=== PATIENT | male | born 1955 | race Hispanic/Latino ===

== ENCOUNTER → 2018-03-16 | Day surgery (SDC) | payer OTHER ==
[2018-03-14 15:25] LABS: BASOPHILS # (AUTO) 0.1 (0.0-0.1); BASOPHILS % 0.7 % (0.0-1.0); EOSINOPHILS # (AUTO) 0.4 (0.0-0.4); EOSINOPHILS % 6.2 % (0.0-6.0); HEMATOCRIT 39.1 % (38.2-49.6); HEMOGLOBIN 13.1 g/dL (14.0-18.0); MEAN CORPUSCULAR HEMOGLOBIN 28.9 pg (28-32); MEAN CORPUSCULAR HGB CONC 33.5 g/dL (31-35); MEAN CORPUSCULAR VOLUME 86.3 fL (81-99); MONOCYTES # (AUTO) 0.5 (0.2-0.8); MONOCYTES % 7.9 % (4.4-11.3); NEUTROPHILS # (AUTO) 4.7 (2.1-6.9); NEUTROPHILS % 70.1 % (38.7-80.0); PLATELET COUNT 198 x10e3/uL (140-360); RED BLOOD COUNT 4.53 x10e6/uL (4.3-5.7); RED CELL DISTRIBUTION WIDTH 13.2 % (11.7-14.4)
[2018-03-14 15:45] LABS: ANION GAP 12.2 mmol/L (8-16); BLOOD UREA NITROGEN 15 mg/dL (7-26); BUN/CREATININE RATIO 20 (6-25); CALCIUM 9.2 mg/dL (8.4-10.2); CARBON DIOXIDE 28 mmol/L (22-29); CHLORIDE 105 mmol/L (98-107); CREATININE, SERUM 0.75 mg/dL (0.72-1.25); EST GLOMERULAR FILTRATION RATE > 60 ML/MIN (60-); GLUCOSE 69 mg/dL (74-118); POTASSIUM 4.2 mmol/L (3.5-5.1); SODIUM 141 mmol/L (136-145)
[~2018-03-16] MED LIST: ACETAMINOPHEN/CODEINE 300MG - 30MG TAB ONE; AVODART0.5 MG PO; AZO PO; AZO1 EACH PO; BELLADONNA/OPIUM 60 MG SUPP PR ONE; CIPRO500 MG PO; DEXAMETHASONE SOD PHOS INJ 4 MG/ML VIAL ONE; FENTANYL CITRATE/PF 100MCG/2 ML INJ ONE; FLOMAX0.4 MG PO; IOPAMIDOL 610MG/1ML 300 MG/ML VIAL IV ONE; LIDOCAINE HCL 2% LOCAL INJ 5 ML SDV VIAL INJ ONE; LOSARTAN POTASS25 MG PO; MIDAZOLAM HCL 2 MG/2 ML VIAL ONE; ONDANSETRON HCL INJ 2 MG/ML VIAL ONE; PIPER-TAZ 3.375 GM 100 ML ONE; PROPOFOL IV EMULSION 10 MG/ML 20 ML VIAL ONE; SEVOFLURANE INHAL SOLN 250 ML PEN BTL ONE
--- NOTE | 2018-03-16 11:44 | Diagnostic Imaging Report ---
PROCEDURE:X-RAY ABDOMEN - KUB COMPARISON:None. INDICATIONS:PREOPERATIVE XRAY FOR KIDNEY STONE SURGERY FINDINGS: One view of the abdomen (AP supine). No dilated loops of bowel or abnormal air-fluid levels patterns. Small calcifications are projected over both kidneys, including a 5 mm calcification in the right lower pole and a 6 mm calcification in the left upper pole. Multiple round calcifications in the pelvis most likely represent phleboliths. CONCLUSION: Small calcifications projected over both kidneys, measuring up to 6 mm, may represent renal stones. Dictated by: Raghavendra Springer M.D. on 03/16/2018 at 11:45 Electronically approved by: Raghavendra Springer M.D. on 03/16/2018 at 11:45
--- NOTE | 2018-05-01 01:21 | Operative Report ---
DATE OF PROCEDURE: March 16, 2018 PREOPERATIVE DIAGNOSES 1. Cystolithiasis. 2. Urinary tract infections. POSTOPERATIVE DIAGNOSES 1. Cystolithiasis. 2. Urinary tract infections. PROCEDURES PERFORMED 1. Cystourethroscopy with bilateral ureteral catheterization and retrograde ureteropyelography (separately performed for the urinary tract infections). 2. Interpretation of retrograde ureteropyelography. 3. Supervision of fluoroscopy. No radiologist present. 4. Cystourethroscopy with cystolitholapaxy of very large stone (separately performed for the diagnosis of cystolithiasis). ANESTHESIA: General. COMPLICATIONS: None. CLINICAL SUMMARY: Collin Barone is a 62-year-old man with cystolithiasis, urinary tract infections. He was brought for the above procedures. He is aware the risks of bleeding, infection, injury to adjacent structures, need for additional procedures and elected to proceed. OPERATIVE PROCEDURE IN DETAIL: Informed consent was verified. Collin Barone was properly identified, taken to operating room, placed on the cystoscopy table in supine position. Anesthesia was uneventfully begun. The patient was then carefully and gently re-positioned in the dorsal lithotomy position with all pressure points well padded. His genitalia were prepared and draped usual sterile fashion. The 22.5-Slovenian cystoscope sheath with visual obturator in place was atraumatically inserted into the patient's urethra. It was guided down the unremarkable urethra down the normal sphincter past the normal sphincteric region through the prostate bed was significant for severely obstructing BPH with trilobar prostatic hypertrophy and an intravesical median lobe. Panendoscopy of the bladder revealed a very large stone. No suspicious lesions were identified. Heavy trabeculations were noted. An 8-Slovenian catheter was used to cannulate each ureter and retrograde ureteral pyelograms were performed. Interpretation of retrograde ureteropyelography: Contrast was instilled in retrograde fashion bilaterally. There was dilation of both distal ureters, as well as tortuosity of both distal ureters. Most likely caused by the severe BPH, which also caused J-hooking. The calyceal system was delicate and sharp. Stone was noted in the left intrarenal collecting system. I could not differentiate the patient's left renal mass by retrograde pyelograms. There was a filling defect within the bladder corresponding to the large prostate indenting in the bladder base and occupying some of the bladder lumen. Holmium laser lithotripsy was then performed. A rather significant amount of lithotripsy was performed until all stone debris was pulverized. We then extracted all stone debris. The cystoscope was withdrawn. The patient's bladder was drained. The catheter was irrigated to and fro to ensure it worked properly in the patient. A belladonna and opium suppository was placed revealing a larger than 50-g prostate smooth, non-fluctuant without any nodules. The patient was uneventfully reversed from anesthesia, was taken to recovery room in stable condition. There were no complications to procedure well. He tolerated the procedure well. Plans will be to perform 3 followup procedures. 1. Transverse resection of prostate. 2. A left ESWL with cystoscopy retrograde, pyelograms for insertion of stent. 3. Left partial nephrectomy. These 3 operations will be performed over the next several months as we continued to manage the patient's complicated urological condition. Job#: [id number] CQ cc:CRISTAL YEPEZ MD
== END | disposition home or self-care (01) ==
LOC: OR 10:53
PROVIDERS: ATTEND Urology
DX: N21.0 Calculus in bladder (principal); D41.01 Neoplasm of uncertain behavior of right kidney; N39.0 Urinary tract infection, site not specified; N32.89 Other specified disorders of bladder; N40.1 Benign prostatic hyperplasia with lower urinary tract symptoms; N13.8 Other obstructive and reflux uropathy; N20.0 Calculus of kidney; R03.0 Elevated blood-pressure reading, without diagnosis of hypertension; R00.1 Bradycardia, unspecified; Z01.812 Encounter for preprocedural laboratory examination
CPT/HCPCS: 36415; 52318; 74018; 74420; 80048; 83970; 84550; 85025; 88300; 93005; C1758; J1100; J2001; J2250; J2405; J2543; Q9967

== ENCOUNTER 2018-03-20 10:41 | Emergency (ER) | payer OTHER ==
[~2018-03-20] VITALS: Ht 170.2 cm; Wt 72.6 kg
[~2018-03-20 10:41] MED LIST changes: -ACETAMINOPHEN/CODEINE 300MG - 30MG TAB ONE; -AVODART0.5 MG PO; -BELLADONNA/OPIUM 60 MG SUPP PR ONE; -DEXAMETHASONE SOD PHOS INJ 4 MG/ML VIAL ONE; -FENTANYL CITRATE/PF 100MCG/2 ML INJ ONE; -FLOMAX0.4 MG PO; -IOPAMIDOL 610MG/1ML 300 MG/ML VIAL IV ONE; -LIDOCAINE HCL 2% LOCAL INJ 5 ML SDV VIAL INJ ONE; -MIDAZOLAM HCL 2 MG/2 ML VIAL ONE; -ONDANSETRON HCL INJ 2 MG/ML VIAL ONE; -PIPER-TAZ 3.375 GM 100 ML ONE; -PROPOFOL IV EMULSION 10 MG/ML 20 ML VIAL ONE; -SEVOFLURANE INHAL SOLN 250 ML PEN BTL ONE
--- OUTSIDE RECORDS SUMMARY | 2018-03-20 10:43 | XMS REPORT ---
[facility] Address Unknown Phone Unavailable Care Team Providers Care Appetizer Packer Name Role Phone CAPRICE EDUARDO Unavailable Unavailable Problems This patient has no known problems. Allergies, Adverse Reactions, Alerts This patient has no known allergies or adverse reactions. Medications This patient has no known medications. Results Test Description Test Time Test Comments Text Results Atomic Results Result Comments ABDOMEN-1VIEW (KUB) [place] [address] Patient Name: MASON LEVI MR #: [id number] : 1955 Age/Sex: 62/M Req #: [id number] Adm Physician: Ordered by: CAPRICE EDUARDO MD Report #: [id number] Location: OR Room/Bed: Procedure: [id number] DX/ABDOMEN-1VIEW (KUB) Exam Date: 03/16/18 Exam Time: 1115 REPORT STATUS: Signed PROCEDURE: X-RAY ABDOMEN - KUB COMPARISON: None. INDICATIONS: PREOPERATIVE XRAY FOR KIDNEY STONE SURGERY FINDINGS: One view of the abdomen (AP supine ). No dilated loops of bowel or abnormal air-fluid levels patterns. Small calcifications are projected over both kidneys, including a 5 mm calcification in the right lower pole and a 6 mm calcification in the left upper pole. Multiple round calcifications in the pelvis most likely represent phleboliths. CONCLUSION: Small calcifications projected over both kidneys, measuring up to 6 mm, may represent renal stones. Dictated by: Tiffany Springer M.D. on 03/16/2018 at 11:45 Electronically approved by: Tiffany Springer M.D. on 03/16/2018 at 11:45 Dictated By: TIFFANY SPRINGER MD [id number] Transcribed By: JOSÉ on 03/16/18 1145 COPY TO: CAPRICE EDUARDO MD
[2018-03-20 12:13] LABS: CLARITY,URINE CLEAR (CLEAR); COLOR,URINE ORANGE (YELLOW); LEUKOCYTE ESTERASE ,URINE TRACE (NEGATIVE); NITRITE,URINE POSITIVE (NEGATIVE); PROTEIN,URINE DIPSTICK 1+ (NEGATIVE)
[2018-03-20 12:14] LABS: BILIRUBIN,URINE NEGATIVE (NEGATIVE); KETONES,URINE NEGATIVE (NEGATIVE); URINE UROBILINOGEN 1 mg/dL (0.2 - 1)
[2018-03-20 12:24] LABS: BACTERIA,URINE FEW /HPF; EPITHELIAL CELLS,URINE RARE /LPF; TRANSITIONAL EPI CELLS,URINE FEW; WBC,URINE (MAN) 21-50 /HPF (0-5)
[2018-03-20] MEDS ORDERED: CEFTRIAXONE SOD 1 GM VIAL IM ONE (13:15)
[2018-03-20] MEDS ORDERED: ACETAMINOPHEN 325 MG TAB PO ONE (16:00)
== END 2018-03-20 16:52 | disposition home or self-care (01) ==
LOC: ER 10:41
DX: N30.01 Acute cystitis with hematuria (principal); R30.0 Dysuria
CPT/HCPCS: 81001; 99283; J0696

== ENCOUNTER 2018-04-18 07:10 | Inpatient (IN) | payer OTHER ==
[~2018-04-18] VITALS: Ht 170.2 cm; Wt 78.9 kg
[~2018-04-18 07:10] MED LIST changes: +AVODART0.5 MG PO; +FLOMAX0.4 MG PO
--- OUTSIDE RECORDS SUMMARY | 2018-04-18 07:13 | XMS REPORT | Continuity of Care Document ---
Author Author [facility] Organization [facility] Address [address] [place] [address] Phone Unavailable Care Team Providers Care Thermostat Mechanic Name Role Phone CRISTAL YEPEZ MD PCP Insurance Providers Guarantor Collin Levi Address [address] [place] [address] Email [email or web address] Payer [facility] Policy Number [id number] Subscriber's Name Levi,Collin Relationship 18 Self / Same As Patient Effective Date 17 Advance Directives Directive Response Recorded Date/Time Does the patient have an advance directive? No 03/14/18 10:42am If yes, is advance directive on file with [facility]? No 03/14/18 10:42am If not on file with [facility] will patient provide a copy? No 03/14/18 10:42am Do you have a Directive to Physician? No 03/20/18 11:37am Do you have a Medical Power of Public Health Doctor? No 03/20/18 11:37am Do you have an out of hospital Do Not Resuscitate Order? No 03/20/18 11:37am Do you have any special needs we should be aware of? No 03/20/18 11:37am Do you have a support person here with you today? Yes 03/20/18 11:37am Did patient receive Notice of Privacy Practices? Yes 03/20/18 11:37am Did patient receive patient rights and responsibilities? Yes 03/20/18 11:37am Problems No problem information available. Medications Current Home Medications Medication Dose Units Route Directions Days Qty Instructions Start Date Azo Oral Daily Ciprofloxacin Hcl (Cipro) 500 Mg Tablet 500 Mg Oral Every 12 Hours 30 Tab Losartan Potassium 25 Mg Tablet 25 Mg Oral Daily Social History Smoking Status Start Date Stop Date Never Smoker Hospital Discharge Instructions No hospital discharge instruction information available. Plan of Care Discharge Date 03/20/18 4:52pm Disposition HOME, SELF-CARE Condition at Discharge Stable Instructions/Education Provided Urinary Tract Infection - Men Forms Provided Work/School Excuse Prescriptions See Medication Section Referrals CAPRICE EDUARDO MD Order Date: Call for an appointment Address: [facility] [place] [address] Note: Call to scheduled follow up appointment in 7-10 days Additional Instructions/Education Call for follow up appointment to see your medical provider or the referral listed. Take over the counter Motrin or Tylenol medication as needed for comfort. discussed at the bedside, drink fluids, rest and return to the emergency department for any fever, shortness of breath, chest pain, abdominal pain, trouble handling oral secretions or any new concerns. Functional Status No functional status information available. Allergies, Adverse Reactions, Alerts No known allergies. Immunizations No immunization information available. Vital Signs Acute Vital Signs Vital Response Date/Time Height 5 ft 7 in 03/20/2018 11:02am Weight 160 lb 03/20/2018 11:02am Body Mass Index 25.1 kg/m^2 03/20/2018 11:02am Results Laboratory Results Test Name Result Units Flags Reference Collection Date/Time Result Date/ Time Comments White Blood Count 6.74 x10e3/uL 4.8-10.8 03/14/2018 3:15pm 03/14/2018 3 :26pm Red Blood Count 4.53 x10e6/uL 4.3-5.7 03/14/2018 3:15pm 03/14/2018 3: 26pm Hemoglobin 13.1 g/dL L 14.0-18.0 03/14/2018 3:15pm 03/14/2018 3:26pm Hematocrit 39.1 % 38.2-49.6 03/14/2018 3:1503/14/2018 3:26pm Mean Corpuscular Volume 86.3 fL 81-99 03/14/2018 3:15pm 03/14/2018 3: 26pm Mean Corpuscular Hemoglobin 28.9 pg 28-32 03/14/2018 3:1503/14/2018 3:26pm Mean Corpuscular Hemoglobin Concent 33.5 g/dL 31-35 03/14/2018 3:1503/14/2018 3:26pm Red Cell Distribution Width 13.2 % 11.7-14.4 03/14/2018 3:2017 3:26pm Platelet Count 198 x10e3/uL 140-360 03/14/2018 3:pm 03/14/2018 3: 26pm Neutrophils (%) (Auto) 70.1 % 38.7-80.0 03/14/2018 3:03/14/2018 3: 26pm Lymphocytes (%) (Auto) 15.0 % L 18.0-39.1 03/14/2018 3:03/14/2018 3 :26pm Monocytes (%) (Auto) 7.9 % 4.4-11.3 03/14/2018 3:03/14/2018 3: 26pm Eosinophils (%) (Auto) 6.2 % H 0.0-6.0 03/14/2018 3:03/14/2018 3: 26pm Basophils (%) (Auto) 0.7 % 0.0-1.0 03/14/2018 3:03/14/2018 3:26pm IM GRANULOCYTES % 0.1 % 0.0-1.0 03/14/2018 3:03/14/2018 3:26pm Neutrophils # (Auto) 4.7 2.1-6.9 03/14/2018 3:03/14/2018 3:26pm Lymphocytes # (Auto) 1.0 1.0-3.2 03/14/2018 3:pm 03/14/2018 3:26pm Monocytes # (Auto) 0.5 0.2-0.8 03/14/2018 3:1503/14/2018 3:26pm Eosinophils # (Auto) 0.4 0.0-0.4 03/14/2018 3:15pm 03/14/2018 3:26pm Basophils # (Auto) 0.1 0.0-0.1 03/14/2018 3:15pm 03/14/2018 3:26pm Absolute Immature Granulocyte (auto 0.01 x10e3/uL 0-0.1 03/14/2018 3: 15pm 03/14/2018 3:26pm Sodium Level 141 mmol/L 136-145 03/14/2018 3:15pm 03/14/2018 3:46pm Potassium Level 4.2 mmol/L 3.5-5.1 03/14/2018 3:15pm 03/14/2018 3:46pm Chloride Level 105 mmol/L 98-107 03/14/2018 3:15pm 03/14/2018 3:46pm Carbon Dioxide Level 28 mmol/L 22-29 03/14/2018 3:15pm 03/14/2018 3: 46pm Anion Gap 12.2 mmol/L 8-16 03/14/2018 3:15pm 03/14/2018 3:46pm Blood Urea Nitrogen 15 mg/dL 7-03/14/2018 3:15pm 03/14/2018 3:46pm Creatinine 0.75 mg/dL 0.72-1.25 03/14/2018 3:15pm 03/14/2018 3:46pm BUN/Creatinine Ratio 20 6-25 03/14/2018 3:15pm 03/14/2018 3:46pm Estimat Glomerular Filtration Rate > 60 ML/MIN 60- 03/14/2018 3:15pm 3:46pm Ranges were taken from the National Kidney Disease Education Program and the National Kidney Foundation literature. Reference ranges: 60 or greater: Normal 16-59 (for 3 consecutive months): Chronic kidney disease 15 or less: Kidney failure Glucose Level 69 mg/dL L 74-118 03/14/2018 3:15pm 03/14/2018 3:46pm Calcium Level 9.2 mg/dL 8.4-10.2 03/14/2018 3:15pm 03/14/2018 3:46pm Uric Acid 5.2 mg/dL 4.8-8.0 03/14/2018 3:15pm 03/14/2018 3:46pm Parathyroid Hormone 21 pg/mL 15-65 03/14/2018 3:15pm 03/15/2018 7:13am Calcium (Send out) 8.7 mg/dL 8.6-10.2 03/14/2018 3:15pm 03/15/2018 7: 13am Parathyroid Hormone Interpretation Comment . 03/14/2018 3:15pm 2017 7:13am Interpretation Intact PTH Calcium (pg/mL) (mg/dL) Normal 15 - 65 8.6 - 10.2 Primary Hyperparathyroidism >65 >10.2 Secondary Hyperparathyroidism >65 <10.2 Non-Parathyroid Hypercalcemia <65 >10.2 Hypoparathyroidism <15 < 8.6 Non-Parathyroid Hypocalcemia 15 - 65 < 8.6 Performed at: - [facility] [address] [id number] Air Bag Builder: John Lucsa MD, Phone: [phone] Performed at: - [facility] [address] [id number] Air Bag Builder: Tony Glover MD, Phone: [phone] Urine Color ORANGE H YELLOW 03/20/2018 12:00pm 03/20/2018 12:15pm Urine Clarity CLEAR CLEAR 03/20/2018 12:00pm 03/20/2018 12:15pm Urine Specific Stoddard 1.010 1.010-1.025 03/20/2018 12:00pm 2017 12:15pm Urine pH 7 5 - 7 03/20/2018 12:00pm 03/20/2018 12:15pm Urine Leukocyte Esterase TRACE H NEGATIVE 03/20/2018 12:00pm 2017 12:15pm Urine Nitrite POSITIVE H NEGATIVE 03/20/2018 12:00pm 03/20/2018 12: 15pm Urine Protein 1+ H NEGATIVE 03/20/2018 12:00pm 03/20/2018 12:15pm Urine Glucose (UA) 1+ H NEGATIVE 03/20/2018 12:00pm 03/20/2018 12: 15pm Urine Ketones NEGATIVE NEGATIVE 03/20/2018 12:00pm 03/20/2018 12: 15pm Urine Urobilinogen 1 mg/dL 0.2 - 1 03/20/2018 12:00pm 03/20/2018 12: 15pm Urine Bilirubin NEGATIVE NEGATIVE 03/20/2018 12:00pm 03/20/2018 12: 15pm Urine Blood 2+ H NEGATIVE 03/20/2018 12:00pm 03/20/2018 12:15pm Urine WBC 21-50 /HPF H 0-5 03/20/2018 12:00pm 03/20/2018 12:25pm Urine RBC 6-10 /HPF H 0-5 03/20/2018 12:00pm 03/20/2018 12:25pm Urine Bacteria FEW /HPF NONE 03/20/2018 12:00pm 03/20/2018 12:25pm Urine Epithelial Cells RARE /LPF NONE 03/20/2018 12:00pm 03/20/2018 12: 25pm Urine Transitional Epithelial Cells FEW NONE 03/20/2018 12:00pm 03/20 12:25pm Procedures Procedure Status Date Provider(s) Cystoscopy with retrograde pyelography Completed 03/16/18 CAPRICE EDUARDO MD Encounters Encounter Location Arrival/Admit Date Discharge/Depart Date Attending Provider Departed Emergency [facility] 03/20/18 10:41am 03/20 4:52pm MELONIE FRANCO MD Registered Surgical Day Care [facility] 03/16/18 10:53am CAPRICE EDUARDO MD
[2018-04-18] MEDS ORDERED: GENTAMICIN 80MG/NS 100 ML 200 ML IV ONE (07:35)
[2018-04-18] MEDS ORDERED: CEFTRIAXONE SOD 1 GM VIAL ONE (07:35)
[2018-04-18] MEDS ORDERED: IOPAMIDOL 610MG/1ML 300 MG/ML VIAL IV ONE (08:07)
[2018-04-18] MEDS ORDERED: BELLADONNA/OPIUM 60 MG SUPP PR ONE ×2 (08:07→23:50)
[2018-04-18] MEDS ORDERED: FENTANYL CITRATE/PF 100MCG/2 ML INJ ONE ×2 (11:13→19:41)
[2018-04-18] MEDS ORDERED: MORPHINE SULFATE INJ 10 MG/ML ONE (12:27)
[2018-04-18 12:36] LABS: HEMATOCRIT 32.1 % (38.2-49.6); HEMOGLOBIN 10.3 g/dL (14.0-18.0)
[2018-04-18] MEDS: ACETAMINOPHEN/CODEINE 300MG - 30MG TAB PO PRN ×3 (14:20→22:43)
[2018-04-18 14:30] VITALS: BP 111/65
[2018-04-18] MEDS ORDERED: LIDOCAINE HCL 2% LOCAL INJ 5 ML SDV VIAL INJ ONE (14:43)
[2018-04-18] MEDS ORDERED: SEVOFLURANE INHAL SOLN 250 ML PEN BTL ONE (14:43)
[2018-04-18] MEDS ORDERED: ONDANSETRON HCL INJ 2 MG/ML VIAL ONE (14:43)
[2018-04-18] MEDS ORDERED: DEXAMETHASONE SOD PHOS INJ 4 MG/ML VIAL ONE (14:43)
[2018-04-18] MEDS ORDERED: PROPOFOL IV EMULSION 10 MG/ML 20 ML VIAL ONE (14:43)
[2018-04-18] MEDS ORDERED: PHENAZOPYRIDINE HCL 100 MG TAB PO PRN (15:00)
[2018-04-18] MEDS: PIPER-TAZ 3.375 GM 50 ML IV SCH ×2 (15:01→22:43)
[2018-04-18] MEDS: D5.45%NS/KCL 20MEQ 1,000 ML IV SCH ×2 (15:02→21:06)
[2018-04-18 15:03] VITALS: BP 111/65
[2018-04-18 15:55] VITALS: BP 127/69
--- NOTE | 2018-04-18 16:55 | History and Physical ---
REASON FOR ADMISSION: Mr. Barone is a pleasant 62-year-old man who is admitted at this time for a transurethral resection of the prostate. HISTORY OF PRESENT ILLNESS: The patient has had recent problems with the urinary tract. He had a Salinas catheter placed in January of 2018 while he was at [facility], but it was later removed. He also had a Salinas catheter placed March 23, 2018. PAST MEDICAL HISTORY: Significant for hypertension. He has had previous urinary tract infections, and he tells me that he had a bladder stone removed by Dr. Qureshi in February of 2018. He denies any other surgeries or any medical problems. His home medications have been Losartan 25 mg daily, Avodart 0.5 mg daily, tamsulosin 0.4 mg daily. PERSONAL AND SOCIAL HISTORY: He does not smoke. FAMILY HISTORY: Both parents in their 80s of myocardial infarctions. REVIEW OF SYSTEMS: CARDIAC: Negative. GASTROINTESTINAL: Negative. PULMONARY: Negative. PHYSICAL EXAMINATION: GENERAL: Exam at this time shows a pleasant man who is relatively comfortable with a Salinas catheter in place with irrigation of the bladder. VITAL SIGNS: He is afebrile, normotensive. HEENT: Unremarkable. NECK: No jugular venous distention. THORAX: Heart sounds S1 and S2 are equal. No murmurs. Lungs are clear. ABDOMEN: Protuberant. Normal bowel sounds. Nontender, with no masses or organomegaly. EXTREMITIES: With no cyanosis, clubbing or edema. LABORATORY: Studies from February showed BUN 15, creatinine 0.75, hemoglobin 13.1, platelets 198,000. Current laboratory studies today show hemoglobin 10.3, hematocrit 32.1 with no platelet count and no other labs. EKG on the chart shows sinus rhythm. ASSESSMENT: 1. Benign prostatic hypertrophy. 2. Transurethral resection of the prostate. 3. Hypertension by history. PLAN: Will continue his home medications, and he is having irrigation of the bladder. Will recheck labs in the morning and assure his comfort with analgesics. Job#: [id number] cc:MD CRISTAL DAVILA MD
[2018-04-18] MEDS: DOCUSATE SODIUM 100 MG CAP PO SCH (17:28)
[2018-04-18] MEDS ORDERED: MIDAZOLAM HCL 2 MG/2 ML VIAL ONE (19:41)
[2018-04-18 20:00] VITALS: BP 151/73
[2018-04-19] VITALS (7 sets, daily range): BP systolic 99–191; BP diastolic 55–90
[2018-04-19] MEDS: BELLADONNA/OPIUM 60 MG SUPP PR PRN ×2 (00:08→07:00)
[2018-04-19] MEDS: ACETAMINOPHEN/CODEINE 300MG - 30MG TAB PO PRN ×4 (04:08→22:13)
[2018-04-19] MEDS: D5.45%NS/KCL 20MEQ 1,000 ML IV SCH ×3 (05:06→20:37)
[2018-04-19 05:25] LABS: BASOPHILS % 0.3 % (0.0-1.0); EOSINOPHILS % 0.2 % (0.0-6.0); HEMATOCRIT 30.7 % (38.2-49.6); HEMOGLOBIN 9.9 g/dL (14.0-18.0); LYMPHOCYTES # (AUTO) 0.9 (1.0-3.2); LYMPHOCYTES % 14.4 % (18.0-39.1); MEAN CORPUSCULAR HEMOGLOBIN 27.7 pg (28-32); MEAN CORPUSCULAR HGB CONC 32.2 g/dL (31-35); MEAN CORPUSCULAR VOLUME 85.8 fL (81-99); MONOCYTES # (AUTO) 0.5 (0.2-0.8); NEUTROPHILS # (AUTO) 4.9 (2.1-6.9); NEUTROPHILS % 76.8 % (38.7-80.0); PLATELET COUNT 142 x10e3/uL (140-360); RED BLOOD COUNT 3.58 x10e6/uL (4.3-5.7); RED CELL DISTRIBUTION WIDTH 13.8 % (11.7-14.4)
[2018-04-19 05:29] LABS: INR 1.08; PROTHROMBIN TIME 13.2 seconds (11.9-14.5)
[2018-04-19 05:30] LABS: PARTIAL THROMBOPLASTIN TIME 28.6 seconds (23.8-35.5)
[2018-04-19] MEDS: PIPER-TAZ 3.375 GM 50 ML IV SCH ×3 (06:03→22:13)
[2018-04-19 06:05] LABS: ALANINE AMINOTRANSFERASE 13 IU/L (0-55); ALBUMIN 2.7 g/dL (3.5-5.0); ALBUMIN/GLOBULIN RATIO 1.1 (0.8-2.0); ALKALINE PHOSPHATASE 53 IU/L (40-150); ANION GAP 9.5 mmol/L (8-16); BLOOD UREA NITROGEN 13 mg/dL (7-26); BUN/CREATININE RATIO 18 (6-25); CALCIUM 8.4 mg/dL (8.4-10.2); CARBON DIOXIDE 26 mmol/L (22-29); CHLORIDE 105 mmol/L (98-107); CREATININE, SERUM 0.74 mg/dL (0.72-1.25); EST GLOMERULAR FILTRATION RATE > 60 ML/MIN (60-); GLUCOSE 121 mg/dL (74-118); POTASSIUM 4.5 mmol/L (3.5-5.1); SODIUM 136 mmol/L (136-145)
[2018-04-19] MEDS ORDERED: BELLADONNA/OPIUM 60 MG SUPP PR ONE (06:44)
[2018-04-19] MEDS: DOCUSATE SODIUM 100 MG CAP PO SCH ×2 (08:41→20:37)
[2018-04-19] MEDS: LOSARTAN POTASSIUM 25 MG TAB PO SCH (09:00)
[2018-04-19] MEDS: BELLADONNA/OPIUM 30 MG SUPP RC PRN ×2 (13:56→20:38)
[2018-04-20] VITALS (7 sets, daily range): BP systolic 111–142; BP diastolic 62–74
[2018-04-20] MEDS: BELLADONNA/OPIUM 30 MG SUPP RC PRN ×4 (03:26→22:21)
[2018-04-20] MEDS: D5.45%NS/KCL 20MEQ 1,000 ML IV SCH ×2 (05:06→08:59)
[2018-04-20 05:14] LABS: BASOPHILS # (AUTO) 0.1 (0.0-0.1); BASOPHILS % 0.7 % (0.0-1.0); EOSINOPHILS # (AUTO) 0.2 (0.0-0.4); EOSINOPHILS % 2.2 % (0.0-6.0); HEMATOCRIT 34.5 % (38.2-49.6); LYMPHOCYTES # (AUTO) 1.4 (1.0-3.2); LYMPHOCYTES % 19.3 % (18.0-39.1); MEAN CORPUSCULAR HEMOGLOBIN 27.5 pg (28-32); MEAN CORPUSCULAR HGB CONC 31.9 g/dL (31-35); MEAN CORPUSCULAR VOLUME 86.3 fL (81-99); MONOCYTES # (AUTO) 0.6 (0.2-0.8); MONOCYTES % 7.5 % (4.4-11.3); NEUTROPHILS # (AUTO) 5.1 (2.1-6.9); PLATELET COUNT 155 x10e3/uL (140-360); RED CELL DISTRIBUTION WIDTH 14.1 % (11.7-14.4)
[2018-04-20 05:29] LABS: ANION GAP 9.2 mmol/L (8-16); BLOOD UREA NITROGEN 9 mg/dL (7-26); BUN/CREATININE RATIO 11 (6-25); CALCIUM 8.8 mg/dL (8.4-10.2); CARBON DIOXIDE 27 mmol/L (22-29); CHLORIDE 104 mmol/L (98-107); CREATININE, SERUM 0.79 mg/dL (0.72-1.25); EST GLOMERULAR FILTRATION RATE > 60 ML/MIN (60-); GLUCOSE 94 mg/dL (74-118); POTASSIUM 4.2 mmol/L (3.5-5.1); SODIUM 136 mmol/L (136-145)
[2018-04-20] MEDS: PIPER-TAZ 3.375 GM 50 ML IV SCH ×3 (06:29→22:21)
[2018-04-20] MEDS: ACETAMINOPHEN/CODEINE 300MG - 30MG TAB PO PRN ×3 (08:09→18:50)
[2018-04-20] MEDS: LOSARTAN POTASSIUM 25 MG TAB PO SCH (08:54)
[2018-04-20] MEDS: DOCUSATE SODIUM 100 MG CAP PO SCH ×2 (08:54→18:50)
[2018-04-20 10:36] LABS: BAND NEUTROPHILS % (MANUAL) 2 %; EOSINOPHILS % (MANUAL) 4 % (0-7); LYMPHOCYTES % (MANUAL) 16 % (19-48); MONOCYTES % (MANUAL) 24 % (3.4-9.0); NEUTROPHILS % (MANUAL) 54 % (40-74)
[2018-04-20 10:37] LABS: ANISOCYTOSIS MODERATE; HYPOCHROMASIA SLIGHT; PLATELET ESTIMATE ADEQUATE; PLATELET MORPHOLOGY COMMENT FEW GIANT; RBC MORPHOLOGY COMMENT NORMAL
[2018-04-21] VITALS: BP 117/68
[2018-04-21] MEDS: ACETAMINOPHEN/CODEINE 300MG - 30MG TAB PO PRN ×2 (03:36→08:52)
[2018-04-21 04:00] VITALS: BP 156/74
[2018-04-21] MEDS: D5.45%NS/KCL 20MEQ 1,000 ML IV SCH ×2 (04:07→05:06)
[2018-04-21] MEDS: PIPER-TAZ 3.375 GM 50 ML IV SCH (06:18)
[2018-04-21 07:05] VITALS: BP 194/93
[2018-04-21 07:17] LABS: BASOPHILS % 0.5 % (0.0-1.0); EOSINOPHILS # (AUTO) 0.2 (0.0-0.4); EOSINOPHILS % 3.6 % (0.0-6.0); HEMOGLOBIN 9.7 g/dL (14.0-18.0); LYMPHOCYTES # (AUTO) 1.3 (1.0-3.2); LYMPHOCYTES % 22.6 % (18.0-39.1); MEAN CORPUSCULAR HEMOGLOBIN 27.6 pg (28-32); MEAN CORPUSCULAR HGB CONC 32.3 g/dL (31-35); MEAN CORPUSCULAR VOLUME 85.2 fL (81-99); MONOCYTES # (AUTO) 0.4 (0.2-0.8); MONOCYTES % 7.5 % (4.4-11.3); NEUTROPHILS # (AUTO) 3.8 (2.1-6.9); NEUTROPHILS % 65.1 % (38.7-80.0); PLATELET COUNT 141 x10e3/uL (140-360); RED BLOOD COUNT 3.52 x10e6/uL (4.3-5.7); RED CELL DISTRIBUTION WIDTH 14.1 % (11.7-14.4)
[2018-04-21 07:19] VITALS: BP 194/93
[2018-04-21 07:38] LABS: ANION GAP 9.7 mmol/L (8-16); BLOOD UREA NITROGEN 6 mg/dL (7-26); BUN/CREATININE RATIO 8 (6-25); CALCIUM 8.6 mg/dL (8.4-10.2); CARBON DIOXIDE 28 mmol/L (22-29); CHLORIDE 106 mmol/L (98-107); CREATININE, SERUM 0.71 mg/dL (0.72-1.25); EST GLOMERULAR FILTRATION RATE > 60 ML/MIN (60-); GLUCOSE 84 mg/dL (74-118); POTASSIUM 3.7 mmol/L (3.5-5.1); SODIUM 140 mmol/L (136-145)
[2018-04-21] MEDS: LOSARTAN POTASSIUM 25 MG TAB PO SCH (08:52)
[2018-04-21] MEDS: DOCUSATE SODIUM 100 MG CAP PO SCH (08:52)
[2018-04-21 11:24] VITALS: BP 112/66
--- NOTE | 2018-04-22 05:13 | Discharge Summary ---
HISTORY OF PRESENT ILLNESS: Mr. Barone is a pleasant 62-year-old man who was admitted on the for benign prostatic hypertrophy and transurethral resection of the prostate. HOSPITAL COURSE: The procedure was performed by Dr. Qureshi successfully with some evidence of bleeding. He was treated with broad-spectrum antibiotics and bladder irrigation catheter. Patient made gradual progress and continued to have some pink urine. His hemoglobin and hematocrit were not significantly changed. Today, the irrigation has been discontinued, and he is feeling better. He is discharged to home to use analgesics and has an indwelling Salinas catheter still. He will follow up with Dr. Qureshi for further management and Dr. Garner on a regular basis. DISCHARGE DIAGNOSES 1. Benign prostatic hypertrophy. 2. Transurethral resection of the prostate. 3. Hypertension. SELENA SMITH MD Job#: [id number] cc:MD CRISTAL DAVILA MD
[2018-05-22] MEDS ORDERED: FERROCITE324 MG PO (11:38)
[2018-05-22] MEDS ORDERED: ACETAMINOPHEN650 M1 PO (11:38)
[2018-05-22] MEDS ORDERED: CIPRO500 MG PO (11:39)
[2018-05-22] MEDS ORDERED: SENNA LAX8.6 MG PO (11:39)
--- NOTE | 2018-06-04 03:03 | Operative Report ---
DATE OF PROCEDURE: April 18, 2018 PREOPERATIVE DIAGNOSES: 1. Obstructive benign prostatic hypertrophy. 2. Urinary tract infections. POSTOPERATIVE DIAGNOSES: 1. Obstructive benign prostatic hypertrophy. 2. Urinary tract infections. OPERATIONS PERFORMED: 1. Cystourethroscopy with bilateral ureteral catheterization and retrograde ureteropyelography (separate procedure performed for the urinary tract infections). 2. Interpretation of retrograde ureteropyelography. 3. Supervision of fluoroscopy, no radiologist present. 4. Cystourethroscopy with transurethral resection of the prostate utilizing the plasma button electrode. ANESTHESIA: General. COMPLICATIONS: None. CLINICAL SUMMARY: Collin Barone is 62-year-old man with complicated urological history. The patient has had history of urinary retention. He has had acute renal failure when Salinas catheter was out. The patient also has had recurrent urinary tract infections and has a 3 cm left renal lesion that is suspicious for cancer. Patient is brought for the above procedures. He is aware of the risks of bleeding, infection, injury to adjacent structures, need for additional procedures, and elected to proceed. OPERATIVE PROCEDURE IN DETAIL: Informed consent was verified. Collin Barone was properly identified, taken to the operating room, and placed on the cystoscopy table in supine position. Anesthesia was uneventfully begun. Patient was then carefully and gently repositioned in the dorsal lithotomy position with all pressure points well padded. His genitalia were prepared and draped in the usual sterile fashion. The 22.5-Peruvian cystoscope sheath with the visual obturator in place was atraumatically inserted in patient's urethra. It was guided down the unremarkable distal urethra, through the normal sphincteric region, through the prostate bed, which exhibited a blood clot within the prostate bed. There was visual obstruction with kissing lateral lobes. Panendoscopy of the urinary bladder revealed a small bladder stone that we evacuated. No suspicious lesions. Heavy trabeculations were noted. Normally positioned and configured ureteral orifices were identified. A ureteral catheter was used to cannulate each ureter, and retrograde ureteral pyelograms were performed. Interpretation of retrograde ureteropyelography: Contrast was instilled in retrograde fashion bilaterally. There were no tumors, no stones, and no diverticula. Unobstructed drainage was observed fluoroscopically. There was tortuosity of both ureters most notably distally. The resectoscope was introduced and we utilized the plasma button electrode to vaporize the prostate from the bladder neck to, but never past the verumontanum and down to the surgical capsule throughout. No perforation was performed. Once we verified good hemostasis, the resectoscope was withdrawn. A Salinas catheter was placed. It was irrigated to and fro to ensure it worked properly. It was placed in continuous bladder irrigation. A belladonna and opium suppository was placed, and the patient was uneventfully reversed from anesthesia and taken to recovery room in stable condition. There were no complications to the procedure. He tolerated the procedure well. Explicit postoperative instructions were given. Will continue to follow the patient. Job#: [id number]
== END 2018-04-21 11:45 | disposition home or self-care (01) | DRG 714 ==
LOC: OR 07:10 → MED/SURG 13:23
PROVIDERS: ADMIT Internal Medicine Cardiovascular Disease; ATTEND Internal Medicine Cardiovascular Disease
PROC: 0T9B80Z Drainage of Bladder with Drainage Device, Via Natural or Artificial Opening Endoscopic (ICD-10-PCS; 2018-04-18)
PROC: BT1B1ZZ Fluoroscopy of Bladder and Urethra using Low Osmolar Contrast (ICD-10-PCS; 2018-04-18)
PROC: 0V508ZZ Destruction of Prostate, Via Natural or Artificial Opening Endoscopic (ICD-10-PCS; principal; 2018-04-18 09:00)
DX: N40.1 Benign prostatic hyperplasia with lower urinary tract symptoms (principal); R33.8 Other retention of urine; N21.0 Calculus in bladder; Z87.442 Personal history of urinary calculi; D41.01 Neoplasm of uncertain behavior of right kidney; R31.0 Gross hematuria; I10 Essential (primary) hypertension; Z87.440 Personal history of urinary (tract) infections
CPT/HCPCS: 36415; 74420; 80048; 80053; 85014; 85018; 85025; 85610; 85730; 86850; 86900; 88300; J0696; J1100; J1580; J2001; J2250; J2270; J2405; J2543

== ENCOUNTER → 2018-05-25 | Day surgery (SDC) | payer OTHER ==
[~2018-05-25] MED LIST changes: +ACETAMINOPHEN650 M1 PO; +BELLADONNA/OPIUM 30 MG SUPP RC ONE; +CEFTRIAXONE SOD 1 GM VIAL ONE; +DEXAMETHASONE SOD PHOS INJ 4 MG/ML VIAL ONE; +FENTANYL CITRATE/PF 100MCG/2 ML INJ ONE; +FERROCITE324 MG PO; +IOPAMIDOL 610MG/1ML 300 MG/ML VIAL IV ONE; +LIDOCAINE HCL 2% LOCAL INJ 5 ML SDV VIAL INJ ONE; +MIDAZOLAM HCL 2 MG/2 ML VIAL ONE; +ONDANSETRON HCL INJ 2 MG/ML VIAL ONE; +PROPOFOL IV EMULSION 10 MG/ML 20 ML VIAL ONE; +SENNA LAX8.6 MG PO; +SEVOFLURANE INHAL SOLN 250 ML PEN BTL ONE
--- NOTE | 2018-05-25 09:12 | Diagnostic Imaging Report ---
PROCEDURE:X-RAY ABDOMEN - KUB COMPARISON:KUB dated 03/16/2018 INDICATIONS:PREOPERATIVE XRAY FOR ESWL SURGERY FINDINGS: Single small calcification overlying the right kidney again noted. Left renal stone not visualized on this study. Pelvic calcifications are compatible with phleboliths. A new calcification near the symphysis pubis may represent a bladder stone measuring 8.4 mm. This was not present on the prior study. There are no dilated loops of bowel to suggest obstruction. There are no masses. There is no evidence of free air. No acute osseous abnormalities are present. Degenerative changes of the spine. CONCLUSION: 1. Small right renal stone 2. Apparent new calcification overlying the pelvis may represent a bladder stone.. Ramu oGrdon D.O. Dictated by: Ramu Gordon D.O. on 05/25/2018 at 9:17 Electronically approved by: Ramu Gordon D.O. on 05/25/2018 at 9:17
--- NOTE | 2018-07-02 05:05 | Operative Report ---
DATE OF PROCEDURE: May 25, 2018 PREOPERATIVE DIAGNOSIS: Left nephrolithiasis. POSTOPERATIVE DIAGNOSIS: Left nephrolithiasis. OPERATIONS PERFORMED 1. Staged left-sided extracorporal shockwave lithotripsy (separate staged procedure unrelated to the patient's previous surgeries). 2. Cystourethroscopy with bilateral ureteral catheterization and retrograde ureteropyelography (separate procedure performed to localize the upper tracts and evaluate them in light of nephrolithiasis). 3. Interpretation of retrograde ureteropyelography. 4. Supervision of fluoroscopy. No radiologist present. ANESTHESIA: General. COMPLICATIONS: None. CLINICAL SUMMARY: Collin Barone is a 62-year-old man who underwent previous surgery. He has a left nephrolithiasis and is brought for the above procedures. He is aware of the risks of bleeding, infection, injury to adjacent structures, need for additional procedures, and elected to proceed. OPERATIVE PROCEDURE IN DETAIL: Informed consent was verified. Mr. Barone was properly identified and taken to the operating room and placed on the lithotripsy table in the supine position. Anesthesia was uneventfully begun. The patient's 5 mm upper caliceal stone was localized with biplanar fluoroscopy. A total 3000 shocks were delivered to the left kidney with excellent fragmentation noted. The patient was then carefully and gently repositioned in the dorsal lithotomy position with all pressure points well-padded. His genitalia were prepared and draped in the usual sterile fashion. The 22.5-Hebrew cystourethroscope sheath with visual obturator in place was atraumatically inserted into the patient's urethra. It was guided down the relatively unremarkable urethra through the normal sphincteric region and through the prostate bed, which was wide open, status post transurethral resection. Panendoscopy of the urinary bladder revealed trabeculations, but no tumors. No stones and no bladder stones were identified. A ureteral catheter was used to cannulate each ureter and retrograde ureteropyelograms were performed. Interpretation of retrograde ureteropyelography. Contrast was instilled in a retrograde fashion bilaterally. There were no tumors, no diverticula or filling defects were noted in the left upper pole corresponding to the region where we performed lithotripsy. There is no hydronephrosis. No suspicious lesions. Unobstructed drainage was observed bilaterally fluoroscopically. The patient's bladder was then drained. Cystoscope was withdrawn. The patient was uneventfully reversed from anesthesia and taken to the recovery room in stable condition. There were no complications to the procedure. He tolerated the procedure well. Explicit postoperative instructions were given. Will follow the patient up in the office. Job#: [id number] OLIVIA
== END | disposition home or self-care (01) ==
LOC: OR 06:54
PROVIDERS: ATTEND Urology
DX: N20.0 Calculus of kidney (principal); N39.0 Urinary tract infection, site not specified; N32.89 Other specified disorders of bladder; I10 Essential (primary) hypertension
CPT/HCPCS: 50590; 74018; J0696; J1100; J2001; J2250; J2405; Q9967

== ENCOUNTER 2020-03-31 17:11 | Inpatient (IN) | payer OTHER ==
[~2020-03-31] VITALS: Ht 170.2 cm; Wt 89.4 kg
[~2020-03-31 17:11] MED LIST changes: -BELLADONNA/OPIUM 30 MG SUPP RC ONE; -CEFTRIAXONE SOD 1 GM VIAL ONE; -DEXAMETHASONE SOD PHOS INJ 4 MG/ML VIAL ONE; +FENOFIBRATE145 MG PO; -FENTANYL CITRATE/PF 100MCG/2 ML INJ ONE; +HYDROCODON-ACE1 EA11 PO; -IOPAMIDOL 610MG/1ML 300 MG/ML VIAL IV ONE; -LIDOCAINE HCL 2% LOCAL INJ 5 ML SDV VIAL INJ ONE; -MIDAZOLAM HCL 2 MG/2 ML VIAL ONE; -ONDANSETRON HCL INJ 2 MG/ML VIAL ONE; -PROPOFOL IV EMULSION 10 MG/ML 20 ML VIAL ONE; -SEVOFLURANE INHAL SOLN 250 ML PEN BTL ONE; +TRIBENZOR 40-51 EACH PO
[2020-03-31 18:41] LABS: BASOPHILS % 0.2 % (0.0-1.0); EOSINOPHILS % 0.1 % (0.0-6.0); HEMATOCRIT 44.1 % (38.2-49.6); HEMOGLOBIN 14.6 g/dL (14.0-18.0); LYMPHOCYTES # (AUTO) 0.7 (1.0-3.2); LYMPHOCYTES % 4.8 % (18.0-39.1); MEAN CORPUSCULAR HEMOGLOBIN 27.6 pg (28-32); MEAN CORPUSCULAR HGB CONC 33.1 g/dL (31-35); MEAN CORPUSCULAR VOLUME 83.4 fL (81-99); MONOCYTES # (AUTO) 0.8 (0.2-0.8); MONOCYTES % 5.6 % (4.4-11.3); PLATELET COUNT 209 x10e3/uL (140-360); RED BLOOD COUNT 5.29 x10e6/uL (4.3-5.7); RED CELL DISTRIBUTION WIDTH 13.6 % (11.7-14.4)
[2020-03-31 18:54] LABS: ALBUMIN 3.3 g/dL (3.5-5.0); ALBUMIN/GLOBULIN RATIO 0.9 (0.8-2.0); ANION GAP 19.5 mmol/L (8-16); CALCIUM 9.9 mg/dL (8.4-10.2); CREATININE, SERUM 1.59 mg/dL (0.72-1.25); POTASSIUM 5.5 mmol/L (3.5-5.1)
--- NOTE | 2020-03-31 19:16 | NUR ---
report received from sofia moore
--- NOTE | 2020-03-31 19:19 | Emergency Department Note ---
History of Present Illnes History of Present Illness Chief Complaint: Abdominal Complaints Stated Complaint: ABD PAIN (SIDE) History of Present Illness This is a 64 year old male 4 day h/o of abd pain with n/v. Schedualed surgery for nephrectomy by mary . Historian: Patient History limited by: language barrier Technical Support Assistant Required: Yes Onset (how long ago): day(s) (4) Radiation: non-radiation Severity: moderate (4) Duration (how long): day(s) Timing of current episode: intermittent Progression: worsening Chronicity: recurrent Relieving factors: none Exacerbating factors: none Associated symptoms: nausea/vomiting Treatments prior to arrival: none Past Medical/Family History Physician Review I have reviewed the patient's past medical and family history. Any updates have been documented here. Past Medical History Recent Fever: No Clinical Suspicion of Infectio: Yes New/Unexplained Change in Ment: No Past Medical History: Hypertension, Cancer Other Medical History: kidney tumors Other Surgery: BLADDER STONE Social History Smoking Cessation: Never Smoker Counseling Performed: No Alcohol Use: Occasional Any Illegal Drug Use: No TB Exposure/Symptoms: No Physically hurt or threatened: No Other Last Tetanus: UNK Any Pre-Existing Lines (PICC,: No Is patient up to date on immun: Yes Last Flu: utd Last Pneumovax: utd Review of Systems Review of Systems Constitutional: no symptoms EENTM: no symptoms Cardiovascular: no symptoms Respiratory: no symptoms Gastrointestinal: abdominal pain, nausea, vomiting Genitourinary: no symptoms Musculoskeletal: no symptoms Integumentary: no symptoms Neurological: no symptoms Psychological: no symptoms Endocrine: no symptoms Hematological/Lymphatic: no symptoms Review of other systems All other systems reviewed and negative. Physical Exam Related Data Allergies: Coded Allergies: No Known Allergies (Unverified , 03/15/18) Triage Vital Signs Vital Signs Date Time Temp Pulse Resp B/P (MAP) Pulse Ox O2 Delivery O2 Flow Rate FiO2 03/31/20 17:23 97.6 96 18 109/86 96 Physical Exam CONSTITUTIONAL Constitutional: well-developed, cachectic HENT HENT: normocephalic, atraumatic, oropharynx clear/moist, nose normal HENT - Ear: left ext ear normal, right ext ear normal EYES Eyes: PERRL, conjunctivae normal NECK Neck: ROM normal PULMONARY Pulmonary: effort normal, breath sounds normal CARDIOVASCULAR Cardiovascular: regular rhythm, heart sounds normal, capillary refill normal, normal rate GASTROINTESTINAL Abdominal: soft, distension, tender GENITOURINARY Genitourinary: exam deferred SKIN Skin: warm, dry MUSCULOSKELETAL Musculoskeletal: ROM normal NEUROLOGICAL Neurological: alert, oriented x 3, no gross motor or sensory deficits PSYCHOLOGICAL Psychiatric/behavioral: mood/affect normal, judgement normal Results Laboratory Result Diagram: 03/31/20 1725 03/31/20 1725 Laboratory Laboratory Tests Test 03/31/20 17:25 White Blood Count 13.46 x10e3/uL (4.8-10.8) Red Blood Count 5.29 x10e6/uL (4.3-5.7) Hemoglobin 14.6 g/dL (14.0-18.0) Hematocrit 44.1 % (38.2-49.6) Mean Corpuscular Volume 83.4 fL (81-99) Mean Corpuscular Hemoglobin 27.6 pg (28-32) Mean Corpuscular Hemoglobin Concent 33.1 g/dL (31-35) Red Cell Distribution Width 13.6 % (11.7-14.4) Platelet Count 209 x10e3/uL (140-360) Neutrophils (%) (Auto) 89.0 % (38.7-80.0) Lymphocytes (%) (Auto) 4.8 % (18.0-39.1) Monocytes (%) (Auto) 5.6 % (4.4-11.3) Eosinophils (%) (Auto) 0.1 % (0.0-6.0) Basophils (%) (Auto) 0.2 % (0.0-1.0) Neutrophils # (Auto) 12.0 (2.1-6.9) Lymphocytes # (Auto) 0.7 (1.0-3.2) Monocytes # (Auto) 0.8 (0.2-0.8) Eosinophils # (Auto) 0.0 (0.0-0.4) Basophils # (Auto) 0.0 (0.0-0.1) Absolute Immature Granulocyte (auto 0.04 x10e3/uL (0-0.1) Sodium Level 129 mmol/L (136-145) Potassium Level 5.5 mmol/L (3.5-5.1) Chloride Level 90 mmol/L (98-107) Carbon Dioxide Level 25 mmol/L (22-29) Anion Gap 19.5 mmol/L (8-16) Blood Urea Nitrogen 66 mg/dL (7-26) Creatinine 1.59 mg/dL (0.72-1.25) Estimat Glomerular Filtration Rate 44 ML/MIN (60-) BUN/Creatinine Ratio 42 (6-25) Glucose Level 96 mg/dL (74-118) Calcium Level 9.9 mg/dL (8.4-10.2) Total Bilirubin 0.6 mg/dL (0.2-1.2) Aspartate Amino Transf (AST/SGOT) 19 IU/L (5-34) Alanine Aminotransferase (ALT/SGPT) 8 IU/L (0-55) Alkaline Phosphatase 86 IU/L (40-150) Total Protein 7.0 g/dL (6.5-8.1) Albumin 3.3 g/dL (3.5-5.0) Globulin 3.7 g/dL (2.3-3.5) Albumin/Globulin Ratio 0.9 (0.8-2.0) Assessment & Plan Assessment & Plan Problems: (1) Retroperitoneal mass (2) Hyperkalemia (3) Hyponatremia (4) Renal insufficiency Assessment & Plan Patient with abd of [address] Sullivan consulted and discussed plan. Admit to the medicine service. Depart Disposition: ADMITTED Last Vital Signs Date Time Temp Pulse Resp B/P (MAP) Pulse Ox O2 Delivery O2 Flow Rate FiO2 03/31/20 17:23 97.6 96 18 109/86 96 Home Meds Reported Medications Acetaminophen With Codeine (TYLENOL WITH CODEINE #3 TABLET) 1 Each Tablet, 300 MG PO Q4HR PRN for MODERATE PAIN (4-6), TAB 04/01/20 Fenofibrate Nanocrystallized (FENOFIBRATE) 145 Mg Tablet, 160 MG PO DAILY 03/31/20 Olmesartan Med/Amlodipine/Hctz (TRIBENZOR 40-5-12.5 MG TABLET) 1 Each Tablet, 1 TAB PO DAILY 03/31/20 Discontinued Reported Medications Hydrocodone Bit/Acetaminophen (HYDROCODON-ACETAMINOPHEN 5-325) 1 Each Tablet, 1 TAB PO PRN 03/31/20 Sennosides (SENNA LAX) 8.6 Mg Tablet, 1 TAB PO PRN 05/22/18 Ciprofloxacin Hcl (CIPRO) 500 Mg Tablet, 500 MG PO Q12H, #30 TAB 05/22/18 Acetaminophen (ACETAMINOPHEN) 650 Mg Tablet, 650 MG PO PRN 05/22/18 Ferrous Fumarate (FERROCITE) 324 Mg Tablet, 1 TAB PO BID 05/22/18 Losartan Potassium (LOSARTAN POTASSIUM) 25 Mg Tablet, 25 MG PO DAILY 03/15/18 ROSARIO LEVI DO March 31, 2020 19:19
[2020-03-31] MEDS ORDERED: SODIUM CHLORIDE 0.9% 1000ML 1,000 ML IV STA (19:35)
[2020-03-31] MEDS ORDERED: SODIUM CHLORIDE 0.9% 1000ML 1,000 ML IV SCH (20:15)
[2020-03-31 20:28] LABS: CREATINE KINASE MB 1.2 ng/mL (0-5.0)
[2020-03-31] MEDS ORDERED: METHYLPREDNISOLONE SOD SUCC 40 MG/ML VIAL 1ML IV SCH (21:00)
[2020-03-31] MEDS ORDERED: PIPER-TAZ 3.375 GM 50 ML IV SCH ×2 (21:00→23:30)
[2020-03-31] MEDS: MORPHINE SULFATE INJ 4 MG/ML INJ 1ML IV PRN (21:41)
--- OUTSIDE RECORDS SUMMARY | 2020-03-31 22:44 | XMS REPORT ---
Author Author [facility] t Organization [facility] Address [address] [place] [place] [address] Phone Unavailable Care Team Providers Care Product Management Manager Name Role Phone LUCHO BUITRAGO, John BEE PCP CAPRICE EDUARDO Unavailable Payers Payer Name Policy Type Policy Number Effective Date Expiration Date Whit siu [facility]ly [facility] [id number] 2017 00:00:00 [facility] [id number] 2017 00:00:00 [facility] Problems This patient has no known problems. Allergies, Adverse Reactions, Alerts Allergy Name Allergy Type Status Severity Reaction(s) Onset Date Inacti ve Date Treating Clinician Comments Source No Known Allergies DA Active U 2018-02-14 00:00:00 [facility] Medications Ordered Medication Name Filled Medication Name Start Date Stop Da te Current Medication? Ordering Clinician Indication Dosage Frequency Signature (SIG) Comments Components Source Dutasteride (Avodart) 0.5 Mg Capsule Dutasteride (Avodart) 0.5 Mg C apsule Yes .5 Daily [facility] Losartan Potassium 25 Mg Tablet Losartan Potassium 25 Mg Tablet Yes 25 Daily [facility] Tamsulosin Hcl (Flomax*) 0.4 Mg Cap Tamsulosin Hcl (Flomax*) 0.4 Mg C ap Yes .4 Daily [facility] Azo , Oral Azo , Oral 2018-04-17 00:00:00 No Daily [facility] Ciprofloxacin Hcl (Cipro) 500 Mg Tablet, 500 Mg Oral C iprofloxacin Hcl (Cipro) 500 Mg Tablet, 500 Mg Oral 2018-04-17 00:00:00 No 500 Every 12 Hours [facility] Procedures Procedure Date / Time Performed Performing [facility]ician [facility] (transurethral resection of prostate) 2018-04-18 00:00:00 [facility] Cystoscopy with retrograde pyelography 2018-03-16 00:00:00 JUD [facility] Encounters Start Date/Time End Date/Time Encounter Type Admission Type Attendi RUST Care Department Encounter ID Source 2018-04-18 13:23:00 2018-04-21 11:45:00 Discharged Inpatient [facility] [id number] [facility] 2018-03-20 10:41:00 2018-03-20 16:52:00 Departed Emergency Room [facility] [id number] [facility] 2018-03-16 10:53:00 2018-03-16 10:53:00 Registered Surgical Day Car dharmesh HANEY JAYCE [facility] [id number] [facility] Results Test Description Test Time Test Comments Results Result Comments Source - CT ABD PELVIS W/CONT 2020-03-27 09:18:00 Colin e: MASON LEVI [facility] : 1955 Age/S: 64 / M [address] [facility] Unit #: [id number] Loc: [place] [address] Phys: Adams Sullivan MD Acct: [id number] Dis Date: Status: REG CLI PHONE #: [phone] Exam Date: 03/27/2020 0839 FAX #: [phone] Reason: . EXAMS: CPT CODE: [id number] CT ABD PELVIS W/CONT 33088 REASON FOR EXAM: Mass EXAM ORDER DATE: 03/27/2020 8:18 AM Ordering M.D.: Adams Sullivan MD PROCEDURE: Axial CT images were acquired through the abdomen/pelvis at 5 mm intervals. Sagittal and coronal reformatted images were generated. Automated exposure control was utilized for this reduction. Phases of contrast: venous and delayed COMPARISON: CT abdomen and pelvis March 25, 2018 FINDINGS: Visualized thorax: There is subsegmental atelectasis in the lung bases. Small pleural effusions are also present bilaterally Hepatobiliary system: The inferior margin of the liver contacts a large primarily cystic right-sided retroperitoneal mass. There is an enhancing nodule (2/43) measuring up to 2.3 cm in size and it is unclear whether this nodule arises from the liver or from this mass. Pancreas: Normal Spleen: Subcentimeter hypodense lesions are present in the splenic parenchyma. These are too small to characterize. Adrenal glands: Normal Genitourinary system: There is a complex mass arising from the inferior pole of the left kidney. This mass measures up to 15.2 x 17.7 x 22.1 cm in size and demonstrates enhancing solid components as well as cystic components. This mass appears to be inseparable from the proximal portion of the left psoas muscle. A smaller partly calcified cystic and solid mass is seen arising from the cortex of the midpole of the left kidney. There is also a primarily cystic mass with enhancing solid nodules that is located in the right retroperitoneal space and contacts both the kidney and the liver. The prostate gland is also markedly enlarged. The left ureter is not clearly visualized on delayed imaging and there is hydronephrosis of the left kidney PAGE 1 Signed Report (CONTINUED) [facility] 1955 [facility]S: 64 / [facility] [address] [facility] [id number] [place]: [place] [address] Phys: Adams Sullivan MD Acct: [id number] Dis Date: Status: REG CLI PHONE #: [phone] Exam Date: 03/27/2020838 FAX #: [phone] Reason: . EXAMS: CPT CODE: [id number] CT ABD PELVIS W/CONT 22147 <Continued> Gastrointestinal tract and appendix: The small and large bowel are displaced anteriorly and toward the midline by the retroperitoneal masses as described above. However these masses do not appear to contact the bowel. There is diverticulosis of the sigmoid colon without evidence of diverticulitis Abdominal vascular structures: Mild atherosclerotic calcifications are seen in the abdominal aorta. The renal veins are patent and no abnormal filling defects are seen in the suprarenal IVC. The infrarenal IVC is compressed. Both the aorta and IVC are displaced toward the left by the left-sided retroperitoneal mass. Additionally there is a short segment of the infrarenal abdominal aorta measuring 5.5 cm in size that appears to contact this mass. The left common and external iliac arteries also contact the left retroperitoneal mass Peritoneum and retroperitoneum: Complex cystic and solid mass in the bilateral retroperitoneal spaces as described above. No free fluid or free air is seen. No aortocaval adenopathy is appreciated. Musculoskeletal structures and abdominal wall: There are degenerative changes in the spine. No aggressive appearing bony lesions are appreciated. As stated above the proximal portion of the left psoas muscle is indistinguishable from the ipsilateral retroperitoneal mass IMPRESSION: Malignant appearing complex renal lesions bilaterally. The larger left renal lesion appears to invade the ipsilateral psoas muscle and also appears to contact a short segment of the abdominal aorta and also the left common and external iliac arteries. The right renal lesion contacts the inferior margin of the liver. Invasion cannot be excluded. No aggressive appearing bony lesions. Subcentimeter splenic lesions are too small to characterize. Location: [facility] at 0918 Reported and signed by: Toñito Irving MD PAGE 2 Signed Report (CONTINUED) Name: MASON LEVI [facility] : 1955 Age/S: 64 / M [address] Unit #: [id number] Loc: [place] [address] Phys: Adams Sullivan MD Acct: [id number] Dis Date: Status: REG CLI PHONE #: [phone] Exam Date: 03/27/2020 0839 FAX #: [phone] Reason: . EXAMS: CPT CODE: [id number] CT ABD PELVIS W/CONT 18061 <Continued> CC: Hernan Ordaz MD Technologist:Cash Cooley RT(R),(MR),(CT); CTDI: DLP: Trnscb Date/Time: 03/27/2020 (917) [email or web address] Orig Print D/T: S: 03/27/2020 (15) PAGE 3 Signed Report CREATININE W ESTIMATED GFR 2020-03-27 08:13:00 Test Item BEDSIDE CREATININE (test code = CREATBED) mg/dL 0.7-1.3 N GLOMERULAR FILTRATION RATE POC (test code = GFRBED) 91 >6 0 H CREATININE W ESTIMATED PAF5215-05-73 08:13:00* Test Item Value Reference Range Interpretation Comments BEDSIDE CREATININE (test code = CREATBED) 0.85 mg/dL 0.7-1.3 N GLOMERULAR FILTRATION RATE POC (test code = GFRBED) > 60 >6 0 H Previously reported result: 91 Edited by: JOSÉ on 03/27/20:94516003/27/20 0813: GFRBED previously reported as: 91 H ABDOMEN-1VIEW (KUB)2018-05-25 09:17:00 [place] [address] Patient Name: MASON LEVI MR #: [id number] : 1955 Age/Sex: 62/M Req #: [id number] Adm Physician: Ordered by: CAPRICE EDUARDO MD Report #: [id number] Location: OR Room/Bed: Procedure: [id number] DX/ABDOMEN-1VIEW (KUB) Exam Date : 05/25/18 Exam Time: 0835 REPORT STATUS: Ester d PROCEDURE: X-RAY ABDOMEN - KUB COMPARISON: KUB dated 03/16/2018 INDICATIONS: PREOPERATIVE XRAY FOR ESWL SURGERY FINDINGS: S val small calcification overlying the right kidney again noted. Left renal stone not visualized on this study. Pelvic calcifications are compatible with phleboliths. A new calcification near the symphysis pubis may represent a bl adder stone measuring 8.4 mm. This was not present on the prior study. There are no dilated loops of bowel to suggest obstruction. There are no masses. There is no evidence of free air. No acute osseous abnormalities are present. Degenerative changes of the spine. CONCLUSION: 1. Small right renal stone 2. Apparent new calcification overlying the pelvis may represent a bladder stone.. Ramu Morales D.O. Dictated by: Ramu owen D.O. on 05/25/2018 at 9:17 Electronically approved by: Ramu Morales D.O. on 05/25/2018 at 9:17 Dictated By: RAMU MORALES DO El ectronically Signed By: RAMU MORALES DO on 05/25/18 09 Transcribed By: JOSÉ on 05/25/18 0917 COPY TO: CAPRICE EDUARDO MD Sodium Ojkus0692-93-18 07:47:00* Test Item Value Reference Range Interpretation Comments Sodium Level (test code = 2951-2) 140 136-145 [facility]assium Awfgr0120-11-85 07:47:00* Test Item Value Reference Range Interpretation Comments Potassium Level (test code = 2823-3) 3.7 3.5-5.1 [facility]roeChloride Lhndk2112-88-35 07:47:00* Test Item Value Reference Range Interpretation Comments Chloride Level (test code = 2075-0) 106 98-107 [facility]roeCarbon Dioxide Qwpvy1270-46-36 07:47:00* Test Item Value Reference Range Interpretation Comments Carbon Dioxide Level (test code = 2028-9) 28 22-29 [facility]roeAnion Cuu6322-00-08 07:47:00* Test Item Value Reference Range Interpretation Comments Anion Gap (test code = 87301-3) 9.7 8-16 [facility]roeBlood Urea Knhyorhu0306-53-56 07:47:00* Test Item Value Reference Range Interpretation Comments Blood Urea Nitrogen (test code = 3094-0) 6 7-26 [facility]roeCreatinine2018-06-02 07:47:00* Test Item Value Reference Range Interpretation Comments Creatinine (test code = 2160-0) 0.71 0.72-1.25 [facility]roeBUN/Creatinine Jqpcq3051-28-77 07:47:00* Test Item Value Reference Range Interpretation Comments BUN/Creatinine Ratio (test code = 3097-3) 8 05-14 [facility]roeEstimat Glomerular Filtration Rate 2018-04-21 07:47:00* Test Item Value Reference Range Interpretation Comments Estimat Glomerular Filtration Rate (test code = 52097-7) 60- >60 Ranges were taken from the National Kidney Disease Education Program and the [facility] Kidney Foundation literature.Reference ranges:60 or greater: Kxvkoq65-94 ( for 3 consecutive months): Chronic kidney disease 15 or less: Kidney failureHCA [facility] Healthcare ConroeGlucose Mqbpn5087-24-38 07:47:00* Test Item Value Reference Range Interpretation Comments Glucose Level (test code = YGT7915) 84 74-118 [facility]roeCalcium Ikggy1725-32-82 07:47:00* Test Item Value Reference Range Interpretation Comments Calcium Level (test code = 15806-2) 8.6 8.4-10.2 [facility]roeWhite Blood Zpqze2026-02-30 07:20:00* Test Item Value Reference Range Interpretation Comments White Blood Count (test code = 6690-2) 5.85 4.8-10.8 [facility]roeRed Blood Hsfaa7594-13-37 07:20:00* Test Item Value Reference Range Interpretation Comments Red Blood Count (test code = 789-8) 3.52 4.3-5.7 [facility]roeHemoglobin2018-06-02 07:20:00* Test Item Value Reference Range Interpretation Comments Hemoglobin (test code = 80975-1) 9.7 14.0-18.0 [facility]roeHematocrit2018-06-02 07:20:00* Test Item Value Reference Range Interpretation Comments Hematocrit (test code = 4544-3) 30.0 38.2-49.6 [facility] ConroeMean Corpuscular Qkmtuh0898-13-96 07:20:00* Test Item Value Reference Range Interpretation Comments Mean Corpuscular Volume (test code = 787-2) 85.2 81-99 [facility]roeMean Corpuscular Mbjxbwoxtq1040-61-98 07:20:00* Test Item Value Reference Range Interpretation Comments Mean Corpuscular Hemoglobin (test code = 785-6) 27.6 28-32 [facility] Corp[facility] Hemoglobin Concent 2018-04-21 07:20:00* Test Item Value Reference Range Interpretation Comments Mean Corpuscular Hemoglobin Concent (test code = 786-4) 32.3 31-35 [facility]roeRed Cell Distribution Swbup8036-93-13 07:20:00* Test Item Value Reference Range Interpretation Comments Red Cell Distribution Width (test code = 11807-3) 14.1 11.7 -14.4 [facility] ConroePlatelet Kcnxp1981-35-45 07:20:00* Test Item Value Reference Range Interpretation Comments Platelet Count (test code = 777-3) 141 140-360 [facility]roeNeutrophils (%) (Auto)2018-04-21 07:20:00 * Test Item Value Reference Range Interpretation Comments Neutrophils (%) (Auto) (test code = 91082-7) 65.1 38.7-80.0 [facility]roeLymphocytes (%) (Auto)2018-04-21 07:20:00 * Test Item Value Reference Range Interpretation Comments Lymphocytes (%) (Auto) (test code = 736-9) 22.6 18.0-39.1 [facility]roeMonocytes (%) (Auto)2018-04-21 07:20:00* Test Item Value Reference Range Interpretation Comments Monocytes (%) (Auto) (test code = 5905-5) 7.5 4.4-11.3 [facility]roeEosinophils (%) (Auto)2018-04-21 07:20:00 * Test Item Value Reference Range Interpretation Comments Eosinophils (%) (Auto) (test code = 713-8) 3.6 0.0-6.0 [facility]roeBasophils (%) (Auto)2018-04-21 07:20:00* Test Item Value Reference Range Interpretation Comments Basophils (%) (Auto) (test code = 706-2) 0.5 0.0-1.0 [facility]roeIM GRANULOCYTES %2018-04-21 07:20:00* Test Item Value Reference Range Interpretation Comments IM GRANULOCYTES % (test code = IM GRANULOCYTES %) 0.7 0.0- 1.0 [facility]roeNeutrophils # (Auto)2018-04-21 07:20:00* Test Item Value Reference Range Interpretation Comments Neutrophils # (Auto) (test code = 751-8) 3.8 2.1-6.9 [facility]roeLymphocytes # (Auto)2018-04-21 07:20:00* Test Item Value Reference Range Interpretation Comments Lymphocytes # (Auto) (test code = 67668-5) 1.3 1.0-3.2 [facility]roeMonocytes # (Auto)2018-04-21 07:20:00* Test Item Value Reference Range Interpretation Comments Monocytes # (Auto) (test code = 742-7) 0.4 0.2-0.8 [facility]roeEosinophils # (Auto)2018-04-21 07:20:00* Test Item Value Reference Range Interpretation Comments Eosinophils # (Auto) (test code = 711-2) 0.2 0.0-0.4 [facility]roeBasophils # (Auto)2018-04-21 07:20:00* Test Item Value Reference Range Interpretation Comments Basophils # (Auto) (test code = 704-7) 0.0 0.0-0.1 [facility] ConroeAbsolute Immature Granulocyte (auto 2018-04-21 07:20:00* Test Item Value Reference Range Interpretation Comments Absolute Immature Granulocyte (auto (irais t code = Absolute Immature Granulocyte (auto) 0.04 0-0.1 [facility] ConroeDifferential Total Cells Counted 2018-04-20 10:37:00* Test Item Value Reference Range Interpretation Comments Differential Total Cells Counted (test code = Differen tial Total Cells Counted) 100 [facility]roeNeutrophils % (Manual)2018-04-20 10:37:00 * Test Item Value Reference Range Interpretation Comments Neutrophils % (Manual) (test code = 01906-0) 54 40-74 [facility] ConroeBand Neutrophils %2018-04-20 10:37:00* Test Item Value Reference Range Interpretation Comments Band Neutrophils % (test code = 764-1) 2 [facility]roeLymphocytes % (Manual)2018-04-20 10:37:00 * Test Item Value Reference Range Interpretation Comments Lymphocytes % (Manual) (test code = 737-7) 16 19-48 [facility]roeMonocytes % (Manual)2018-04-20 10:37:00* Test Item Value Reference Range Interpretation Comments Monocytes % (Manual) (test code = 744-3) 24 3.4-9.0 [facility]roeEosinophils % (Manual)2018-04-20 10:37:00 * Test Item Value Reference Range Interpretation Comments Eosinophils % (Manual) (test code = 714-6) 4 0-7 [facility] ConroePlatelet Dxpxcepk7020-29-87 10:37:00* Test Item Value Reference Range Interpretation Comments Platelet Estimate (test code = 97138-7) ADEQUATE [facility] ConroePlatelet Morphology Wqnnqwj2606-53-15 10:37:00* Test Item Value Reference Range Interpretation Comments Platelet Morphology Comment (test code = 03685-9) FEW GIANT [facility] ConroeHypochromasia2018-06-01 10:37:00* Test Item Value Reference Range Interpretation Comments Hypochromasia (test code = 728-6) SLIGHT [facility] ConroeAnisocytosis2018-06-01 10:37:00* Test Item Value Reference Range Interpretation Comments Anisocytosis (test code = 702-1) MODERATE [facility] ConroeRed Cell Morphology Wejbpcy5512-40-31 10:37:00* Test Item Value Reference Range Interpretation Comments Red Cell Morphology Comment (test code = 6742-1) NORMAL [facility] ConroeTotal Zxyvfkyol6789-51-20 06:06:00* Test Item Value Reference Range Interpretation Comments Total Bilirubin (test code = 1975-2) 0.4 0.2-1.2 [facility] ConroeAspartate Amino Transf (AST/SGOT) 2018-04-19 06:06:00* Test Item Value Reference Range Interpretation Comments Aspartate Amino Transf (AST/SGOT) (test code = Aspartate Amino Transf (AST/SGOT)) 17 5-34 [facility] ConroeAlanine Aminotransferase (ALT/SGPT) 2018-04-19 06:06:00* Test Item Value Reference Range Interpretation Comments Alanine Aminotransferase (ALT/SGPT) (test code = 1742-6) 13 0-55 [facility] ConroeTotal Idijxqa2288-07-48 06:06:00* Test Item Value Reference Range Interpretation Comments Total Protein (test code = 2885-2) 5.2 6.5-8.1 [facility] ConroeAlbumin2018-05-31 06:06:00* Test Item Value Reference Range Interpretation Comments Albumin (test code = 1751-7) 2.7 3.5-5.0 [facility]roeGlobulin2018-05-31 06:06:00* Test Item Value Reference Range Interpretation Comments Globulin (test code = 21111-4) 2.5 2.3-3.5 [facility]roeAlbumin/Globulin Tqhid3722-60-82 06:06:00 * Test Item Value Reference Range Interpretation Comments Albumin/Globulin Ratio (test code = 1759-0) 1.1 0.8-2.0 [facility]roeAlkaline Rouzsylavyu5838-69-22 06:06:00* Test Item Value Reference Range Interpretation Comments Alkaline Phosphatase (test code = 6768-6) 53 40-150 [facility]roeProthrombin Jbxy0097-76-58 05:31:00* Test Item Value Reference Range Interpretation Comments Prothrombin Time (test code = 5902-2) 13.2 11.9-14.5 [facility]roeProthromb Time International Ratio 2018-04-19 05:31:00* Test Item Value Reference Range Interpretation Comments Prothromb Time International Ratio (test code = 6301-6) 1.08 Oral Anticoagulant Therapy INR Values:1. Low Intensity Therapy 1.5 - 2.02 . Moderate Intensity Therapy 2.0 - 3.03. High Intensity Therapy(1) 2.5 - 3. 54. High Intensity Therapy(2) 3.0 - 4.05. Panic Value INR > 5.0 [facility] ConroeActivated Partial Thromboplast Time 2018-04-19 05:31:00* Test Item Value Reference Range Interpretation Comments Activated Partial Thromboplast Time (test code = 07433-2) 28.6 23.8-35.5 [facility]roeUrine KJX0270-56-55 12:25:00* Test Item Value Reference Range Interpretation Comments Urine WBC (test code = 5821-4) 21-50 0-5 [facility] ConroeUrine STG1206-63-81 12:25:00* Test Item Value Reference Range Interpretation Comments Urine RBC (test code = 99008-1) 6-10 0-5 [facility]roeUrine Geuyjnbc0256-49-42 12:25:00* Test Item Value Reference Range Interpretation Comments Urine Bacteria (test code = 22806-8) FEW NONE [facility] ConroeUrine Epithelial Lxrlh6848-49-97 12:25:00 * Test Item Value Reference Range Interpretation Comments Urine Epithelial Cells (test code = 88210-4) RARE NONE [facility] ConroeUrine Transitional Epithelial Cells 2018-03-20 12:25:00* Test Item Value Reference Range Interpretation Comments Urine Transitional Epithelial Cells (test code = 8249-5) FEW NONE [facility] ConroeUrine Iypic5605-94-30 12:15:00* Test Item Value Reference Range Interpretation Comments Urine Color (test code = 5778-6) ORANGE YELLOW [facility]roeUrine Dkpfdne6147-32-96 12:15:00* Test Item Value Reference Range Interpretation Comments Urine Clarity (test code = 10567-4) CLEAR CLEAR [facility] Specific Qaaciun5328-69-10 12:15:00 * Test Item Value Reference Range Interpretation Comments Urine Specific Mcdaniel (test code = 5811-5) 1.010 1.010-1.02 5 [facility]roeUrine fE7809-80-18 12:15:00* Test Item Value Reference Range Interpretation Comments Urine pH (test code = 91853-7) 7 5-7 [facility]roeUrine Leukocyte Xnwoqlhw6676-86-66 12:15:00* Test Item Value Reference Range Interpretation Comments Urine Leukocyte Esterase (test code = 5799-2) TRACE NEGATIVE [facility] Kioludh2853-10-95 12:15:00* Test Item Value Reference Range Interpretation Comments Urine Nitrite (test code = 65497-8) POSITIVE NEGATIVE [facility] Pefrzti4398-06-06 12:15:00* Test Item Value Reference Range Interpretation Comments Urine Protein (test code = 5804-0) 1+ NEGATIVE [facility] Glucose (UA)2018-03-20 12:15:00* Test Item Value Reference Range Interpretation Comments Urine Glucose (UA) (test code = 2349-9) 1+ NEGATIVE [facility] Jewlggv1525-43-31 12:15:00* Test Item Value Reference Range Interpretation Comments Urine Ketones (test code = 90746-3) NEGATIVE NEGATIVE [facility]roeUrine Iyngysalabxk2881-59-53 12:15:00* Test Item Value Reference Range Interpretation Comments Urine Urobilinogen (test code = 73840-4) 1 0.2-1 [facility]roeUrine Fjodvmrzt1758-05-16 12:15:00* Test Item Value Reference Range Interpretation Comments Urine Bilirubin (test code = 1978-6) NEGATIVE NEGATIVE [facility] Wbley3800-40-17 12:15:00* Test Item Value Reference Range Interpretation Comments Urine Blood (test code = 43561-9) 2+ NEGATIVE [facility]roeParathyroid Gbyfsyi5075-47-52 07:13:00* Test Item Value Reference Range Interpretation Comments Parathyroid Hormone (test code = 2731-8) 21 15-65 [facility]roeCalcium (Send out)2018-03-15 07:13:00* Test Item Value Reference Range Interpretation Comments Calcium (Send out) (test code = 96246-5) 8.7 8.6-10.2 [facility]roeParathyroid Hormone Interpretation 2018-03-15 07:13:00* Test Item Value Reference Range Interpretation Comments Parathyroid Hormone Interpretation (test code = Parathyroid Hormone Interpretation) Comment . Interpretation Intact PTH Calcium (pg/mL) (mg/dL)Normal 15 - 65 8.6 - 10.2Pr imary Hyperparathyroidism >65 >10.2Secondary Hyperparathyroidism >65 <10.2Non-Parathyroid Hypercalcemia <65 >10.2Hypoparathyroidism <15 < 8.6Non- Parathyroid Hypocalcemia 15 - 65 < 8.6Performed at: - [facility] [id number] Director: John Lucas MD, Phone: [phone] at: [facility] [id number] Director: Tony Glover MD, Phone: [phone] [facility] ConroeUric Slao4330-33-57 15:46:00* Test Item Value Reference Range Interpretation Comments Uric Acid (test code = 3084-1) 5.2 4.8-8.0 [facility] (KUB) [place] [address] Patient Name: MASON LEVI MR #: [id number] : 1955 Age/Sex: 62/M Req #: [id number] Adm Physician: Ordered by: CAPRICE EDUARDO MD Report #: [id number] Location: OR Room/Bed: Procedure: [id number] DX/ABDOMEN-1VIEW (KUB) Exam Date : 03/16/18 Exam Time: 1115 REPORT STATUS: Ester d PROCEDURE: X-RAY ABDOMEN - KUB COMPARISON: None. INDICATION S: PREOPERATIVE XRAY FOR KIDNEY STONE SURGERY FINDINGS: One view of the abdomen (AP supine). No dilated loops of bowel or abnormal air-fluid levels patterns. Small calcifications are projected over both kidneys, in cluding a 5 mm calcification in the right lower pole and a 6 mm calcification in the left upper pole. Multiple round calcifications in the pelvis most likely represent phleboliths. CONCLUSION: Small calcifications p rojected over both kidneys, measuring up to 6 mm, may represent renal stones. Dictated by: Tiffany Campos M.D. on 03/16/2018 at 11:45 Electron ically approved by: Tiffany Campos M.D. on 03/16/2018 at 11:45 Dictated By: TIFFANY CAMPOS MD [id number] Transcribed By: JOSÉ on 03/16/18 1145 COPY TO: CAPRICE BARBA MD
[2020-03-31] MEDS ORDERED: HYDRALAZINE HCL 20 MG/ML VIAL IV PRN (23:15)
[2020-03-31] MEDS ORDERED: FUROSEMIDE INJ 10 MG/ML 2 ML VIAL IV ONE (23:30)
[2020-04-01] VITALS (10 sets, daily range): BP systolic 99–113; BP diastolic 73–89
[2020-04-01] MEDS ORDERED: TYLENOL WITH C1 EACH PO (00:58)
--- NOTE | 2020-04-01 01:46 | History and Physical ---
PRIMARY CARE DOCTOR: Hernan Ordaz MD. HOSPITALIST: Chano Atkins MD. This is coverage for Dr. Atkins. CHIEF COMPLAINT: Malaise. HISTORY OF PRESENT ILLNESS: Mr. Barone is a pleasant 64-year-old gentleman with malaise. The patient with history of TURP in March 2018. The patient had laser lithotripsy in about 2017 as well for nephrolithiasis. The patient was recently having some bloating symptoms. The patient underwent what sounds like a routine imaging study to screen the abdomen based on these symptoms where there was a retroperitoneal tumor that was reported. This CAT scan was done at [facility] facility. The patient was seen by Dr. Sullivan and was slated for tentative surgery on Monday. However, the patient with increasing pain. He was having more and more emesis. He is not able to tolerate oral intake. Therefore, he comes to the emergency room. White blood count is 13,000, sodium 129, potassium 5.5, BUN 66, and creatinine 1.6. The patient with worsening kidney function compared to his baseline creatinine of 0.71. At this point, it is elected to admit him for supportive care. PAST MEDICAL HISTORY: Hypertension, bladder stone removal and possibly kidney stone removal, TURP for BPH, recent finding of retroperitoneal mass reported. MEDICATIONS: Fenofibrate, Baylis 5 mg tablets, and olmesartan. ALLERGIES: NO KNOWN DRUG ALLERGIES. SOCIAL HISTORY: No smoking, no drinking, no drugs. He is retired from [employer]. FAMILY HISTORY: Noncontributory to this condition. REVIEW OF SYSTEMS: GENERAL: No weight changes. OPHTHALMOLOGIC: No icterus. ENT: No mouth ulcers. ENDOCRINE: No known adrenal insufficiency. PULMONARY: No asthma. CARDIAC: No heart attack. : No hematuria noted. GI: No constipation. NEUROLOGIC: No seizures. DERMATOLOGIC: No rashes. PSYCHIATRIC: No depression. PHYSICAL EXAMINATION: VITAL SIGNS: Afebrile right now. Vital signs noted and reviewed per the chart record. GENERAL: In no acute distress, but he does look tired, slightly pale. He is not comfortable in bed. HEENT: Normocephalic and atraumatic. NECK: Supple. Throat midline. LUNGS: Bilateral air entry, limited due to limited effort, but clear. CARDIOVASCULAR: S1 and S2. No murmurs, rubs, or gallops. ABDOMEN: Soft and nontender. No anterior tenderness. However, there is some nonspecific especially left costophrenic angle discomfort. EXTREMITIES: No clubbing, no cyanosis, no edema. INTEGUMENT: No rash or purpura. LABORATORY DATA: Estimated GFR 44, potassium 5.1 went to 5.5. Bicarbonate 26. LFTs mostly unremarkable with 10.1 calcium, albumin 2.3. Urinalysis with 21 to 50 white blood cells a week and a half ago. Coronavirus test is still pending. IMPRESSION AND PLAN: 1. Reported retroperitoneal mass. 2. Acute kidney failure, possibly obstructive. 3. Hyperkalemia 5.5. 4. Pandemic status with coronavirus-[address] in town[address] 5. Presumed urinary tract infection sepsis. 6. Hyponatremia. 7. Inability to tolerate p.o. 8. Hypertension. Admit to the hospital. Give supportive care and IV fluids. Maintain blood pressure control. Rapidly resolve of potassium and sodium, electrolyte, and metabolic abnormalities. Preoperative evaluation for tentative surgery if the patient cannot wait for his elective surgery. Await the coronavirus-19 test. Supportive care, antiemetics. We will review outside CAT scan with surgeon and decide on the best approach for surgery. Thank you very much, Dr. Hernan Ordaz. Please call for any questions. MD REEMA Streeter/MODL /[id number]
[2020-04-01] MEDS ORDERED: SODIUM CHLORIDE 0.9% 250ML 250 ML ONE (01:47)
[2020-04-01] MEDS: DEXTROSE 5%/0.9% SOD CHL 1,000 ML IV SCH ×3 (01:49→15:49)
[2020-04-01] MEDS: MORPHINE SULFATE INJ 4 MG/ML INJ 1ML IV PRN ×3 (03:50→21:57)
[2020-04-01] MEDS ORDERED: PIPER-TAZ 3.375 GM 50 ML IV SCH (06:00)
--- NOTE | 2020-04-01 06:25 | NUR ---
Dr Sullivan on unit to see patient.
--- NOTE | 2020-04-01 06:41 | NUR ---
Left message with Dr Qureshi answering service regarding consult: Spoke with Maria M.
--- NOTE | 2020-04-01 06:42 | NUR ---
Left message for Dr Arnold regarding consult: awaiting call back
--- NOTE | 2020-04-01 07:10 | NUR ---
Bedside report and walking rounds completed with on coming nurse. Patient in bed with call light within reach. No issues or concerns noted.
[2020-04-01] MEDS: AMLODIPINE BESYLATE 5 MG TAB PO SCH (08:35)
[2020-04-01 09:16] LABS: BASOPHILS % 0.1 % (0.0-1.0); EOSINOPHILS % 0.1 % (0.0-6.0); HEMATOCRIT 42.1 % (38.2-49.6); HEMOGLOBIN 13.5 g/dL (14.0-18.0); LYMPHOCYTES # (AUTO) 0.4 (1.0-3.2); LYMPHOCYTES % 3.8 % (18.0-39.1); MEAN CORPUSCULAR HEMOGLOBIN 27.4 pg (28-32); MEAN CORPUSCULAR HGB CONC 32.1 g/dL (31-35); MEAN CORPUSCULAR VOLUME 85.4 fL (81-99); MONOCYTES # (AUTO) 0.6 (0.2-0.8); MONOCYTES % 6.1 % (4.4-11.3); NEUTROPHILS % 89.6 % (38.7-80.0); PLATELET COUNT 162 x10e3/uL (140-360); RED BLOOD COUNT 4.93 x10e6/uL (4.3-5.7); RED CELL DISTRIBUTION WIDTH 13.4 % (11.7-14.4)
[2020-04-01] MEDS: PIPER-TAZ 3.375 GM 50 ML IV SCH ×2 (09:31→18:00)
[2020-04-01 09:50] LABS: ALBUMIN 2.9 g/dL (3.5-5.0); ALBUMIN/GLOBULIN RATIO 0.9 (0.8-2.0); ANION GAP 13.9 mmol/L (8-16); CALCIUM 8.6 mg/dL (8.4-10.2); CREATININE, SERUM 1.46 mg/dL (0.72-1.25); MAGNESIUM 2.9 MG/DL (1.3-2.1); PHOSPHORUS 4.5 MG/DL (2.3-4.7); POTASSIUM 4.9 mmol/L (3.5-5.1)
--- NOTE | 2020-04-01 12:33 | NUR ---
MEDICINE ATTENDING Coverage for : Chano Atkins MD. DATE: 04/01/20 SUBJECTIVE: RA fio2 on pain meds, with reasonable control not eating much lytes better REVIEW OF SYSTEMS: no rash, no icterus. PHYSICAL EXAMINATION: VITAL SIGNS: Vital signs noted and reviewed per the chart record. GENERAL: no acute distress, but he does look tired HEENT: Normocephalic and atraumatic. NECK: Supple. Throat midline. LUNGS: Bilateral air entry, limited due to limited effort, but clear. CARDIOVASCULAR: S1 and S2. No murmurs, rubs, or gallops. ABDOMEN: Soft and nontender. No anterior tenderness. EXTREMITIES: No clubbing, no cyanosis, no edema. INTEGUMENT: No rash or purpura. LABORATORY DATA: 4.9, bun 66, cr 1.46. wbc 10, hct 42, plt 162 IMPRESSION AND PLAN: 1. Retroperitoneal mass. 2. Acute kidney failure, possibly obstructive. 3. Hyperkalemia 5.5. 4. Pandemic status with coronavirus-19 in [facility]. 5. Presumed urinary tract infection sepsis. 6. Hyponatremia. 7. Inability to tolerate p.o. 8. Hypertension. Continue supportive care and IV fluids. Continue to maintain potassium, sodium, electrolyte abnormalities. consult General surgery consult. Possible Monday surgery? Await the coronavirus-19 test result Supportive care, antiemetics. Thank you very much, Dr. Hernan Ordaz. Please call for any questions.
--- NOTE | 2020-04-01 13:29 | Consultation ---
DATE OF CONSULTATION: 04/01/2020 ADDITIONAL REFERRING PHYSICIAN: Chano Atkins MD HISTORY OF PRESENT ILLNESS: The patient is a 64-year-old male known to me. He was actually seen in my office for large retroperitoneal cystic mass, which are bilateral. He had been scheduled for surgery with a developing increasing abdominal pain with nausea and vomiting and came to the emergency room. Evaluation in the emergency room revealed elevated potassium of 5.5, elevated BUN and creatinine and creatinine up to 1.6 from a baseline of 0.7. The patient at this time feels a little bit better. He still has some abdominal pain. PAST MEDICAL HISTORY: Significant for hypertension, previous removal of bladder stone, previous TURP. ALLERGIES: HE HAS NO KNOWN ALLERGIES. MEDICATIONS: At home were fenofibrate, pain medications, losartan. FAMILY HISTORY: Noncontributory. SOCIAL HISTORY: The patient does not smoke cigarettes, not drink alcohol. REVIEW OF SYSTEMS: As stated above, otherwise was negative. PHYSICAL EXAMINATION: GENERAL: The patient is awake and alert, in no distress. VITAL SIGNS: At this time are normal. He is afebrile. HEENT: No scleral icterus. NECK: Has no masses. LUNGS: Equal breath sounds are clear bilaterally. CARDIAC: Regular rate and rhythm. ABDOMEN: Distended with tenderness, particularly on left flank with fullness in this area. EXTREMITIES: Have no edema. NEUROLOGIC: Grossly intact. LABORATORY TESTS: White blood cell count on admission was 13.46, repeat today is 10.0. Hemoglobin and hematocrit are normal. Platelet count is normal. Chemistries reveal potassium 5.5 on admission, 4.9 now, BUN elevated 66, creatinine 1.46. ASSESSMENT: A 64-year-old male with large retroperitoneal masses with increasing pain as well as hyperkalemia. He has been treated with IV fluids, seems to be improving. His pain is less. He will undergo bowel preparation tomorrow and planned surgery on Monday. Procedure has been explained to the patient including risks, benefits and alternatives. He understands he has had the opportunity to ask questions. Thank you for asking me to see Mr. Barone. MD ALEYDA Clay/GLENN /[id number]
--- NOTE | 2020-04-01 16:59 | NUR ---
Nutrition Intervention Note RD Recommendation(s) for Physician: - Consider adding K and Phos diet restrictions - Recommend Nepro BID for adequacy Plan of Care: RD following, monitoring for tolerance and adequacy. Diet and ONS rec's Nutrition reason for involvement: Nutrition Risk Trigger RD Assessment 04/01: 64 YOM admitted for abdominal pain and hyperkalemia, seen today per MST screen. Pt reports progressive wt loss over the past 3 months of 16#, noted significant change of 9% loss in 3 months. 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 Pt denies any supplements at home. Pt reports tolerating diet today, receptive to supplement- RD to order Nepro BID for adequacy per current lab trend. Pt denies any N/V/C/D currently. Pt with no questions or concerns at time of visit. Chart reviewed. Will continue to monitor. Principal Problems/Diagnoses: abd pain, hyperkalemia PMH: HTN, TURP, retroperitoneal mass GI: abd soft, non-tender Skin: intact Labs: 04/01: Na 131, K 4.9, BUN 66, Cr 1.46, Gluc 116, Phos 4.5, Mg 2.9 Meds: morphine, abx Ht: 67 in Wt: 164.06 lb BMI: 25.7 kg/m2 IBW: 135 lb Malnutrition Evaluation (04/01/20) The patient meets criteria for MODERATE protein-calorie malnutrition. Energy intake: moderate <75% of estimated energy requirements for 1 month Weight loss: severe >7.5% in 3 months (Acute) Fat loss: none, chest well developed Muscle loss: none, shoulder round Supporting Evidence: Fluid accumulation: none Functional Status: not assessed Nutrition Prescription (Diet Order): Cardiac Estimated Nutritional Needs: 2733-7575 calories/day (18-22 kcal/kg CBW) 74-112 g protein/day (1-1.5 g pro/kg CBW) Diet Adequacy: Not meeting calorie needs, Not meeting protein needs Diet Tolerance: tolerating po Diet Education Needs Assessment: Diet education not indicated at this time. Nutrition Care Level: moderate Nutrition Diagnosis: Inadequate energy and protein intake related to current medical conditions as evidenced by progressive, significant wt loss of 9% and not meeting needs. Goal: Patient will meet 75-100% of estimated needs by follow up Progress: N/A Interventions: -fat, mineral modified diet, Commercial beverage, Recommended Modifications, Collaboration with other providers Monitoring/Evaluation: -Total energy intake, Total protein intake, Modified diet, Liquid supplement, Weight change Signed: LENKA Lema RD, [facility] Addendum: 04/01/20 at 1720 by Rama Briceno DIET Diet changed to clear liquids. Recommend ordering Nepro BID when diet advanced. LENKA Lema RD, [facility]
--- NOTE | 2020-04-01 17:04 | Consultation ---
DATE OF CONSULTATION: 04/01/2020 Nephrology Consultation REASON FOR CONSULTATION: Acute kidney injury, hyponatremia. HISTORY OF PRESENT ILLNESS: This is a 64-year-old male with history of hypertension and bladder stone removal in the past, kidney stones, TURP secondary to BPH who comes in to the hospital due to worsening retroperitoneal pain ongoing for the last several weeks. The patient has been seen outpatient General Surgery with CT imaging consistent with a retroperitoneal mass according to the patient and was scheduled to have some sort of surgical intervention. The patient was then admitted due to worsening pain and worsening labs. The patient denies any history of NSAID usage of vjzp-acs-nrctndq herbal supplements or any erpa-jus-xnakvfa medications. Does have a history of BPH. Does have a history of renal stones. No chronic UTIs. Denies any chest pain, palpitation, nausea, vomiting, or any fever. The patient is seen and evaluated at bedside on the medical floor. He is currently doing well with no other issues at this time. REVIEW OF SYSTEMS: Pertinent positive: Back pain. The rest of 14-point review of systems are reviewed with the patient and are negative. ALLERGIES: NO KNOWN DRUG ALLERGIES. HOME MEDICATIONS: 1. Tylenol #3. 2. Fenofibrate. 3. Olmesartan. 4. Amlodipine hydrochlorothiazide combination. PAST MEDICAL HISTORY: Hypertension, hyperlipidemia, chronic pain. PAST SURGICAL HISTORY: Reports none. FAMILY HISTORY: Hypertension and diabetes. SOCIAL HISTORY: No drugs. No alcohol. Does not smoke. Good social support. LABORATORY DATA: Labs show white count 10, hemoglobin 13.5, hematocrit is 42, platelets of 162. Chemistry, sodium 131, potassium 4.9, chloride 94, bicarbonate 20, anion gap of 13. BUN is 66, creatinine is 1.46, glucose is 116. Calcium is 8.6, phosphorus 4.5, magnesium 2.9. LFTs; total bilirubin 0.6, AST 15, ALT 6, alkaline phosphatase 75. Troponins were negative. Total protein 6.3, lipase was 24. Coronavirus PCR is pending. IMAGING STUDIES: None. PHYSICAL EXAMINATION: VITAL SIGNS: Temperature is 97.8, pulse 88 respiratory rate 16, blood pressure is 99/81, pulse ox 98% on room air. GENERAL: Not in acute distress. Alert and oriented x3. Cooperative on examination. HEENT: Head is normocephalic and atraumatic. Eyes; pupils are equal, round, reactive to light bilaterally. Extraocular movements are intact bilaterally. Throat; no evidence of erythema or exudates in the posterior pharynx. Has poor dentition. NECK: Supple. Good range of motion. PULMONARY: Clear to auscultation bilaterally. No wheezing, rales, or rhonchi. No crackles appreciated. CARDIOVASCULAR: Positive S1, S2. No murmurs, rubs, or gallops appreciated. GASTROINTESTINAL: Abdomen is soft, nondistended, and nontender to palpation. Bowel sounds present. MUSCULOSKELETAL: Strength is 5/5 throughout. SKIN: Intact, warm to touch. Good cap refill. PSYCHIATRIC: Normal affect and mood. EXTREMITIES: No edema. Good range of motion throughout. IMPRESSION: 1. Acute kidney injury, unknown baseline. 2. Hyponatremia. 3. Hyperkalemia. 4. Probable urinary tract infection. PLAN: At this time, the patient does not know his baseline creatinine. 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 We will go ahead and get a renal ultrasound to evaluate for any chronicity as well as any obstruction. We will get urine studies including urine sodium, urine chloride, urine osmolality, serum osmolality, serum uric acid level. We will renally dose all medications. He is currently on Zosyn, which we will monitor for any signs of AIN. His sodium did improve and his potassium improved as well with IV fluid hydration. We will continue with IV fluids for now. Get urine protein to creatinine ratio as well as microalbumin to creatinine ratio. MD MICHELLE Fierro/MODL /[id number]
--- NOTE | 2020-04-01 18:36 | NUR ---
patient ambulates in room, not in any distress
--- NOTE | 2020-04-01 19:53 | NUR ---
Received bedside report from day nurse. Patient resting in bed, no s/s of distress at this time. All safety measures in place. Will continue to monitor.
--- NOTE | 2020-04-01 23:52 | NUR ---
Report given to oncoming nurse. Patient in stable condition, no s/s of distress at this time.
--- NOTE | 2020-04-02 | NUR ---
pt received. pt assessed. no ss of distress noted. pt co abd pain. discussed pain mngt poc. verbalized understanding. will medicate per orders. 24 hour urine on ice. will cont to follow poc. call fountain within reach.
[2020-04-02] MEDS: DEXTROSE 5%/0.9% SOD CHL 1,000 ML IV SCH ×4 (02:26→22:24)
[2020-04-02] MEDS: PIPER-TAZ 3.375 GM 50 ML IV SCH ×3 (02:26→18:11)
[2020-04-02 04:00] VITALS: BP 110/83
[2020-04-02] MEDS: MORPHINE SULFATE INJ 4 MG/ML INJ 1ML IV PRN ×3 (05:51→22:16)
[2020-04-02 06:07] LABS: ANION GAP 13.8 mmol/L (8-16); CALCIUM 8.4 mg/dL (8.4-10.2); CREATININE, SERUM 1.48 mg/dL (0.72-1.25); POTASSIUM 4.8 mmol/L (3.5-5.1)
--- NOTE | 2020-04-02 06:20 | NUR ---
pt resting. no ss of distress noted. call fountain within reach.
[2020-04-02 08:17] VITALS: BP 118/78
[2020-04-02 08:44] VITALS: BP 118/78
[2020-04-02] MEDS: AMLODIPINE BESYLATE 5 MG TAB PO SCH (08:54)
[2020-04-02 09:13] LABS: CLARITY,URINE CLEAR (CLEAR); COLOR,URINE YELLOW (YELLOW); KETONES,URINE NEGATIVE (NEGATIVE); LEUKOCYTE ESTERASE ,URINE NEGATIVE (NEGATIVE); NITRITE,URINE NEGATIVE (NEGATIVE); PROTEIN,URINE DIPSTICK 1+ (NEGATIVE); URINE UROBILINOGEN 0.2 mg/dL (0.2 - 1)
[2020-04-02 09:14] LABS: BILIRUBIN,URINE NEGATIVE (NEGATIVE)
[2020-04-02 09:28] LABS: CREATININE,URINE RANDOM 94.07 mg/dL (63-166); TOTAL PROTEIN, URINE 31.1 mg/dL (1-14)
[2020-04-02 09:43] LABS: SODIUM,URINE < 20 mmol/L
[2020-04-02 10:10] LABS: WBC,URINE (MAN) 0-5 /HPF (0-5)
[2020-04-02 10:11] LABS: BACTERIA,URINE MODERATE /HPF; EPITHELIAL CELLS,URINE RARE /LPF; RBC,URINE 0-5 /HPF (0-5)
[2020-04-02 10:20] LABS: CALCIUM OXALATE CRYSTALS,UR MODERATE (FEW); URIC ACID CRYSTALS,URINE FEW (FEW)
[2020-04-02 10:21] LABS: EOSINOPHIL SMEAR,URINE NONE SEEN (NONE SEEN)
[2020-04-02 10:22] LABS: PROTEIN/CREATININE RATIO,URINE 0.33
--- NOTE | 2020-04-02 11:55 | NUR ---
MEDICINE ATTENDING Coverage for : Chano Atkins MD. DATE: 04/02/20 SUBJECTIVE: RA fio2 on pain meds, with reasonable control for 4-5 hours after dosing not eating much lytes stable ivf d5ns at 125/hr REVIEW OF SYSTEMS: no rash, no icterus. PHYSICAL EXAMINATION: VITAL SIGNS: Vital signs noted and reviewed per the chart record. GENERAL: no acute distress, but he does look tired HEENT: Normocephalic and atraumatic. NECK: Supple. Throat midline. LUNGS: Bilateral air entry, limited due to limited effort, but clear. CARDIOVASCULAR: S1 and S2. No murmurs, rubs, or gallops. ABDOMEN: Soft and nontender. No anterior tenderness. EXTREMITIES: No clubbing, no cyanosis, no edema. INTEGUMENT: No rash or purpura. LABORATORY DATA: k 4.8, bun 62, cr tnp, wbc 10, hct 42, plt 162 IMPRESSION AND PLAN: 1. Retroperitoneal, nephric vs perinephric mass. 2. Acute kidney failure, possibly obstructive. 3. Hyperkalemia 5.5. 4. Pandemic status with coronavirus-19 5. Possible urinary tract infection sepsis vs other 6. Hyponatremia. 7. Inability to tolerate p.o., better mildly only 8. Hypertension. Continue supportive care and IV fluids. Continue to maintain potassium, sodium, electrolyte abnormalities. Preoperative optimization consult General surgery consult. Possible Monday surgery Coronavirus-19 test result--> NOT detected Supportive care, antiemetics. Thank you very much, Dr. Hernan Ordaz. Please call for any questions.
[2020-04-02 11:57] VITALS: BP 119/72
[2020-04-02] MEDS ORDERED: CITRATE OF MAGNESIA 300ML BOTTLE PO ONE (12:00)
--- NOTE | 2020-04-02 14:30 | Progress Note ---
DATE: 04/02/2020 Nephrology Progress Note SUBJECTIVE: The patient is doing well today with no complaints. He is scheduled for cystoscopy tomorrow by Urology. LABORATORY DATA: Labs show white count 10, hemoglobin 13, hematocrit 42, platelets of 162. Chemistry, sodium is 131, potassium 4.8, chloride 96, bicarb 26, anion gap of 13. BUN 62, creatinine is 1.48, glucose is 131. Calcium is 8.4. Uric acid was 11.5. LFTs within normal range. Urinalysis studies show urine protein to creatinine was 0.3 g. Urine sodium less than 20. Urine eosinophils none. Bacteria moderate. MICROBIOLOGY: Urine cultures are pending. IMAGING STUDIES: Renal ultrasound is still pending. PHYSICAL EXAMINATION: VITAL SIGNS: Temperature is 96.6, pulse 71, respiratory rate is 20, blood pressure is 119/72, pulse ox 95% on room air. GENERAL: No acute distress. Alert and oriented x3. Cooperative on examination. HEENT: Head is normocephalic and atraumatic. Eyes; pupils are equal, round, reactive to light bilaterally. NECK: Supple. Good range of motion. CARDIOVASCULAR: Positive S1, S2. No murmurs, rubs, or gallops appreciated. PULMONARY: Clear to auscultation bilaterally. GASTROINTESTINAL: Abdomen is soft, nondistended, and nontender to palpation. Bowel sounds present. MUSCULOSKELETAL: Strength is 5/5 throughout. SKIN: Intact, warm to touch. Good cap refill. PSYCHIATRIC: Normal affect and mood. EXTREMITIES: No edema. Good range of motion throughout. IMPRESSION: 1. Acute kidney injury, improving. 2. Hyponatremia. 3. Hyperkalemia. 4. Probable urinary tract infection. 5. Large retroperitoneal masses. PLAN: At this time, he is scheduled for surgery tomorrow for the large retroperitoneal masses to be biopsied. His labs are much improved. From a renal standpoint, he does have 0.3 g of proteinuria. Renal function is down trending, but his BUN is still elevated at 62. The patient is not on any steroids and there is no active bleeding leading to this. We will monitor this very closely. Renal ultrasound is pending, a.m. labs. His rest of electrolytes on his chemistry are stable. We will continue to monitor closely. Sodium is 131, stable. MD MICHELLE Fierro/GLENN /[id number]
--- NOTE | 2020-04-02 14:55 | Diagnostic Imaging Report ---
EXAM: Renal Ultrasound INDICATION: Acute kidney injury COMPARISON: None TECHNIQUE: Transverse and longitudinal images of the kidneys and bladder were obtained. FINDINGS: There is a large part solid part cystic mass centered in the left abdomen which measures at least 17 cm. Right Kidney: Length: 10.8 cm Appearance: Normal echogenicity. Collecting system: No hydronephrosis Stones: None Cyst/Mass: None Left Kidney: Length: 11.6 cm Appearance: Normal echogenicity. Collecting system: Mild hydronephrosis Stones: None Cyst/Mass: None Bladder: No mass or calculi. Ureteral jets not visualized. Volume estimate of 42.5 cc. The prostate measures 3.5 x 3.5 x 4.2 cm with volume estimate of 27 cc. IMPRESSION: Large part solid part cystic mass in the left abdomen measuring at least 17 cm. Recommend contrast-enhanced CT of the abdomen and pelvis for further evaluation. Mild left hydronephrosis. Signed by: Jack Estrada MD on 04/02/2020 2:52 PM
[2020-04-02 16:08] VITALS: BP 100/65
[2020-04-02 17:39] LABS: CREATININE,URINE RANDOM 109.45 mg/dL (63-166)
--- NOTE | 2020-04-02 19:02 | NUR ---
Received change of shift report from AM nurse. Walking rounds completed. Patient in bed resting quitly at this time.
[2020-04-02 20:00] VITALS: BP 131/84
--- NOTE | 2020-04-02 22:30 | NUR ---
Patient c/o pain back. Pain meds given as ordered by .
[2020-04-03] VITALS (11 sets, daily range): BP systolic 82–113; BP diastolic 58–86
--- NOTE | 2020-04-03 | NUR ---
Patient NPO after MN. Consents signed. Patient informed.
[2020-04-03] MEDS: PIPER-TAZ 3.375 GM 50 ML IV SCH ×3 (02:00→19:00)
[2020-04-03 06:30] LABS: ANION GAP 13.6 mmol/L (8-16); BLOOD UREA NITROGEN 54 mg/dL (7-26); BUN/CREATININE RATIO 48 (6-25); CALCIUM 8.3 mg/dL (8.4-10.2); CARBON DIOXIDE 24 mmol/L (22-29); CHLORIDE 102 mmol/L (98-107); CREATININE, SERUM 1.13 mg/dL (0.72-1.25); EST GLOMERULAR FILTRATION RATE > 60 ML/MIN (60-); GLUCOSE 104 mg/dL (74-118); POTASSIUM 4.6 mmol/L (3.5-5.1); SODIUM 135 mmol/L (136-145)
--- NOTE | 2020-04-03 06:31 | NUR ---
Patient resting quitly at this time. Continue monitor.
[2020-04-03] MEDS: AMLODIPINE BESYLATE 5 MG TAB PO SCH (09:00)
[2020-04-03] MEDS: DEXTROSE 5%/0.9% SOD CHL 1,000 ML IV SCH (09:25)
--- NOTE | 2020-04-03 10:40 | NUR ---
MEDICINE ATTENDING Coverage for : Chano Atkins MD. DATE: 04/03/20 SUBJECTIVE: d5ns at 100/hr ivf npo pain ok, on meds still agreeing to intervention REVIEW OF SYSTEMS: no rash, no icterus. PHYSICAL EXAMINATION: VITAL SIGNS: Vital signs noted and reviewed per the chart record. GENERAL: no acute distress, but he does look tired HEENT: Normocephalic and atraumatic. NECK: Supple. Throat midline. LUNGS: Bilateral air entry, limited due to limited effort, but clear. CARDIOVASCULAR: S1 and S2. No murmurs, rubs, or gallops. ABDOMEN: Soft and nontender. No anterior tenderness. EXTREMITIES: No clubbing, no cyanosis, no edema. INTEGUMENT: No rash or purpura. LABORATORY DATA: k 4.6, cr 1.13. na 135, k 4.6. wbc 10, hct 42, plt 162 IMPRESSION AND PLAN: 1. Retroperitoneal, nephric vs perinephric mass. 2. Acute kidney failure, possibly obstructive. 3. Hyperkalemia 5.5. 4. Pandemic status with coronavirus-19 5. Possible urinary tract infection sepsis vs other 6. Hyponatremia. 7. Inability to tolerate p.o., better mildly only 8. Hypertension. Continue supportive care and IV fluids. Continue to maintain potassium, sodium, electrolyte abnormalities. Preoperative optimization consult appreciated General surgery consult. Coronavirus-19 test result--> COVID 19 RNA NOT detected Supportive care, antiemetics. Surgery today Thank you very much, Dr. Hernan Ordaz. Please call for any questions.
[2020-04-03] MEDS ORDERED: B&O 60MG R/S 60 MG SUPP PR ONE (11:30)
[2020-04-03] MEDS ORDERED: IOPAMIDOL 300MG/ML 50ML INFUS..BTL IV ONE (11:31)
--- NOTE | 2020-04-03 11:33 | NUR ---
Patient off the unit for procedure, stable.
[2020-04-03] MEDS ORDERED: HEPARIN SOD/SOD CHLORIDE 1,000 ML ONE (13:11)
--- NOTE | 2020-04-03 13:50 | NUR ---
RECEIVED REPORT FROM NURSE. PATIENT IS OFF UNIT FOR PROCEDURE.
[2020-04-03] MEDS ORDERED: SODIUM CHLORIDE 0.9% 250ML 250 ML IV NR ×2 (14:15→18:45)
[2020-04-03] MEDS ORDERED: HETASTARCH 6%/NACL INJ 500 ML ONE (14:17)
[2020-04-03] MEDS ORDERED: MICROFIBRILLER COLLAGEN HEMOSTAT 1 GM POWDER TP ONE (15:15)
[2020-04-03] MEDS ORDERED: SUGAMMADEX SODIUM 200 MG/2 ML VIAL IV ONE (15:31)
[2020-04-03] MEDS: SODIUM CHLORIDE 0.9% 250ML IRRIG IR SCH ×3 (15:45→23:45)
[2020-04-03] MEDS ORDERED: ACETAMINOPHEN 1000 MG/100 ML IV PRN (15:45)
[2020-04-03] MEDS ORDERED: DIPHENHYDRAMINE HCL INJ 50 MG/ML VIAL IM PRN (15:45)
[2020-04-03] MEDS ORDERED: MORPHINE SULFATE 1 MG/ML 30ML PCA IV PRN (15:45)
[2020-04-03] MEDS ORDERED: NALOXONE HCL INJ 0.4 MG/ML AMP IV PRN (15:45)
[2020-04-03 16:16] LABS: BASOPHILS % 0.2 % (0.0-1.0); EOSINOPHILS % 0.1 % (0.0-6.0); HEMATOCRIT 23.1 % (38.2-49.6); HEMOGLOBIN 7.6 g/dL (14.0-18.0); MEAN CORPUSCULAR HEMOGLOBIN 29.1 pg (28-32); MEAN CORPUSCULAR HGB CONC 32.9 g/dL (31-35); MEAN CORPUSCULAR VOLUME 88.5 fL (81-99); MONOCYTES # (AUTO) 0.5 (0.2-0.8); MONOCYTES % 2.8 % (4.4-11.3); NEUTROPHILS # (AUTO) 17.5 (2.1-6.9); PLATELET COUNT 131 x10e3/uL (140-360); RED BLOOD COUNT 2.61 x10e6/uL (4.3-5.7); RED CELL DISTRIBUTION WIDTH 13.8 % (11.7-14.4)
[2020-04-03] MEDS ORDERED: MORPHINE SULFATE 2 MG/ML SYR 1ML ONE (16:27)
[2020-04-03 16:35] LABS: ALBUMIN/GLOBULIN RATIO 0.8 (0.8-2.0); ALKALINE PHOSPHATASE 32 IU/L (40-150); ANION GAP 9.2 mmol/L (8-16); BLOOD UREA NITROGEN 42 mg/dL (7-26); BUN/CREATININE RATIO 50 (6-25); CARBON DIOXIDE 18 mmol/L (22-29); CHLORIDE 113 mmol/L (98-107); CREATININE, SERUM 0.84 mg/dL (0.72-1.25); EST GLOMERULAR FILTRATION RATE > 60 ML/MIN (60-); GLUCOSE 169 mg/dL (74-118); SODIUM 135 mmol/L (136-145)
[2020-04-03 16:36] LABS: ALANINE AMINOTRANSFERASE < 6 IU/L (0-55); POTASSIUM 5.2 mmol/L (3.5-5.1)
[2020-04-03 16:40] LABS: CALCIUM 5.9 mg/dL (8.4-10.2)
--- NOTE | 2020-04-03 16:51 | NUR ---
REPORT CALLED IN TO ICU NURSE AT THIS TIME.
[2020-04-03] MEDS ORDERED: CALCIUM GLUCONATE 10% INJ 4.65 MEQ in SODIUM CHLORIDE 0.9% 50ML 50 ML IV ONE (17:30)
[2020-04-03] MEDS ORDERED: SODIUM CHLORIDE 0.9% 1000ML 1,000 ML ONE (17:34)
--- NOTE | 2020-04-03 17:44 | Progress Note ---
DATE: 04/03/2020 Nephrology Progress Note SUBJECTIVE: The patient is currently in the OR, undergoing surgery to remove the cystic mass. No overnight events according to the nursing staff. PHYSICAL EXAMINATION: VITAL SIGNS: Temperature is 98.1, pulse 72, respiratory rate 20, blood pressure is 107/84, pulse ox 100% on room air. LABORATORY DATA: Labs show white count 10, hemoglobin 13, hematocrit 42, platelets of 162. Chemistry; sodium 135, potassium 4.6, chloride 102, bicarb 24, anion gap is 13, BUN is 54, creatinine is 1.1, glucose is 104, calcium is 8.3. Urinalysis, urine protein to creatinine is 0.3 g. Urine sodium less than 20, consistent with prerenal. Urine chloride is pending. Coronavirus PCR not detected. IMAGING STUDIES: Renal ultrasound showed a mild left hydronephrosis. A large solid hard cystic mass in the left abdomen measuring 17 cm. There is a cm prostate. No bladder mass. Left kidney 11.6 cm with mild hydronephrosis. Right kidney 10.8 cm with mild hydronephrosis. Currently, the patient is in the OR. I am unable to obtain any physical exam at this time. IMPRESSION: 1. Acute kidney injury, improving. 2. Hyponatremia. 3. Hyperkalemia, improving. 4. Urinary tract infection. 5. Large retroperitoneal mass. 6. Mild left hydronephrosis. PLAN: At this time, renal ultrasound review shows cystic mass in the abdomen. Renal size seems to be within normal range with no evidence of any chronicity. Does show some mild left-sided hydronephrosis. Labs reviewed and stable. We will get a.m. labs. Monitor very closely with the primary team. Otherwise, we will get morning labs. MD MICHELLE Fierro/GLENN /[id number]
--- NOTE | 2020-04-03 17:49 | NUR ---
recvd pt from or with low bp as recorded. called dr otero and obtained orders for bolus and labs. pt continues to c/o of pain and bp is low but map has been over 60. pt responsive and verbalizes understanding of current poc.
[2020-04-03 18:25] LABS: ABG HCO3 19 mmol/L (22-26); ABG PCO2 34 mmHg (35-45); ABG PH 7.37 (7.35-7.45); ABG PO2 261 mmHg (80-105)
[2020-04-03] MEDS ORDERED: SODIUM CHLORIDE 0.9% 250ML 250 ML ONE (19:29)
[2020-04-03] MEDS ORDERED: ONDANSETRON HCL INJ 2MG/ML 2ML 2 MG/ML VIAL ONE (19:32)
[2020-04-03] MEDS ORDERED: EPHEDRINE SULFATE INJ 50 MG/ML VIAL ONE (19:32)
[2020-04-03] MEDS ORDERED: LIDOCAINE HCL 2% LOCAL INJ 5 ML SDV VIAL INJ ONE (19:32)
[2020-04-03] MEDS ORDERED: SEVOFLURANE INHAL SOLN 250 ML PEN BTL ONE (19:32)
[2020-04-03] MEDS ORDERED: PROPOFOL IV EMULSION 10 MG/ML 20 ML VIAL ONE (19:32)
[2020-04-03] MEDS ORDERED: ROCURONIUM BROMIDE 10 MG/ML 5ML VIAL IV ONE (19:32)
[2020-04-03] MEDS ORDERED: DEXAMETHASONE SOD PHOS INJ 4 MG/ML VIAL ONE (19:32)
[2020-04-03] MEDS ORDERED: FENTANYL CITRATE/PF 100MCG/2 ML INJ ONE (19:53)
[2020-04-03] MEDS ORDERED: MIDAZOLAM HCL 2 MG/2 ML VIAL ONE (19:53)
[2020-04-03] MEDS: DEXTROSE 5%/LACTATED RINGERS 1,000 ML IV SCH (20:25)
[2020-04-03] MEDS: MORPHINE SULFATE INJ 4 MG/ML INJ 1ML IV PRN (21:31)
--- NOTE | 2020-04-03 22:35 | Operative Report ---
DATE OF PROCEDURE: 04/03/2020 SURGEON: Adams Sullivan MD PREOPERATIVE DIAGNOSES: Retroperitoneal tumor, left ureteral obstruction. 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 PROCEDURES: Laparotomy, resection of retroperitoneal tumor with repair of left iliac artery and repair of left kidney. CO-SURGEON: Surgeon for the repair of left kidney was Dr. Qureshi. PARKING OFFICER: Dr. Bryanna Qureshi. INDICATIONS AND FINDINGS: The patient is a 64-year-old male presenting with a large mass in the left retroperitoneum, also small mass in the right retroperitoneum. At Surgery, there was a large tumor in the retroperitoneum, partially cystic, which was adherent to the left ureter as well as to the left iliac artery and also to the left kidney, extend into these areas, was densely adherent and surrounding the left iliac, common, external and internal iliac artery such that the tumor could not be completely resected for cure. The tumor also was seen to be arising from Gerota fascia. Size of the tumor was about 25 cm. TECHNIQUE: After adequate general endotracheal anesthesia, the patient was 1st in the [facility], the patient had cystoscopy retrograde and placement of ureteral stent on the right and catheter on the left. This was done by Dr. Qureshi to cover in his dictation. With the patient in supine position, the abdomen was then prepped and draped in sterile fashion with ChloraPrep solution. Midline incision was made. The peritoneal cavity was entered. There was a large retroperitoneal tumor on the left side. The left colon was mobilized by dividing peritoneal attachments, dissecting it free from the tumor. The left ureter was noted to be very thinned out involved with the tumor. The tumor was mobilized by dividing peritoneal attachments as was dissected free, it was found there was extending very posterior, it was mobilized posteriorly also seem to be arising from the from the Gerota's fascia and was compressing the superior pole of the left kidney. Tumor was dissected free from the surrounding structures. It was found to be adherent to the ureter and the ureter was dissected away. The ureter was very thinned out, but the stent was seen to be within the ureter. This was dissected free completely and preserved. Dissection was carried more posterior. The iliac vessels were identified and the tumor was adherent to the iliac arteries, common iliac, and external iliac artery. As the tumor was dissected away from the external iliac artery, it was found to be encased in tumor. There was some bleeding from the artery and this was repaired with running suture of 5-0 Prolene and hemostasis was achieved. There was good pulse in the artery after the repair was done. All appeared to be done. The artery was clamped proximally and distally using vascular clamps. As the tumor was freed from the retroperitoneum from the artery, tumor was extended all the way up to the kidney and the kidney was free completely from the tumor. There was some bleeding from the superior pole of the kidney and this was repaired by Dr. Qureshi, details of which were covered in his dictation. Once this was completed, the wound was irrigated with saline inspected for hemostasis which was seen to be adequate. A 19-[place] Audie drain was placed into the retroperitoneum through a separate stab wound incision. The midline fascia was closed with running suture of #1 PDS. Subcutaneous tissue was irrigated with saline. Skin was closed with дмитрий. Sterile dressing was applied. The patient tolerated the procedure well. Estimated blood loss was 1000 mL. There were no complications. All counts were correct. The patient was taken to the recovery room in satisfactory condition. MD RICHIE ClayG/MODL /[id number] cc: MD Chano Chong MD Reyes Qureshi MD
[2020-04-04] VITALS (23 sets, daily range): BP systolic 79–158; BP diastolic 1–101
[2020-04-04] MEDS: DEXTROSE 5%/LACTATED RINGERS 1,000 ML IV SCH
--- NOTE | 2020-04-04 00:49 | NUR ---
at 2330 Pt c/o of numbness of the left foot. I assessed the L fem pulse and there was no pulse on the femoral and pedal pulses. notifed Dr Gloria and dr. Humphrey. Dr Humphrey at bedside, said he will take pt back to the OR. pt resting will continue to monitor
[2020-04-04] MEDS ORDERED: LACTATED RINGER'S 1,000 ML ONE (00:56)
[2020-04-04] MEDS ORDERED: LACTATED RINGER'S 1,000 ML INJ ONE ×2 (01:21→01:30)
[2020-04-04] MEDS: PIPER-TAZ 3.375 GM 50 ML IV SCH ×3 (02:00→18:01)
[2020-04-04] MEDS ORDERED: HEPARIN SOD (PORCINE) 5,000 UNIT/ML VIAL ONE (02:39)
[2020-04-04] MEDS ORDERED: SODIUM CHLORIDE 0.9% 500ML 500 ML ONE (02:39)
--- NOTE | 2020-04-04 04:56 | Operative Report ---
DATE OF PROCEDURE: 04/04/2020 SURGEON: Adams Sullivan MD PREOPERATIVE DIAGNOSES: 1. 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 POSTOPERATIVE DIAGNOSES: 1. 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 PROCEDURES: 1. Left iliofemoral thrombectomy. 2. Excision of periarterial tumor. 3. Redo repair of left iliac artery. FELLER BUNCHER OPERATOR: None. ANESTHESIA: General endotracheal. INDICATIONS AND FINDINGS: The patient is a 64-year-old male, earlier in the day, underwent resection of a large retroperitoneal sarcoma, who had required repair of the artery where tumor had been adherent to the artery. He developed numbness of the left leg and lost a pulse in the left leg. In surgery, the patient was found to have thrombus in the left iliac artery and there was found to be an area of stenosis and the artery with repair was done, but also just beyond this area where there was tumor involving the artery, which required resection of a portion of tumor to free the artery from encasement by tumor. At the end of the procedure, there was a palpable pulse in left femoral artery. An audible Doppler signal in the posterior tibial artery at the ankle. TECHNIQUE: After adequate general endotracheal anesthesia, the patient was in supine position, the abdomen and both lower extremities were prepped and draped in a sterile fashion with ChloraPrep solution. Starting the left groin area, incision was made and carried down through subcutaneous tissue into the deeper tissues. The femoral artery was dissected free proximally and distally controlled with vessel loops. There was no pulse in the artery. The artery was clamped proximally and distally. Arteriotomy was made. There was no thrombus in this area. A #4 Shellie catheter was passed proximally and thrombus was removed and some inflow was restored, but it was poor. There was no backbleeding. The artery was flushed with heparinized saline. The catheter was passed distally and there was no thrombus distally in the artery. A Shellie catheter was passed one more time. Additional thrombus removed, but there was poor flow and was seen to be an area of stenosis approximately 15 cm to 20 cm from where the catheter was passed. The arteriotomy was closed in running suture of 5-0 Prolene. The midline wound was then opened. [place] removed. The suture removed from the fascia into the peritoneal cavity. The bowel was retracted away from the retroperitoneum. Examination of the previous arterial repair revealed good pulses in the artery proximal. This was a good pulse in the internal iliac artery, but poor pulse in the external iliac artery. The artery was dissected free proximally and controlled with vessel loop. There was tumor surrounding the artery beyond the area of the repair. The artery was dissected free and dissected free from this tumor. Portion of the tumor was excised as this was causing narrowing of the artery. After the tumor was excised, the iliac artery was clamped proximally and distally. The suture from the previous repair was removed. There was some irregularity edges and this was revised. There was no thrombus in this area and once the area of the previous repair was completely delineated, it was then repaired with a running suture of 5-0 Prolene. Flow was allowed through the artery and there was good pulse in the external iliac artery, but not a good pulse in the femoral artery at the groin wound. The femoral artery was clamped proximally and distally again. The arteriotomy was opened. A #4 Shellie catheter was passed. Additional thrombus removed and excellent inflow was restored. The artery was then flushed with heparinized saline. The arteriotomy was then closed in running suture with 5-0 Prolene. Flow was allowed through the artery and there was a good pulse in the artery that was palpable. Hemostasis of the wound was seen to be adequate. The wound was irrigated with antibiotic solution and then closed in layers with 2-0 Vicryl in deep subcutaneous tissue in the more superficial subcutaneous tissue and дмитрий for the wound. The abdominal wound was irrigated with saline, inspected for hemostasis, which was seen to be adequate. The wound was then closed. The fascia was closed with running suture of #1 PDS. Subcutaneous tissue was irrigated with saline. Skin was closed with дмитрий. Sterile dressings applied to each wound. The patient tolerated the procedure well. Estimated blood loss of 100 mL. There were no complications. All counts were correct. The patient was taken to the ICU in stable condition. There was a palpable femoral pulse and an audible Doppler signal of the posterior tibial artery at the ankle. MD ALEYDA Clay/GLENN /[id number]
[2020-04-04] MEDS: SODIUM CHLORIDE 0.9% 250ML IRRIG IR SCH ×6 (05:19→23:50)
--- NOTE | 2020-04-04 06:08 | Diagnostic Imaging Report ---
EXAMINATION: CHEST SINGLE (PORTABLE) INDICATION: ^screening COMPARISON: None FINDINGS: AP view TUBES and LINES: And endotracheal tube terminates above the lorene. A nasogastric tube courses beneath the diaphragm. LUNGS: No focal consolidation. Mild bibasilar atelectasis. Fullness of the pulmonary vasculature. PLEURA: Questionable bilateral small pleural effusions. No pneumothorax. HEART AND MEDIASTINUM: The cardiomediastinal silhouette is unremarkable. BONES AND SOFT TISSUES: No acute osseous lesion. Soft tissues are unremarkable. UPPER ABDOMEN: No free air under the diaphragm. IMPRESSION: No focal lung consolidation. Signed by: Dick Reddy MD on 04/04/2020 6:05 AM
[2020-04-04 06:47] LABS: BASOPHILS % 0.1 % (0.0-1.0); HEMATOCRIT 30.9 % (38.2-49.6); HEMOGLOBIN 10.5 g/dL (14.0-18.0); LYMPHOCYTES # (AUTO) 0.7 (1.0-3.2); LYMPHOCYTES % 3.9 % (18.0-39.1); MEAN CORPUSCULAR HEMOGLOBIN 28.2 pg (28-32); MEAN CORPUSCULAR VOLUME 83.1 fL (81-99); MONOCYTES # (AUTO) 1.2 (0.2-0.8); MONOCYTES % 7.2 % (4.4-11.3); NEUTROPHILS # (AUTO) 14.7 (2.1-6.9); NEUTROPHILS % 88.3 % (38.7-80.0); PLATELET COUNT 153 x10e3/uL (140-360); RED BLOOD COUNT 3.72 x10e6/uL (4.3-5.7); RED CELL DISTRIBUTION WIDTH 15.3 % (11.7-14.4)
--- NOTE | 2020-04-04 07:06 | NUR ---
@0400, Pt returned from OR intubated on mechanical vent. Unable to palpate pedal pulses. pedal pulses can be heard with a Doppler. vital sign stable, pt resting will continue monitor. report given to oncoming LACI
[2020-04-04 07:11] LABS: ALBUMIN 1.5 g/dL (3.5-5.0); ALBUMIN/GLOBULIN RATIO 0.8 (0.8-2.0); ANION GAP 9.9 mmol/L (8-16); CREATININE, SERUM 1.33 mg/dL (0.72-1.25); MAGNESIUM 2.3 MG/DL (1.3-2.1); POTASSIUM 5.9 mmol/L (3.5-5.1)
[2020-04-04 07:17] LABS: CALCIUM 6.7 mg/dL (8.4-10.2)
[2020-04-04] MEDS ORDERED: DEXTROSE 50% SYRINGE 50 ML IV STA (07:38)
[2020-04-04] MEDS ORDERED: SODIUM BICARBONATE 8.4% 150 ML in DEXTROSE 5%/0.45% SOD CHL 1,000 ML IV SCH (07:45)
[2020-04-04] MEDS ORDERED: FUROSEMIDE INJ 10 MG/ML 2 ML VIAL IV ONE (07:45)
[2020-04-04] MEDS ORDERED: INSULIN REGULAR, HUMAN 100 UNIT/1 ML 3ML VIAL IV ONE (07:45)
[2020-04-04] MEDS ORDERED: SODIUM CHLORIDE 0.9% 1000ML 1,000 ML IV ONE ×2 (08:15→10:15)
[2020-04-04] MEDS ORDERED: CALCIUM GLUCONATE 10% INJ 9.3 MEQ in SODIUM CHLORIDE 0.9% 100 ML 100 ML IV ONE (08:15)
[2020-04-04] MEDS ORDERED: INSULIN REGULAR, HUMAN 100 UNIT/1 ML 3ML VIAL ONE (08:21)
[2020-04-04] MEDS: AMLODIPINE BESYLATE 5 MG TAB PO SCH (09:00)
[2020-04-04] MEDS: MORPHINE SULFATE INJ 4 MG/ML INJ 1ML IV PRN ×2 (09:18→18:00)
[2020-04-04 10:06] LABS: LYMPHOCYTES % (MANUAL) 4 % (19-48); MONOCYTES % (MANUAL) 5 % (3.4-9.0); NEUTROPHILS % (MANUAL) 91 % (40-74)
[2020-04-04 10:53] LABS: INR 2.77; PROTHROMBIN TIME 31.4 seconds (11.9-14.5)
[2020-04-04 10:54] LABS: PARTIAL THROMBOPLASTIN TIME 52.9 seconds (23.8-35.5)
--- NOTE | 2020-04-04 11:27 | NUR ---
PULMONARY/CCM DATE: 04/04/20 SUBJECTIVE: now on d5w + 2 amps hco3 drip at 125/hr ivf UOP 750 cc / night UOP 75 cc / 3.5 hrs so far k high 5.9, LR stopped. received insulin/dextrose 50. received additional Ca Gluconate 2 grams. borderline bp low normal ventilator compfortable mostly. 14/450/40/0, on intermittent sedation morphine iv. awake, follows commands had resection of retroperitoneal tumor, sarcoma preliminary. 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 PROCEDURES: Laparotomy, resection of retroperitoneal tumor with repair of left iliac artery and repair of left kidney. complicating left critical leg ischemia noted in the icu. he went for surgery again. POSTOPERATIVE DIAGNOSES: 1. 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 PROCEDURES: 1. Left iliofemoral thrombectomy. 2. Excision of periarterial tumor. 3. Redo repair of left iliac artery. REVIEW OF SYSTEMS: no rash, no icterus. PHYSICAL EXAMINATION: VITAL SIGNS: Vital signs noted and reviewed per the chart record. GENERAL: no acute distress, but he does look tired HEENT: Normocephalic and atraumatic. NECK: Supple. Throat midline. LUNGS: Bilateral air entry, limited due to limited effort, but clear. CARDIOVASCULAR: S1 and S2. No murmurs, rubs, or gallops. ABDOMEN: Soft and nontender. No anterior tenderness. EXTREMITIES: No clubbing, no cyanosis, no edema. INTEGUMENT: No rash or purpura. LABORATORY DATA: k 5.9, hco3 17, bun 43, cr 1.33 IMPRESSION AND PLAN: 1. 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 2. Acute kidney failure, obstructive s/p surgery, ATN likely. 3. Critical Hyperkalemia 5.9 4. Pandemic status with coronavirus-19, patient result: negative 5. Possible urinary tract infection sepsis vs other 6. Hyponatremia. resolved 7. anorexia NOS due to tumor 8. Hypertension. 9. post operative respiratory insufficiency 10. anemia, multifactorial. Continue supportive care and IV fluids. more boluses with crystalloid or colloid +/- pressors if needed Follow UOP, keep positive fluid balance Continue to maintain potassium --change to bicarbonate IV --remove IV K (lactated ringers) --temporize with d50/insulin, Ca gluconate. consider lasix iv --repeat serial K levels due to distribution issues General surgery interventions appreciated keep intubated, ventilator support. consider extubation when k metabolism is stabilized. Supportive care, antiemetics. Thank you very much, Dr. Hernan Ordaz and Dr Atkins. Please call for any questions. >30 min direct care today, multiple interventions / coordiination
[2020-04-04] MEDS ORDERED: DEXTROSE 50% SYRINGE 50 ML IV PRN (11:30)
[2020-04-04] MEDS ORDERED: MIDAZOLAM HCL 2 MG/2 ML VIAL IV PRN (11:30)
[2020-04-04] MEDS: SODIUM BICARBONATE 8.4% 150 ML in DEXTROSE 5% 1,000 ML IV SCH ×2 (11:43→17:27)
[2020-04-04] MEDS ORDERED: ALBUMIN 5% 0.05 GM/ML BTL IV NR (11:45)
[2020-04-04] MEDS: INSULIN REGULAR, HUMAN 100 UNIT/1 ML 3ML VIAL SQ SCH ×3 (12:00→23:50)
[2020-04-04] MEDS ORDERED: FUROSEMIDE INJ 10 MG/ML 4 ML VIAL IV NR (15:00)
[2020-04-04] MEDS ORDERED: FUROSEMIDE INJ 10 MG/ML 4 ML VIAL ONE (15:04)
[2020-04-04] MEDS ORDERED: LIDOCAINE HCL 1% LOCAL INJ 20 ML VIAL ONE (16:44)
[2020-04-04 17:07] LABS: ANION GAP 12.9 mmol/L (8-16); CALCIUM 7.1 mg/dL (8.4-10.2); CREATININE, SERUM 1.62 mg/dL (0.72-1.25); POTASSIUM 4.9 mmol/L (3.5-5.1)
--- NOTE | 2020-04-04 17:28 | Progress Note ---
DATE: 04/04/2020 Nephrology Progress Note SUBJECTIVE: The patient overnight had to go and initially decreased pulses in his lower extremity, who came to the OR for further evaluation and management by the general surgeon. As per Nephrology standpoint, his urine output has declined, he has been hypotensive throughout the evening. He had overnight. PHYSICAL EXAMINATION: VITAL SIGNS: Temperature is 98.4, pulse 97, respirations 16, blood pressure . LABORATORY DATA: Show white count 16.6 . Chemistry, sodium 135, potassium 5.0 and repeat is 5.1 after medical management, chloride 114, bicarbonate 17, anion gap of 9.9, BUN is 42, creatinine is 1.33, glucose is 156. Uric acid is 11.5. Calcium is 6.7, ionized calcium is 1, phosphorus 4.5, magnesium 2.3, total bilirubin is 2.4, AST 48, ALT 14, alkaline phosphatase 47, albumin 1.5. Microbiology none. IMAGING STUDIES: None. PHYSICAL EXAMINATION: GENERAL: Not in acute distress, alert and oriented x3. PULMONARY: Intubated and sedated. SKIN: intact. CARDIOVASCULAR: Positive S1 and S2. No murmurs, rubs, or gallops. ABDOMEN: Soft . IMPRESSION: 1. secondary to ATN, underlying hypotension resolved. 2. Hyperkalemia. 3. [place] metabolic acidosis. 4. Hypocalcemia. PLAN: At this time, the patient had extensive surgery due to significant . It seems the patient he has been given medical management with calcium gluconate as well as started on Bicarbonate drip, which he will continue. Repeat potassium is 5.13. Repeat labs including BNP, calcium, ionized calcium, level. At this time, if he has no improvement in his function he will likely be nature. Currently, he is stable during my evaluation. Once we get the labs later today MD MICHELLE Fierro/NICKL /[id number]
[2020-04-04 18:08] LABS: CREATININE,URINE RANDOM 64.81 mg/dL (63-166)
--- NOTE | 2020-04-04 18:11 | Diagnostic Imaging Report ---
Date and Time: 04/04/2020 Procedure: Temporary hemodialysis catheter placement under sonographic guidance polishing machine operator helper: Dr. Fulton Pre-operative diagnosis: Acute kidney injury Post-operative diagnosis: Acute kidney injury Conscious Sedation: None The patient's heart rate and pulse oximetry were continuously monitored by the ICU nurse. Blood pressure was monitored at 5 minute intervals. Additional Medications: Lidocaine 1% for local anesthesia Contrast used: None Estimated blood loss: Minimal Specimens: None Implants: 13 [place], 15 cm triple-lumen hi flow central venous catheter Complications: No immediate Condition at completion: Guarded Disposition: Remain in ICU DISCUSSION: Informed consent was obtained and documented in the medical record after discussion of risks and benefits. The patient was placed in the supine position on the hospital bed. Preliminary sonographic evaluation confirmed patency of the right internal jugular vein, evidenced by compressibility. The right neck was prepped and draped in the standard sterile fashion. 1% lidocaine was infiltrated into the skin and subcutaneous tissues for local anesthesia. Then under continuous sonographic guidance, an 18-gauge singlewall needle was used to access the right internal jugular vein. A permanent sonographic image was stored in the medical record. A 0.0 3 5-in. wire was advanced centrally with continuous cardiac rhythm monitoring. The needle was removed over the wire and the tract was dilated. Then a 13 [place], 15 cm triple-lumen hi flow central venous catheter was advanced over the wire to a depth of 15 cm. The wire was removed. Each lumen showed adequate bidirectional flow and was flushed with sterile saline. The catheter was secured to the skin with monofilament nylon suture and a sterile dressing was applied. The patient tolerated the procedure well without immediate complication. FINDINGS: Patent right internal jugular vein. IMPRESSION: Successful placement of a temporary hemodialysis catheter (13 [place], 15 cm Trialysis) by a right internal jugular approach under sonographic guidance. Portable chest radiograph will be obtained to confirm line positioning prior to use. Signed by: Dr. Adams Fulton M.D. on 04/04/2020 6:08 PM
--- NOTE | 2020-04-04 18:11 | Diagnostic Imaging Report ---
Date and Time: 04/04/2020 Procedure: Temporary hemodialysis catheter placement under sonographic guidance lapping machine set up operator: Dr. Fulton Pre-operative diagnosis: Acute kidney injury Post-operative diagnosis: Acute kidney injury Conscious Sedation: None The patient's heart rate and pulse oximetry were continuously monitored by the ICU nurse. Blood pressure was monitored at 5 minute intervals. Additional Medications: Lidocaine 1% for local anesthesia Contrast used: None Estimated blood loss: Minimal Specimens: None Implants: 13 [place]an, 15 cm triple-lumen hi flow central venous catheter Complications: No immediate Condition at completion: Guarded Disposition: Remain in ICU DISCUSSION: Informed consent was obtained and documented in the medical record after discussion of risks and benefits. The patient was placed in the supine position on the hospital bed. Preliminary sonographic evaluation confirmed patency of the right internal jugular vein, evidenced by compressibility. The right neck was prepped and draped in the standard sterile fashion. 1% lidocaine was infiltrated into the skin and subcutaneous tissues for local anesthesia. Then under continuous sonographic guidance, an 18-gauge singlewall needle was used to access the right internal jugular vein. A permanent sonographic image was stored in the medical record. A 0.0 3 5-in. wire was advanced centrally with continuous cardiac rhythm monitoring. The needle was removed over the wire and the tract was dilated. Then a 13 [place]an, 15 cm triple-lumen hi flow central venous catheter was advanced over the wire to a depth of 15 cm. The wire was removed. Each lumen showed adequate bidirectional flow and was flushed with sterile saline. The catheter was secured to the skin with monofilament nylon suture and a sterile dressing was applied. The patient tolerated the procedure well without immediate complication. FINDINGS: Patent right internal jugular vein. IMPRESSION: Successful placement of a temporary hemodialysis catheter (13 [place]an, 15 cm Trialysis) by a right internal jugular approach under sonographic guidance. Portable chest radiograph will be obtained to confirm line positioning prior to use. Signed by: Dr. Adams Fulton M.D. on 04/04/2020 6:08 PM
--- NOTE | 2020-04-04 18:23 | Diagnostic Imaging Report ---
EXAMINATION: CHEST XRAY LINE PLACEMENT INDICATION: ^s/p tryalisis ^[id number] ^[id number] ^Y COMPARISON: Chest radiograph 04/04/2020 FINDINGS: AP view TUBES and LINES: Interval placement of a right IJ tryalisis catheter with tip overlying the caval junction. Stable endotracheal tube with tip overlying the mid trachea. Infradiaphragmatic NG/OG tube is unchanged. LUNGS: Lungs are well inflated. Worsening bilateral pulmonary edema. Minimal bibasilar atelectasis. PLEURA: No pleural effusion or pneumothorax. HEART AND MEDIASTINUM: The cardiomediastinal silhouette is unremarkable.. BONES AND SOFT TISSUES: No acute osseous lesion. Soft tissues are unremarkable. UPPER ABDOMEN: No free air under the diaphragm. IMPRESSION: Interval placement of a right IJ tryalisis catheter with tip overlying the caval junction. No pneumothorax. Worsening bilateral pulmonary edema. Signed by: Dr. Jessica Galindo M.D. on 04/04/2020 6:20 PM
[2020-04-04 21:01] LABS: ANION GAP 12.8 mmol/L (8-16); CALCIUM 7.1 mg/dL (8.4-10.2); CREATININE, SERUM 1.73 mg/dL (0.72-1.25); POTASSIUM 4.8 mmol/L (3.5-5.1)
[2020-04-04 21:12] LABS: MAGNESIUM 2.3 MG/DL (1.3-2.1)
--- NOTE | 2020-04-04 21:34 | NUR ---
Attemptedx2 to notify Dr. Arnold of the 1999 Labs result, however the voice note kept saying transfer fail. left a VM with the long wall shear operator will continue to monitor
[2020-04-05] VITALS (25 sets, daily range): BP systolic 102–129; BP diastolic 65–81
[2020-04-05] MEDS: PIPER-TAZ 3.375 GM 50 ML IV SCH ×3 (02:00→18:00)
[2020-04-05] MEDS: SODIUM BICARBONATE 8.4% 150 ML in DEXTROSE 5% 1,000 ML IV SCH (02:22)
[2020-04-05] MEDS: SODIUM CHLORIDE 0.9% 250ML IRRIG IR SCH ×5 (04:19→20:36)
[2020-04-05 05:51] LABS: ANION GAP 12.3 mmol/L (8-16); CALCIUM 7.1 mg/dL (8.4-10.2); CREATININE, SERUM 1.58 mg/dL (0.72-1.25); POTASSIUM 4.3 mmol/L (3.5-5.1)
[2020-04-05] MEDS: INSULIN REGULAR, HUMAN 100 UNIT/1 ML 3ML VIAL SQ SCH ×3 (06:00→17:17)
[2020-04-05 06:54] LABS: BASOPHILS % 0.1 % (0.0-1.0); EOSINOPHILS % 0.1 % (0.0-6.0); HEMATOCRIT 23.1 % (38.2-49.6); HEMOGLOBIN 7.6 g/dL (14.0-18.0); LYMPHOCYTES # (AUTO) 0.5 (1.0-3.2); LYMPHOCYTES % 4.8 % (18.0-39.1); MEAN CORPUSCULAR HEMOGLOBIN 28.3 pg (28-32); MEAN CORPUSCULAR HGB CONC 32.9 g/dL (31-35); MEAN CORPUSCULAR VOLUME 85.9 fL (81-99); MONOCYTES # (AUTO) 0.7 (0.2-0.8); MONOCYTES % 6.2 % (4.4-11.3); NEUTROPHILS % 88.4 % (38.7-80.0); PLATELET COUNT 135 x10e3/uL (140-360); RED BLOOD COUNT 2.69 x10e6/uL (4.3-5.7); RED CELL DISTRIBUTION WIDTH 16.4 % (11.7-14.4)
[2020-04-05] MEDS: MORPHINE SULFATE INJ 4 MG/ML INJ 1ML IV PRN ×2 (07:25→13:15)
[2020-04-05 08:26] LABS: LYMPHOCYTES % (MANUAL) 4 % (19-48); MONOCYTES % (MANUAL) 5 % (3.4-9.0); NEUTROPHILS % (MANUAL) 91 % (40-74)
--- NOTE | 2020-04-05 13:06 | NUR ---
PULMONARY/CCM DATE: 04/05/20 SUBJECTIVE: now on d5w + 3 amps hco3 drip at 125/hr ivf UOP 650 cc / night UOP 50 cc / hrs today so far received lasix x 1 dose. potassium lower into yesterday PM intubated. he was given a SBT and passed. later extubated, breathing spontaneously without difficulty REVIEW OF SYSTEMS: no rash, no icterus. PHYSICAL EXAMINATION: VITAL SIGNS: Vital signs noted and reviewed per the chart record. GENERAL: no acute distress, but he does look tired HEENT: Normocephalic and atraumatic. NECK: Supple. Throat midline. LUNGS: Bilateral air entry, limited due to limited effort, but clear. CARDIOVASCULAR: S1 and S2. No murmurs, rubs, or gallops. ABDOMEN: Soft and nontender. No anterior tenderness. EXTREMITIES: No clubbing, no cyanosis, no edema. INTEGUMENT: No rash or purpura. LABORATORY DATA: k 4.3, cr 1.58. wbc 11, hct 23, plt 135. IMPRESSION AND PLAN: 1. 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 2. Acute kidney failure, obstructive s/p surgery, ATN likely. 3. Critical Hyperkalemia 5.9 4. Pandemic status with coronavirus-19, patient result: negative 5. Possible urinary tract infection sepsis vs other 6. Hyponatremia. resolved 7. anorexia NOS due to tumor 8. Hypertension. 9. post operative respiratory insufficiency 10. anemia, multifactorial. Continue supportive care and IV fluids. more boluses with crystalloid or colloid +/- pressors if needed Follow UOP, keep positive fluid balance continue bicarbonate IV General surgery interventions appreciated consider extubation today as k metabolism is stabilized Supportive care, antiemetics. Thank you very much, Dr. Hernan Ordaz and Dr Atkins. Please call for any questions. >30 min direct care and coordination today
[2020-04-05] MEDS ORDERED: CALCIUM GLUCONATE 10% INJ 13.95 MEQ in SODIUM CHLORIDE 0.9% 100 ML 100 ML IV ONE (15:45)
--- NOTE | 2020-04-05 15:59 | NUR ---
Progress note dictated [id number]
[2020-04-05] MEDS: DEXTROSE 5%/0.9% SOD CHL 1,000 ML IV SCH (16:23)
--- NOTE | 2020-04-05 19:52 | Progress Note ---
DATE: 04/05/2020 SUBJECTIVE: The patient was seen and examined in the intensive care unit. Events noted. Mr. Barone is a 64-year-old gentleman, who follows up with Dr. Hernan Ordaz, patient's primary care physician. The patient was admitted on March 31, 2020, to the intensive care unit and presented to the hospital with an impression of a retroperitoneal mass, acute kidney failure, possible obstructive hyperkalemia. Potassium level was 5.5. There was a possible presumed UTI with sepsis and he did have electrolyte imbalance consistent of hyponatremia. The patient was placed on IV fluids and surgical consultation was requested with Dr. Sullivan based on the patient's condition, which was done of concern pertaining a large retroperitoneal mass. The patient did have surgical intervention done by Dr. Sullivan. Specifically, the patient did have a resection of retroperitoneal tumor and sarcoma per the preliminary report. Postop diagnoses were retroperitoneal tumor with adherence to the left iliac artery, left kidney, and left ureter. Procedure done was that of laparotomy, resection of retroperitoneal tumor with repair of left iliac artery and repair of the skin. The patient did have a complicated course of left-sided ischemia and was taken to surgery again and did have a postop diagnosis of left iliofemoral arterial occlusion and the patient with a history of retroperitoneal sarcoma, and procedures done was that of: 1. Left iliofemoral thrombectomy. 2. Excision of periarterial tumor. 3. Redo repair of left iliac artery. Procedure was done according to the records report of March 25, 2020. The patient was on the vent and was followed by Dr. Joni Gloria from critical care standpoint and has been followed up by Dr. Arnold in view of the patient's condition of acute renal failure and electrolyte slight imbalance consistent of hyponatremia and hyperkalemia. At the present time, the patient is relatively comfortable. He was extubated as mentioned and has been little fine. The patient does follow commands basically and neurological keating follow commands properly. OBJECTIVE: VITAL SIGNS: Noted at this time with a blood pressure of 116/74, respiration 19, pulse 90, and temperature 99.2. GENERAL APPEARANCE: He seems to be tired. HEENT: Head is normocephalic and atraumatic. NECK: Supple. No JVD. LUNGS: Bilateral air entry basically clear. CARDIOVASCULAR: Regular rate and rhythm. No murmurs or gallops. ABDOMEN: Not distended. EXTREMITIES: No edema, clubbing, or cyanosis. SKIN: No rash or purpura. LABORATORY DATA: CBC revealed hemoglobin 14.6, white blood cell count 13.46, and platelet count 209,000 as of March 31, 2020. Chem profile as of April 05, 2020 revealed a sodium of 139, potassium 4.3, chloride 107, CO2 24, BUN 48, and creatinine 1.58. ASSESSMENT: 1. 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 2. Status post laparotomy and resection of retroperitoneal tumor with repair of left iliac artery and repair of left kidney. 3. Acute kidney injury, obstructive and as mentioned the patient did have acute tubular necrosis and is being followed by Nephrology. 4. Hyperkalemia. 5. Urinary tract infection with suspected sepsis. 6. Electrolyte imbalance. Procedure of hyponatremia and hyperkalemia. 7. History of anorexia. 8. Hypertension. 9. History of anemia. PLAN OF CARE: Continue present care as he has been advised. Continue IV fluids. The patient be followed by Renal, who was extubated today. A list of medications noted. MD ALPHONSE Sommers/GLENN /[id number] MTDD
--- NOTE | 2020-04-05 21:03 | Progress Note ---
DATE: 04/05/2020 Nephrology Progress Note SUBJECTIVE: The patient is doing well. He is extubated. He is alert, awake, and oriented on examination. No overnight events. VITAL SIGNS: Temperature is 99.3, pulse 90, respiratory rate is 19, blood pressure 116/74, pulse ox 100% on 2 L nasal cannula. LABORATORY DATA: Labs show white count is 11.2, hemoglobin 7.6, hematocrit is 23 platelets of 135. Chemistry; sodium 139, potassium is 4.3, chloride 107, bicarb 24, anion gap of 12, BUN is 48, creatinine 1.58 downtrending, calcium 7.1, ionized calcium is 1, magnesium 2.3. MICROBIOLOGY: Urine cultures were negative. IMAGING STUDIES: None. PHYSICAL EXAMINATION: GENERAL: No acute distress. Alert and oriented x3. Cooperative on examination. HEENT: Head is normocephalic and atraumatic. Eyes; pupils are equal, round, reactive to light bilaterally. Extraocular movements intact. Throat; no evidence of erythema or exudates in the posterior pharynx. Has poor dentition. NECK: Supple. Good range of motion throughout. PULMONARY: Clear to auscultation bilaterally. Extubated now. CARDIOVASCULAR: Positive S1 and S2. No murmurs, rubs, or gallops appreciated. ABDOMEN: Soft, nondistended, nontender to palpation. Bowel sounds are present. MUSCULOSKELETAL: Strength is 5/5 throughout. NEUROLOGICAL: No evidence of neurological deficits on exam. SKIN: Intact. Warm to touch. Good cap refill. PSYCHIATRIC: Normal affect and mood. EXTREMITIES: He does have trace edema throughout, but he is stable. IMPRESSION: 1. Acute kidney injury with a concomitant component of acute tubular necrosis, now seems to be improving. 2. Hyperkalemia-resolved. 3. Hypocalcemia. PLAN: At this time, I will go ahead and stop the bicarbonate drip as his potassium and his bicarbonate are much improved, and switch him to D5 NS and maintain his sugar level. His potassium is better. Replace calcium with calcium gluconate 3 g IV piggyback once. Get a.m. labs. Monitor very closely. We are going to hold off any diuretics for now because he is n.p.o. and he is not able to have anything fluid keating and since he is on fluids, it makes no sense to put him on diuretic at this time. He is not having any compromise of respiratory distress. We will continue to monitor very closely. MD MICHELLE Fierro/GLENN /[id number]
[2020-04-06] VITALS (12 sets, daily range): BP systolic 108–147; BP diastolic 56–86
[2020-04-06] MEDS: SODIUM CHLORIDE 0.9% 250ML IRRIG IR SCH ×7 (00:35→23:45)
[2020-04-06] MEDS: PIPER-TAZ 3.375 GM 50 ML IV SCH ×3 (01:56→19:13)
--- NOTE | 2020-04-06 03:35 | Operative Report ---
DATE OF PROCEDURE: 04/03/2020 SURGEON: Reyes Qureshi MD PREOPERATIVE DIAGNOSES: 1. Left hydronephrosis. 2. Chronic renal insufficiency. 3. Huge left retroperitoneal tumor, much larger than 10 cm. POSTOPERATIVE DIAGNOSES: 1. Left hydronephrosis. 2. Chronic renal insufficiency. 3. Huge left retroperitoneal tumor, much larger than 10 cm. 4. Wound to the left kidney requiring repair. 5. Wound to the left iliac artery requiring repair. OPERATIONS PERFORMED: 1. Cystourethroscopy with bilateral ureteral catheterization and retrograde ureteropyelography (separate procedure performed to renal insufficiency). 2. Interpretation of retrograde ureteropyelography. 3. Supervision of fluoroscopy, no radiologist present. 4. Cystourethroscopy with insertion of left indwelling ureteral stent (separate procedure performed to relieve the hydronephrosis). 5. Subtotal excision of massive left retroperitoneal tumor (Dr. Bryanna Qureshi assisting Dr. Sullivan). 6. Repair, assisting Dr. Sullivan with Dr. Bryanna Qureshi in left iliac artery repair. 7. Repair of left kidney (separate procedure performed to the left renal wound. TRANSITION LEAD: Bryanna Qureshi MD COMPLICATIONS: None. CLINICAL SUMMARY: Collin Barone is a 64-year-old man, who was managed for bladder stone and kidney stone. He had failed to follow up. The patient eventually was found to have very large left-sided retroperitoneal mass. A smaller retroperitoneal mass was also present on the right-hand side. The patient was brought to the operating room for exploration and management. He is aware of the risks of bleeding, infection, injury to adjacent structures, incomplete tumor resection, need for additional procedures and elected to proceed. The patient also prepared and he may be required to have a left nephrectomy. He understood these risks and elected to proceed. OPERATIVE PROCEDURE IN DETAIL: Informed consent was verified. Collin Barone was properly identified, taken to the operating room, placed on the operating table in supine position. Anesthesia was uneventfully begun. The patient was then carefully gently repositioned in the dorsal lithotomy position with all pressure points well padded. His genitalia were prepared and draped in usual sterile fashion. The cystoscope sheath with visual obturator in place was atraumatically inserted the patient's urethra, it was guided unremarkable urethra, through the normal sphincteric region, through the prostate bed, which was significant for visually obstructing bilobar prostatic hypertrophy with kissing lateral lobes. We went into the patient's bladder, where panendoscopy revealed diffuse sand consistent with recurrent stone formation. No tumors were identified. There were no suspicious lesions. The ureteral catheter was used to cannulate the right ureter and retrograde ureteropyelogram was performed. It was then inserted left ureter and retrograde ureteropyelograms were performed. A guidewire was somehow negotiated into the left ureter. With cystoscopic and fluoroscopic guidance, a 30 cm x 7-Lithuanian indwelling ureteral stent was then placed, it was coiled in the patient's very proximal ureter as well as the patient's bladder. The retaining suture was cut short. Interpretation of retrograde ureteropyelography contrast was instilled in retrograde fashion bilaterally. The right side was unremarkable. There were no tumors, no stones, no diverticula. Unobstructed drainage was observed fluoroscopically. Left side exhibited some hydronephrosis, a malrotated kidney and a ureter where the distal ureter was performed with a 360 degree loop and the remainder of the ureter was medially and anteriorly severely displaced by the massive tumor. Sal[place] catheter was placed. The patient was then repositioned in a supine position. His abdomen, chest, and genitalia were prepared and draped in usual sterile fashion. A midline incision was made by Dr. Sullivan. We proceeded performing debulking of the massive left-sided retroperitoneal tumor with the assistance of Dr. Bryanna Qureshi. Dr. Bryanna Qureshi also assisting him in the left iliac artery repair. Excision of this tumor, which was stuck to the kidney caused some bleeding in the kidney and capsular tears, the main capsular tear that was oozing necessitated repair in an attempt to save the kidney. We placed 2-0 chromic sutures through the capsule. We then utilized Avitene and Surgicel and tied down the sutures achieving hemostasis. We examined the ureter with very attenuated. It was extremely thinned out from its longstanding displacement and stretching from this mass and tumor. We did give consideration to a nephrectomy with the patient's renal function already being decreased removing the renal unit that he may need for chemotherapy and survival did not seem what the right thing to that. Therefore, we decided to leave the kidney in the patient at this time and let hope that its function will improve his quality of life. The case was turned back over to Dr. Sullivan for closure of the wound and placement of the drain. We will proceed with following the patient up throughout his postoperative course. Reyes Qureshi MD [place]/MODL /[id number] cc: Hernan Ordaz MD
[2020-04-06 05:52] LABS: BASOPHILS % 0.2 % (0.0-1.0); EOSINOPHILS % 0.2 % (0.0-6.0); HEMATOCRIT 23.1 % (38.2-49.6); HEMOGLOBIN 7.5 g/dL (14.0-18.0); LYMPHOCYTES # (AUTO) 0.5 (1.0-3.2); LYMPHOCYTES % 4.8 % (18.0-39.1); MEAN CORPUSCULAR HGB CONC 32.5 g/dL (31-35); MEAN CORPUSCULAR VOLUME 86.2 fL (81-99); MONOCYTES # (AUTO) 0.5 (0.2-0.8); MONOCYTES % 4.8 % (4.4-11.3); NEUTROPHILS # (AUTO) 10.1 (2.1-6.9); NEUTROPHILS % 89.6 % (38.7-80.0); PLATELET COUNT 149 x10e3/uL (140-360); RED BLOOD COUNT 2.68 x10e6/uL (4.3-5.7); RED CELL DISTRIBUTION WIDTH 16.3 % (11.7-14.4)
[2020-04-06] MEDS: INSULIN REGULAR, HUMAN 100 UNIT/1 ML 3ML VIAL SQ SCH ×4 (06:00→18:00)
[2020-04-06 06:12] LABS: ANION GAP 10.9 mmol/L (8-16); BLOOD UREA NITROGEN 36 mg/dL (7-26); BUN/CREATININE RATIO 36 (6-25); CALCIUM 7.4 mg/dL (8.4-10.2); CARBON DIOXIDE 27 mmol/L (22-29); CHLORIDE 108 mmol/L (98-107); CREATININE, SERUM 0.99 mg/dL (0.72-1.25); EST GLOMERULAR FILTRATION RATE > 60 ML/MIN (60-); GLUCOSE 116 mg/dL (74-118); POTASSIUM 3.9 mmol/L (3.5-5.1); SODIUM 142 mmol/L (136-145)
[2020-04-06] MEDS: MORPHINE SULFATE INJ 4 MG/ML INJ 1ML IV PRN ×2 (09:10→17:15)
[2020-04-06] MEDS: DEXTROSE 5%/0.9% SOD CHL 1,000 ML IV SCH ×2 (11:45→19:09)
--- NOTE | 2020-04-06 12:40 | NUR ---
PULMONARY/CCM DATE: 04/06/20 SUBJECTIVE: NGT in place, LIWS on. No high GI output IVF D5NS 125/hr ivf 100% saturation 2 L/min oxygen by [place] with continued output, serosanguinous remains extubated pulses with reported faint DP to left foot REVIEW OF SYSTEMS: no rash, no icterus. PHYSICAL EXAMINATION: VITAL SIGNS: Vital signs noted and reviewed per the chart record. GENERAL: no acute distress, appears tired HEENT: Normocephalic and atraumatic. NECK: Supple. Throat midline. LUNGS: Bilateral air entry, limited due to limited effort, but clear. CARDIOVASCULAR: S1 and S2. No murmurs, rubs, or gallops. ABDOMEN: Soft , post surgical. limited exam, not grossly tender EXTREMITIES: No clubbing, no cyanosis, no edema. INTEGUMENT: No rash or purpura. LABORATORY DATA: k 3.9, hco3 27, cr 0.99. wbc 11, hct 23, plt 149. IMPRESSION AND PLAN: 1. 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 2. Acute kidney failure, obstructive s/p surgery, ATN likely. 3. Critical Hyperkalemia 5.9 4. Pandemic status with coronavirus-19, patient result: negative 5. Possible urinary tract infection sepsis vs other 6. Hyponatremia. resolved 7. anorexia NOS due to tumor 8. Hypertension. 9. post operative respiratory insufficiency 10. anemia, multifactorial. Continue supportive care and IV fluids. d/c arterial line, consider dc HD line when ready per renal expert Follow UOP, follow prater/bloodiness Supportive care mobilize, PT maintain NGT, LIWS per surgeon follow up pathology Thank you very much, Dr. Hernan Ordaz and Dr Atkins. Please call for any questions.
--- NOTE | 2020-04-06 13:24 | NUR ---
Nutrition Intervention Note RD Recommendation(s) for Physician: - If pt remains NPO, recommend initiating TPN at 45 ml/hr of Dextrose 30% 500 ml/L, AA 15% 500ml/L, Lipids 25 g/day, NaCl 30 mEq/L, K Acetate 30 mEq/L, Ca Gluconate 4.6 mEq/L, K Phos 5 mmol/L, no Mg Sulfate for now. Add MVI, trace, thiamine. (Provides 1080 ml, 1017 kcal, 162 gm dextrose, 54 gm protein) - Please check BMP with Mg and Phos daily, replace low lytes as needed. - If TPN initiated, recommend discontinuing or decreasing IVF. - If able to advance diet, recommend Renal, GI Soft with Nepro BID for adequacy. Plan of Care: RD following, monitoring for tolerance and adequacy. TPN, diet, and ONS rec's. Nutrition reason for involvement: Follow up RD Assessment 04/06: Follow up. Pt s/p retroperitoneal tumor resection with repair of L iliac artery and repair of L kidney on 04/03. Pt remains NPO x day 3 post operatively. NGT to LIWS, very little output. Pt sleeping at time of visit, did not awake to greeting. Chart reviewed, plan for HD catheter placement per MD notes. Pt eating 25-75% of meals 3 days ago, tolerating well. TPN and diet rec's provided pending plan of care. Will continue to monitor. 04/01: 64 YOM admitted for abdominal pain and hyperkalemia, seen today per MST screen. Pt reports progressive wt loss over the past 3 months of 16#, noted significant change of 9% loss in 3 months. Pt reports slow decline in appetite over the past few months with inability to keep anything down 3 days [employer]. Pt denies any supplements at home. Pt reports tolerating diet today, receptive to supplement- RD to order Nepro BID for adequacy per current lab trend. Pt denies any N/V/C/D currently. Pt with no questions or concerns at time of visit. Chart reviewed. Will continue to monitor. Principal Problems/Diagnoses: abd pain, hyperkalemia PMH: HTN, TURP, retroperitoneal mass GI: abd soft, non-tender- no recent BM documented. + NGT to LIWS Skin: abdominal incision Labs: 04/06: Na 142, K 3.9, Cl 108, CO2 27, BUN 36, Cr 0.99, Gluc 116, iCa 1; 04/04: Mg 2.3 04/01: Na 131, K 4.9, BUN 66, Cr 1.46, Gluc 116, Phos 4.5, Mg 2.9 Meds: morphine, insulin, zofran, versed (PRN) IVF: D5-NS at 125 ml/hr Ht: 67 in Wt: 164.06 lb BMI: 25.7 kg/m2 IBW: 135 lb Malnutrition Evaluation (04/01/20) The patient meets criteria for MODERATE protein-calorie malnutrition. Energy intake: moderate <75% of estimated energy requirements for 1 month Weight loss: severe >7.5% in 3 months (Acute) Fat loss: none, chest well developed Muscle loss: none, shoulder round Supporting Evidence: Fluid accumulation: none Functional Status: not assessed Nutrition Prescription (Diet Order): NPO Estimated Nutritional Needs: 5315-2540 calories/day (18-22 kcal/kg CBW) 74-112 g protein/day (1-1.5 g pro/kg CBW) Diet Adequacy: Not meeting calorie needs, Not meeting protein needs Diet Tolerance: tolerating po Diet Education Needs Assessment: Diet education not indicated at this time. Nutrition Care Level: high Nutrition Diagnosis: Inadequate energy and protein intake related to current medical conditions as evidenced by progressive, significant wt loss of 9% and not meeting needs. Goal: Patient will meet 75-100% of estimated needs by follow up Progress: Not progressing Interventions: -fat, mineral modified diet, Commercial beverage, TPN- composition, rate, route, Recommended Modifications Monitoring/Evaluation: -Total energy intake, Total protein intake, Formula/solution, Modified diet, Liquid supplement, Weight change Signed: Rama Briceno RD, LD, [facility]
--- NOTE | 2020-04-06 13:43 | NUR ---
04/06/2020 SUBJECTIVE Mr. Barone is a 64-year-old male patient who has been evaluated this day. The patient is in no acute distress. Denies chest pain, no shortness of breath, no vomiting, no nausea no vomiting, no diarrhea, no fever, no chills. ROS General: Denies fever chills Cardia vascular: No CP, no edema Respiratory: No SOB, no cough, no hemoptysis GI: Denies nausea, no vomiting, no diarrhea no hematemesis no Genitourinary: No dysuria, hematuria, no incontinence. No Salinas catheter. Neuro: No focal weakness. Alert oriented x3 Psychiatrist: No anxiety Objective: Physical exam: Patient was in no distress. Vital signs: Blood pressure: 132/74; heart rate: 70;; respiratory rate: 15; temperature: 99.2; pulse oximetry: 100% on nasal cannula. HEENT: No gross abnormalities noted. Nasogastric tube in place. Neck: Supple no JVD Lungs: Clear to auscultation, no rales, no rhonchi. Heart: Regular rate and rhythm no murmurs no gallops Abdomen: Postsurgical. Soft nontender, no organomegaly, bowel sounds present. Extremities: No cyanosis, clubbing or edema Neuro: No Patient alert oriented 3 Musculoskeletal: No significant deformity or swelling of joints. Psych: Normal mood ASSESSMENT: 1. 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 Status post laparotomy and resection of retroperitoneal tumor with repair of left iliac artery and repair of left kidney. 3. Acute kidney injury, obstructive and as mentioned the patient did have acute tubular necrosis and is being followed by Nephrology. 4. Hyperkalemia. 5. Urinary tract infection with suspected sepsis. 6. Electrolyte imbalance. Procedure of hyponatremia and hyperkalemia. 7. History of anorexia. 8. Hypertension. 9. History of anemia. Plan of care: Continue supportive care IV fluids Bicarbonate drip Monitor potassium Glycemic control Blood pressure control Diuretics PT/OT Nephrology evaluation
--- NOTE | 2020-04-06 15:11 | Progress Note ---
DATE: 04/06/2020 Nephrology Progress Note SUBJECTIVE: The patient is doing well today with no complaints. He is in the process of being transferred from ICU to the medical floor. His electrolytes are stable. I did initiate IV TPN for his nutrition. I am not sure when he will start any kind of oral feeds. PHYSICAL EXAMINATION: VITAL SIGNS: Temperature is 99.2, pulse 91, respiratory rate is 19, blood pressure 132/76, pulse ox 100% on room air. GENERAL: No acute distress. Alert and oriented x3. Cooperative on examination. HEENT: Head is normocephalic and atraumatic. Eyes; pupils are equal, round, reactive to light bilaterally. Extraocular movements intact bilaterally. Throat; no evidence of erythema or exudates in the posterior pharynx. Has poor dentition. NECK: Supple. Good range of motion throughout. PULMONARY: Clear to auscultation bilaterally. No wheezing, rales or rhonchi. No crackles appreciated. CARDIOVASCULAR: Positive S1 and S2. No murmurs, rubs, or gallops appreciated. ABDOMEN: Soft, nondistended, nontender to palpation. Bowel sounds are present. MUSCULOSKELETAL: Strength is 5/5 throughout. No evidence of any muscle deficits on examination. No weakness appreciated. NEUROLOGIC: Cranial nerves 2 through 12 grossly intact. No evidence of any neurological deficits on exam. SKIN: Intact. Warm to touch. Good cap refill. PSYCHIATRIC: Normal affect and mood. EXTREMITIES: No edema. Good range of motion throughout. LABORATORY FINDINGS: Show white count 11.2, hemoglobin 7.5, hematocrit 23, platelets of 149, coagulation PT 31, INR 2.7, PTT 52.9. Chemistry; sodium 142, potassium 3.9 chloride 108, bicarb 27, anion gap of 10, BUN is 36, creatinine 0.99, glucose 116, calcium 7.4, ionized calcium 1.1 , within range. Phosphorus is 4.5. IMAGING STUDIES: None. IMPRESSION: 1. Acute kidney injury with concomitant component of acute tubular necrosis, now resolved. 2. Hyperkalemia resolved. 3. Hypocalcemia. 4. Mild protein calorie malnutrition. PLAN: At this time his electrolytes are stable. Good urine output. No indication for renal replacement therapy at this time. He does need some nutrition, I will initiate IV TPN as I do not know when this patient will have any kind of oral feeds. I discussed this plan of care with nursing staff, with the patient and they verbalized understanding. TPN has been filled out. MD MICHELLE Fierro/GLENN /[id number]
--- NOTE | 2020-04-06 19:00 | NUR ---
Report received. Assumed care. Assessment done. See interventions
--- NOTE | 2020-04-06 19:45 | NUR ---
Report called to MS 1.
[2020-04-07] VITALS (11 sets, daily range): BP systolic 101–127; BP diastolic 53–88
[2020-04-07] MEDS: PIPER-TAZ 3.375 GM 50 ML IV SCH ×3 (02:00→16:08)
[2020-04-07] MEDS: CENTRAL TPN FORMULA 1 BAG IV SCH ×2 (02:22→20:55)
[2020-04-07] MEDS: SODIUM CHLORIDE 0.9% 250ML IRRIG IR SCH ×3 (03:45→12:58)
[2020-04-07 05:58] LABS: BASOPHILS % 0.2 % (0.0-1.0); EOSINOPHILS # (AUTO) 0.1 (0.0-0.4); EOSINOPHILS % 0.5 % (0.0-6.0); HEMATOCRIT 23.6 % (38.2-49.6); HEMOGLOBIN 7.7 g/dL (14.0-18.0); LYMPHOCYTES # (AUTO) 0.6 (1.0-3.2); MEAN CORPUSCULAR HEMOGLOBIN 28.7 pg (28-32); MEAN CORPUSCULAR HGB CONC 32.6 g/dL (31-35); MEAN CORPUSCULAR VOLUME 88.1 fL (81-99); MONOCYTES # (AUTO) 0.6 (0.2-0.8); NEUTROPHILS # (AUTO) 8.9 (2.1-6.9); NEUTROPHILS % 86.8 % (38.7-80.0); PLATELET COUNT 178 x10e3/uL (140-360); RED BLOOD COUNT 2.68 x10e6/uL (4.3-5.7); RED CELL DISTRIBUTION WIDTH 16.5 % (11.7-14.4)
[2020-04-07] MEDS: INSULIN REGULAR, HUMAN 100 UNIT/1 ML 3ML VIAL SQ SCH ×4 (06:00→16:48)
--- NOTE | 2020-04-07 06:15 | NUR ---
patient refused to be turned. Stated he was comfortable. will cont to monitor
[2020-04-07 06:24] LABS: ANION GAP 8.1 mmol/L (8-16); BLOOD UREA NITROGEN 29 mg/dL (7-26); BUN/CREATININE RATIO 40 (6-25); CALCIUM 7.7 mg/dL (8.4-10.2); CARBON DIOXIDE 27 mmol/L (22-29); CHLORIDE 113 mmol/L (98-107); CREATININE, SERUM 0.72 mg/dL (0.72-1.25); EST GLOMERULAR FILTRATION RATE > 60 ML/MIN (60-); GLUCOSE 107 mg/dL (74-118); POTASSIUM 4.1 mmol/L (3.5-5.1); SODIUM 144 mmol/L (136-145)
--- NOTE | 2020-04-07 10:54 | NUR ---
Patient's [place] drain is putting out quite a bit of output. Within 2 hour it put out 270 mL. Patient's NG tube was irrigated and checked to ensure suction, it was working, however it only has clear drainage. Patient's bilateral arms are swollen but they were put on pillows and he had no pain.
--- NOTE | 2020-04-07 12:39 | Diagnostic Imaging Report ---
TECHNIQUE: Frontal view of the chest. INDICATION: ^chf COMPARISON: 04/04/2020 IMPRESSION: Lines and hardware: Interval extubation. Interval placement of an enteric catheter, with the tip projecting over the left upper quadrant. Otherwise, stable. Heart and mediastinum: Stable. Lungs and pleura: Elevated right hemidiaphragm. Improved pulmonary vascular congestion/interstitial edema. No focal airspace consolidation. Probable layering right pleural effusion. No pneumothorax. Soft tissues and bones: No acute abnormality. Signed by: eLo Zimmer MD on 04/07/2020 12:36 PM
[2020-04-07] MEDS: MORPHINE SULFATE INJ 4 MG/ML INJ 1ML IV PRN (12:58)
--- NOTE | 2020-04-07 13:24 | NUR ---
PULMONARY/CCM DATE: 04/07/20 SUBJECTIVE: tpn at 80/hr prater in place, clearer than yesterday. mildly bloody no flatus, no bm. ngt in place RA fio2 REVIEW OF SYSTEMS: no rash, no icterus. PHYSICAL EXAMINATION: VITAL SIGNS: Vital signs noted and reviewed per the chart record. GENERAL: no acute distress, appears tired HEENT: Normocephalic and atraumatic. NECK: Supple. Throat midline. LUNGS: Bilateral air entry, limited due to limited effort, but clear. CARDIOVASCULAR: S1 and S2. No murmurs, rubs, or gallops. ABDOMEN: Soft , post surgical. limited exam, not grossly tender EXTREMITIES: No clubbing, no cyanosis, no edema. INTEGUMENT: No rash or purpura. LABORATORY DATA: k 4.1, cr 0.72. wbc 10, hct 23. plt 178 IMPRESSION AND PLAN: 1. 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 2. Acute kidney failure, obstructive s/p surgery, ATN likely. resolved 3. Critical Hyperkalemia 5.9, resolve 4. Pandemic status with coronavirus-19, patient result: negative 6. Hyponatremia. resolved 7. anorexia NOS due to tumor 8. Hypertension. 9. post operative respiratory insufficiency, extubated 10. anemia, multifactorial. Continue supportive care and IV fluids. Consider dc HD line when ready per renal expert Follow UOP, follow prater/bloodiness Supportive care mobilize, PT maintain NGT, per surgeon follow up pathology repeat CXR today, ensure improvement Thank you very much, Dr. Hernan Ordaz and Dr Atkins. Please call for any questions.
--- NOTE | 2020-04-07 14:50 | Progress Note ---
DATE: 04/07/2020 Nephrology Progress Note SUBJECTIVE: The patient seems to be doing well today. NG tube was removed. He was started on a clear liquid diet by General Surgery. PHYSICAL EXAMINATION: VITAL SIGNS: Temperature is 98, pulse 95, respirations 20, blood pressure 116/82, and pulse ox 96% on room air. GENERAL: Not in acute distress. Alert and oriented x3. Cooperative on examination. HEENT: Head; normocephalic, atraumatic. Eyes; pupils are equal, round, and reactive to light bilaterally. Extraocular movements intact bilaterally. Throat; no evidence of erythema or exudates in the posterior pharynx. Has poor dentition. NECK: Supple. Good range of motion. PULMONARY: Clear to auscultation bilaterally. No wheezing, no rales, no rhonchi, no crackles appreciated. CARDIOVASCULAR: Positive S1 and S2. No murmurs, rubs, or gallops appreciated. ABDOMEN: Soft, nondistended, and nontender to palpation. Bowel sounds present. MUSCULOSKELETAL: Strength is 5/5 throughout. No evidence of any muscle deficits on examination. SKIN: Intact. Warm to touch. Good cap refill. PSYCHIATRIC: Normal affect and mood. EXTREMITIES: No edema. Good range of motion throughout. LABORATORY DATA: White count 10.2, hemoglobin 7.7, hematocrit is 24, and platelets of 178. Chemistry; sodium 144, potassium 4.1, chloride 113, bicarb 27, anion gap of 8.1, BUN 29, creatinine is 0.72, glucose 107, and calcium is 7.7. Pathology pending. IMPRESSION: 1. Acute kidney injury secondary to acute tubular necrosis, now resolved. 2. Hyperkalemia-resolved. 3. Hypocalcemia-resolved. 4. Mild protein-calorie malnutrition. 5. Underlying malignancy, unknown etiology. PLAN: At this time, NG tube was removed. We will restart his TPN for today. Clear liquid diet has been initiated by General Surgery. If he tolerates more of his diet tomorrow, we will consider discontinuing the TPN. We will get morning labs. His electrolytes are stable. Encourage ambulation. Elie Arnold MD JSMickey/MODL /[id number]
--- NOTE | 2020-04-07 15:32 | NUR ---
Patient's NG tube was removed by Dr. Sullivan at bedside and ordered a clear liquid diet. Patient received water at bedside and tolerated well. Patient had PT and did well during therapy and decided to stay sitting at bedside after therapy to help relieve some back pain from laying down for a while.
--- NOTE | 2020-04-07 15:57 | NUR ---
SUBJECTIVE Mr. Barone is a 64-year-old male patient who has been evaluated The patient is in no acute distress. Patient was seen on the medical floor, feels better Denies chest pain, no shortness of breath, no vomiting, no nausea no vomiting, no diarrhea, no fever, no chills. ROS General: Denies fever chills Cardia vascular: No CP, no edema Respiratory: No SOB, no cough, no hemoptysis GI: Denies nausea, no vomiting, no diarrhea no hematemesis no Genitourinary: No dysuria, hematuria, no incontinence. No [place] catheter. Neuro: No focal weakness. Alert oriented x3 Psychiatrist: No anxiety Objective: Physical exam: Patient was in no distress. Vital signs: Stable oximetry: 100% on nasal cannula. HEENT: No gross abnormalities noted. Nasogastric tube in place. Neck: Supple no JVD Lungs: Clear to auscultation, no rales, no rhonchi. Heart: Regular rate and rhythm no murmurs no gallops Abdomen: Postsurgical. Soft nontender, no organomegaly, bowel sounds present. Extremities: No cyanosis, clubbing or edema Neuro: No Patient alert oriented 3 Musculoskeletal: No significant deformity or swelling of joints. Psych: Normal mood ASSESSMENT: 1. 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 Status post laparotomy and resection of retroperitoneal tumor with repair of left iliac artery and repair of left kidney. 3. Acute kidney injury, obstructive and as mentioned the patient did have acute tubular necrosis and is being followed by Nephrology. Now resolved 4. Hyperkalemia.Resolved 5. Urinary tract infection with suspected sepsis. 6. Hypocalcemia resolved 7. History of anorexia. 8. Hypertension. 9. History of anemia. 10. Mild protein calorie malnutrition 11.Underlying malignancy, unknown etiology. Plan of care: Continue supportive care IV fluids Bicarbonate drip Monitor potassium Glycemic control Blood pressure control Diuretics PT/OT Nephrology evaluation noted NG tube was removed. Restart TPN for today. Clear liquid diet has been initiated by General Surgery. If he tolerates more of his diet tomorrow, we will consider discontinuing the TPN. Encourage ambulation
--- NOTE | 2020-04-07 19:35 | NUR ---
Received bedside report from day nurse. Patient awake and resting in bed, no s/s of distress at this time. Bilateral arms elevated on pillows. Bed locked and in low position, call light placed within reach. All safety measures in place. Will continue to monitor.
[2020-04-08] VITALS (8 sets, daily range): BP systolic 131–144; BP diastolic 90–102
[2020-04-08] MEDS: PIPER-TAZ 3.375 GM 50 ML IV SCH ×3 (02:05→17:14)
--- NOTE | 2020-04-08 03:16 | NUR ---
PULMONARY/CCM DATE: 04/08/2020 SUBJECTIVE: tpn at 80/hr prater in place, mildly bloody, no large clots (+) flatus, no bm. ngt out started on clears diet RA fio2 REVIEW OF SYSTEMS: no rash, no icterus. PHYSICAL EXAMINATION: VITAL SIGNS: Vital signs noted and reviewed per the chart record. GENERAL: no acute distress, calm HEENT: Normocephalic and atraumatic. NECK: Supple. Throat midline. LUNGS: Bilateral air entry, limited due to limited effort, but clear. CARDIOVASCULAR: S1 and S2. No murmurs, rubs, or gallops. ABDOMEN: Soft , post surgical. not grossly tender EXTREMITIES: No clubbing, no cyanosis, no edema. INTEGUMENT: No rash or purpura. LABORATORY DATA: pending IMPRESSION AND PLAN: 1. 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 2. Acute kidney failure, obstructive s/p surgery, ATN likely. resolved 3. Critical Hyperkalemia 5.9, resolve 4. Pandemic status with coronavirus-19, patient result: negative 6. Hyponatremia. resolved 8. Hypertension. 9. post operative respiratory insufficiency, extubated 10. anemia, multifactorial. 11. post operative fluid overload mild Continue supportive care and TPN per designated started clears diet, increase diet as tolerated follow up for bowel function Consider dc HD line when tpn stopped Follow UOP, follow prater/bloodiness Supportive care mobilize, PT dc ngt follow up pathology of possible sarcoma repeat CXR soon, ensure improvement of overload Thank you very much, Dr. Hernan Ordaz and Dr Atkins. Please call for any questions.
[2020-04-08 04:59] LABS: EOSINOPHILS # (AUTO) 0.1 (0.0-0.4); HEMATOCRIT 24.6 % (38.2-49.6); HEMOGLOBIN 7.6 g/dL (14.0-18.0); LYMPHOCYTES # (AUTO) 0.7 (1.0-3.2); MEAN CORPUSCULAR HEMOGLOBIN 27.6 pg (28-32); MEAN CORPUSCULAR HGB CONC 30.9 g/dL (31-35); MEAN CORPUSCULAR VOLUME 89.5 fL (81-99); MONOCYTES # (AUTO) 0.6 (0.2-0.8); NEUTROPHILS # (AUTO) 9.1 (2.1-6.9); PLATELET COUNT 206 x10e3/uL (140-360); RED BLOOD COUNT 2.75 x10e6/uL (4.3-5.7); RED CELL DISTRIBUTION WIDTH 17.8 % (11.7-14.4)
[2020-04-08 05:58] LABS: ANION GAP 12.9 mmol/L (8-16); BLOOD UREA NITROGEN 26 mg/dL (7-26); BUN/CREATININE RATIO 40 (6-25); CALCIUM 7.8 mg/dL (8.4-10.2); CARBON DIOXIDE 22 mmol/L (22-29); CHLORIDE 113 mmol/L (98-107); CREATININE, SERUM 0.65 mg/dL (0.72-1.25); EST GLOMERULAR FILTRATION RATE > 60 ML/MIN (60-); GLUCOSE 101 mg/dL (74-118); POTASSIUM 3.9 mmol/L (3.5-5.1); SODIUM 144 mmol/L (136-145)
[2020-04-08] MEDS: INSULIN REGULAR, HUMAN 100 UNIT/1 ML 3ML VIAL SQ SCH ×4 (06:00→17:01)
--- NOTE | 2020-04-08 06:58 | NUR ---
Bedside report given to day nurse. Patient resting in bed, respirations even and unlabored, no s/s of distress at this time. All safety measures in place.
--- NOTE | 2020-04-08 07:00 | NUR ---
RECEIVED PATIENT RESTING IN BED NO S/S OF DISTRESS. BED LOW, WHEELS LOCKED, SIDE RAILS X2. CALL LIGHT IN REACH WILL CONTINUE TO MONITOR PATIENT.
[2020-04-08] MEDS: MORPHINE SULFATE INJ 4 MG/ML INJ 1ML IV PRN ×2 (13:05→22:08)
--- NOTE | 2020-04-08 14:59 | Progress Note ---
DATE: 04/08/2020 Renal Progress Note SUBJECTIVE: The patient is still relatively weak. He is not eating much. No overnight events. We are going to continue with TPN. PHYSICAL EXAMINATION: VITAL SIGNS: Temperature is 99.1, pulse 103, respiratory rate is 20, blood pressure 140/92, and pulse ox 97% on room air. GENERAL: Not in acute distress. Alert and oriented x3. Cooperative on examination. HEENT: Head; normocephalic, atraumatic. Eyes; pupils are equal, round, and reactive to light bilaterally. Extraocular movements intact bilaterally. Throat; no evidence of erythema or exudates in the posterior pharynx. Has poor dentition. NECK: Supple. Good range of motion. PULMONARY: Clear to auscultation bilaterally. No wheezing, no rales, no rhonchi, no crackles appreciated. CARDIOVASCULAR: Positive S1 and S2. No murmurs, rubs, or gallops appreciated. ABDOMEN: Soft, nondistended, and nontender to palpation. Bowel sounds present. MUSCULOSKELETAL: Strength is 5/5 throughout. No evidence of any muscle deficits on examination. No weakness appreciated. SKIN: Intact. Warm to touch. Good cap refill. PSYCHIATRIC: Normal affect and mood. EXTREMITIES: No edema. Good range of motion throughout. LABORATORY DATA: Show white count 10.5, hemoglobin 7.6, hematocrit is 24.5, and platelets of 206. Chemistry; sodium 144, potassium 3.9, chloride 113, bicarbonate 22, anion gap of 12, BUN is 26, creatinine is 0.65, calcium 7.8, and magnesium is 2. Urinalysis negative. IMPRESSION: 1. Acute kidney injury secondary to acute tubular necrosis, now resolved. 2. Hyperkalemia, resolved. 3. Hypocalcemia, resolved. 4. Mild protein-calorie malnutrition. 5. Underlying malignancy of unknown etiology. PLAN: At this time, his renal function and electrolytes are stable. I restarted his IV TPN, which I filled out already for today. He will get lipids with his TPN today. Encourage ambulation. Continue to follow with the rest of the consultants. MD MICHELLE Fierro/MODL /[id number]
--- NOTE | 2020-04-08 16:05 | NUR ---
SPOKE WITH DR. ALVARADO REGARDING PATIENT COMPLAINT OF NUMBNESS AND PAIN TO LEFT LOWER EXTREMITY. NEW ORDER FOR VENOUS AND ARTERIAL DOPPLER BILATERAL LOWER EXTREMITIES. NEW ORDERS IMPLEMENTED.
--- NOTE | 2020-04-08 16:31 | NUR ---
spoke to pt and daughter Noemi at bedside regarding SNF eval order. Provided list of in network facilities. Daughter also asked about possibility IV abx / therapy at home. CM explained that could be arranged if pt has that benefit and family is able to help pt with administering medications. Daughter states will think about it and let CM know tomorrow regarding decision. Addendum: 04/08/20 at 1640 by Kamila Morley CM business card given to pt's daughter.
--- NOTE | 2020-04-08 16:52 | NUR ---
Nutrition Intervention Note RD Recommendation(s) for Physician: -Recommend to continue current TPN order: standard TPN @ 80 mL/hr with 25 gm lipids 3/week (288 g dextrose - 30% 500 mL , 96 g amino acids 10% 500 mL, 25 gm lipids 3x/week) -provides 1459 kcal and 96 g protein - When diet is advanced, recommend Ensure Compact BID for adequacy. Plan of Care: RD following, monitoring for tolerance and adequacy. TPN, ONS rec's. Nutrition reason for involvement: Follow up RD Assessment 04/08: Follow up. Per MD note, pts acute kidney failure has resolved. Pts NG tube was removed yesterday and was started on a clear liquid diet. Pt is also receiving TPN @ 80 mL/hr. Pt stated he is tolerating liquids, but mainly has been drinking water. Pt did not consume his liquid meal tray of breakfast or lunch per documentation. No N/V reported. 04/06: Follow up. Pt s/p retroperitoneal tumor resection with repair of L iliac artery and repair of L kidney on 04/03. Pt remains NPO x day 3 post operatively. NGT to LIWS, very little output. Pt sleeping at time of visit, did not awake to greeting. Chart reviewed, plan for HD catheter placement per MD notes. Pt eating 25-75% of meals 3 days ago, tolerating well. TPN and diet rec's provided pending plan of care. Will continue to monitor. 04/01: 64 YOM admitted for abdominal pain and hyperkalemia, seen today per MST screen. Pt reports progressive wt loss over the past 3 months of 16#, noted significant change of 9% loss in 3 months. 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 Pt denies any supplements at home. Pt reports tolerating diet today, receptive to supplement- RD to order Nepro BID for adequacy per current lab trend. Pt denies any N/V/C/D currently. Pt with no questions or concerns at time of visit. Chart reviewed. Will continue to monitor. Principal Problems/Diagnoses: abd pain, hyperkalemia PMH: HTN, TURP, retroperitoneal mass GI: last recorded BM 04/08, soft, nontender, round abdomen Skin: abdominal incision Labs: 04/08: Na 144, K 3.9, Cr 0.65, BUN 2, Ca 7.8, Glu 101 04/06: Na 142, K 3.9, Cl 108, CO2 27, BUN 36, Cr 0.99, Gluc 116, iCa 1; 04/04: Mg 2.3 04/01: Na 131, K 4.9, BUN 66, Cr 1.46, Gluc 116, Phos 4.5, Mg 2.9 Meds: morphine, antibiotic, zofran Ht: 67 in Wt: 196.56 lbs (04/07) 164.06 lb (04/01) Suspect possible weight error BMI: 30.8 kg/m2 IBW: 135 lb Malnutrition Evaluation (04/01/20) The patient meets criteria for MODERATE protein-calorie malnutrition. Energy intake: moderate <75% of estimated energy requirements for 1 month Weight loss: severe >7.5% in 3 months (Acute) Fat loss: none, chest well developed Muscle loss: none, shoulder round Supporting Evidence: Fluid accumulation: none Functional Status: not assessed Nutrition Prescription (Diet Order): NPO, Standard TPN @ 80 mL/hr with 25 gm lipids 3x/week (provides 1459 kcal, 96 g protein) Estimated Nutritional Needs: 4463-8702 calories/day (18-22 kcal/kg CBW) Weight used: 164 lbs 74-112 g protein/day (1-1.5 g pro/kg CBW) Weight used: 164 lbs Diet Adequacy: Meeting calorie and protein needs with current TPN order Diet Tolerance: pt reports only consuming water Diet Education Needs Assessment: Diet education not indicated at this time. Nutrition Care Level: high Nutrition Diagnosis: Inadequate energy and protein intake related to current medical conditions as evidenced by progressive, significant wt loss of 9% and not meeting needs. Goal: Patient will meet 75-100% of estimated needs by follow up Progress: progressing Interventions: -Commercial beverage, TPN- composition, rate, route Monitoring/Evaluation: -Total energy intake, Total protein intake, Formula/solution, Liquid supplement, Weight change Signed: Kelli Antonio RD, LD
--- NOTE | 2020-04-08 18:50 | Progress Note ---
DATE: 04/08/2020 SUBJECTIVE: The patient was doing fine at the time of evaluation. The patient was in no distress and he is not comfortable as far as pain is concerned. He has not being eating that much. There is no chest pain. No nausea, no vomiting. OBJECTIVE: GENERAL: The patient looks sleepy. The patient in no apparent distress, seemed to be exhausted. VITAL SIGNS: Blood pressure 144/96, respirations 20, pulse 103, temperature 99.1. HEENT: Head is normocephalic, atraumatic. NECK: Supple. No JVD. LUNGS: Clear to auscultation. HEART: Regular rate and rhythm. ABDOMEN: Postsurgical, soft, nontender. EXTREMITIES: No edema. NEURO: Has been alert, oriented to person, time, and place. PSYCHIATRY: His mood has been normal. ASSESSMENT: 1. 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 2. Status post laparotomy and resection of retroperitoneal tumor with repair of the left iliac artery and repair of left kidney. 3. Acute kidney injury, secondary to obstruction. The patient did have acute tubular necrosis, now resolved. 4. Hyperkalemia, resolved. 5. Urinary tract infection with suspected sepsis. 6. Hypocalcemia, resolved. 7. History of anorexia. 8. Hypertension. 9. History of anemia. 10. Mild protein calorie malnutrition. 11. Underlying malignancy, unknown etiology. PLAN OF CARE: Continue physical therapy. Continue IV fluids. NG tube was removed. We could not do yesterday and we will consider discontinuation of TPN if able to tolerate diet. MD ALPHONSE Sommers/GLENN /[id number] MALLIKA
--- NOTE | 2020-04-08 20:15 | NUR ---
PATIENT IS RESTING IN BED IN STABLE CONDITION, NO SIGNS OF DISTRESS NOTED. TPN IS RUNNING AT ORDERED RATE AND PATIENT VOICES PAIN AT A LEVEL OF 5 AND WILL BE MEDICATED ORDERED. ABDOMINAL DRESSING IS CLEAN, DRY, AND INTACT, NO DRAINAGE NOTED. INDWELLING CATHETER IS INTACT AND PATENT, DARK NEFTALY URINE NOTED. BED IS IN LOWEST POSITION, BOTH SIDE RAILS ARE UP, CALL LIGHT IS WITHIN EASY REACH, WILL CONTINUE TO MONITOR.
[2020-04-08] MEDS: CENTRAL TPN FORMULA 1 BAG IV SCH (22:12)
[2020-04-09] VITALS (8 sets, daily range): BP systolic 104–143; BP diastolic 84–110
[2020-04-09] MEDS: PIPER-TAZ 3.375 GM 50 ML IV SCH ×3 (02:04→17:01)
[2020-04-09] MEDS: INSULIN REGULAR, HUMAN 100 UNIT/1 ML 3ML VIAL SQ SCH ×4 (06:00→17:59)
--- NOTE | 2020-04-09 07:00 | NUR ---
RECEIVED PATIENT RESTING IN BED NO S/S OF DISTRESS. BED LOW, WHEELS LOCKED, SIDE RAILS X2. CALL LIGHT IN REACH WILL CONTINUE TO MONITOR PATIENT.
[2020-04-09] MEDS: ONDANSETRON HCL INJ 2MG/ML 2ML 2 MG/ML VIAL IV PRN ×2 (08:41→12:55)
--- NOTE | 2020-04-09 10:41 | NUR ---
Subjective: The patient was seen and evaluated. The patient was in no distress. The patient presently on TPN.Subjective: The patient was seen and evaluated. The patient was in no distress. The patient presently on TPN. Objective: The patient was in no distress. OBJECTIVE: GENERAL: The patient looks sleepy. The patient in no apparent distress, seemed to be exhausted. VITAL SIGNS: VITAL SIGNS: Temperature is 99.6, pulse 89, respiratory rate is 20, blood pressure 140/110, pulse ox 99% on room air. HEENT: Head is normocephalic, atraumatic. NECK: Supple. No JVD. LUNGS: Clear to auscultation. HEART: Regular rate and rhythm. ABDOMEN: Postsurgical, soft, nontender. EXTREMITIES: No edema. NEURO: Has been alert, oriented to person, time, and place. LABORATORY DATA: CBC disclosed 10.5, hemoglobin is 7.6, hematocrit is 25, platelets 206. Chemistries; sodium 142, magnesium 2.7 potassium 4.3, chloride 114, bicarb 18, anion gap of 14, BUN is 34, creatinine is 0.74, glucose 114, ASSESSMENT: 1. Retroperitoneal mass 2. Status post laparotomy and resection of retroperitoneal tumor with repair of the left iliac artery and repair of left kidney. 3. Acute kidney injury, secondary to obstruction. The patient did have acute tubular necrosis, now resolved. 4. Hyperkalemia, resolved. 5. Urinary tract infection with suspected sepsis. 6. Hypocalcemia, resolved. 7. History of anorexia. 8. Hypertension. 9. History of anemia. 10. Mild protein calorie malnutrition. 11. Underlying malignancy, unknown etiology Plan of care: Continue to monitor electrolytes. Continue clear liquid diet. Advance diet as tolerated. Continue TPN. Discussed with case management about patient condition. Monitor potassium Glycemic control Blood pressure control PT/OT Nephrology Follow-up TPN Encourage ambulation
--- NOTE | 2020-04-09 11:42 | NUR ---
PULMONARY/CCM DATE: 04/09/2020 SUBJECTIVE: some yellow urine today, smaller blood contents prater in place tpn 80/ hr emesis x 1 today didnt walk much flatus+, BM+ REVIEW OF SYSTEMS: no rash, no icterus. PHYSICAL EXAMINATION: VITAL SIGNS: Vital signs noted and reviewed per the chart record. GENERAL: no acute distress, calm HEENT: Normocephalic and atraumatic. NECK: Supple. Throat midline. LUNGS: Bilateral air entry, clear CARDIOVASCULAR: S1 and S2. No murmurs, rubs, or gallops. ABDOMEN: Soft , post surgical. not grossly tender EXTREMITIES: No clubbing, no cyanosis, no edema. INTEGUMENT: No rash or purpura. LABORATORY DATA: no new updates yesterday 7.6 hb, 3.9k IMPRESSION AND PLAN: 1. 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 2. Acute kidney failure, obstructive s/p surgery, ATN likely. resolved 3. Critical Hyperkalemia 5.9, resolve 4. Pandemic status with coronavirus-19, patient result: negative 6. Hyponatremia. resolved 8. Hypertension. 9. post operative respiratory insufficiency, extubated 10. anemia, multifactorial. 11. post operative fluid overload mild Continue supportive care and TPN per designated continue clears diet, increase diet as tolerated supportive care, antiemetics prn follow up for bowel function Consider dc HD line when tpn stopped Follow UOP, follow prater/bloodiness Supportive care mobilize, PT follow up pathology of possible sarcoma repeat CXR soon, ensure improvement of overload Thank you very much, Dr. Hernan Ordaz and Dr Atkins. Please call for any questions.
--- NOTE | 2020-04-09 14:45 | NUR ---
CM to pt's bedside. Pt asked that CM call his daughter Noemi. CM placed call to Noemi Cardenas [phone]. She states to go ahead with SNF. Gave choice for [facility]. Choice letter placed in front of chart. Referral was faxed to [phone]. Eamon with [facility] was notified of referral.
[2020-04-09 16:10] LABS: ANION GAP 14.3 mmol/L (8-16); BLOOD UREA NITROGEN 34 mg/dL (7-26); BUN/CREATININE RATIO 46 (6-25); CALCIUM 8.4 mg/dL (8.4-10.2); CARBON DIOXIDE 18 mmol/L (22-29); CHLORIDE 114 mmol/L (98-107); CREATININE, SERUM 0.74 mg/dL (0.72-1.25); EST GLOMERULAR FILTRATION RATE > 60 ML/MIN (60-); GLUCOSE 114 mg/dL (74-118); POTASSIUM 4.3 mmol/L (3.5-5.1); SODIUM 142 mmol/L (136-145)
--- NOTE | 2020-04-09 21:20 | NUR ---
PATIENT IS RESTING IN BED IN STABLE CONDITION, NO SIGNS OF DISTRESS NOTED. TPN IS RUNNING AT ORDERED RATE AND PATIENT VOICES NO PAIN AT THIS TIME. ABDOMINAL DRESSING IS CLEAN, DRY, AND INTACT, NO DRAINAGE NOTED. INDWELLING CATHETER IS INTACT AND PATENT, DARK NEFTALY URINE NOTED. BED IS IN LOWEST POSITION, BOTH SIDE RAILS ARE UP, CALL LIGHT IS WITHIN EASY REACH, WILL CONTINUE TO MONITOR.
[2020-04-09] MEDS: CENTRAL TPN FORMULA 1 BAG IV SCH (23:04)
--- NOTE | 2020-04-09 23:30 | Progress Note ---
DATE: 04/09/2020 Renal Progress Note SUBJECTIVE: The patient was evaluated early this afternoon. The patient is doing well with no complaints. He is tolerating some clear liquid diet. OBJECTIVE: VITAL SIGNS: Temperature is 99.6, pulse 89, respiratory rate is 20, blood pressure 140/110, pulse ox 99% on room air. GENERAL: In acute distress. Alert and oriented x3. Cooperative on exam. PULMONARY: Clear to auscultation bilaterally. No wheezing, no rales, no rhonchi, no crackles appreciated. CARDIOVASCULAR: Positive S1, S2. No murmurs, rubs, or gallops appreciated. ABDOMEN: Soft, nondistended, and nontender to palpation. Bowel sounds present. MUSCULOSKELETAL: Strength is 5/5 throughout. No evidence of any muscle deficits on examination. No weakness appreciated. NEUROLOGIC: Cranial nerves II through XII grossly intact. No evidence of any neurological deficits on exam. SKIN: Intact. Warm to touch. Good cap refill. PSYCHIATRIC: Normal affect and mood. EXTREMITIES: No edema. Good range of motion throughout. LABORATORY DATA: Show white count 10.5, hemoglobin is 7.6, hematocrit is 25, platelets of 206. Chemistries; sodium 142, potassium 4.3, chloride 114, bicarb 18, anion gap of 14, BUN is 34, creatinine is 0.74, glucose was 114, magnesium was 2.2. IMAGING STUDIES: Lower extremity venous Dopplers was ordered. Preliminary shows no evidence of DVT. Arterial Doppler shows a significant stenosis in the left lower extremity, but the right lower extremity was found to be within normal range. IMPRESSION: 1. Acute kidney injury secondary to acute tubular necrosis, resolved. 2. Hyperkalemia, resolved. 3. Hypocalcemia, resolved. 4. Mild protein-calorie malnutrition. 5. Underlying malignancy of unknown etiology. PLAN: His electrolytes are currently stable. Continue with clear liquid diet, advance as tolerated as per General Surgery. The patient is otherwise doing well. Encourage ambulation. MD MICHELLE Fierro/MODL /[id number]
[2020-04-10] VITALS (7 sets, daily range): BP systolic 109–126; BP diastolic 74–88
[2020-04-10] MEDS: PIPER-TAZ 3.375 GM 50 ML IV SCH ×3 (02:50→17:35)
[2020-04-10 05:53] LABS: BASOPHILS % 0.3 % (0.0-1.0); EOSINOPHILS # (AUTO) 0.1 (0.0-0.4); EOSINOPHILS % 0.7 % (0.0-6.0); HEMATOCRIT 25.5 % (38.2-49.6); HEMOGLOBIN 7.8 g/dL (14.0-18.0); LYMPHOCYTES # (AUTO) 0.7 (1.0-3.2); MEAN CORPUSCULAR HEMOGLOBIN 28.1 pg (28-32); MEAN CORPUSCULAR HGB CONC 30.6 g/dL (31-35); MEAN CORPUSCULAR VOLUME 91.7 fL (81-99); MONOCYTES # (AUTO) 0.7 (0.2-0.8); MONOCYTES % 4.7 % (4.4-11.3); NEUTROPHILS # (AUTO) 12.1 (2.1-6.9); NEUTROPHILS % 88.1 % (38.7-80.0); PLATELET COUNT 204 x10e3/uL (140-360); RED BLOOD COUNT 2.78 x10e6/uL (4.3-5.7); RED CELL DISTRIBUTION WIDTH 18.8 % (11.7-14.4)
[2020-04-10] MEDS: INSULIN REGULAR, HUMAN 100 UNIT/1 ML 3ML VIAL SQ SCH ×4 (06:00→17:40)
[2020-04-10 06:14] LABS: ALANINE AMINOTRANSFERASE 40 IU/L (0-55); ALBUMIN 1.5 g/dL (3.5-5.0); ALBUMIN/GLOBULIN RATIO 0.5 (0.8-2.0); ALKALINE PHOSPHATASE 186 IU/L (40-150); ANION GAP 8.2 mmol/L (8-16); BLOOD UREA NITROGEN 34 mg/dL (7-26); BUN/CREATININE RATIO 49 (6-25); CALCIUM 7.8 mg/dL (8.4-10.2); CARBON DIOXIDE 22 mmol/L (22-29); CHLORIDE 114 mmol/L (98-107); CREATININE, SERUM 0.69 mg/dL (0.72-1.25); EST GLOMERULAR FILTRATION RATE > 60 ML/MIN (60-); GLUCOSE 114 mg/dL (74-118); MAGNESIUM 2.2 MG/DL (1.3-2.1); POTASSIUM 4.2 mmol/L (3.5-5.1); SODIUM 140 mmol/L (136-145)
[2020-04-10 06:27] LABS: PHOSPHORUS 3.4 MG/DL (2.3-4.7)
--- NOTE | 2020-04-10 07:00 | NUR ---
RECEIVED PATIENT RESTING IN BED NO S/S OF DISTRESS. BED LOW, WHEELS LOCKED, SIDE RAILS X2. CALL LIGHT IN REACH WILL CONTINUE TO MONITOR PATIENT.
--- NOTE | 2020-04-10 11:09 | NUR ---
PULMONARY/CCM DATE: 04/10/2020 SUBJECTIVE: RA fio2 stood up yesterday, moderate assist. knees unstable, didnt really walk on tpn eats clears BM+, flatus+ REVIEW OF SYSTEMS: no rash, no icterus. PHYSICAL EXAMINATION: VITAL SIGNS: Vital signs noted and reviewed per the chart record. GENERAL: no acute distress, calm HEENT: Normocephalic and atraumatic. NECK: Supple. Throat midline. LUNGS: Bilateral air entry, clear CARDIOVASCULAR: S1 and S2. No murmurs, rubs, or gallops. ABDOMEN: Soft , post surgical. not grossly tender EXTREMITIES: No clubbing, no cyanosis, no edema. INTEGUMENT: No rash or purpura. LABORATORY DATA: k 4.2, bun 34, cr 0.69. wbc 14, hct 25, plt 204 IMPRESSION AND PLAN: 1. 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 2. Acute kidney failure, obstructive s/p surgery, ATN likely. resolved 3. Critical Hyperkalemia 5.9, resolve 4. Pandemic status with coronavirus-19, patient result: negative 6. Hyponatremia. resolved 8. Hypertension. 9. post operative respiratory insufficiency, extubated 10. anemia, multifactorial. 11. post operative fluid overload mild Continue supportive care and TPN per designated continue clears diet, increase diet as tolerated supportive care, antiemetics prn follow up for bowel function Consider dc central line when tpn stopped Follow UOP, follow prater/bloodiness Supportive care mobilize, PT follow up pathology of possible sarcoma repeat CXR soon, ensure improvement of overload Thank you very much, Dr. Hernan Ordaz and Dr Atkins. Please call for any questions.
[2020-04-10] MEDS: ONDANSETRON HCL INJ 2MG/ML 2ML 2 MG/ML VIAL IV PRN (11:56)
[2020-04-10] MEDS: MORPHINE SULFATE INJ 4 MG/ML INJ 1ML IV PRN (11:56)
--- NOTE | 2020-04-10 14:26 | NUR ---
WOUND CARE SCREENING CONSTULT FOR 64 YO MALE ADMITTED TO [facility] WITH A PRESENT HX OF ABD PAIN, HYPERKALEMIA. PT HAD A SURGERY TO REMOVE A CYSTIC MASS ON 04/03/2020, DRESSING IN PLACE. NJ DRAIN PRESENT AND DRAINING. NOVA 16 ON MODERATE PUP STATUS AND INTERVENTIONS SURFACE: ALTERNATING PRESSURE MATTRESS. LABS: WBC- 13.70 HGB- 7.8 GLUCOSE-114 ALBUMIN- 4.3 MICRO: URINE CULTURE- NO GROWTH. IMAGING LOWER EXTREMITY VENOUS DOPPLER ORDERED- PRELIMINARY NO EVIDENCE OF DVT. ARTERIAL DOPPLER- SHOWS A SIGNIFICANT STENOSIS IN THE LEFT LOWER EXTREMITY; RIGHT LOWER EXTREMITY WAS FOUND TO BE WITHIN NORMAL RANGE. BLOOD CULTURE PRELIMINARY NO GROWTH SKIN ASSESSMENT COMPLETE PATIENT PRESENTS WITH A DRESSING TO [facility]. PT HAD A SURGERY TO REMOVE A CYSTIC MASS ON 04/03/2020, DRESSING IN PLACE. BEDSIDE NURSE PRESENT IN ROOM , REPORTS THAT SURGICAL DRESSING HAS BEEN CHANGED DAILY. PT REPORTS PAIN AT THE TIME; RN WILL ADMINSTER PAIN AND NAUSEA MEDICATION; UNABLE TO ASSESS SURGICAL WOUND AT THE TIME. NJ DRAIN PRESSENT AND DRAINING WITH SEROUSSANGUINOUS FLUID. NO OTHER AREAS OF CONCERN NOTED AT THIS TIME. RECOMMENDATIONS: NURSING TO CONTINUE TO CHANGE ABDOMINAL DRESSING DAILY AND NEEDED. NURSING TO MONITOR SURGICAL WOUND FOR ANY SIGN AND SYMPTOMS OF INFECTION DAILY AND TO NOTIFY MD. NURSING TO CONTINUE TO MONITOR PATIENT AND KEEP SKIN CLEAN AND FREE FROM LOOSE STOOL OR IRRITATING MOISTURE AND CONTINUE TO FOLLOW MODERATE PUP INTERVENTIONS DAILY. NURSING TO CONTINUE REPOSITION PT SIDE TO SIDE EVERY TWO HOURS AND TO ENCOURAGE PT TO SELF REPOSITION IN BED NEEDED. NURSING TO MAINTAIN ALTERNATING PRESSURE MATTRESS. NURSING TO CONTINUE TO OFFLOAD FEET AND HEELS AT ALL TIMES WITH PILLOW SUSPENSION WHEN IN BED. NURSING TO CONTINUE TO ASSIST WITH PT NUTRITONAL SUPPLEMENTS TO ENSURE PROPER REQUIREMENTS FOR HEALING. NURSING TO CONTINUE TO ASSIST PT OUT OF BED DURING NURTRIONAL MEALS MUCH TOLERATED. NURSING TO CONSULT WOUND CARE NEEDED. Addendum: 04/10/20 at 1428 by Kenzie Watts RN Amended: Links added.
--- NOTE | 2020-04-10 16:58 | NUR ---
Updated clinical faxed to [facility].
[2020-04-10] MEDS: CENTRAL TPN FORMULA 1 BAG IV SCH (20:00)
--- NOTE | 2020-04-10 21:30 | Progress Note ---
DATE: 04/10/2020 Nephrology Progress Note SUBJECTIVE: The patient was evaluated at approximately 1:45 p.m. this afternoon. He is currently doing well during my evaluation. He is not eating a whole lot he reports. We will have to continue with the TPN. Reports when he eats his clear liquid diet, his stomach begins to hurt. PHYSICAL EXAMINATION: VITAL SIGNS: Temperature is 98.1, pulse 83, respiratory rate 16, blood pressure is 119/82, and pulse ox 100% on room air. GENERAL: Not in acute distress. Alert and oriented x3. Cooperative on examination. HEENT: Head; normocephalic, atraumatic. Eyes; pupils are equal, round, and reactive to light bilaterally. Extraocular movements intact bilaterally. Throat; no evidence of erythema or exudates in the posterior pharynx. Has poor dentition. NECK: Supple. Good range of motion. PULMONARY: Clear to auscultation bilaterally. No wheezing, no rales, no rhonchi, no crackles appreciated. CARDIOVASCULAR: Positive S1 and S2. No murmurs, rubs, or gallops appreciated. ABDOMEN: Soft, nondistended, and nontender to palpation. Bowel sounds present. MUSCULOSKELETAL: Strength is 5/5 throughout. No evidence of any muscle deficits on examination. No weakness appreciated. SKIN: Intact. Warm to touch. Good cap refill. PSYCHIATRIC: Normal affect and mood. EXTREMITIES: No edema. Good range of motion throughout. LABORATORY FINDINGS: Show white count 13.0, hemoglobin 7.8, hematocrit is 25, platelets of 204. Chemistry; sodium 140, potassium 4.2, chloride 114, bicarb 22, anion gap of 8.2, BUN 34, creatinine is 0.69, glucose is 114. MICROBIOLOGY: Urine cultures were negative. IMPRESSION: 1. Acute kidney injury secondary to acute tubular necrosis, resolved. 2. Hyperkalemia. 3. Hypercalcemia. 4. Moderate protein-calorie malnutrition. 5. Underlying malignancy of unknown etiology. PLAN: At this time, we will continue with TPN. Labs reviewed and stable. Repeat labs for tomorrow, magnesium, phosphorus, CMP including a CBC. Discussed plan of care with nursing staff. I also discussed with the patient to encourage increased clear liquid diet in order for us to advance diet to solid, so he can eventually go home. He verbalized understanding. MD MICHELLE Fierro/GLENN /[id number]
[2020-04-11] VITALS (9 sets, daily range): BP systolic 109–124; BP diastolic 72–86
[2020-04-11] MEDS: INSULIN REGULAR, HUMAN 100 UNIT/1 ML 3ML VIAL SQ SCH ×4 (00:18→18:00)
[2020-04-11] MEDS: PIPER-TAZ 3.375 GM 50 ML IV SCH ×2 (01:57→21:29)
[2020-04-11 06:08] LABS: BASOPHILS % 0.2 % (0.0-1.0); EOSINOPHILS # (AUTO) 0.2 (0.0-0.4); EOSINOPHILS % 1.2 % (0.0-6.0); HEMATOCRIT 27.2 % (38.2-49.6); HEMOGLOBIN 8.2 g/dL (14.0-18.0); LYMPHOCYTES # (AUTO) 0.6 (1.0-3.2); MEAN CORPUSCULAR HEMOGLOBIN 28.1 pg (28-32); MEAN CORPUSCULAR HGB CONC 30.1 g/dL (31-35); MEAN CORPUSCULAR VOLUME 93.2 fL (81-99); MONOCYTES # (AUTO) 0.7 (0.2-0.8); MONOCYTES % 4.8 % (4.4-11.3); NEUTROPHILS # (AUTO) 13.6 (2.1-6.9); NEUTROPHILS % 88.8 % (38.7-80.0); PLATELET COUNT 199 x10e3/uL (140-360); RED BLOOD COUNT 2.92 x10e6/uL (4.3-5.7); RED CELL DISTRIBUTION WIDTH 19.8 % (11.7-14.4)
--- NOTE | 2020-04-11 06:35 | Diagnostic Imaging Report ---
EXAMINATION: CHEST SINGLE (PORTABLE) INDICATION: Overload. COMPARISON: Chest radiograph 04-07-2020. FINDINGS: TUBES and LINES: Right IJ non tunneled hemodialysis catheter terminates at the cavoatrial junction. Interval removal of enteric tube. LUNGS/PLEURA: Low lung volumes. Mild interstitial opacities, slightly improved from prior study. Decreasing hazy opacity in the right lower lung. No new consolidation. HEART AND MEDIASTINUM: The cardiomediastinal silhouette is unremarkable. BONES AND SOFT TISSUES: No acute osseous lesion. Soft tissues are unremarkable. UPPER ABDOMEN: No free air under the diaphragm. IMPRESSION: Slightly improved mild pulmonary interstitial edema with decreasing right pleural effusion and basilar opacity, likely atelectasis. Signed by: Dr. Xochitl Camacho MD on 04/11/2020 6:32 AM
[2020-04-11 06:41] LABS: ANION GAP 9.6 mmol/L (8-16); BLOOD UREA NITROGEN 32 mg/dL (7-26); BUN/CREATININE RATIO 49 (6-25); CALCIUM 8.2 mg/dL (8.4-10.2); CARBON DIOXIDE 20 mmol/L (22-29); CHLORIDE 113 mmol/L (98-107); CREATININE, SERUM 0.65 mg/dL (0.72-1.25); EST GLOMERULAR FILTRATION RATE > 60 ML/MIN (60-); GLUCOSE 83 mg/dL (74-118); MAGNESIUM 2.2 MG/DL (1.3-2.1); POTASSIUM 4.6 mmol/L (3.5-5.1); SODIUM 138 mmol/L (136-145)
[2020-04-11 07:55] LABS: CALCIUM IONIZED 1.3 mmol/L (1.09-1.30)
--- NOTE | 2020-04-11 09:30 | NUR ---
bedside shift report received pt in stable condition denies pain at this time, updatad on poc vocied understanding, tpn infusing to r ij, prater to bsd with yellow urine noted, r wrist 20g no ss of infiltration noted ,call light in reach will continue to monitor
[2020-04-11] MEDS: HYDROCODONE/APAP 5MG-325MG TAB PO PRN ×2 (11:55→21:07)
[2020-04-11 12:17] LABS: NUCLEATED RED BLOOD CELLS 1; PLATELET ESTIMATE ADEQUATE; PLATELET MORPHOLOGY COMMENT NORMAL; POLYCHROMASIA FEW
[2020-04-11 12:18] LABS: BAND NEUTROPHILS % (MANUAL) 6 %; EOSINOPHILS % (MANUAL) 2 % (0-7); LYMPHOCYTES % (MANUAL) 7 % (19-48); MONOCYTES % (MANUAL) 5 % (3.4-9.0)
[2020-04-11 12:19] LABS: NEUTROPHILS % (MANUAL) 80 % (40-74); RBC MORPHOLOGY COMMENT ABNORMAL
--- NOTE | 2020-04-11 12:47 | NUR ---
PULMONARY/CCM DATE: 04/11/2020 SUBJECTIVE: PRATER IN place tpn 80/ eating small amounts only clears diet (+)flatus, (+) BM today no walking due to leg pain and incisional pain REVIEW OF SYSTEMS: no rash, no icterus. PHYSICAL EXAMINATION: VITAL SIGNS: Vital signs noted and reviewed per the chart record. GENERAL: no acute distress, calm HEENT: Normocephalic and atraumatic. NECK: Supple. Throat midline. LUNGS: Bilateral air entry, clear CARDIOVASCULAR: S1 and S2. No murmurs, rubs, or gallops. ABDOMEN: Soft , post surgical. not grossly tender EXTREMITIES: No clubbing, no cyanosis, no edema. INTEGUMENT: No rash or purpura. LABORATORY DATA: k 4.2, bun 34, cr 0.69. wbc 14, hct 25, plt 204 IMPRESSION AND PLAN: 1. 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 2. ischemic leg due to kinked artery repair and endovascular tumor, s/p repair & endarterectomy 2. Acute kidney failure, obstructive s/p surgery, ATN likely. resolved 3. Critical Hyperkalemia 5.9, resolve 4. Pandemic status with coronavirus-19, patient result: negative 6. Hyponatremia. resolved 8. Hypertension. 9. post operative respiratory insufficiency, extubated 10. anemia, multifactorial. 11. post operative fluid overload mild Continue supportive care and TPN per designated continue clears diet, increase diet as tolerated supportive care, antiemetics prn follow up for bowel function Consider dc central line when tpn stopped Follow UOP, prater per Supportive care mobilize, PT follow up pathology--- pending for possible sarcoma f/u NJ output, has been large repeat CXR soon, ensure improvement of overload Thank you very much, Dr. Hernan Ordaz and Dr Atkins. Please call for any questions.
--- NOTE | 2020-04-11 14:47 | NUR ---
Date of service 04/10/2020 Subjective: The patient feeling better. He has been able to tolerate some liquids. Denies abdominal pain, no nausea, no vomiting, no diarrhea. Breathing comfortable. Stood up yesterday. Objective: The patient was in no distress. Presently on TPN. OBJECTIVE: GENERAL: The patient looks sleepy. The patient in no apparent distress, seemed to be exhausted. VITAL SIGNS: Blood pressure 119/82, respirations 16, pulse 86, temperature 98.1 HEENT: Head is normocephalic, atraumatic. NECK: Supple. No JVD. LUNGS: Clear to auscultation. HEART: Regular rate and rhythm. ABDOMEN: Postsurgical, soft, nontender. EXTREMITIES: No edema. NEURO: Has been alert, oriented to person, time, and place. LABORATORY DATA: Sodium 140, potassium 4.2, chloride 140, CO2 22, anion gap 8.2, BUN 34, creatinine 0.69, glucose 114, calcium level 7.8, phosphorus level 3.5, magnesium 2.2, total bili 2.4. Albumin 1.5 ASSESSMENT: 1. Retroperitoneal mass 2. Status post laparotomy and resection of retroperitoneal tumor with repair of the left iliac artery and repair of left kidney. 3. Acute kidney injury, secondary to obstruction. The patient did have acute tubular necrosis, now resolved. 4. Hyperkalemia, resolved. 5. Urinary tract infection with suspected sepsis. 6. Hypocalcemia, resolved. 7. History of anorexia. 8. Hypertension. 9. History of anemia. 10. Mild protein calorie malnutrition. 11. Underlying malignancy, unknown etiology Plan of care: 04/09/2020 Continue to monitor electrolytes. Continue clear liquid diet. Advance diet as tolerated. Continue TPN. Discussed with case management about patient condition. 04/10/2020 Plan of care: Continue present care. Continue TPN. Encourage ambulation. Patient clear liquid diet. Advance as tolerated. Antiemetics PRN. Monitor potassium Glycemic control Blood pressure control PT/OT Nephrology Follow-up
--- NOTE | 2020-04-11 16:44 | Progress Note ---
DATE: 04/11/2020 Nephrology Progress Note SUBJECTIVE: The patient still not eating a whole lot. He is ambulating, still has some pain. PHYSICAL EXAMINATION: VITAL SIGNS: Temperature 98.3, pulse 88, respiratory rate 16, blood pressure 124/83, and pulse ox 100% on room air. GENERAL: Not in acute distress. Alert and oriented x3. Cooperative on examination. HEENT: Head; normocephalic, atraumatic. Eyes; pupils are equal, round, and reactive to light bilaterally. NECK: Supple. Good range of motion. PULMONARY: Clear to auscultation bilaterally. No wheezing, no rales, no rhonchi, no crackles appreciated. CARDIOVASCULAR: Positive S1 and S2. No murmurs, rubs, or gallops appreciated. ABDOMEN: Soft, nondistended, and nontender to palpation. Bowel sounds present. MUSCULOSKELETAL: Strength is 5/5 throughout. SKIN: Intact. Warm to touch. Good cap refill. PSYCHIATRIC: Normal affect and mood. EXTREMITIES: No edema. Good range of motion throughout. LABORATORY FINDINGS: Show white count 15, hemoglobin 8.2, hematocrit is 27, and platelets of 199. Chemistry; sodium 138, potassium 4.6, chloride 113, bicarb 20, anion gap of 9.6, BUN is 30, creatinine is 0.65, calcium 8.2, and magnesium 2.2. IMAGING STUDIES: Chest x-ray shows slightly improved pulmonary interstitial edema with decreasing right pleural effusion and basilar opacity, likely atelectasis. IMPRESSION: 1. Acute kidney injury, improved. 2. Electrolyte abnormalities. 3. Moderate protein-calorie malnutrition. 4. Underlying malignancy of unknown etiology with recent surgery. PLAN: Since the patient is not eating much, we are going to go ahead and continue with the TPN, but we are going to remove the magnesium from the TPN. Get a.m. labs including CMP, CBC and a magnesium level. Still not eating much. We have encouraged the patient to eat more, but reports having some pain. Would defer diet to General Surgery. MD MICHELLE Fierro/MODL /[id number]
--- NOTE | 2020-04-11 16:48 | NUR ---
Nutrition Intervention Note RD Recommendation(s) for Physician: - Recommend weaning TPN when medically appropriate and advancing diet as tolerated to GI soft -When TPN is weaned, recommend Ensure nutrition supplements BID The patient meets criteria for MODERATE protein-calorie malnutrition. Plan of Care: RD following, monitoring for tolerance and adequacy. TPN, ONS rec's. Nutrition reason for involvement: Follow up RD Assessment 04/11: Follow up. Pt remains on Standard TPN @ 80 mL/hr with 25 gm lipids 3x/week which meets pts estimated kcal and protein needs. Pt reports that he is tolerating clear liquids. It is recorded that pt consumed 50% of liquid meal trays today and 50-100% yesterday. Will continue to monitor. 04/08: Follow up. Per MD note, pts acute kidney failure has resolved. Pts NG tube was removed yesterday and was started on a clear liquid diet. Pt is also receiving TPN @ 80 mL/hr. Pt stated he is tolerating liquids, but mainly has been drinking water. Pt did not consume his liquid meal tray of breakfast or lunch per documentation. No N/V reported. 04/06: Follow up. Pt s/p retroperitoneal tumor resection with repair of L iliac artery and repair of L kidney on 04/03. Pt remains NPO x day 3 post operatively. NGT to LIWS, very little output. Pt sleeping at time of visit, did not awake to greeting. Chart reviewed, plan for HD catheter placement per MD notes. Pt eating 25-75% of meals 3 days ago, tolerating well. TPN and diet rec's provided pending plan of care. Will continue to monitor. 04/01: 64 YOM admitted for abdominal pain and hyperkalemia, seen today per MST screen. Pt reports progressive wt loss over the past 3 months of 16#, noted significant change of 9% loss in 3 months. Pt reports slow decline in appetite over the past few months with inability to keep anything down 3 days [employer]EF[employer]IST[employer]. Pt denies any supplements at home. Pt reports tolerating diet today, receptive to supplement- RD to order Nepro BID for adequacy per current lab trend. Pt denies any N/V/C/D currently. Pt with no questions or concerns at time of visit. Chart reviewed. Will continue to monitor. Principal Problems/Diagnoses: abd pain, hyperkalemia PMH: HTN, TURP, retroperitoneal mass GI: last recorded BM 04/10, flat, soft abdomen Skin: abdominal incision Labs: 04/11: Na 138, K 4.6, BUN 32, Cr 0.65, Ca 8.2, Glu 83 04/08: Na 144, K 3.9, Cr 0.65, BUN 2, Ca 7.8, Glu 101 04/06: Na 142, K 3.9, Cl 108, CO2 27, BUN 36, Cr 0.99, Gluc 116, iCa 1; 04/04: Mg 2.3 04/01: Na 131, K 4.9, BUN 66, Cr 1.46, Gluc 116, Phos 4.5, Mg 2.9 Meds: insulin, morphine, zofran Ht: 67 in Wt: 196.56 lbs (04/07) 164.06 lb (04/01) Suspect possible weight error BMI: 30.8 kg/m2 IBW: 135 lb Malnutrition Evaluation (04/01/20) The patient meets criteria for MODERATE protein-calorie malnutrition. Energy intake: moderate <75% of estimated energy requirements for 1 month Weight loss: severe >7.5% in 3 months (Acute) Fat loss: none, chest well developed Muscle loss: none, shoulder round Supporting Evidence: Fluid accumulation: none Functional Status: not assessed Nutrition Prescription (Diet Order):clear liquids, standard TPN @ 80 mL/hr with 25 gm lipids 3/week (288 g dextrose - 30% 500 mL , 96 g amino acids 10% 500 mL, 25 gm lipids 3x/week, total volume 1920 mL) -provides 1459 kcal and 96 g protein Estimated Nutritional Needs: 1352-3259 calories/day (18-22 kcal/kg CBW) Weight used: 164 lbs 74-112 g protein/day (1-1.5 g pro/kg CBW) Weight used: 164 lbs Diet Adequacy: Meeting calorie and protein needs with current TPN order Diet Tolerance: tolerating PO Diet Education Needs Assessment: Diet education not indicated at this time. Nutrition Care Level: high Nutrition Diagnosis: Inadequate energy and protein intake related to current medical conditions as evidenced by progressive, significant wt loss of 9% and not meeting needs. Goal: Patient will meet 75-100% of estimated needs by follow up Progress: progressing Interventions: -Commercial beverage, fiber-modified diet, TPN- composition, rate, route Monitoring/Evaluation: -Total energy intake, Total protein intake, Formula/solution, Liquid supplement, modified diet, Weight change Signed: Kelli Antonio RD, LD
[2020-04-11] MEDS: ENOXAPARIN SOD INJ 40 MG/0.4 ML SYR SC SCH (17:21)
[2020-04-11] MEDS: CENTRAL TPN FORMULA 1 BAG IV SCH (20:41)
[2020-04-11] MEDS ORDERED: SODIUM CHLORIDE 0.9% 250ML 250 ML ONE (21:07)
--- NOTE | 2020-04-11 23:23 | NUR ---
DATE OF SERVICE Date of service 04/11/2020 Subjective: The patient is feeling better. He has been able to tolerate liquids. Denies abdominal pain, no nausea, no vomiting, no diarrhea. Breathing comfortable. Objective: The patient was in no distress. Presently on TPN. OBJECTIVE: GENERAL: The patient looks sleepy. The patient in no apparent distress, seemed to be exhausted. VITAL SIGNS: Temperature 98.3, pulse 88, respiratory rate 16, blood pressure 124/83, and pulse ox 100% on room air. HEENT: Head is normocephalic, atraumatic. NECK: Supple. No JVD. LUNGS: Clear to auscultation. HEART: Regular rate and rhythm. ABDOMEN: Postsurgical, soft, nontender. EXTREMITIES: No edema. NEURO: Has been alert, oriented to person, time, and place. LABORATORY DATA: Sodium 140, potassium 4.2, chloride 140, CO2 22, anion gap 8.2, BUN 34, creatinine 0.69, glucose 114, calcium level 7.8, phosphorus level 3.5, magnesium 2.2, total bili 2.4. Albumin 1.5 IMAGING STUDIES: Chest x-ray revealed slightly improved pulmonary interstitial edema with decreasing right pleural effusion and basilar opacity, likely atelectasis. ASSESSMENT: 1. Retroperitoneal mass 2. Status post laparotomy and resection of retroperitoneal tumor with repair of the left iliac artery and repair of left kidney. 3. Acute kidney injury, secondary to obstruction. The patient did have acute tubular necrosis, now resolved. 4. Hyperkalemia, resolved. 5. Urinary tract infection with suspected sepsis. 6. Hypocalcemia, resolved. 7. History of anorexia. 8. Hypertension. 9. History of anemia. 10. Mild protein calorie malnutrition. 11. Underlying malignancy, unknown etiology Plan of care: 04/09/2020 Continue to monitor electrolytes. Continue clear liquid diet. Advance diet as tolerated. Continue TPN. Discussed with case management about patient condition. 04/10/2020 Plan of care: Continue present care. Continue TPN. Encourage ambulation. Patient clear liquid diet. Advance as tolerated. Antiemetics PRN. 04/11/2020 Continue TPN. Follow up labs, renal evaluation noted. Advanced diet as tolerated. Pain is control Monitor BP and pulse
[2020-04-12] VITALS (9 sets, daily range): BP systolic 110–127; BP diastolic 70–93
[2020-04-12] MEDS: INSULIN REGULAR, HUMAN 100 UNIT/1 ML 3ML VIAL SQ SCH ×4 (00:02→19:23)
[2020-04-12 06:19] LABS: BASOPHILS % 0.2 % (0.0-1.0); EOSINOPHILS # (AUTO) 0.1 (0.0-0.4); EOSINOPHILS % 0.9 % (0.0-6.0); HEMATOCRIT 26.8 % (38.2-49.6); LYMPHOCYTES # (AUTO) 0.5 (1.0-3.2); LYMPHOCYTES % 3.9 % (18.0-39.1); MEAN CORPUSCULAR HEMOGLOBIN 28.6 pg (28-32); MEAN CORPUSCULAR HGB CONC 29.9 g/dL (31-35); MEAN CORPUSCULAR VOLUME 95.7 fL (81-99); MONOCYTES # (AUTO) 0.6 (0.2-0.8); MONOCYTES % 5.2 % (4.4-11.3); NEUTROPHILS # (AUTO) 10.8 (2.1-6.9); NEUTROPHILS % 88.7 % (38.7-80.0); PLATELET COUNT 168 x10e3/uL (140-360); RED CELL DISTRIBUTION WIDTH 19.9 % (11.7-14.4)
[2020-04-12] MEDS: PIPER-TAZ 3.375 GM 50 ML IV SCH ×3 (06:32→22:00)
[2020-04-12 06:49] LABS: ANION GAP 11.8 mmol/L (8-16); BLOOD UREA NITROGEN 36 mg/dL (7-26); BUN/CREATININE RATIO 56 (6-25); CALCIUM 8.1 mg/dL (8.4-10.2); CARBON DIOXIDE 18 mmol/L (22-29); CHLORIDE 114 mmol/L (98-107); CREATININE, SERUM 0.64 mg/dL (0.72-1.25); EST GLOMERULAR FILTRATION RATE > 60 ML/MIN (60-); GLUCOSE 100 mg/dL (74-118); POTASSIUM 4.8 mmol/L (3.5-5.1); SODIUM 139 mmol/L (136-145)
--- NOTE | 2020-04-12 07:10 | NUR ---
Received bedside shift report from Soto AGUERO. Patient asleep at this time, no visible signs of distress noted. Call light within reach.
[2020-04-12] MEDS: HYDROCODONE/APAP 5MG-325MG TAB PO PRN ×2 (09:36→18:21)
[2020-04-12 11:50] LABS: PLATELET ESTIMATE ADEQUATE; PLATELET MORPHOLOGY COMMENT NORMAL; RBC MORPHOLOGY COMMENT ABNORMAL
[2020-04-12 11:52] LABS: HYPOCHROMASIA SLIG; POLYCHROMASIA FEW
--- NOTE | 2020-04-12 12:25 | NUR ---
PULMONARY/CCM DATE: 04/12/2020 SUBJECTIVE: BM x 3 flatus eats up to 1/2 of clears diet tpn 80/hr iv REVIEW OF SYSTEMS: no rash, no icterus. PHYSICAL EXAMINATION: VITAL SIGNS: Vital signs noted and reviewed per the chart record. GENERAL: no acute distress, calm HEENT: Normocephalic and atraumatic. NECK: Supple. Throat midline. LUNGS: Bilateral air entry, clear CARDIOVASCULAR: S1 and S2. No murmurs, rubs, or gallops. ABDOMEN: Soft , post surgical. not grossly tender EXTREMITIES: No clubbing, no cyanosis, no edema. INTEGUMENT: No rash or purpura. LABORATORY DATA: k 4.8, cr 0.64, wbc 12, hct 27, plt 168 IMPRESSION AND PLAN: 1. 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 2. ischemic leg due to kinked artery repair and endovascular tumor, s/p repair & endarterectomy 2. Acute kidney failure, obstructive s/p surgery, ATN likely. resolved 3. Critical Hyperkalemia 5.9, resolve 4. Pandemic status with coronavirus-19, patient result: negative 6. Hyponatremia. resolved 8. Hypertension. 9. post operative respiratory insufficiency, extubated 10. anemia, multifactorial. 11. post operative fluid overload mild Continue supportive care and TPN per designated. dc central line when tpn stopped continue clears diet, increase diet as tolerated per surgeon supportive care, antiemetics prn Follow UOP, prater when deems urine quality to be good and non-bloody Supportive care mobilize, PT follow up pathology--- pending for possible sarcoma f/u NJ output, has been large repeat CXR soon, ensure resolution of overload Thank you very much, Dr. Hernan Ordaz and Dr Atkins. Please call for any questions.
--- NOTE | 2020-04-12 13:31 | NUR ---
Dr. Arnold called at [phone] for TPN renewal orders. States he will be in shortly to round on patient and renew orders as needed.
[2020-04-12] MEDS: FUROSEMIDE INJ 10 MG/ML 4 ML VIAL IV SCH (14:47)
--- NOTE | 2020-04-12 16:17 | Progress Note ---
DATE: 04/12/2020 Nephrology Progress Note SUBJECTIVE: The patient is eating a little bit better according to the nursing staff and the patient. He ate 50% of his clear liquid diet. We will continue with TPN for now. PHYSICAL EXAMINATION: VITAL SIGNS: Temperature is 97.9, pulse 80, respiratory rate is 18, blood pressure 119/71, and pulse ox 100% on room air. GENERAL: Not in acute distress. Alert and oriented x3. Cooperative on examination. PULMONARY: Clear to auscultation bilaterally. No wheezing, no rales, no rhonchi, no crackles appreciated. CARDIOVASCULAR: Positive S1 and S2. No murmurs, rubs, or gallops appreciated. ABDOMEN: Soft, nondistended, and nontender to palpation. Bowel sounds present. MUSCULOSKELETAL: Strength is 5/5 throughout. No evidence of any muscle deficits on examination. SKIN: Intact. Warm to touch. Good cap refill. PSYCHIATRIC: Normal affect and mood. EXTREMITIES: He does have some edema appreciated throughout. LABORATORY FINDINGS: Show white count 12, hemoglobin 8, hematocrit is 26, and platelets of 168. Chemistry; sodium 139, potassium 4.8, chloride 114, bicarb 18, anion gap of 11, BUN is 36, creatinine is 0.64, glucose is 100, calcium is 8.1, and magnesium is 2. IMAGING STUDIES: Nothing new today. IMPRESSION: 1. Acute kidney injury, resolved. 2. Electrolyte abnormalities. 3. Moderate protein-calorie malnutrition. 4. Underlying malignancy, status post surgery, unknown type of cancer. PLAN: At this time, he is eating much better today according to the nursing staff and the patient. We will continue with TPN for now. Get a.m. labs. Add Lasix 20 mg IV q.8 x3 doses. Monitor very closely. Encourage ambulation. He is on Lovenox for DVT prophylaxis. MD MICHELLE Fierro/MODL /[id number]
[2020-04-12] MEDS: ENOXAPARIN SOD INJ 40 MG/0.4 ML SYR SC SCH (17:58)
--- NOTE | 2020-04-12 19:00 | NUR ---
Bedside shift report given to night nurse. Patient asleep but easily aroused, no signs of distress noted. Call light within reach.
--- NOTE | 2020-04-12 19:07 | Progress Note ---
DATE: 04/12/2020 SUBJECTIVE: The patient feeling better, feeling stronger and has been able to tolerate diet and wishes to advance his diet. The patient denies abdominal pain. No nausea or vomiting. No chest pain. OBJECTIVE: GENERAL: The patient is alert, oriented to person, time, place. The patient in no apparent distress. VITAL SIGNS: Blood pressure 111/70, respirations 17, pulse 91, temperature 98.8. HEENT: Head is normocephalic, atraumatic. Extraocular movements are intact. NECK: Supple. No JVD. LUNGS: Clear to auscultation. HEART: Regular rate and rhythm. ABDOMEN: Postsurgical, soft, nontender. EXTREMITIES: No edema. NEURO: Alert, oriented x3. Nonfocal. LABORATORY DATA: A CBC revealed hemoglobin 8.0, white blood cell count 12.2, platelet count 168,000. Chem profile reveal sodium 139, potassium 4.8, chloride 114, CO2 of 18, BUN 36, creatinine 0.64. Chest x-ray as of April 11, 2020, impression, slightly improved mild pulmonary interstitial edema with decreasing right pleural effusion and basilar opacity, likely atelectasis. ASSESSMENT: 1. Retroperitoneal mass. 2. Status post laparotomy and resection of retroperitoneal tumor with repair of left iliac artery, repair of left kidney. 3. Acute kidney injury secondary to obstruction. 4. Hyperkalemia, resolved. 5. Urinary tract infection with suspected sepsis. 6. Hypocalcemia, resolved. 7. History of anorexia. 8. Hypertension. 9. History of anemia. 10. Mild protein calorie malnutrition. 11. Underlying malignancy. PLAN OF CARE: continue present care. Continue tPA, advance diet slowly, list of medications noted. Chano Atkins MD ALPHONSE/MODL /[id number]
[2020-04-12] MEDS: CENTRAL TPN FORMULA 1 BAG IV SCH (20:30)
[2020-04-13] VITALS (8 sets, daily range): BP systolic 104–120; BP diastolic 62–88
[2020-04-13] MEDS: FUROSEMIDE INJ 10 MG/ML 4 ML VIAL IV SCH ×3 (03:20→20:55)
[2020-04-13] MEDS: PIPER-TAZ 3.375 GM 50 ML IV SCH ×3 (05:12→20:55)
[2020-04-13] MEDS: HYDROCODONE/APAP 5MG-325MG TAB PO PRN ×2 (05:16→11:37)
[2020-04-13] MEDS: INSULIN REGULAR, HUMAN 100 UNIT/1 ML 3ML VIAL SQ SCH ×4 (06:00→18:00)
[2020-04-13 06:20] LABS: ANION GAP 10.7 mmol/L (8-16); BLOOD UREA NITROGEN 37 mg/dL (7-26); BUN/CREATININE RATIO 52 (6-25); CARBON DIOXIDE 18 mmol/L (22-29); CHLORIDE 111 mmol/L (98-107); CREATININE, SERUM 0.71 mg/dL (0.72-1.25); EST GLOMERULAR FILTRATION RATE > 60 ML/MIN (60-); GLUCOSE 82 mg/dL (74-118); MAGNESIUM 1.8 MG/DL (1.3-2.1); POTASSIUM 4.7 mmol/L (3.5-5.1); SODIUM 135 mmol/L (136-145)
--- NOTE | 2020-04-13 07:00 | NUR ---
RECEIVED PATIENT RESTING IN BED NO S/S OF DISTRESS. BED LOW, WHEELS LOCKED, SIDE RAILS X2. CALL LIGHT IN REACH WILL CONTINUE TO MONITOR PATIENT.
--- NOTE | 2020-04-13 10:37 | NUR ---
COMPLETED RTF, COVID FORM AND PASRR, FAXED TO FACILITY AND PUT COPIES IN CHART AND PACKET.
--- NOTE | 2020-04-13 12:55 | NUR ---
Progress note dictated
--- NOTE | 2020-04-13 13:41 | Progress Note ---
DATE: 04/13/2020 SUBJECTIVE: The patient feeling better, stated that he is able to tolerate liquids better. Denies chest pain or shortness of breath. No abdominal pain. No nausea or vomiting. No fever. No chills. OBJECTIVE: GENERAL: The patient is alert, oriented to person, time, and place. The patient has been in no distress. VITAL SIGNS: Blood pressure 114/75, respirations 16, temperature 98.4, and pulse oximetry 100%. HEENT: Head is atraumatic. NECK: Supple. No JVD. LUNGS: Clear to auscultation. HEART: Regular rate and rhythm. ABDOMEN: Soft, nontender. EXTREMITIES: No edema. NEURO: Alert, oriented x3. LABORATORY DATA: As of April 12, 2020, hemoglobin 8.0, white blood cell count 12.20, and platelet count 168,000. Chem profile as of April 13, 2020, revealed sodium 135, potassium 4.7, chloride 111, CO2 of 18, BUN 37, creatinine 0.71. MICROBIOLOGY STUDIES: A urine culture reported no growth after 36 to 48 hours. ASSESSMENT: 1. Retroperitoneal mass. 2. Status post laparotomy and resection of retroperitoneal tumor with repair of left iliac artery, repair of left kidney. 3. Acute kidney injury, secondary to obstruction. 4. Hyperkalemia, resolved. 5. Urinary tract infection with suspected sepsis. 6. Hypocalcemia, resolved. 7. History of anorexia. 8. Hypertension, controlled. 9. History of anemia. 10. Mild protein-calorie malnutrition. PLAN OF CARE: Continue present care. Advance diet as tolerated. Discussed with Case Management and likely the patient will be discharged to long-term. Family has chosen [facility]. MD ALPHONSE Sommers/GLENN /[id number] MTDD
--- NOTE | 2020-04-13 13:43 | NUR ---
DR. LIU MAKING ROUNDS. ORDER TO FINISH CURRENT BAG OF TPN AND THEN DISCONTINUE. NEW ORDERS IMPLEMENTED.
--- NOTE | 2020-04-13 14:06 | NUR ---
PULMONARY/CCM DATE: 04/13/2020 SUBJECTIVE: BM + flatus + ate >50% now prater in tpn 80/hr RA fio2 REVIEW OF SYSTEMS: no rash, no icterus. PHYSICAL EXAMINATION: VITAL SIGNS: Vital signs noted and reviewed per the chart record. GENERAL: no acute distress, calm HEENT: Normocephalic and atraumatic. NECK: Supple. Throat midline. LUNGS: Bilateral air entry, clear CARDIOVASCULAR: S1 and S2. No murmurs, rubs, or gallops. ABDOMEN: Soft , post surgical. not grossly tender EXTREMITIES: No clubbing, no cyanosis, no edema. INTEGUMENT: No rash or purpura. LABORATORY DATA: k 4.7, bun 37, cr 0.71. wbc 12, hct 27, plt 168 IMPRESSION AND PLAN: 1. 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 2. ischemic leg due to kinked artery repair and endovascular tumor, s/p repair & endarterectomy 2. Acute kidney failure, obstructive s/p surgery, ATN likely. resolved 3. Critical Hyperkalemia 5.9, resolve 4. Pandemic status with coronavirus-19, patient result: negative 6. Hyponatremia. resolved 8. Hypertension. 9. post operative respiratory insufficiency, extubated 10. anemia, multifactorial. 11. post operative fluid overload mild Continue supportive care and TPN per designated. dc central line when tpn stopped continue clears diet, increase diet as tolerated per surgeon supportive care, antiemetics prn Follow UOP, prater when deems urine quality to be good and non-bloody Supportive care mobilize, PT follow up pathology--- pending for possible sarcoma f/u NJ output, has been large repeat CXR soon, ensure resolution of overload Thank you very much, Dr. Hernan Ordaz and Dr Atkins. Please call for any questions.
[2020-04-13] MEDS: ENOXAPARIN SOD INJ 40 MG/0.4 ML SYR SC SCH (17:34)
--- NOTE | 2020-04-13 17:41 | Progress Note ---
DATE: 04/13/2020 Nephrology Progress Note SUBJECTIVE: The patient is doing a little better today. He is eating much more clear liquid diet. We will go ahead and stop the TPN and let the bag finish out. He is in the process of going to custodial facility. PHYSICAL EXAMINATION: VITAL SIGNS: Temperature is 98.4, pulse 88, respiratory rate 16, blood pressure 114/75, pulse ox 100% on room air. GENERAL: Not in acute distress. Alert and oriented x3. Cooperative on examination. HEENT: Head is normocephalic and atraumatic. Eyes; pupils are reactive to light bilaterally. Extraocular movements intact bilaterally. NECK: Supple. Good range of motion. Throat; no evidence of erythema or exudates in the posterior pharynx. Has poor dentition. PULMONARY: Clear to auscultation bilaterally. No wheezing, rales, or rhonchi. No crackles appreciated. CARDIOVASCULAR: Positive S1 and S2. No murmurs, rubs, or gallops appreciated. ABDOMEN: Soft, nondistended, nontender to palpation. Bowel sounds present. MUSCULOSKELETAL: Strength is 5/5 throughout. No evidence of any muscle deficits on examination. No weakness appreciated. SKIN: Intact. Warm to touch. Good cap refill. PSYCHIATRIC: Normal affect and mood. EXTREMITIES: No edema. Good range of motion throughout. LABORATORY DATA: Labs show white count 12.2, hemoglobin 8, hematocrit 26.8, platelets of 168. Chemistry; sodium 135, potassium 4.7, chloride 111, bicarbonate 18, anion gap of 10, BUN is 37, creatinine is 0.71, glucose is 82, calcium was 8, magnesium is 1.8. IMAGING STUDIES: Nothing new. IMPRESSION: 1. Acute kidney injury-resolved. 2. Electrolyte abnormalities. 3. Moderate protein-calorie malnutrition. 4. Underlying malignancy status post surgery, unknown type of cancer. 5. Edema. PLAN: At this time, we will try to wean him off the TPN. Encourage clear liquid diet. Give him IV diuretics. Encourage ambulation. Lovenox for DVT prophylaxis. Discussed with nursing staff and patient. MD MICHELLE Fierro/MODL /[id number]
[2020-04-14] VITALS (8 sets, daily range): BP systolic 91–101; BP diastolic 60–76
[2020-04-14] MEDS: PIPER-TAZ 3.375 GM 50 ML IV SCH ×3 (05:26→21:29)
[2020-04-14] MEDS: HYDROCODONE/APAP 5MG-325MG TAB PO PRN (05:29)
[2020-04-14] MEDS: INSULIN REGULAR, HUMAN 100 UNIT/1 ML 3ML VIAL SQ SCH ×2 (06:00)
[2020-04-14 06:09] LABS: ANION GAP 12.4 mmol/L (8-16); BLOOD UREA NITROGEN 44 mg/dL (7-26); BUN/CREATININE RATIO 54 (6-25); CALCIUM 7.9 mg/dL (8.4-10.2); CARBON DIOXIDE 18 mmol/L (22-29); CHLORIDE 111 mmol/L (98-107); CREATININE, SERUM 0.81 mg/dL (0.72-1.25); EST GLOMERULAR FILTRATION RATE > 60 ML/MIN (60-); GLUCOSE 68 mg/dL (74-118); MAGNESIUM 1.8 MG/DL (1.3-2.1); POTASSIUM 4.4 mmol/L (3.5-5.1); SODIUM 137 mmol/L (136-145)
--- NOTE | 2020-04-14 07:00 | NUR ---
RECEIVED PATIENT RESTING IN BED NO S/S OF DISTRESS. BED LOW, WHEELS LOCKED, SIDE RAILS X2. CALL LIGHT IN REACH WILL CONTINUE TO MONITOR PATIENT.
[2020-04-14] MEDS ORDERED: LACTATED RINGER'S 1,000 ML INJ ONE ×2 (07:30→07:45)
[2020-04-14] MEDS: FUROSEMIDE INJ 10 MG/ML 4 ML VIAL IV SCH (08:12)
--- NOTE | 2020-04-14 12:01 | NUR ---
PULMONARY/CCM DATE: 04/14/2020 SUBJECTIVE: leg still with lots of pain, weak sitting up prater eating most REVIEW OF SYSTEMS: no rash, no icterus. PHYSICAL EXAMINATION: VITAL SIGNS: Vital signs noted and reviewed per the chart record. GENERAL: no acute distress, calm HEENT: Normocephalic and atraumatic. NECK: Supple. Throat midline. LUNGS: Bilateral air entry, clear CARDIOVASCULAR: S1 and S2. No murmurs, rubs, or gallops. ABDOMEN: Soft , post surgical. not grossly tender EXTREMITIES: No clubbing, no cyanosis, no edema. INTEGUMENT: No rash or purpura. LABORATORY DATA: k 4.4, hco3 18, bun 44, cr 0.81. wbc 12, hct 27, plt 168 IMPRESSION AND PLAN: 1. 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 2. ischemic leg due to kinked artery repair and endovascular tumor, s/p repair & endarterectomy 2. Acute kidney failure, obstructive s/p surgery, ATN likely. resolved 3. Critical Hyperkalemia 5.9, resolve 4. Pandemic status with coronavirus-19, patient result: negative 6. Hyponatremia. resolved 8. Hypertension. 9. post operative respiratory insufficiency, extubated 10. anemia, multifactorial. 11. post operative fluid overload mild Continue supportive care d/c TPN if ok with others. d/c central line continue clears diet, increase diet as tolerated per surgeon supportive care, antiemetics prn Follow UOP, prater when deems urine quality to be good and non-bloody Supportive care mobilize, PT follow up pathology--- pending for possible sarcoma f/u NJ output, has been large repeat CXR soon, ensure resolution of overload Thank you very much, Dr. Hernan Ordaz and Dr Atkins. Please call for any questions.
--- NOTE | 2020-04-14 14:07 | NUR ---
Progress note dictated
--- NOTE | 2020-04-14 15:12 | NUR ---
Nutrition Intervention Note RD Recommendation(s) for Physician: -Consider GI Soft diet restriction -Recommend Ensure Compact TID for adequacy The patient meets criteria for MODERATE protein-calorie malnutrition. Plan of Care: RD following, monitoring for tolerance and adequacy. Diet and ONS rec's. Nutrition reason for involvement: Follow up RD Assessment 04/14: Follow up. Pt discussed during am MDR. TPN discontinued 04/12 and continues on CLD, diet advanced to Regular for dinner- tolerance pending. Pt reports tolerating CLD, family at bedside report fair to good intake. Pt receptive to supplement- RD to order Ensure Compact TID. Pt with no questions or concerns at time of visit. Will continue to monitor. 04/11: Follow up. Pt remains on Standard TPN @ 80 mL/hr with 25 gm lipids 3x/week which meets pts estimated kcal and protein needs. Pt reports that he is tolerating clear liquids. It is recorded that pt consumed 50% of liquid meal trays today and 50-100% yesterday. Will continue to monitor. 04/08: Follow up. Per MD note, pts acute kidney failure has resolved. Pts NG tube was removed yesterday and was started on a clear liquid diet. Pt is also receiving TPN @ 80 mL/hr. Pt stated he is tolerating liquids, but mainly has been drinking water. Pt did not consume his liquid meal tray of breakfast or lunch per documentation. No N/V reported. 04/06: Follow up. Pt s/p retroperitoneal tumor resection with repair of L iliac artery and repair of L kidney on 04/03. Pt remains NPO x day 3 post operatively. NGT to LIWS, very little output. Pt sleeping at time of visit, did not awake to greeting. Chart reviewed, plan for HD catheter placement per MD notes. Pt eating 25-75% of meals 3 days ago, tolerating well. TPN and diet rec's provided pending plan of care. Will continue to monitor. 04/01: 64 YOM admitted for abdominal pain and hyperkalemia, seen today per MST screen. Pt reports progressive wt loss over the past 3 months of 16#, noted significant change of 9% loss in 3 months. Pt reports slow decline in appetite over the past few months with inability to keep anything down 3 days [employer]. Pt denies any supplements at home. Pt reports tolerating diet today, receptive to supplement- RD to order Nepro BID for adequacy per current lab trend. Pt denies any N/V/C/D currently. Pt with no questions or concerns at time of visit. Chart reviewed. Will continue to monitor. Principal Problems/Diagnoses: abd pain, hyperkalemia PMH: HTN, TURP, retroperitoneal mass GI: last BM 04/13 x 2 Skin: abdominal incision Labs: 04/14: Na 137, K 4.4, BUN 44, Cr 0.81, Gluc 68, POC 75-108, Mg 1.8 04/11: Na 138, K 4.6, BUN 32, Cr 0.65, Ca 8.2, Glu 83 04/08: Na 144, K 3.9, Cr 0.65, BUN 2, Ca 7.8, Glu 101 04/06: Na 142, K 3.9, Cl 108, CO2 27, BUN 36, Cr 0.99, Gluc 116, iCa 1; 04/04: Mg 2.3 04/01: Na 131, K 4.9, BUN 66, Cr 1.46, Gluc 116, Phos 4.5, Mg 2.9 Meds: insulin, morphine, zofran, lasix, norco, abx Ht: 67 in Wt: 196.56 lbs (04/07) 164.06 lb (04/01) Suspect possible weight error BMI: 30.8 kg/m2 IBW: 135 lb Malnutrition Evaluation (04/01/20) The patient meets criteria for MODERATE protein-calorie malnutrition. Energy intake: moderate <75% of estimated energy requirements for 1 month Weight loss: severe >7.5% in 3 months (Acute) Fat loss: none, chest well developed Muscle loss: none, shoulder round Supporting Evidence: Fluid accumulation: none Functional Status: not assessed Nutrition Prescription (Diet Order): clear liquids, advanced to Regular diet for dinner Estimated Nutritional Needs: 1297-7476 calories/day (18-22 kcal/kg CBW) Weight used: 164 lbs 74-112 g protein/day (1-1.5 g pro/kg CBW) Weight used: 164 lbs Diet Adequacy: not meeting kcal or protein needs Diet Tolerance: tolerating PO- clear liquids, tolerance of Regular diet pending Diet Education Needs Assessment: Diet education not indicated at this time. Nutrition Care Level: high Nutrition Diagnosis: Inadequate energy and protein intake related to current medical conditions as evidenced by progressive, significant wt loss of 9% and not meeting needs. Goal: Patient will meet 75-100% of estimated needs by follow up Progress: progressing Interventions: -Commercial beverage, fiber-modified diet, recommend modifications Monitoring/Evaluation: -Total energy intake, Total protein intake, Liquid supplement, modified diet, Weight change Signed: Rama Briceno RD, LD, [facility]
--- NOTE | 2020-04-14 16:46 | Progress Note ---
DATE: 04/14/2020 Nephrology Progress Note SUBJECTIVE: The patient is doing very well today with no other issues. His diet has been advanced today. TPN has been discontinued since yesterday. He states he is doing much better. He is ambulating. PHYSICAL EXAMINATION: VITAL SIGNS: Temperature is 97.9, pulse is 110, respiratory rate is 16, blood pressure is 92/69, and pulse ox 100% on room air. GENERAL: Not in acute distress. Alert and oriented x3. Cooperative on examination. HEENT: Head; normocephalic, atraumatic. Eyes; pupils are equal, round, and reactive to light bilaterally. Extraocular movements intact bilaterally. Throat; no evidence of erythema or exudates in the posterior pharynx. Has poor dentition. NECK: Supple. Good range of motion. PULMONARY: Clear to auscultation bilaterally. No wheezing, no rales, no rhonchi, no crackles appreciated. CARDIOVASCULAR: Positive S1 and S2. No murmurs, rubs, or gallops appreciated. ABDOMEN: Soft, nondistended, and nontender to palpation. Bowel sounds present. MUSCULOSKELETAL: Strength is 5/5 throughout. No evidence of any muscle deficits on examination. No weakness appreciated. SKIN: Intact. Warm to touch. Good cap refill. PSYCHIATRIC: Normal affect and mood. EXTREMITIES: No edema. Good range of motion throughout. LABORATORY DATA: CBC; white count 12, hemoglobin 8, hematocrit 26, and platelets of 168. Chemistry; sodium 137, potassium 4.4, chloride 111, bicarb 18, anion gap of 12, BUN is 44, creatinine is 0.81, and calcium is 7.9. IMPRESSION: 1. Acute kidney injury-resolved. 2. Electrolyte abnormalities. 3. Moderate protein-calorie malnutrition. 4. Underlying malignancy, status post surgery, still pending pathology. 5. Edema. 6. Hypotension. PLAN: At this time, stop IV diuretics. Blood pressure is relatively low. He has been given some IV fluids this morning. We are going to advance his diet to regular. Lovenox for DVT prophylaxis. Hold all diuretics and hold all blood pressure medications. Encourage oral feeds. Encourage fluid hydration. Elie Arnold MD JSMickey/MODL /[id number]
--- NOTE | 2020-04-14 16:56 | Progress Note ---
DATE: 04/14/2020 SUBJECTIVE: The patient was doing fine at the time of my evaluation, however, complaining of weakness and pain in the left lower extremity. No history of loss of bowel or bladder control. No fever or chills. The patient previously has had an anterior doppler studies on the left lower extremity and there is no evidence of DVT, but there is some findings suspicious for peripheral arterial disease. The patient has been on TPN. Awaiting transfer to a intermediate, gradually we have been able to wean off TPN, which recently was discontinue and he has been followed by multiple specialists including Dr. Arnold from renal standpoint, Dr. Gloria from pulmonary standpoint and also by Dr. Reyes Qureshi, Urology and Dr. Sullivan, general surgeon. The patient as mentioned was available for retroperitoneal mass, which is suggestive for sarcoma and noted to have adherence to the left iliac artery, left kidney, left ureter in postop state seen on April 04, 2019 at which time patient underwent laparotomy with resection of retroperitoneal tumor with repair of left iliac artery, repair of left kidney. This procedure details has been addressed on previous note, but the patient also has had ischemic leg due to kidney artery repair and endovascular tumor, status post repair/endarterectomy. We will request embolization from neuro standpoint pertaining patient's pain and weakness on the left lower extremity and also from a vascular standpoint given his previous other issue of ischemic leg. OBJECTIVE: GENERAL: The patient has been alert, oriented to person, time, and place. The patient appears to be in no distress at this time. VITAL SIGNS: Blood pressure 92/69, respiratory rate of 16, pulse 110, temp 97.9. HEENT: Head is normocephalic, atraumatic. NECK: Supple. No JVD. LUNGS: Clear to auscultation. HEART: Regular rate and rhythm. ABDOMEN: Soft, nontender. EXTREMITIES: No edema. NEURO: Alert and oriented x3, weakness on the left leg. LABORATORY DATA: As of April 12, hemoglobin was 8.0, white blood cell count 12.20, platelet count 168,000. Chem profile as of April 14, 2020 revealed sodium 137, potassium 4.4, chloride 111, CO2 18, BUN 44, creatinine 0.81. ASSESSMENT: 1. Retroperitoneal mass suggestive of sarcoma. 2. Status post laparotomy and resection of retroperitoneal tumor with repair of left iliac artery, repair of left kidney. 3. Ischemic leg due to compression of the tumor status post repair/endarterectomy. 4. Acute kidney failure, status post obstructive uropathy and did have acute tubular necrosis and has resolved. 5. Electrolyte imbalance consisting of hyperkalemia and hyponatremia, which has resolved. 6. Hypertension. 7. Status post postoperative respiratory insufficiency. 8. Anemia, multifactorial. 9. Urinary tract infection. 10. Hypoglycemia. 11. History of anorexia. 12. Protein calorie malnutrition, severe. PLAN OF CARE: Continue present care and consultation has been requested with vascular pertains to followup about ischemic leg and also Oncology consultation has been requested with Dr. Gerhard South to followup pertaining patient history of sarcoma. MD ALPHONSE Sommers/GLENN /[id number] MTDD
[2020-04-14 17:18] LABS: FERRITIN 175.25 ng/mL (21.81-274.66)
[2020-04-14] MEDS: ENOXAPARIN SOD INJ 40 MG/0.4 ML SYR SC SCH (17:37)
--- NOTE | 2020-04-14 19:15 | NUR ---
patient received awake, alert, lying quietly in bed. no c/o pain noted. pm assessment complete. call fountain placed within reach. patient instructed to call for assistance when needed.
--- NOTE | 2020-04-14 19:37 | Consultation ---
DATE OF CONSULTATION: 04/14/2020 REASON FOR CONSULTATION: Possible sarcoma. HISTORY OF PRESENT ILLNESS: A 64-year-old gentleman with a history of hypertension, renal stone, BPH, currently in hospital with worsening abdominal pain. It was associated with vomiting. The patient was followed with surgeon. He had a recent history of CT abdomen, which showed retroperitoneal tumor. The patient was symptomatic and surgery was recommended. The patient had resection of retroperitoneal tumor. The patient tolerated the procedure well. Operative report was reviewed. Most of the tumor was removed, but could not take out complete tumor based on close to big vessel. The patient had persistent mass at the site of the retroperitoneal area involving the kidney, note removed. The patient is being followed with urologist. The patient had left hydronephrosis requiring cystourethroscopy with bilateral ureteral catheterization and retrograde ureteral pyelograph. Hospital course was complicated with acute kidney injury secondary to acute tubular necrosis, which later resolved. The patient also had worsening anemia. PAST MEDICAL HISTORY: Hypertension, bilateral retroperitoneal mass, status post right-sided mass dissection. ALLERGIES: NKDA. MEDICATIONS: Reviewed. SOCIAL HISTORY: No current smoking, alcohol, or drugs. REVIEW OF SYSTEMS: A 12-point review as per HPI. PHYSICAL EXAMINATION: GENERAL: Alert, awake, communicative. HEENT: Normocephalic and atraumatic. Sclerae pale. Conjunctivae clear. NECK: Supple. CHEST: Decreased breath sounds at the bases. CARDIOVASCULAR: Regular rate and rhythm. ABDOMEN: Soft. EXTREMITIES: No edema. LABORATORY AND IMAGING DATA: Reviewed. ASSESSMENT AND PLAN: 1. The patient with history of multiple retroperitoneal tumors, status post one tumor with almost 90 plus resection. The patient also had left-sided retroperitoneal tumor around 8 to 10 cm in size involving the kidney. 2. Pathology report is pending. 3. 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 4. Complicated case. 5. Persistent disease despite surgery. 6. Recommendation: The patient currently not in condition to go through further extensive surgical resection. 7. Recommended PET-CT as outpatient for further evaluation. 8. The patient will need Urology followup for possible future resection. 9. We will monitor the patient closely. Further goals of care as per the patient's condition and staging. 10. Anemia. 11. No clear etiology. 12. Likely anemia of chronic disease. 13. Recommendation: Complete anemia workup. 14. Further recommendation and treatment as per workup. 15. We will follow. MD GARRETT Aly /[id number]
--- NOTE | 2020-04-14 22:00 | NUR ---
Patient turned and repositioned for comfort. small loose bm noted at this time. skin care provided. hilda drain emptied, 160cc at this time. patient denies pain at this time.
[2020-04-15] VITALS (9 sets, daily range): BP systolic 95–139; BP diastolic 53–89
[2020-04-15] MEDS ORDERED: SODIUM CHLORIDE 0.9% 250ML 250 ML ONE (02:47)
[2020-04-15] MEDS: HYDROCODONE/APAP 5MG-325MG TAB PO PRN ×2 (04:25→12:15)
--- NOTE | 2020-04-15 04:25 | NUR ---
patient medicated with norco 5/325mg po for c/o left abd pain /10 at this time per patients request. patient repositioned for comfort.
[2020-04-15] MEDS: PIPER-TAZ 3.375 GM 50 ML IV SCH ×3 (05:13→21:56)
--- NOTE | 2020-04-15 06:05 | NUR ---
patient appears to be resting quietly. respirations even and unlabored. no further c/o pain noted at this time.
--- NOTE | 2020-04-15 08:33 | NUR ---
CONTACTED FACILITY TO CHECK ON STATUS STATES STILL PENDING
--- NOTE | 2020-04-15 09:18 | Diagnostic Imaging Report ---
EXAMINATION: CHEST SINGLE (PORTABLE) INDICATION: CHF COMPARISON: Chest radiograph 04/11/2020 FINDINGS: LINES/TUBES:Right IJ central venous catheter terminates near the superior cavoatrial junction. EKG leads overlie the chest. LUNGS:The lung volumes remain low. There is perihilar fullness and indistinctness of the pulmonary vasculature. Unchanged mild bibasilar patchy opacities. PLEURA:No pleural effusion or pneumothorax. MEDIASTINUM:The cardiomediastinal silhouette appears unchanged in size and shape. BONES/SOFT TISSUES:No acute osseous injury. ABDOMEN:No free air under the diaphragm. IMPRESSION: Mild interstitial pulmonary edema. Unchanged mild bibasilar patchy opacities, more likely subsegmental atelectasis than superimposed aspiration or pneumonia. Signed by: Jack Estrada MD on 04/15/2020 9:15 AM
[2020-04-15 09:39] LABS: BASOPHILS # (AUTO) 0.1 (0.0-0.1); BASOPHILS % 0.3 % (0.0-1.0); EOSINOPHILS # (AUTO) 0.1 (0.0-0.4); EOSINOPHILS % 0.3 % (0.0-6.0); HEMATOCRIT 27.7 % (38.2-49.6); HEMOGLOBIN 8.5 g/dL (14.0-18.0); LYMPHOCYTES # (AUTO) 0.5 (1.0-3.2); LYMPHOCYTES % 2.9 % (18.0-39.1); MEAN CORPUSCULAR HEMOGLOBIN 28.3 pg (28-32); MEAN CORPUSCULAR HGB CONC 30.7 g/dL (31-35); MEAN CORPUSCULAR VOLUME 92.3 fL (81-99); MONOCYTES # (AUTO) 0.8 (0.2-0.8); MONOCYTES % 4.8 % (4.4-11.3); NEUTROPHILS # (AUTO) 15.6 (2.1-6.9); NEUTROPHILS % 91.1 % (38.7-80.0); PLATELET COUNT 182 x10e3/uL (140-360); RED CELL DISTRIBUTION WIDTH 20.4 % (11.7-14.4)
--- NOTE | 2020-04-15 10:24 | Progress Note ---
DATE: 04/15/2020 SUBJECTIVE: The patient is seen and examined today. The patient appears comfortable. Clinical condition is stable. Still very lethargic and tired. OBJECTIVE: GENERAL: Alert, awake, and communicative. HEENT: Normocephalic, atraumatic. Sclerae pale. Conjunctivae clear. NECK: Supple. CHEST: Decreased breath sounds at bases. CARDIOVASCULAR: Regular rate and rhythm. ABDOMEN: Soft, tender. EXTREMITIES: No edema. PHARMACY BENEFIT MANAGER: Intact. LABORATORY DATA: Labs are pending. Anemia workup showed normal ferritin with low iron saturation. ASSESSMENT/PLAN: The patient with history of multiple medical conditions, currently in hospital with worsening abdominal pain. Workup shows retroperitoneal tumor, status post resection with remaining one tumor left. The patient was almost 90%. The pathology report is pending. 1. Recommendation to follow with pathology report. 2. PET-CT as outpatient. 3. We will discuss the case with urologist and surgeon for the further plan or surgical intervention might consider radiation and surgery in future. We will follow. 4. Anemia. Current CBC is pending. 5. Anemia workup shows anemia of chronic disease. RECOMMENDATIONS: 1. Close observation with transfusion hemoglobin drop below 7. 2. We will follow the patient closely. MD KRISTOFER Aly/GLENN /[id number]
--- NOTE | 2020-04-15 11:40 | Consultation ---
DATE OF CONSULTATION: 04/15/2020 Cardiology Consultation CONSULTING PHYSICIAN: Dr. Yuri Reyna, Interventional Cardiology. REASON FOR CONSULTATION: Peripheral vascular disease. HISTORY OF PRESENT ILLNESS: A 64-year-old man with history of sarcoma status post surgery, POLLY with component of ATN and prerenal state now resolved, anemia, noted to have some discomfort to the left dorsal aspect of calf, worse with movement of foot. He denies any chest pain or shortness of breath. He remains frail and with some discomfort to the abdomen and back. REVIEW OF SYSTEMS: A 12-system review negative except for as noted above. PAST MEDICAL HISTORY: As per HPI. SOCIAL HISTORY: No current smoking, alcohol, or drugs. FAMILY HISTORY: Noncontributory. PHYSICAL EXAMINATION: VITAL SIGNS: Temperature 97.5, heart rate 89, respiratory rate 16, blood pressure 102/69, and O2 saturation 100%. GENERAL: Decondition, frail, chronically ill-appearing. NECK: No JVD. CHEST: Clear to auscultation. CARDIOVASCULAR: Regular rate and rhythm. Normal S1, S2. No S3 or S4. No murmurs or rubs. ABDOMEN: Soft. Bowel sounds positive. EXTREMITIES: With 1+ edema to both lower extremities. Foot are normothermic to exam. Dorsalis pedis pulses are diminished. CARDIOVASCULAR MEDICATIONS: Have been reviewed, Lovenox 40 mg subcu daily, morphine 4 mg q.4 hours p.r.n., Zosyn antibiotics, amlodipine 5 mg daily, hydralazine 10 mg q.4 hours p.r.n. STUDIES: Reviewed. Sodium 137, potassium 4.4, chloride 101, bicarbonate 18, BUN 44, creatinine 0.81, glucose 68. White blood cells 12.2, hemoglobin 8, platelets are 168. PT 31.4, PTT 52.9, INR 2.77. AST 48, ALT 40, alkaline phosphatase 186, total bilirubin is 2.4. ASSESSMENT AND PLAN: A 64-year-old man presents with a sarcoma, status post acute kidney injury, anemia, left calf discomfort. Per review on exam and after review of studies arterial Doppler suggests some DPA stenosis given discomfort to left calf area on normothermic exam without any changes of cyanosis or gangrene. At this point in time, it is felt likely etiology of discomfort to left lower extremity is less likely related to arterial disease. Medical conservative management advised including warm compress to site, elevation of lower extremity, and use of compression socks to attempt symptomatic patient improvement. We will follow closely with you. Thank you for the opportunity to participate in the care of Mr. Barone. MD FABRICE Cordova/GLENN /[id number]
--- NOTE | 2020-04-15 13:31 | NUR ---
PULMONARY/CCM DATE: 04/15/2020 SUBJECTIVE: BM flatus some abd distension CXR mild CHF NJ output US venous - no DVT not walking well, pain REVIEW OF SYSTEMS: no rash, no icterus. PHYSICAL EXAMINATION: VITAL SIGNS: Vital signs noted and reviewed per the chart record. GENERAL: no acute distress, calm HEENT: Normocephalic and atraumatic. NECK: Supple. Throat midline. LUNGS: Bilateral air entry, clear CARDIOVASCULAR: S1 and S2. No murmurs, rubs, or gallops. ABDOMEN: Soft , post surgical. not grossly tender EXTREMITIES: No clubbing, no cyanosis, no edema. INTEGUMENT: No rash or purpura. LABORATORY DATA: wbc 17, hct . plt 182. IMPRESSION AND PLAN: 1. 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 2. ischemic leg due to kinked artery repair and endovascular tumor, s/p repair & endarterectomy 2. Acute kidney failure, obstructive s/p surgery, ATN likely. resolved 3. Critical Hyperkalemia 5.9, resolve 4. Pandemic status with coronavirus-19, patient result: negative 6. Hyponatremia. resolved 8. Hypertension. 9. post operative respiratory insufficiency, extubated 10. anemia, multifactorial. 11. post operative fluid overload mild Continue supportive care d/c central line if IV access obtained diet now regular, follow up supportive care, antiemetics prn Follow UOP, prater dc when pt ambulating per Supportive care mobilize, PT follow up pathology--- pending for possible sarcoma f/u NJ output, continues with output repeat CXR soon, ensure resolution of overload Thank you very much, Dr. Hernan Ordaz and Dr Atkins. Please call for any questions.
[2020-04-15] MEDS ORDERED: SODIUM CHLORIDE 0.45% 1,000 ML IV ONE (13:45)
[2020-04-15] MEDS ORDERED: FUROSEMIDE INJ 10 MG/ML 2 ML VIAL IV SCH (14:00)
--- NOTE | 2020-04-15 14:24 | NUR ---
PT TO CT VIA WC
--- NOTE | 2020-04-15 14:45 | Consultation ---
DATE OF CONSULTATION: 04/15/2020 REASON FOR CONSULTATION: Left lower extremity weakness and pain. HISTORY OF PRESENT ILLNESS: Mr. Collin Barone is 64-year-old gentleman with history of hypertension, renal stones, BPH, who presented with worsening abdominal pain and some weakness and pain to the left lower extremity, was associated with nausea and vomiting. Recent CT of the abdomen showed retroperitoneal tumor. He underwent surgery. tolerated the procedure well, however, the entire tumor base was not removed. did not subside and he continues to have left lower extremity pain and weakness and diminished reflex in that side. He denies previous history of stroke, myopathy, myositis, or myasthenia. PAST MEDICAL HISTORY: Includes hypertension and bladder stone. ALLERGIES: NO KNOWN DRUG ALLERGIES. FAMILY HISTORY: Noncontributory for stroke, seizures, myopathy, myositis, or myotonia. SOCIAL HISTORY: Denies tobacco, alcohol, or drugs. REVIEW OF SYSTEMS: Abdominal pain, bloating, nausea, lower extremity weakness and pain, mostly on the left. Fatigue. Otherwise, 14-point review of systems negative. PHYSICAL EXAMINATION: VITAL SIGNS: Temperature 97.7, heart rate 95, and blood pressure 104/53. GENERAL: The patient is awake, responsive, follows commands. HEENT: Extraocular muscles are intact. Face is symmetric. There is no ptosis. There is no nuchal rigidity. NEURO: Strength in the upper extremities is 4+ 5/5 reflexes in upper extremities 2/4. No ataxia. Sensory is grossly normal in upper extremities. ABDOMEN: Tender. PULMONARY: Clear to auscultation. CARDIOVASCULAR: Regular rate and rhythm. EXTREMITIES: Lower extremity exam, sensory is diminished on the left, but he is increasingly tender and there, even slightly sensory stimuli produces pain. This seems to be more so on the lower on the left leg behind the knee and below the knee, but all times some anterior to the knee on the dorsal surface of his foot. Reflexes diminished in that leg. Right leg reflex appears normal. Sensory is about normal strength. Right lower extremity is 3/5. Left lower extremity is 3- 2/5. Does have footdrop on the left leg. ASSESSMENT AND PLAN: Seeing patient with lower extremity pain, possible lumbar plexopathy, given location of the tumor and get a monocytic workup and imaging of the left lower lumbar plexus fountain spine and we will see what we can do from there. He will need the EMGs as an outpatient. PT, OT, and rehabilitation after hospitalization. MD VIKASH POLLOCK/GLENN /[id number]
--- NOTE | 2020-04-15 16:30 | NUR ---
PT BACK IN ROOM AFTER CT.
[2020-04-15] MEDS: MIDODRINE HCL 5 MG TABLET PO SCH (16:40)
[2020-04-15] MEDS: ENOXAPARIN SOD INJ 40 MG/0.4 ML SYR SC SCH (16:44)
[2020-04-15] MEDS ORDERED: MIDODRINE 2.5 MG TAB PO SCH (17:00)
--- NOTE | 2020-04-15 17:11 | Progress Note ---
DATE: 04/15/2020 Renal Progress Note SUBJECTIVE: The patient is doing well today. He is actually eating a solid meal. He ate breakfast pretty good. For lunch, he has been complaining of belly pain, but he is overall stable, no complaints. PHYSICAL EXAMINATION: VITAL SIGNS: Temperature is 97.5, pulse is 97, respiratory rate is 18, blood pressure is 100/79, and pulse ox 94% on room air. GENERAL: Not in acute distress, alert and oriented x3. Cooperative on examination. HEENT: Head is normocephalic, atraumatic. Eyes, pupils equal, round, and reactive to light bilaterally. Extraocular movements intact bilaterally. Throat, no evidence of erythema or exudates in the posterior pharynx. Has poor dentition. NECK: Supple. Good range of motion. PULMONARY: Clear to auscultation bilaterally. No wheezing, rales, or rhonchi. No crackles appreciated. CARDIOVASCULAR: Positive S1, S2. No murmurs, rubs, or gallops. ABDOMEN: Soft, nondistended, and nontender on palpation. Bowel sounds present. MUSCULOSKELETAL: Strength is 5/5 throughout. No evidence of any muscle deficits on examination. No weakness appreciated. SKIN: Intact. Warm to touch. Good capillary refill. PSYCHIATRIC: Normal affect and mood. EXTREMITIES: No edema. Good range of motion throughout. LABORATORY DATA: Showed white count was 17, hemoglobin 8.5, hematocrit 27, and platelets of 182. Chemistry, sodium 137, potassium 4.4, chloride 111, bicarb 18, anion gap of 12, BUN of 44, creatinine 0.81. Iron saturation 10%. Urinalysis noted. MICROBIOLOGY: Urine cultures were negative. IMAGING STUDIES: Chest x-ray this morning showed mild interstitial pulmonary edema, unchanged mild bibasilar patchy opacities, concerned for atelectasis, possible pneumonia. IMPRESSION: 1. Acute kidney injury - resolved. 2. Electrolyte abnormalities. 3. Moderate protein-calorie malnutrition. 4. Underlying malignancy, status post surgery, still pending pathology. 5. Pulmonary edema. 6. Mild hypotension. PLAN: At this time, on chest x-ray he noted to have some mild pulmonary edema. We will put him on Lasix 20 mg IV b.i.d. x4 doses. Get a.m. labs. Diet has been advanced to regular. He is on Lovenox for DVT prophylaxis. Monitor very closely. His blood pressure is relatively low, we will monitor that very closely. Of note, we will go ahead and put him on midodrine 5 mg p.o. b.i.d. for now, an order for us to maximize his fluid removal. Discussed plan of care with family and the patient at bedside and nursing staff. MD MICHELLE Fierro/GLENN /[id number]
[2020-04-15] MEDS: FUROSEMIDE INJ 10 MG/ML 2 ML VIAL IV SCH (18:00)
--- NOTE | 2020-04-15 18:30 | NUR ---
NO OTHER CHANGES AT THIS TIME. PT RESTING QUIETLY.
--- NOTE | 2020-04-15 18:59 | Diagnostic Imaging Report ---
TECHNIQUE: Magnetic resonance imaging of the LEFT HIP was performed WITHOUT injected contrast. HISTORY: Left hip pain COMPARISON: None available. FINDINGS: Bone: No fracture or osteonecrosis. Prominent red marrow. Femoroacetabular Joint: Acetabular labrum: Labral fraying without visualized tear. Articular Cartilage: Cartilage thinning without focal defect. Muscle and tendons: The gluteal tendon insertions are intact. Overlying trochanteric bursitis. Iliopsoas tendon intact. Hamstring origins intact. Soft tissues: Subcutaneous edema/anasarca. Limited evaluation of the intrapelvic complex, however a partially visualized large cystic and solid mass. IMPRESSION: No acute osseous abnormality. Trochanteric bursitis. Subcutaneous edema/anasarca. Partially visualized intra-abdominal/pelvic cystic/solid mass. Signed by: Dr. Joby Tom M.D. on 04/15/2020 6:56 PM
--- NOTE | 2020-04-15 21:56 | NUR ---
bp rechecked and revealed 102/ 70 mmhg.
[2020-04-16] VITALS (13 sets, daily range): BP systolic 86–113; BP diastolic 58–86
--- NOTE | 2020-04-16 04:30 | NUR ---
PATIENT ASK FOR PAIN MEDICATION BUT BLOOD PRESSURE IS STILL LOW. PATIENT STATES HE CAN WAIT.
[2020-04-16] MEDS ORDERED: SODIUM CHLORIDE 0.9% 250ML 250 ML ONE (05:12)
[2020-04-16 05:39] LABS: BASOPHILS # (AUTO) 0.1 (0.0-0.1); BASOPHILS % 0.4 % (0.0-1.0); EOSINOPHILS # (AUTO) 0.1 (0.0-0.4); EOSINOPHILS % 0.5 % (0.0-6.0); HEMATOCRIT 28.6 % (38.2-49.6); HEMOGLOBIN 8.5 g/dL (14.0-18.0); LYMPHOCYTES # (AUTO) 0.6 (1.0-3.2); LYMPHOCYTES % 3.6 % (18.0-39.1); MEAN CORPUSCULAR HEMOGLOBIN 27.3 pg (28-32); MEAN CORPUSCULAR HGB CONC 29.7 g/dL (31-35); MONOCYTES # (AUTO) 0.8 (0.2-0.8); NEUTROPHILS # (AUTO) 14.5 (2.1-6.9); NEUTROPHILS % 89.8 % (38.7-80.0); PLATELET COUNT 211 x10e3/uL (140-360); RED BLOOD COUNT 3.11 x10e6/uL (4.3-5.7); RED CELL DISTRIBUTION WIDTH 20.1 % (11.7-14.4)
[2020-04-16] MEDS: FUROSEMIDE INJ 10 MG/ML 2 ML VIAL IV SCH (05:48)
[2020-04-16] MEDS: PIPER-TAZ 3.375 GM 50 ML IV SCH (05:48)
--- NOTE | 2020-04-16 06:00 | NUR ---
Trialysis site dressing and IV tubings changed.
--- NOTE | 2020-04-16 06:08 | NUR ---
asleep, easily awakened. lle remains weak and sensitive to touch 97.9 98 97/72 awake, responsive eomi perrl face symmetric rrr cta- mild crackles abd soft but tender strength bue 4+/5 strength in rle 3/5 lle 2/ 5 with foot drop. no ataxia in arms a/p lower extremity weakness, lumbar plexopathy from local metastatic spread vs lumbar stenosis which i feel is less likely. outpt EMG pt ot gait therapy L spine MRi to eval structural area in lumbar canal is pending
--- NOTE | 2020-04-16 06:26 | NUR ---
CALLED DR. LIU REGARDING PATIENT'S URINE OUTPUT NO ANSWER.
--- NOTE | 2020-04-16 06:50 | NUR ---
PT RESTING QUIETLY ON BEDSIDE ROUNDS.
--- NOTE | 2020-04-16 08:10 | NUR ---
DR EDUARDO TP SEE PT. NEW ORDERS RECEIVED.
--- NOTE | 2020-04-16 08:28 | Diagnostic Imaging Report ---
Examination: MRI SPINE LUMBAR WO CONTRAST History: Left calf and leg pain. Comparison studies: None Technique: Sagittal, coronal and axial T2 , sagittal T1 and STIR; axial spin density oblique. Findings: Number of lumbar vertebral bodies: Five. Alignment: Normal lordosis. No scoliosis. Soft tissues: No T2 hyperintense inflammatory changes. Posterior paraspinal soft tissues and muscles: No abnormality. Lower thoracic cord: Normal in signal and morphology. The tip of the conus is at L1. Cauda equina: No masses. No arachnoiditis. Vertebrae: No fractures, infection or neoplasm. Nonaggressive hemangiomata in the T12, L2, L4 vertebrae with the largest in L4 that measures 1.0cm. Degenerative changes: L1-L2: No abnormalities. L2-L3: No abnormalities. L3-L4: Diffuse disc bulge results in mild bilateral neural foraminal narrowing. No canal stenosis. A 7mmm T2 hyperintense lesion is present in the posterior midline epidural space, most probably represents a synovial cyst. TRace bilateral facet joint effusions. L4-L5: Asymmetric to the left disc bulge results in mild left neural foramina narrowing. No canal stenosis. L5-S1: Diffuse disc bulge and bilateral facet arthropathy result in moderate bilateral foraminal narrowing. No canal stenosis. IMPRESSION: Degenerative change from L3-L4 through L5-S1 with moderate bilateral neural foraminal narrowing at L5-S1. No canal stenosis. Signed by: Dr. Yaneth Alejo M.D. on 04/16/2020 8:24 AM
[2020-04-16] MEDS: MIDODRINE HCL 5 MG TABLET PO SCH (08:36)
[2020-04-16 11:13] LABS: ANISOCYTOSIS MODERATE; HYPOCHROMASIA SLIGHT; PLATELET ESTIMATE ADEQUATE; PLATELET MORPHOLOGY COMMENT NORMAL; POLYCHROMASIA FEW; RBC MORPHOLOGY COMMENT ABNORMAL
--- NOTE | 2020-04-16 11:45 | NUR ---
PT GOT PATIENT UP IN CHAIR ONLY PT NOT WANTING TO DO ANYTHING ELSE.
--- NOTE | 2020-04-16 12:11 | NUR ---
PULMONARY/CCM DATE: 04/16/2020 SUBJECTIVE: BM(+) flatus(+) still with abdominal distension, discomfort. On regular diet. HD line in mild WBC elevation REVIEW OF SYSTEMS: no rash, no icterus. PHYSICAL EXAMINATION: VITAL SIGNS: Vital signs noted and reviewed per the chart record. GENERAL: no acute distress, calm HEENT: Normocephalic and atraumatic. NECK: Supple. Throat midline. LUNGS: Bilateral air entry, clear CARDIOVASCULAR: S1 and S2. No murmurs, rubs, or gallops. ABDOMEN: Soft , post surgical. not grossly tender EXTREMITIES: No clubbing, no cyanosis, no edema. INTEGUMENT: No rash or purpura. LABORATORY DATA: wbc 16, hct 29. plt 211 IMPRESSION AND PLAN: 1. 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 2. ischemic leg due to kinked artery repair and endovascular tumor, s/p repair & endarterectomy 2. Acute kidney failure, obstructive s/p surgery, ATN likely. resolved 3. Critical Hyperkalemia 5.9, resolve 4. Pandemic status with coronavirus-19, patient result: negative 6. Hyponatremia. resolved 8. Hypertension. 9. post operative respiratory insufficiency, extubated 10. anemia, multifactorial. 11. post operative fluid overload mild Continue supportive care d/c central line if IV access obtained diet now regular, follow up bowel function supportive care, antiemetics prn Follow UOP, prater dc when pt ambulating per Supportive care mobilize, PT follow up pathology--- pending for possible sarcoma f/u NJ output, continues with output repeat CXR intermittently, ensure resolution of overload Thank you very much, Dr. Hernan Ordaz and Dr Atkins. Please call for any questions.
--- NOTE | 2020-04-16 12:15 | NUR ---
DR GALAVIZ TO SEE PT. NO NEW ORDERS
--- NOTE | 2020-04-16 13:05 | Progress Note ---
DATE: 04/16/2020 Cardiology Progress Note SUBJECTIVE: Leg discomfort improving. Working with therapy. Remains deconditioned. No new complaints. OBJECTIVE: VITAL SIGNS: Temperature 97.8, heart rate 96, blood pressure 97/69, respiratory rate 16, and O2 saturation 100%. GENERAL: In no acute distress. Alert. NECK: No JVD. CHEST: Clear to auscultation. CARDIOVASCULAR: Regular rate and rhythm. Normal S1 and S2. No S3 or S4. ABDOMEN: Soft. Dressings in place. EXTREMITIES: 1+ edema. CARDIOVASCULAR MEDICATIONS: Reviewed. Lovenox 40 mg subcutaneous daily, furosemide 20 mg b.i.d., amlodipine 5 mg daily, and hydralazine 10 mg q.4 hours. STUDIES: Reviewed. Sodium 137, potassium 4.4, chloride 111, bicarbonate 18, BUN 44, creatinine 0.81, and glucose 68. White blood cells 16.1, hemoglobin 8.5, and platelets 211. INR 2.7. AST 48, ALT 40, and alkaline phosphatase 186. ASSESSMENT AND PLAN: A 64-year-old man presents with sarcoma, status post resection, peripheral arterial disease outflow disease at DPA level, lower extremity edema, metabolic acidosis, and anemia. RECOMMEND: Continue conservative medical management for outflow PAD. Continue rehabilitation. The patient is severely deconditioned and postop. Guarded prognosis. MD OrdazV/MODL /[id number]
[2020-04-16] MEDS ORDERED: SODIUM CHLORIDE 0.9% 1000ML 1,000 ML ONE ×2 (13:52→15:25)
--- NOTE | 2020-04-16 14:00 | NUR ---
PT TRANSFERRED TO ICU AFTER RAPID DUE TO LOW BP. BOLUS INFUSING. REPORT GIVEN AT BEDSIDE.
[2020-04-16] MEDS ORDERED: NOREPINEPHRINE 8 MG/D5W 250 ML 250 ML ONE (14:08)
--- NOTE | 2020-04-16 14:16 | NUR ---
Pt had a change of status and requires new PT orders for continuation of therapy. Addendum: 04/16/20 at 1417 by Kelli Harden PT Amended: Links added.
[2020-04-16 14:27] LABS: BASOPHILS # (AUTO) 0.1 (0.0-0.1); BASOPHILS % 0.3 % (0.0-1.0); EOSINOPHILS % 0.2 % (0.0-6.0); HEMOGLOBIN 8.1 g/dL (14.0-18.0); LYMPHOCYTES # (AUTO) 0.5 (1.0-3.2); MEAN CORPUSCULAR HEMOGLOBIN 27.8 pg (28-32); MEAN CORPUSCULAR VOLUME 92.8 fL (81-99); MONOCYTES # (AUTO) 0.9 (0.2-0.8); MONOCYTES % 5.2 % (4.4-11.3); NEUTROPHILS # (AUTO) 15.6 (2.1-6.9); NEUTROPHILS % 90.4 % (38.7-80.0); PLATELET COUNT 212 x10e3/uL (140-360); RED BLOOD COUNT 2.91 x10e6/uL (4.3-5.7); RED CELL DISTRIBUTION WIDTH 20.1 % (11.7-14.4)
[2020-04-16 14:41] LABS: ALBUMIN 1.3 g/dL (3.5-5.0); ALBUMIN/GLOBULIN RATIO 0.4 (0.8-2.0); ANION GAP 16.2 mmol/L (8-16); CREATININE, SERUM 1.53 mg/dL (0.72-1.25); POTASSIUM 4.2 mmol/L (3.5-5.1)
[2020-04-16 14:42] LABS: CALCIUM 6.9 mg/dL (8.4-10.2)
--- NOTE | 2020-04-16 14:50 | Diagnostic Imaging Report ---
EXAMINATION: CHEST SINGLE (PORTABLE) INDICATION: Abdominal pain COMPARISON: Chest radiograph 04/11/2020 FINDINGS: LINES/TUBES:Right IJ nontunneled central venous catheter terminates at the superior cavoatrial junction. EKG leads overlie the chest. LUNGS:The lungs are moderately inflated. There is perihilar fullness and indistinctness of the pulmonary vasculature. PLEURA:No pleural effusion or pneumothorax. MEDIASTINUM:The cardiomediastinal silhouette appears unchanged in size and shape. BONES/SOFT TISSUES:No acute osseous injury. ABDOMEN:No free air under the diaphragm. IMPRESSION: Mild central pulmonary vascular congestion. No focal pneumonia. Signed by: Jack Estrada MD on 04/16/2020 2:46 PM
[2020-04-16] MEDS ORDERED: SODIUM BICARBONATE 8.4% SYRING 150 ML in DEXTROSE 5% 1,000 ML IV SCH (15:15)
[2020-04-16] MEDS: VANCOMYCIN 1GM/NS 250 ML 250 ML IV SCH (15:36)
--- NOTE | 2020-04-16 15:38 | NUR ---
Nutrition Intervention Note RD Recommendation(s) for Physician: -Consider GI Soft diet restriction -Ensure Compact TID for adequacy -As feasible, consider an appetite stimulant The patient meets criteria for MODERATE protein-calorie malnutrition. Plan of Care: RD following, monitoring for tolerance and adequacy. Diet and ONS rec's. Nutrition reason for involvement: Follow up RD Assessment 04/16: Follow up. Pt discussed during am MDR, per RN 700 ml output total in 24 hrs from [place] drain. Pt resting at time of visit, did not disturb. Per Rn pt tolerating diet, noted 50% intake since diet advanced. Pt transferred to ICU this afternoon 2/2 low BP. Chart reviewed. Will continue to monitor. 04/14: Follow up. Pt discussed during am MDR. TPN discontinued 04/12 and continues on CLD, diet advanced to Regular for dinner- tolerance pending. Pt reports tolerating CLD, family at bedside report fair to good intake. Pt receptive to supplement- RD to order Ensure Compact TID. Pt with no questions or concerns at time of visit. Will continue to monitor. 04/11: Follow up. Pt remains on Standard TPN @ 80 mL/hr with 25 gm lipids 3x/week which meets pts estimated kcal and protein needs. Pt reports that he is tolerating clear liquids. It is recorded that pt consumed 50% of liquid meal trays today and 50-100% yesterday. Will continue to monitor. 04/08: Follow up. Per MD note, pts acute kidney failure has resolved. Pts NG tube was removed yesterday and was started on a clear liquid diet. Pt is also receiving TPN @ 80 mL/hr. Pt stated he is tolerating liquids, but mainly has been drinking water. Pt did not consume his liquid meal tray of breakfast or lunch per documentation. No N/V reported. 04/06: Follow up. Pt s/p retroperitoneal tumor resection with repair of L iliac artery and repair of L kidney on 04/03. Pt remains NPO x day 3 post operatively. NGT to LIWS, very little output. Pt sleeping at time of visit, did not awake to greeting. Chart reviewed, plan for HD catheter placement per MD notes. Pt eating 25-75% of meals 3 days ago, tolerating well. TPN and diet rec's provided pending plan of care. Will continue to monitor. 04/01: 64 YOM admitted for abdominal pain and hyperkalemia, seen today per MST screen. Pt reports progressive wt loss over the past 3 months of 16#, noted significant change of 9% loss in 3 months. 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 Pt denies any supplements at home. Pt reports tolerating diet today, receptive to supplement- RD to order Nepro BID for adequacy per current lab trend. Pt denies any N/V/C/D currently. Pt with no questions or concerns at time of visit. Chart reviewed. Will continue to monitor. Principal Problems/Diagnoses: abd pain, hyperkalemia PMH: HTN, TURP, retroperitoneal mass GI: last BM 04/15 Skin: abdominal incision Labs: 04/16: Na 135, K 4.2, BUN 66, Cr 1.53, Gluc 79, Ca 6.9 04/14: Na 137, K 4.4, BUN 44, Cr 0.81, Gluc 68, POC 75-108, Mg 1.8 04/11: Na 138, K 4.6, BUN 32, Cr 0.65, Ca 8.2, Glu 83 04/08: Na 144, K 3.9, Cr 0.65, BUN 2, Ca 7.8, Glu 101 04/06: Na 142, K 3.9, Cl 108, CO2 27, BUN 36, Cr 0.99, Gluc 116, iCa 1; 04/04: Mg 2.3 04/01: Na 131, K 4.9, BUN 66, Cr 1.46, Gluc 116, Phos 4.5, Mg 2.9 Meds: insulin, morphine, zofran, lasix, norco, abx Ht: 67 in Wt: 195.56 (04/16) 196.56 lbs (04/07) 164.06 lb (04/01) Suspect possible weight error BMI: 30.8 kg/m2 IBW: 135 lb Malnutrition Evaluation (04/16/20) The patient meets criteria for MODERATE protein-calorie malnutrition. Energy intake: moderate <75% of estimated energy requirements for 1 month Weight loss: severe >7.5% in 3 months (Acute) Fat loss: none, chest well developed Muscle loss: none, shoulder round Supporting Evidence: Fluid accumulation: none Functional Status: not assessed Nutrition Prescription (Diet Order): Regular Estimated Nutritional Needs: 6121-1035 calories/day (18-22 kcal/kg CBW) Weight used: 164 lbs 74-112 g protein/day (1-1.5 g pro/kg CBW) Weight used: 164 lbs Diet Adequacy: not meeting kcal or protein needs Diet Tolerance: tolerating PO Diet Education Needs Assessment: Diet education not indicated at this time. Nutrition Care Level: moderate Nutrition Diagnosis: Inadequate energy and protein intake related to current medical conditions as evidenced by progressive, significant wt loss of 9% and not meeting needs. Goal: Patient will meet 75-100% of estimated needs by follow up Progress: progressing Interventions: -Commercial beverage, fiber-modified diet, recommend modifications Monitoring/Evaluation: -Total energy intake, Total protein intake, Liquid supplement, modified diet, Weight change Signed: Rama Briceno RD, [place], [facility]
--- NOTE | 2020-04-16 17:01 | Progress Note ---
DATE: 04/16/2020 Medicine Progress Note SUBJECTIVE: I was in the process of rounds and suddenly there was a rapid response called on Mr. Barone. He was found to be hypotensive, almost passed out while working with physical therapy. The patient had some minimal responsiveness, but he was able to talk to me just a few words. During my evaluation, the patient was found to have a systolic blood pressure in the low 70s, in which I ordered a stat normal saline bolus. Several labs have been ordered including imaging studies and the patient was transferred to the ICU, started on Levophed drip. A rapid response was called and whole rapid response team was available at bedside. The patient was re-evaluated in the ICU. He is currently doing a little better. His blood pressure is much improved systolically in the upper 80s, low 90s on IV Levophed. Stat labs and imaging studies are still pending. PHYSICAL EXAMINATION: VITAL SIGNS: Current vital signs that was recorded at 11:49 a.m. was temperature is 97.9, pulse 96, respiratory rate is 18, blood pressure was 100/75, and pulse ox 98% on room air, but during my evaluation, his systolic blood pressure was in the 70s. GENERAL: He was alert, awake, but he was able to talk a few words. There is no evidence of any facial droop or any slurred speech. PULMONARY: Clear to auscultation bilaterally. No wheezing, no rales, no rhonchi, no crackles appreciated. CARDIOVASCULAR: Positive S1 and S2. No murmurs, rubs, or gallops appreciated. ABDOMEN: He did have some mild tenderness in the abdomen. He did have bowel sounds present. MUSCULOSKELETAL: His strength is 5/5 throughout. No evidence of any muscle deficits on examination. NEUROLOGIC: He is alert. He is awake. He is oriented x1. No evidence of any slurred speech or any weakness noted. No facial drooping. SKIN: Intact. Warm to touch. Good cap refill. EXTREMITIES: He does have trace to 1+ pedal edema bilateral lower extremity. LABORATORY DATA: Show white count is 17, hemoglobin 8.1, hematocrit is 27, and platelets of 212. Chemistry; sodium 135, potassium 4.2, chloride 110, bicarb is 13, anion gap was 16, BUN 66, creatinine is 1.53, glucose 79, calcium is 6.9, corrected calcium is greater than 8, and albumin 1.3. MICROBIOLOGY: Urine cultures no growth. IMAGING STUDIES: Stat chest x-ray is pending. Stat CT brain, stat CT abdomen and pelvis with IV contrast pending. IMPRESSION: 1. Acute kidney injury. 2. Anion gap metabolic acidosis. 3. Moderate protein-calorie malnutrition. 4. Underlying malignancy, still pending pathology results. 5. Pulmonary edema. 6. Sepsis with hypotension, metabolic acidosis with leukocytosis. PLAN: At this time, rapid response was called. I was present at bedside and was treated accordingly. I ordered stat CBC, stat chemistry, stat lactic acid and procalcitonin. I discontinued the Zosyn and put him on IV Merrem, Flagyl and IV vancomycin. We given normal saline bolus 1 L, transferred to ICU, started on IV Levophed. I also consulted with ID on this case. I also ordered a stat CT abdomen and pelvis with IV contrast as well as stat CT brain without contrast. We will go ahead and put him on a bicarb drip D5 with 3 amps of sodium bicarbonate at 100 mL an hour. Also get stat blood cultures and urine cultures. I will also get repeat labs later this evening at 2100 hours. Plan of care discussed with the rapid response team as well as the nursing staff. I spent more than 35 minutes of critical care time on this case. I saw the patient on 2 occasions, initial rapid response and then after the rapid response, and discussed plan of care with nursing staff and family at bedside. MD MICHELLE Fierro/NICKL /[id number]
--- NOTE | 2020-04-16 17:05 | Diagnostic Imaging Report ---
EXAM: CT Abdomen and Pelvis WITH intravenous contrast INDICATION: Abdominal pain COMPARISON: Renal ultrasound 04/02/2020 TECHNIQUE: Abdomen and pelvis were scanned utilizing a multidetector helical scanner from the lung base to the pubic symphysis after administration of IV contrast. Coronal and sagittal reformations were obtained. Routine protocol was performed. Scan was performed during portal venous phase. IV CONTRAST: 100mL of Isovue 370 ORAL CONTRAST: Water RADIATION DOSE: Total DLP: 733 mGy*cm Dose modulation, iterative reconstruction, and/or weight based adjustment of the mA/kV was utilized to reduce the radiation dose to as low as reasonably achievable. FINDINGS: LOWER THORAX: Bilateral lower lobe dependent subsegmental atelectasis. Small bilateral pleural effusions. Partially visualized central venous catheter tip. HEPATOBILIARY: Mild diffuse hepatic steatosis. No focal liver lesion. Subcentimeter dependent gallstone. No CT evidence of cholecystitis. SPLEEN: No splenomegaly. PANCREAS: No focal masses or ductal dilatation. ADRENALS: No adrenal nodules. KIDNEYS/URETERS: Moderate left hydronephrosis. Left internal nephroureteral stent with proximal loop just distal to the left renal pelvis and distal loop in the bladder. No renal calculi. Small amount of perinephric fluid on the left with a small focus of air. PELVIC ORGANS/BLADDER: Enlarged prostate measures up to 5.8 x 5.5 x 5.1 cm (volume estimate 85 cc). Salinas catheter terminates in the bladder. PERITONEUM / RETROPERITONEUM: Large heterogeneous part solid part cystic left retroperitoneal mass measures up to 14.4 x 7.7 x 18.3 cm and extends from the level of the left renal pelvis inferiorly along the left iliac vasculature to the level of the iliac crest. There is mass effect upon the left kidney and ureter. Moderate abdominal ascites. Peritoneal catheter in the left abdomen. LYMPH NODES: No lymphadenopathy. VESSELS: Scattered atherosclerotic calcifications of the nonaneurysmal abdominal aorta and major branches. GI TRACT: Diverticulosis without CT evidence of diverticulitis. No abnormal bowel thickening. No bowel obstruction. BONES AND SOFT TISSUES: No acute osseous injury. Diffuse subcutaneous soft tissue edema. Postoperative findings of the anterior abdominal wall with surgical skin дмитрий in place. IMPRESSION: Large heterogeneous part solid part cystic left retroperitoneal mass measures up to 14.4 x 7.7 x 18.3 cm and extends from the level of the left renal pelvis inferiorly along the left iliac vasculature to the level of the iliac crest with mass effect on the left kidney and ureter. This could represent evolution of retroperitoneal hematoma versus malignancy such as retroperitoneal sarcoma. Left hydronephrosis with internal nephroureteral stent in place. Prostatomegaly. Salinas catheter in place. Signed by: Jack Estrada MD on 04/16/2020 5:02 PM
--- NOTE | 2020-04-16 17:05 | Diagnostic Imaging Report ---
CT BRAIN WO HISTORY: Altered mental status COMPARISON: None. Technique: Noncontrast axial scans were obtained from skull base to the vertex. Coronal and sagittal reconstructions obtained from the axial data. One or more of the following dose reduction techniques were used: Automated exposure control, adjustment of the mA and/or kV according to patient size, and/or utilization of iterative reconstruction technique. Motion artifacts obscure some details. DISCUSSION: Scalp/Skull: Unremarkable. Brain sulci: Mildly prominent. Ventricles: Compensatory dilatation. Extra-axial spaces: No masses or fluid collections. Parenchyma: Mild bilateral deep white matter hypodensity is likely chronic microvascular ischemic change. Otherwise, no masses, hemorrhage, or large vascular territory acute infarct. Dural sinuses: No abnormal densities. Sellar/Suprasellar region: Intact. Skull base: Intact. Incidental findings: None. IMPRESSION: 1. No acute intracranial abnormalities. 2. Mild supratentorial chronic microvascular ischemic change. Mild generalized cerebral volume loss. Signed by: Dr. Priyank Jernigan M.D. on 04/16/2020 5:02 PM
[2020-04-16] MEDS: ENOXAPARIN SOD INJ 40 MG/0.4 ML SYR SC SCH (17:15)
[2020-04-16] MEDS: NOREPINEPHRINE 8 MG/D5W 250 ML 250 ML IV PRN ×2 (19:00→23:00)
--- NOTE | 2020-04-16 19:36 | NUR ---
DR GUZMAN CALLED AND AWARE TO KNOW ABOUT CAT SCAN RESULT.
[2020-04-16] MEDS ORDERED: HEPARIN 25,000 UNIT 1,400 UNIT in DEXTROSE 5% 250ML 250 ML IV SCH (20:30)
[2020-04-16] MEDS ORDERED: HEPARIN SOD (PORCINE) 5,000 UNIT/ML VIAL IV ONE (20:30)
[2020-04-16] MEDS ORDERED: LACTATED RINGER'S 1,000 ML INJ ONE (20:49)
[2020-04-16] MEDS ORDERED: HEPARIN 25,000 UNIT DRIP IV ONE (20:52)
[2020-04-16] MEDS ORDERED: IOPAMIDOL 370 MG/ML 200 ML INFUS..BTL INJ ONE (21:10)
[2020-04-16] MEDS ORDERED: SODIUM CHLORIDE 0.9% 50ML 50 ML ONE (21:10)
[2020-04-16] MEDS: LACTATED RINGER'S 1,000 ML INJ SCH ×2 (21:15→23:00)
[2020-04-16 21:52] LABS: ANION GAP 16.4 mmol/L (8-16); CREATININE, SERUM 1.29 mg/dL (0.72-1.25); POTASSIUM 4.4 mmol/L (3.5-5.1)
--- NOTE | 2020-04-16 22:18 | NUR ---
Operative/Procedure Note Procedure: Central venous line placement, US guidance Indication: IV medication administration Consent: Informed consent from patient Anesthesia: Lidocaine 1% local, 3 cc Operative findings: Left IJ area with sterile prep and drape from kit. Patient with US placement to localize IJ vein. Patient with local anesthesia given. Patient originally with need for pillow, but pillow removed after 2nd attempt. 3rd attempt to cannulate the left IJ was successful which was done under direct, active US guidance. Three lumen catheter inserted into left IJ via reverse seldinger technique, then sutured in place after ports were flushed. The line was secured at 19.5 cm depth. Complications: none EBL: minimal Summary: Successful left IJ triple lumen venous catheter under US guidance.
[2020-04-16] MEDS: MEROPENEM 500MG 500 MG in SODIUM CHLORIDE 0.9% 50ML 50 ML IV SCH (23:16)
--- NOTE | 2020-04-16 23:17 | NUR ---
SUBJECTIVE: Mr. Barone is a 64 year-old male patient who has been seen and evaluated. The patient is in no acute distress. The patient denies chest pain, SOB, nausea and vomiting, fever, chills. The patient is still experiencing left lower extremity weakness, L-spine MRI reported narrowing of bilateral the L5-L1 foramen and degenerative changes. OBJECTIVE: GENERAL: The patient has been alert, oriented to person, time, and place. The patient appears to be in no distress at this time. VITAL SIGNS: Blood pressure 97/69, respiratory rate: 16, pulse 96, temp 97.8. O2 sat: 100%. HEENT: Head is normocephalic, atraumatic. NECK: Supple. No JVD. LUNGS: Clear to auscultation. HEART: Regular rate and rhythm. ABDOMEN: Soft, nontender. EXTREMITIES: No edema. NEURO: Alert and oriented x3, weakness on the left leg. LABORATORY DATA: 04/16/2020 WBC: 16.16 10*3/uL RBC: 3.11 10*3/uL Hemoglobin: 8.5 g/dL Hematocrit: 28.6% MCV: 92.0fL MCH: 27.3pg MCHC: 29.7 g/dL RDW: 20.1 Platelet count: 211 10*3/uL Neutrophils: 89.8 % Lymphocytes: 3.6 % Monocytes: 5.0% Eosinophils: 0.5% Basophils: 0.4% Absolute neutrophils: 14.5 10*3/uL Absolute lymphocytes: 0.6 10*3/uL Absolute monocytes: 0.8 10*3/uL Absolute eosinophils: 0.1 10*3/uL Basophils#auto: 0.1 10*3/uL Platelet estimate: Adequate Platelet morphology comment: Normal Folate, serum: Few Hypochromasia: Slight Anisocytosis: Moderate Macrocytosis: Slight RBC morphology comment: Abnormal Fluid creatinine: 1.25 Sodium: 134 mmol/L Potassium 4.4 mmol/L Chloride: 107 mmol/L Enzymatic CO2: 15 mmol/L Anion gap: 16.4 Estimated GFR: 56 BUN/creatinine ratio: 48 Lactic acid: 1.5 Glucose: 145 mg/dL Blood urea nitrogen: 62 mg/dL Creatinine: 129 mg/dL Calcium: 7.0 mg/dL Lumbar spine MRI on 04/15/2020 reported degenerative changes from L3-4 through L5-S1 with moderate bilateral neural foraminal narrowing at L5-S1. No canal stenosis. CT of the abdomen/pelvis with contrast: Large heterogeneous part solid part a cystic left retroperitoneal mass that extends from the level of the left renal pelvis inferiorly along the left iliac vasculature to the level of the iliac crest with mass-effect on the left kidney and ureter. This could represent evolution retroperitoneal hematoma versus malignancy, such as retroperitoneal sarcoma. Left hydronephrosis with internal nephroureteral stent in place. Prostatomegaly. Salinas catheter in place. CT of the brain without contrast: No acute intracranial abnormalities. Mild supratentorial chronic microvascular ischemic change. Mild generalized cerebral volume loss. ASSESSMENT: 1. Retroperitoneal mass suggestive of sarcoma. 2. Status post laparotomy and resection of retroperitoneal tumor with repair of left iliac artery, repair of left kidney. 3. Suspecting plexopathy 4. Sepsis 5. Ischemic leg due to retroperitoneal tumor status post repair/endarterectomy. 6. Acute kidney failure, status post obstructive uropathy and did have acute tubular necrosis and has resolved. 7. Electrolyte imbalance consisting of hyperkalemia and hyponatremia, which has resolved. 8. Hypertension. 9. Status post postoperative respiratory insufficiency. 10. Anemia, multifactorial. 11. Urinary tract infection. 12. Hypoglycemia. 13. History of anorexia. 14. Protein calorie malnutrition, severe. 15. Post-operative mild fluid overload PLAN OF CARE: Supportive care IV fluids Continue IV antibiotics Antiemetics PRN Fall precaution Blood pressure control closely Cardiology following Neurology consultation Nephrology follow-up Plan has been discussed with nursing staff and patient.
[2020-04-16] MEDS: METRONIDAZOLE 500MG/NS 100ML 100 ML IV SCH (23:35)
[2020-04-17] VITALS (56 sets, daily range): BP systolic 84–122; BP diastolic 55–84
--- NOTE | 2020-04-17 00:07 | NUR ---
called at this time and reported to him that the pt has bright red hematuria. Dr. Gloria ordered to hold the heparin drip now as see if the hematuria resolves. I stated we will call him in two hours if the hematuria does not look like it is resolving.
--- NOTE | 2020-04-17 00:43 | Diagnostic Imaging Report ---
EXAMINATION: CHEST SINGLE (PORTABLE) INDICATION: Line placement, verify position COMPARISON: Chest x-ray 04/15/2020 FINDINGS: TUBES and LINES: New left IJ central venous catheter, tip in the right atrium. Stable right IJ central venous catheter, tip at the superior cavoatrial junction. LUNGS/PLEURA: Low lung volumes. Persistent perimediastinal and lower lung haziness. No pneumothorax. HEART AND MEDIASTINUM: The cardiomediastinal silhouette is unremarkable. BONES AND SOFT TISSUES: No acute osseous lesion. Soft tissues are unremarkable. UPPER ABDOMEN: No free air under the diaphragm. IMPRESSION: New left IJ central venous catheter, tip in the right atrium. Mid/lower lung haziness is likely due to layering pleural effusions as seen on same-day abdominal CT. Signed by: Art Leo DO on 04/17/2020 12:40 AM
--- NOTE | 2020-04-17 00:47 | Progress Note ---
DATE: 04/16/2020 Pulmonary and Critical Care Medicine Progress Note ADDENDUM: Output from [place] drain continued to be high. They are approaching about 270 mL an hour. Urine output was low at 30 mL/h earlier today, but now has been resuscitated 63 mL/h. He was moved to the ICU. He is on Levophed 25 mcg/minute. I discussed with . Discussed with surgeon and updated him of case. I discussed with Nephrology, who helped to direct the complex boluses and fluid resuscitation. I discussed with Hematology-Oncology that we will try to discern if there is any treatable tumor type that is treatable by nonsurgical mean, as the patient is not a surgical candidate at this time or anytime soon. The patient without ally fevers and is concerned that fluid loss is from high output production is a cause of his hypotension and kidney failure for the day. We bolused him a few liters of fluid already. The patient's albumin noted lower than previous and now 1.3. The patient with need for further IV access and had a left central line placed. Consideration at vasopressin to be made. The patient furthermore was expanded on antibiotics by Dr. Arnold, appropriately earlier today. The patient is critically ill. He has no chest compressions, CPR, and we will discuss with family when appropriate regarding other limitations of treatment and will be guided by his surgeon, Dr. Sullivan and by oncologist, Dr. South. I spent greater than 135 minutes today in care of Mr. Barone directly and managing. This does not including procedure time. MD REEMA Streeter/GLENN /[id number]
[2020-04-17] MEDS: VASOPRESSIN 100 UNIT in DEXTROSE 5% 100ML 100 ML IV PRN (02:00)
--- NOTE | 2020-04-17 02:00 | NUR ---
Idalia AGUERO notified of the pts continued hematuria, ordered to give 50 of protamine (refer to order entry specialist for further information), then he wants to PTT results with morning labs.
[2020-04-17] MEDS ORDERED: PROTAMINE SULFATE 10 MG/ML 5 ML VIAL IV ONE (02:15)
[2020-04-17] MEDS: VANCOMYCIN 1GM/NS 250 ML 250 ML IV SCH ×2 (03:04→15:30)
[2020-04-17] MEDS: MEROPENEM 500MG 500 MG in SODIUM CHLORIDE 0.9% 50ML 50 ML IV SCH (03:53)
[2020-04-17 06:00] LABS: BASOPHILS % 0.3 % (0.0-1.0); EOSINOPHILS # (AUTO) 0.1 (0.0-0.4); EOSINOPHILS % 0.6 % (0.0-6.0); HEMATOCRIT 25.4 % (38.2-49.6); HEMOGLOBIN 7.7 g/dL (14.0-18.0); LYMPHOCYTES # (AUTO) 0.6 (1.0-3.2); LYMPHOCYTES % 4.2 % (18.0-39.1); MEAN CORPUSCULAR HEMOGLOBIN 28.6 pg (28-32); MEAN CORPUSCULAR HGB CONC 30.3 g/dL (31-35); MEAN CORPUSCULAR VOLUME 94.4 fL (81-99); MONOCYTES # (AUTO) 0.9 (0.2-0.8); MONOCYTES % 6.8 % (4.4-11.3); NEUTROPHILS # (AUTO) 12.1 (2.1-6.9); NEUTROPHILS % 87.2 % (38.7-80.0); PLATELET COUNT 234 x10e3/uL (140-360); RED BLOOD COUNT 2.69 x10e6/uL (4.3-5.7); RED CELL DISTRIBUTION WIDTH 20.2 % (11.7-14.4)
[2020-04-17 06:12] LABS: INR 1.43; PROTHROMBIN TIME 18.4 seconds (11.9-14.5)
[2020-04-17] MEDS: LACTATED RINGER'S 1,000 ML INJ SCH ×3 (06:13→23:05)
[2020-04-17] MEDS: METRONIDAZOLE 500MG/NS 100ML 100 ML IV SCH ×3 (06:19→21:04)
[2020-04-17 06:21] LABS: ALANINE AMINOTRANSFERASE 21 IU/L (0-55); ALBUMIN 1.4 g/dL (3.5-5.0); ALBUMIN/GLOBULIN RATIO 0.5 (0.8-2.0); ALKALINE PHOSPHATASE 326 IU/L (40-150); ANION GAP 15.3 mmol/L (8-16); BLOOD UREA NITROGEN 60 mg/dL (7-26); BUN/CREATININE RATIO 52 (6-25); CARBON DIOXIDE 17 mmol/L (22-29); CHLORIDE 108 mmol/L (98-107); CREATININE, SERUM 1.16 mg/dL (0.72-1.25); EST GLOMERULAR FILTRATION RATE > 60 ML/MIN (60-); GLUCOSE 112 mg/dL (74-118); POTASSIUM 4.3 mmol/L (3.5-5.1); SODIUM 136 mmol/L (136-145)
[2020-04-17 06:25] LABS: CALCIUM 6.6 mg/dL (8.4-10.2)
--- NOTE | 2020-04-17 06:30 | NUR ---
calcium level this morning is 6.6; dr Sullivan aware, no new order.
--- NOTE | 2020-04-17 06:47 | NUR ---
patient transferred to ICU due to hypotention 99.2 109/70 71 patient arousable, but lethargic calm, eomi perrl face symmetric rrr cta- mild crackles abd soft but tender strength bue 4+/5 strength in rle 3/5 lle 2/ 5 with foot drop. no ataxia in arms a/p patient critically ill and hypotensive at this time, manamgennt of underlying cancer and hemodynamic instability as per ICU and primary team lower extremity weakness, lumbar plexopathy from local metastatic spread vs lumbar stenosis which i feel is less likely. outpt EMG pt ot gait therapy L spine MRi to eval structural area in lumbar canal is reasurring exam and clinical hx suggest plexopathy, continue lyrica nad emg as outpt and plan for pt. afo for foot drop
--- NOTE | 2020-04-17 07:00 | NUR ---
Idalia AGUERO gave report to Claudia George RN. Please refer to IV spreadsheet for Levophed and Vasopressin titration documentation. I was charge nurse last night and assisted Idalia AGUERO with this pt only, Idalia AGUERO was the pts primary care nurse.
--- NOTE | 2020-04-17 09:05 | Progress Note ---
DATE: 04/17/2020 Cardiology Progress Note SUBJECTIVE: Somnolent. OBJECTIVE: VITAL SIGNS: Temperature 99.2, heart rate 83, blood pressure 109/76, respiratory rate 19, O2 saturation 100%. BMI 30. GENERAL: Sleeping, chronically ill-appearing. CHEST: With decreased breath sounds in bilateral bases. CARDIOVASCULAR: Regular rate and rhythm. Normal S1, S2. ABDOMEN: Soft, EXTREMITIES: With 1+ edema. CARDIOVASCULAR MEDICATIONS: Vasopressin, Levophed drips, meropenem and vancomycin antibiotics, status post fluid resuscitation. STUDIES: Reviewed. Sodium 136, potassium 4.3, chloride 108, bicarbonate 17, BUN 60, creatinine 1.1, glucose 112. White blood cells 13.8, hemoglobin 7.7, platelets 234. PT 18.4, PTT 53. INR 1.4. AST 28, ALT 21, alkaline phosphatase , total bilirubin is 1.3. ASSESSMENT AND PLAN: A 64-year-old man with severe sepsis and septic shock, metabolic acidosis, anemia, sarcoma, and peripheral vascular disease. RECOMMENDATIONS: Prognosis remains guarded. Remains on the two pressors suspected high output drainage and hypovolemia component is shock, unclear septic etiology. However, on antibiotics, status post IV fluid resuscitation. In critical state in ICU. Continue supportive care. Trend H and H and consider PRBC transfusions if drops less than 7, more gross active bleeding noted and hemoglobin less than 8. Yuri Carlson MD AFAiden/MODL /[id number]
[2020-04-17] MEDS: MEROPENEM 500MG/ NS 50ML 50 ML IV SCH ×3 (09:35→20:34)
--- NOTE | 2020-04-17 11:43 | NUR ---
CONSULT Patient was seen and examined chart review this is a very pleasant 64-year-old Citizen Of [place] male who has been sick since January with some abdominal discomfort and abdominal distention he went to see his physician ultrasound was done CAT scan was ordered however the insurance denied finally because she is feeling worse he was sent to a surgeon CAT scan was done he was scheduled for surgery soon after. patient was in the emergency room where he was at admitted patient was admitted with malaise. The patient with history of TURP in March 2018. The patient had laser lithotripsy in about 2017 as well for nephrolithiasis. The patient was recently having some bloating symptoms. The patient underwent what sounds like a routine imaging study to screen the abdomen based on these symptoms where there was a retroperitoneal tumor that was reported. This CAT scan was done at [facility] facility. The patient was seen by Dr. Sullivan and was slated for tentative surgery on Monday. However, the patient with increasing pain. He was having more and more emesis. He is not able to tolerate oral intake. Therefore, he comes to the emergency room. White blood count is 13,000, sodium 129, potassium 5.5, BUN 66, and creatinine 1.6. The patient with worsening kidney function compared to his baseline creatinine of 0.71. At this point, it is elected to admit him for supportive care. PAST MEDICAL HISTORY: Hypertension, bladder stone removal and possibly kidney stone removal, TURP for BPH, recent finding of retroperitoneal mass reported. MEDICATIONS: Fenofibrate, [place] 5 mg tablets, and olmesartan. ALLERGIES: NO KNOWN DRUG ALLERGIES. SOCIAL HISTORY: No smoking, no drinking, no drugs. He is retired from [employer]. patient was diagnosed with retroperitoneal mass
--- NOTE | 2020-04-17 12:16 | NUR ---
PULMONARY/CCM DATE: 04/17/2020 SUBJECTIVE: decreased PO intake prater with bleeding last night, anticoagulation stopped UOP 44/hr NJ 34/hr less pressors, now levophed 6/hr vasopressin 0.02/min LR 150 / hr REVIEW OF SYSTEMS: no rash, no icterus. PHYSICAL EXAMINATION: VITAL SIGNS: Vital signs noted and reviewed per the chart record. GENERAL: no acute distress, calm HEENT: Normocephalic and atraumatic. NECK: Supple. Throat midline. LUNGS: Bilateral air entry, clear CARDIOVASCULAR: S1 and S2. No murmurs, rubs, or gallops. ABDOMEN: Soft , post surgical. not grossly tender EXTREMITIES: No clubbing, no cyanosis, no edema. INTEGUMENT: No rash or purpura. LABORATORY DATA: wbc 14, hct 25, plt 234. k 3.4, hco3 17, bun 60, cr 1.16. inr 1.43 IMPRESSION AND PLAN: 1. 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 2. ischemic leg due to kinked artery repair and endovascular tumor, s/p repair & endarterectomy 3. Acute kidney failure, obstructive s/p surgery, ATN likely. risk still 4. Pandemic status with coronavirus-19, patient result: negative 6. Hyponatremia. resolved 8. Hypertension. 9. post operative respiratory insufficiency, extubated 10. anemia, multifactorial. 11. post operative fluid overload mild Continue supportive care HD line remove PRN. Continue left IJ in place. diet encourage supportive care, antiemetics prn Follow UOP, follow NJ output. Supportive care mobilize, PT follow up pathology--- pending for possible sarcoma f/u NJ output, continues with output repeat CXR intermittently, follow fluid status Pressors as tolerated, wean empiric abx for possible sepsis, follow cultures Thank you very much, Dr. Hernan Ordaz and Dr Atkins. Please call for any questions.
[2020-04-17] MEDS: HYDROCODONE/APAP 5MG-325MG TAB PO PRN ×2 (12:35→17:07)
--- NOTE | 2020-04-17 15:57 | NUR ---
SUBJECTIVE: Mr. Barone has been seen and evaluated. The patient is in no acute distress. The patient denies chest pain, SOB, nausea and vomiting, fever, chills. The patient is still experiencing left lower extremity weakness, L-spine MRI reported narrowing of bilateral the L5-L1 foramen and degenerative changes. OBJECTIVE: GENERAL: The patient has been alert, but somnolent, oriented to person, time, and place. The patient appears to be in no distress at this time. VITAL SIGNS: Blood pressure 97/69, respiratory rate: 16, pulse 74, temp 98.0. O2 sat: 100%. HEENT: Head is normocephalic, atraumatic. NECK: Supple. No JVD. LUNGS: Clear to auscultation. HEART: Regular rate and rhythm. ABDOMEN: Soft, nontender. EXTREMITIES: No edema. NEURO: Alert and oriented x3, weakness on the left leg. LABORATORY DATA: 04/17/2020 WBC: 13.88 10*3/uL RBC: 2.69 10*3/uL Hemoglobin: 7.7 g/dL Hematocrit: 25.4% MCV: 94.4fL MCH: 28.6pg MCHC: 30.3 g/dL RDW: 20.2 Platelet count: 234 10*3/uL Neutrophils: 87.2% Lymphocytes: 4.2 % Monocytes: 6.8% Eosinophils: 0.6% Basophils: 0.3% Absolute neutrophils: 12.1 10*3/uL Absolute lymphocytes: 0.6 10*3/uL Absolute monocytes: 0.9 10*3/uL Absolute eosinophils: 0.1 10*3/uL Basophils#auto: 0.0 10*3/uL PT: 18.4 INR: 1.43 APTT: 53.0 Fluid creatinine: 1.25 Sodium: 136 mmol/L Potassium 4.3 mmol/L Chloride: 108 mmol/L Enzymatic CO: 17 mmol/L Anion gap: 15.3 Estimated GFR: >60 BUN/creatinine ratio: 52 Glucose: 145 mg/dL Blood urea nitrogen: 60 mg/dL Creatinine: 1.16 mg/dL Calcium: 6.6 mg/dL Lumbar spine MRI on 04/15/2020 reported degenerative changes from L3-4 through L5-S1 with moderate bilateral neural foraminal narrowing at L5-S1. No canal stenosis. CT of the abdomen/pelvis with contrast: Large heterogeneous part solid part a cystic left retroperitoneal mass that extends from the level of the left renal pelvis inferiorly along the left iliac vasculature to the level of the iliac crest with mass-effect on the left kidney and ureter. This could represent evolution retroperitoneal hematoma versus malignancy, such as retroperitoneal sarcoma. Left hydronephrosis with internal nephroureteral stent in place. Prostatomegaly. [place] catheter in place. CT of the brain without contrast: No acute intracranial abnormalities. Mild supratentorial chronic microvascular ischemic change. Mild generalized cerebral volume loss. ASSESSMENT: 1. Retroperitoneal mass suggestive of sarcoma. 2. Status post laparotomy and resection of retroperitoneal tumor with repair of left iliac artery, repair of left kidney. 3. Suspecting plexopathy 4. Sepsis 5. Ischemic leg due to retroperitoneal tumor status post repair/endarterectomy. 6. Acute kidney failure, status post obstructive uropathy and did have acute tubular necrosis and has resolved. 7. Electrolyte imbalance consisting of hyperkalemia and hyponatremia, which has resolved. 8. Hypertension. 9. Status post postoperative respiratory insufficiency. 10. Anemia, multifactorial. 11. Urinary tract infection. 12. Hypoglycemia. 13. History of anorexia. 14. Protein calorie malnutrition, severe. 15. Post-operative mild fluid overload 04/16/2020 Supportive care IV fluids Continue IV antibiotics Antiemetics PRN Fall precaution Blood pressure control closely 04/17/2020 The patient was bolused for hypotension episode. We recommend to continue current management. The patient has been transferred to ICU for hypotension. Plan of care: Supportive care IV fluids Continue IV antibiotics Antiemetics PRN Continue vassopressors Fall precaution PT/OT Blood pressure control closely Cardiology following Neurology consultation Nephrology follow-up Plan has been discussed with nursing staff and patient.
--- NOTE | 2020-04-17 19:00 | NUR ---
Tiara Harris RN and I received report from John Yoon RN. Tiara AGUERO is the pts primary care nurse. Addendum: 04/17/20 at 2056 by Janeth Cummings RN Date correction 04/16/20 at 1900.
--- NOTE | 2020-04-17 19:00 | NUR ---
Report received from Claudia George RN
--- NOTE | 2020-04-17 19:11 | Consultation ---
DATE OF CONSULTATION: REASON FOR CONSULTATION: Sepsis. HISTORY OF PRESENT ILLNESS: This patient, who is a 64-year-old gentleman apparently has been sick since January with abdominal discomfort, weight loss, not feeling well. He went to see his physician, who ordered ultrasound. CAT scan was not improved. He was finally referred to see a surgeon, surgeon did the CAT scan and he told me to have surgery, there was tumor in the abdomen. The patient is being admitted on March 31. The patient has history of TURP on April 06 and laser lithotripsy. PAST MEDICAL HISTORY: Hypertension, bladder stone, and TURP. SOCIAL HISTORY: There is no smoking, drug abuse, or alcohol abuse. FAMILY HISTORY: Noncontributory. The patient was in the emergency room, where he was found to have a GFR of 44, potassium 5, bicarb 26. Retroperitoneal mass was diagnosed. The patient was admitted. He was seen by Dr. Sullivan and the patient underwent surgery. He had large retroperitoneal mass as mentioned above. The patient had been on antibiotic. Apparently on April 16, he had rapid response. Blood pressure dropped, was transferred to ICU, started on vasopressors. He is currently extremely weak. He also was diagnosed with acute kidney injury. We are still waiting for the pathology. I was asked to see him today to assess the antibiotic. The patient is extremely weak as mentioned above. Family at the bedside. I discussed the case with him and his family at length. PHYSICAL EXAMINATION: GENERAL: He is alert. VITAL SIGNS: Stable, afebrile, heart rate 82, respiration 25, and blood pressure 121/84. HEENT: He is not icteric. NECK: Supple. CHEST: Few crackles bilateral. HEART: S1 and S2. No S3, S4, or murmur. ABDOMEN: Soft, distended. EXTREMITIES: No edema. SKIN: No rash. He is currently on meropenem and vancomycin. LABORATORY DATA: His blood cultures still pending. His white count is 13.8 and hemoglobin 7.7. Sodium 136, potassium 4.3 with a creatinine of 1.1. IMPRESSION: 1. Sepsis, concerned about intra-abdominal process. Agree with the above choice of antibiotic. Agree with blood cultures. 2. Concerned about malignancy intra-abdominal. Hematology/Oncology is following. Prognosis is extremely poor. 3. Discussed with the patient's family. The patient is DNR. 4. [id number] kidney injury. 5. Pulmonary edema. 6. Abdominal pain. 7. Other medical problems as above. Discussed with the medical team. Discussed with the patient and family at length. MD CADEN Mcpherson/GLENN /[id number]
--- NOTE | 2020-04-17 20:07 | NUR ---
Dr. Gloria present and is assessing the pt. Orders to start heparin gtt received. Order to bolus 1L of LR and then start LR at 150ml/hr. is going to insert CVC in the [facility] at this time. also wants Vasopressin started and to titrate down the Levophed. NJ drainage sent for fluid creatinine testing per 's order. Addendum: 04/17/20 at 2057 by Janeth Cummings RN Date correction 04/16/20 at 2006.
--- NOTE | 2020-04-17 20:45 | NUR ---
Dr. Atkins present and assessing the pt. No new orders received at this time.
--- NOTE | 2020-04-17 21:00 | NUR ---
Levophed is off at this time.
[2020-04-18] VITALS (44 sets, daily range): BP systolic 73–117; BP diastolic 36–88
--- NOTE | 2020-04-18 00:52 | Progress Note ---
DATE: Nephrology Progress Note SUBJECTIVE: The patient is doing much better today in the ICU. He was still on two pressors, but he is in the process of being weaned down according to the nursing staff. He is making good urine output. He is alert, he is awake, and he is oriented on examination. I discussed plan of care with the daughter by phone including the family at bedside in relation to his renal issues. PHYSICAL EXAMINATION: VITAL SIGNS: Temperature is 97, pulse 71, respirations 12, blood pressure was 104/81, pulse ox 100% on 2 L nasal cannula. GENERAL: In no acute distress. Alert and oriented x3. He is cooperative on examination. HEENT: Head is normocephalic and atraumatic. Eyes; pupils are reactive to light bilaterally. Extraocular movements intact bilaterally. Throat; no evidence of erythema or exudates in the posterior pharynx. Has poor dentition. NECK: Supple. Good range of motion. PULMONARY: Clear to auscultation bilaterally. No wheezing, rales, or rhonchi. No crackles appreciated. CARDIOVASCULAR: Positive S1, S2. No murmurs, rubs, or gallops appreciated. ABDOMEN: Soft, nondistended, and nontender to palpation. Bowel sounds present. MUSCULOSKELETAL: Strength is 5/5 throughout. No evidence of any muscle deficits on examination. No weakness appreciated. SKIN: Intact. Warm to touch. Good cap refill. PSYCHIATRIC: Normal affect and mood. EXTREMITIES: No edema. Good range of motion throughout. LABORATORY FINDINGS: Show white count 13, hemoglobin 7.7, hematocrit 25, platelets of 234. Chemistry; sodium 136, potassium 4.3, chloride 108, bicarbonate 17, anion gap of 15, BUN is 60, creatinine is 1.1. Glucose is 112, calcium is 6.6, corrected and it is greater than 8. LFTs noted. Procalcitonin 3.91. IMAGING STUDIES: Chest x-ray this morning just shows some haziness with layering pleural effusion. CT brain shows no acute intracranial abnormality. Some chronic changes noted. CT abdomen and pelvis shows a large heterogeneous part solid cystic left retroperitoneal mass. There is a left hydronephrosis with internal nephroureteral stent in place. Prostatomegaly. IMPRESSION: 1. Acute kidney injury-resolved. 2. Anion gap metabolic acidosis, still present. 3. Moderate protein-calorie malnutrition. 4. Underlying malignancy, still pending pathology results. 5. Pulmonary edema. 6. Sepsis with hypotension, metabolic acidosis with leukocytosis. PLAN: At this time, his electrolytes seem to be much improved. He is still acidotic, though. We will continue with lactated Ringer for now. Repeat labs in the morning. Continue with broad-spectrum IV antibiotic therapy, renally dosed. We are still pending the pathology results, I do not understand why it is taking so long. I discussed the plan of care with the primary team as well as the consultants. We will get morning labs. If his bicarbonate is much improved, we will consider changing the fluids to NS, but would like to match the one-to-one to the NJ drain. Apparently, his NJ drain is draining tremendously. Of note, we are still negative 660 mL, but were positive on yesterday with multiple boluses of LR. MD MICHELLE Fierro/GLENN /[id number]
[2020-04-18] MEDS: VANCOMYCIN 1GM/NS 250 ML 250 ML IV SCH ×2 (03:53→16:20)
[2020-04-18] MEDS: MEROPENEM 500MG/ NS 50ML 50 ML IV SCH ×4 (05:03→21:58)
[2020-04-18 05:21] LABS: BASOPHILS % 0.3 % (0.0-1.0); EOSINOPHILS # (AUTO) 0.1 (0.0-0.4); EOSINOPHILS % 1.2 % (0.0-6.0); HEMATOCRIT 25.3 % (38.2-49.6); HEMOGLOBIN 7.4 g/dL (14.0-18.0); LYMPHOCYTES # (AUTO) 0.4 (1.0-3.2); LYMPHOCYTES % 4.7 % (18.0-39.1); MEAN CORPUSCULAR HEMOGLOBIN 27.4 pg (28-32); MEAN CORPUSCULAR HGB CONC 29.2 g/dL (31-35); MEAN CORPUSCULAR VOLUME 93.7 fL (81-99); MONOCYTES # (AUTO) 0.4 (0.2-0.8); MONOCYTES % 5.1 % (4.4-11.3); NEUTROPHILS # (AUTO) 6.7 (2.1-6.9); NEUTROPHILS % 88.3 % (38.7-80.0); PLATELET COUNT 159 x10e3/uL (140-360); RED CELL DISTRIBUTION WIDTH 20.1 % (11.7-14.4)
[2020-04-18 05:32] LABS: ALANINE AMINOTRANSFERASE 19 IU/L (0-55); ALBUMIN 1.4 g/dL (3.5-5.0); ALBUMIN/GLOBULIN RATIO 0.5 (0.8-2.0); ALKALINE PHOSPHATASE 347 IU/L (40-150); ANION GAP 11.4 mmol/L (8-16); BLOOD UREA NITROGEN 54 mg/dL (7-26); BUN/CREATININE RATIO 73 (6-25); CARBON DIOXIDE 19 mmol/L (22-29); CHLORIDE 111 mmol/L (98-107); CREATININE, SERUM 0.74 mg/dL (0.72-1.25); EST GLOMERULAR FILTRATION RATE > 60 ML/MIN (60-); GLUCOSE 88 mg/dL (74-118); MAGNESIUM 1.9 MG/DL (1.3-2.1); POTASSIUM 4.4 mmol/L (3.5-5.1); SODIUM 137 mmol/L (136-145)
[2020-04-18] MEDS: LACTATED RINGER'S 1,000 ML INJ SCH ×3 (05:38→19:45)
[2020-04-18] MEDS: METRONIDAZOLE 500MG/NS 100ML 100 ML IV SCH (05:38)
--- NOTE | 2020-04-18 06:42 | NUR ---
patient transferred to ICU due to hypotention 98.6 88 95/77 patient arousable, but lethargic calm, eomi perrl face symmetric rrr cta- mild crackles abd soft but tender strength bue 4+/5 strength in rle 3/5 lle 2/ 5 with foot drop. no ataxia in arms a/p patient critically ill and hypotensive at this time, manamgennt of underlying cancer and hemodynamic instability as per ICU and primary team lower extremity weakness, lumbar plexopathy from local metastatic spread vs lumbar stenosis which i feel is less likely. outpt EMG pt ot gait therapy L spine MRi to eval structural area in lumbar canal is reasurring exam and clinical hx suggest plexopathy, continue lyrica nad emg as outpt and plan for pt. afo for foot drop
--- NOTE | 2020-04-18 07:12 | Diagnostic Imaging Report ---
EXAMINATION: CHEST SINGLE (PORTABLE) INDICATION: CHF. COMPARISON: Chest radiograph 04/16/2020. CT Abdomen/Pelvis 04/16/2020. FINDINGS: TUBES and LINES: Left IJ central venous catheter, tip in the right atrium. Stable right IJ non-tunneled hemodialysis catheter, tip at the superior cavoatrial junction. LUNGS/PLEURA: Low lung volumes. Persistent perihilar and lower lung zone opacities bilaterally. New linear opacity in the left upper lung zone, likely subsegmental atelectasis. HEART AND MEDIASTINUM: The cardiomediastinal silhouette is unremarkable. BONES AND SOFT TISSUES: No acute osseous lesion. Soft tissues are unremarkable. UPPER ABDOMEN: No free air under the diaphragm. IMPRESSION: Bilateral mid and lower lung zone opacities, compatible with pulmonary edema and pleural effusions with associated atelectasis. Infectious process is possible in the appropriate clinical setting. Signed by: Dr. Xochitl Camacho MD on 04/18/2020 7:08 AM
[2020-04-18] MEDS: HYDROCODONE/APAP 5MG-325MG TAB PO PRN ×4 (07:59→22:30)
[2020-04-18 08:25] LABS: HYPOCHROMASIA MODERATE; PLATELET ESTIMATE ADEQUATE; PLATELET MORPHOLOGY COMMENT NORMAL; RBC MORPHOLOGY COMMENT ABNORMAL
--- NOTE | 2020-04-18 11:09 | Progress Note ---
DATE: SUBJECTIVE: The patient is still in intensive care unit, currently on two pressors. Good urine output. OBJECTIVE: GENERAL: Alert and awake, on 100% 2 L nasal cannula. HEENT: Normocephalic and atraumatic. NECK: Supple. CHEST: Clear to auscultation. CARDIOVASCULAR: Regular rate and rhythm. ABDOMEN: Soft and nondistended. SKIN: Intact. EXTREMITIES: No edema. LABORATORY DATA: Labs reviewed. Hemoglobin 7.7, hematocrit 25, and platelet 234. Creatinine 1.1. IMAGING: X-ray shows some haziness with layering pleural effusion. CT abdomen shows large heterogeneous part solid cystic left intraperitoneal mass, hydronephrosis with nephroureteral stent. ASSESSMENT: The patient with a history of multiple medical condition, admitted with worsening abdominal pain and vomiting. Workup showed retroperitoneal tumors, history reported persistent remaining tumors associated with hydronephrosis, currently in the intensive care unit on . Surgery . Pathology report is still not available. RECOMMENDATIONS: 1. Continue supportive care. 2. Not a candidate for a second surgery at the current condition. 3. We will consider PET scan as an outpatient. 4. May benefit with palliative chemo or radiation as an outpatient. 5. Continue to support the patient closely. 6. Symptomatic anemia. 7. Hemoglobin dropped to 7.4. 8. Monitor CBC closely. 9. Blood transfusion if hemoglobin goes below 7, coagulopathy. 10. INR is 1.4, improving. 11. Renal failure. 12. Creatinine is normal. 13. We will monitor the patient. MD KRISTOFER Aly/GLENN /[id number]
--- NOTE | 2020-04-18 11:25 | NUR ---
notified dr. otero of hourly I&O's. new order received.
[2020-04-18] MEDS ORDERED: LACTATED RINGER'S 1,000 ML INJ SCH (11:30)
--- NOTE | 2020-04-18 15:50 | Progress Note ---
DATE: Nephrology Progress Note SUBJECTIVE: The patient is doing well today with no complaints. He still has significant amount of NJ drainage. PHYSICAL EXAMINATION: VITAL SIGNS: Temperature is 98, pulse 79, respiratory rate is 24, blood pressure 99/71, and pulse ox 100% on 2 L nasal cannula. GENERAL: Not in acute distress. Alert and oriented x3. Cooperative on examination. HEENT: Head; normocephalic, atraumatic. Eyes; pupils are equal, round, and reactive to light bilaterally. Extraocular movements intact bilaterally. Throat; no evidence of erythema or exudates in the posterior pharynx. Has poor dentition. NECK: Supple. Good range of motion. PULMONARY: Clear to auscultation bilaterally. No wheezing, no rales, no rhonchi, no crackles appreciated. CARDIOVASCULAR: Positive S1 and S2. No murmurs, rubs, or gallops appreciated. ABDOMEN: Soft, nondistended, and nontender to palpation. SKIN: Intact. Warm to touch. Good cap refill. PSYCHIATRIC: Normal affect and mood. EXTREMITIES: He has 2+ pedal edema bilateral lower extremities. LABORATORY DATA: Show white count 7.5, hemoglobin 7.4, hematocrit is 25, and platelets of 159. Chemistry; sodium 137, potassium 4.4, chloride 111, bicarb 19, anion gap of 11, BUN is 54, creatinine is 0.74, and calcium is 7. MICROBIOLOGY: All cultures were negative. IMAGING STUDIES: Right lower extremity arterial Doppler ordered. Chest x-ray this morning shows possible mid and lower lung opacity compatible with pulmonary edema, pleural effusion, associated atelectasis. IMPRESSION: 1. Acute kidney injury-resolved. 2. Anion gap metabolic acidosis-resolved. 3. Moderate protein-calorie malnutrition. 4. Underlying malignancy. Still pending pathology results. 5. Pulmonary edema, but not in any respiratory distress. 6. Sepsis with hypotension, metabolic acidosis, and leukocytosis-improved. PLAN: At this time, his electrolytes are stable. His creatinine has improved. Electrolytes are stable. We are matching one-to-one NJ drain with IV fluids. Bicarbonate improved to 19. Continue same plan of care and monitor closely. Elie Arnold MD JSMickey/MODL /[id number]
[2020-04-18] MEDS: ENOXAPARIN SOD INJ 40 MG/0.4 ML SYR SC SCH (16:20)
--- NOTE | 2020-04-18 16:32 | NUR ---
VANC TROUGH 20.3 NEW ORDERS TO CHANGE DOSE
[2020-04-18] MEDS ORDERED: LACTATED RINGER'S 1,000 ML INJ STA (16:44)
[2020-04-18] MEDS: VASOPRESSIN 100 UNIT in DEXTROSE 5% 100ML 100 ML IV PRN ×2 (17:00→19:45)
--- NOTE | 2020-04-18 17:15 | NUR ---
PULMONARY/CCM DATE: 04/18/2020 SUBJECTIVE: vasopressin 0.02/ LR at 150/hr UOP 30/hr NJ semi high output urine appears concentrated, high bun/cr ratio REVIEW OF SYSTEMS: no rash, no icterus. PHYSICAL EXAMINATION: VITAL SIGNS: Vital signs noted and reviewed per the chart record. GENERAL: no acute distress, calm HEENT: Normocephalic and atraumatic. NECK: Supple. Throat midline. LUNGS: Bilateral air entry, clear CARDIOVASCULAR: S1 and S2. No murmurs, rubs, or gallops. ABDOMEN: Soft , post surgical. not grossly tender EXTREMITIES: No clubbing, no cyanosis, no edema. INTEGUMENT: No rash or purpura. LABORATORY DATA: wbc 7.6, hct 25, plt 159. bun 54, cr 0.74 IMPRESSION AND PLAN: 1. 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 --rapidly recurring 2. ischemic leg due to kinked artery repair and endovascular tumor, s/p repair & endarterectomy 3. Acute kidney failure, obstructive s/p surgery, ATN likely. risk still 4. Pandemic status with coronavirus-19, patient result: negative 6. Hyponatremia. resolved 8. Hypertension. 9. post operative respiratory insufficiency, extubated 10. anemia, multifactorial. 11. post operative fluid overload mild Continue supportive care HD line remove PRN. Continue left IJ in place. diet encourage supportive care, antiemetics prn Follow UOP, follow NJ output. Supportive care mobilize, PT follow up pathology--- pending for possible sarcoma f/u NJ output, replace as needed repeat CXR intermittently, follow fluid status Pressors as tolerated, wean off if feasible empiric abx for possible sepsis, follow cultures Thank you very much, Dr. Hernan Ordaz and Dr Atkins. Please call for any questions.
--- NOTE | 2020-04-18 19:21 | Progress Note ---
DATE: 04/18/2020 Cardiology Progress Note SUBJECTIVE: No complaints. OBJECTIVE: VITAL SIGNS: Temperature 98.5, heart rate 74, blood pressure 92/65, respiratory rate 21, and O2 saturation 94%. BMI 30.7. GENERAL: No acute distress. Chronically ill-appearing, pale, dry mucosa. NECK: No JVD. CHEST: Decreased breath sounds. CARDIOVASCULAR: Regular rate and rhythm. Normal S1 and S2. ABDOMEN: Soft. Bowel sounds positive. EXTREMITIES: 1+ edema to both lower extremities. MEDICATIONS: On vasopressin, off Levophed, on Lovenox 40 mg subcutaneous daily. STUDIES: Reviewed. Creatinine 0.7. Hemoglobin 7.4 and platelets 159. ASSESSMENT AND PLAN: 1. A 64-year-old man with anemia, shock, septic versus volume depleted related to high output volume loss. 2. Peripheral arterial disease. 3. Sarcoma. RECOMMEND: 1. Continue monitor H and H. 2. Continue wean pressors gradually as tolerated, maintaining MAP 65 to 75. 3. Continue antibiotics. 4. DVT prophylaxis. 5. Prognosis remains guarded. Yuri Carlson MD AFV/MODL /[id number]
--- NOTE | 2020-04-18 19:57 | NUR ---
DR. ALCAZAR AT BEDSIDE EARLIER THIS EVENING, WANTS TO TITRATE PRESSORS TO MAP 65-70
[2020-04-19] VITALS (63 sets, daily range): BP systolic 68–110; BP diastolic 57–84
--- NOTE | 2020-04-19 00:01 | Progress Note ---
DATE: 04/18/2020 SUBJECTIVE: The patient was seen and evaluated in the intensive care unit. The patient's condition was discussed with nursing staff and has been hemodynamically stable. Pressor drugs have been discontinued as far as Levophed and vasopressin is concerned. The patient follows up properly. He does have decreased appetite. He is not on TPN nor onto feedings. IV fluids as per Renal. OBJECTIVE: VITAL SIGNS: Blood pressure 92/65, respirations 21, pulse 74, O2 sat 94% on 2 L nasal cannula. GENERAL: The patient is alert and follow commands properly. HEENT: Head is normocephalic and atraumatic. LUNGS: Bilateral air entry. HEART: Regular rate and rhythm. ABDOMEN: Soft, nontender. EXTREMITIES: No edema. LABORATORY DATA: Lab data noted. CBC revealed hemoglobin 7.4, white blood cell count 7.58, platelet count 159,000. Chem profile reveals sodium 137, potassium 4.4, chloride 111, CO2 19, BUN 54, creatinine 0.74, albumin level 1.4. ASSESSMENT: 1. We are dealing with acute kidney injury, which is being followed by Renal and resolve as well as presentation on anion gap metabolic acidosis. 2. retroperitoneal mass angiosarcoma. 3. Status post laparotomy and resection of retroperitoneal tumor with repair of left iliac artery, repair of left kidney. 4. Sepsis process. 5. Ischemic leg due to retroperitoneal tumors, status post repair/endarterectomy. 6. status post postoperative respiratory insufficiency. 7. Anemia. 8. Previous UTI. 9. Hypoglycemia. 10. Protein calorie malnutrition, severe. PLAN OF CARE: 1. Continue supportive care. 2. Continue antibiotics. 3. Continue IV fluids as advised. 4. ID is following the patient. 5. possible intra-abdominal process. As far as malignancy is concerned the patient is being followed by Hematology/Oncology, awaiting pathology report. MD ALPHONSE Sommers/GLENN /[id number] MTDD
[2020-04-19] MEDS: LACTATED RINGER'S 1,000 ML INJ SCH ×2 (02:50→08:46)
[2020-04-19] MEDS: MEROPENEM 500MG/ NS 50ML 50 ML IV SCH ×4 (02:59→21:40)
[2020-04-19 05:18] LABS: EOSINOPHILS # (AUTO) 0.1 (0.0-0.4); HEMATOCRIT 27.2 % (38.2-49.6); HEMOGLOBIN 7.9 g/dL (14.0-18.0); LYMPHOCYTES # (AUTO) 0.6 (1.0-3.2); MEAN CORPUSCULAR HEMOGLOBIN 27.5 pg (28-32); MEAN CORPUSCULAR VOLUME 94.8 fL (81-99); MONOCYTES # (AUTO) 0.6 (0.2-0.8); NEUTROPHILS # (AUTO) 9.9 (2.1-6.9); PLATELET COUNT 173 x10e3/uL (140-360); RED BLOOD COUNT 2.87 x10e6/uL (4.3-5.7); RED CELL DISTRIBUTION WIDTH 20.4 % (11.7-14.4)
[2020-04-19] MEDS: HYDROCODONE/APAP 5MG-325MG TAB PO PRN ×4 (05:25→19:21)
[2020-04-19 05:39] LABS: ALANINE AMINOTRANSFERASE 18 IU/L (0-55); ALBUMIN 1.3 g/dL (3.5-5.0); ALBUMIN/GLOBULIN RATIO 0.5 (0.8-2.0); ALKALINE PHOSPHATASE 276 IU/L (40-150); ANION GAP 12.5 mmol/L (8-16); BLOOD UREA NITROGEN 56 mg/dL (7-26); BUN/CREATININE RATIO 77 (6-25); CARBON DIOXIDE 19 mmol/L (22-29); CHLORIDE 111 mmol/L (98-107); CREATININE, SERUM 0.73 mg/dL (0.72-1.25); EST GLOMERULAR FILTRATION RATE > 60 ML/MIN (60-); GLUCOSE 95 mg/dL (74-118); POTASSIUM 4.5 mmol/L (3.5-5.1); SODIUM 138 mmol/L (136-145)
--- NOTE | 2020-04-19 07:44 | Diagnostic Imaging Report ---
EXAMINATION: CHEST SINGLE (PORTABLE) INDICATION: CHF. COMPARISON: Chest radiograph 04-18-2020. FINDINGS: TUBES and LINES: Left IJ central venous catheter, tip in the right atrium. Stable right IJ non-tunneled hemodialysis catheter, tip at the superior cavoatrial junction. Overlying EKG leads. LUNGS/PLEURA: Low lung volumes. Persistent perihilar and lower lung zone opacities bilaterally. Small bilateral pleural effusions. HEART AND MEDIASTINUM: The cardiomediastinal silhouette is unremarkable. BONES AND SOFT TISSUES: No acute osseous lesion. Soft tissues are unremarkable. UPPER ABDOMEN: No free air under the diaphragm. IMPRESSION: Bilateral mid and lower lung zone opacities, compatible with pulmonary edema and pleural effusions with associated atelectasis. Infectious process is possible in the appropriate clinical setting. Signed by: Dr. Xochitl Camacho MD on 04/19/2020 7:41 AM
[2020-04-19] MEDS: VANCOMYCIN HCL 1.5 GM in SODIUM CHLORIDE 0.9% 250ML 300 ML IV SCH (08:47)
[2020-04-19 09:30] LABS: HYPOCHROMASIA MARKED; RBC MORPHOLOGY COMMENT ABNORMAL
[2020-04-19 09:31] LABS: PLATELET ESTIMATE ADEQUATE; PLATELET MORPHOLOGY COMMENT NORMAL
[2020-04-19] MEDS: VASOPRESSIN 100 UNIT in DEXTROSE 5% 100ML 100 ML IV PRN (10:40)
--- NOTE | 2020-04-19 12:08 | Diagnostic Imaging Report ---
Exam: KUB - 2 views Clinical History: Abdominal pain, distention. Comparison: CT abdomen/pelvis 04/16/2020. Findings/Impression: Limited examination secondary to portable technique and exclusion of the right lateral hemiabdomen from the [id number]. Air-filled small large bowel loops without specific findings of bowel obstruction. No evidence of pneumoperitoneum. Interval postsurgical дмитрий project over the right mid and lower abdomen, pelvis, and left proximal thigh. Left-sided internal ureteral stent with proximal pigtail overlying the expected location of the left kidney and the distal pigtail overlying the bladder. Catheter overlies the left lower abdomen. Signed by: Dr. Xochitl Camacho MD on 04/19/2020 12:04 PM
[2020-04-19] MEDS ORDERED: FUROSEMIDE INJ 10 MG/ML 4 ML VIAL IV NR (14:15)
--- NOTE | 2020-04-19 14:15 | NUR ---
spoke with dr. taylor, give lasix 40mg ivp and call md with results. initiate tpn tonight with md order
--- NOTE | 2020-04-19 17:18 | Progress Note ---
DATE: 04/19/2020 Nephrology progress note. SUBJECTIVE: The patient is very sleepy today. He is still not eating much according to the nursing staff. Occasionally, he is hypotensive. TPN has been initiated. PHYSICAL EXAMINATION: VITAL SIGNS: Temperature is 98.7, pulse 84, respiratory rate is 20, blood pressure is 95/64, pulse ox 97% on room air. GENERAL: He is awake and alert. He is still very sleepy and lethargic. PULMONARY: Clear to auscultation bilaterally. No wheezing, rales, or rhonchi. No crackles appreciated. CARDIOVASCULAR: Positive S1, S2. No murmurs, rubs, or gallops appreciated. ABDOMEN: Soft, nondistended, nontender to palpation. Bowel sounds present. MUSCULOSKELETAL: Strength is 5/5 throughout. No evidence of any muscle deficits on examination. NEUROLOGIC: Cranial nerves II through XII grossly intact. No evidence of any neurological deficits on exam. SKIN: Intact. Warm to touch. Good cap refill. PSYCHIATRIC: Normal affect and mood. EXTREMITIES: No edema. Good range of motion throughout. LABORATORY DATA: Labs show white count 11.2, hemoglobin 7.9, hematocrit is 27.2, and platelets of 173. Chemistry, sodium 138, potassium 4.5, chloride 111, bicarb 19, anion gap of 12, BUN is 56, creatinine is 0.73, glucose 95. Calcium is 7, but corrected, it is greater than 8. Iron saturation was 10%. Urine culture, no growth. Blood cultures, no growth. Repeat urine culture pending. IMAGING STUDIES: Abdominal x-ray shows air-filled small-large bowel loops without specific findings of bowel obstruction. No evidence of pneumoperitoneum. IMAGING: Chest x-ray this morning shows bilateral mid and lower lung opacities, compatible with pulmonary edema and pleural effusion associated atelectasis. IMPRESSION: 1. Acute kidney injury-resolved. 2. Anion gap metabolic acidosis, resolved. 3. Moderate protein-calorie malnutrition. 4. Underlying malignancy, still pending pathology. 5. Pulmonary edema. 6. Sepsis. 7. Hypotension. 8. Metabolic acidosis. 9. Leukocytosis, improved. PLAN: At this time, we are going to initiate the IV TPN as the patient is not eating much at all. We are going to try to match his IV fluids with a NJ drainage. His labs are much improved. I am going to go ahead and give him Lasix 40 mg IV once and if he does well later this evening, we will give him another 40 mg again. He has significant edema, but his blood pressure is relatively very low in which he is currently on pressors, I do not want to make the blood pressure worse. I discussed the plan of care with nursing staff and they verbalized understanding. MD MICHELLE Fierro/GLENN /[id number]
--- NOTE | 2020-04-19 18:14 | Progress Note ---
DATE: Cardiology Progress Note SUBJECTIVE: Weak. No other complaints. OBJECTIVE: VITAL SIGNS: Temperature 98.7, heart rate 84, blood pressure 95/64, respiratory rate 20, O2 saturation 97%, BMI 30.3. GENERAL: In no acute distress. Chronically ill-appearing. NECK: JVD distended. CHEST: Decreased breath sounds. CARDIOVASCULAR: Regular rate and rhythm. Normal S1, S2. ABDOMEN: Soft. Bowel sounds positive. EXTREMITIES: 1+ edema. CARDIOVASCULAR MEDICATIONS: Reviewed. Vasopressin off Levophed, on Lovenox 40 mg subcu daily, furosemide 40 mg IV x1 being given today. LABORATORY DATA: Studies reviewed. Creatinine 0.7, hemoglobin 7.9, platelets 173, white blood cells 11.2. INR 1.4. ASSESSMENT: 1. A 64-year-old man with a volume overload, septic shock suspected due to high output loss plus-minus sepsis. 2. Anemia. 3. Peripheral vascular disease. RECOMMEND: Continue current DVT prophylaxis and diuretics. Monitoring H and H. Medical management for PAD. MD FABRICE Cordova/NICKL /[id number]
[2020-04-19] MEDS: ENOXAPARIN SOD INJ 40 MG/0.4 ML SYR SC SCH (18:25)
[2020-04-19] MEDS: SODIUM CHLORIDE 0.9% 1000ML 1,000 ML IV SCH (18:44)
[2020-04-19] MEDS ORDERED: FUROSEMIDE INJ 10 MG/ML 4 ML VIAL IV ONE ×2 (18:45→19:30)
[2020-04-19] MEDS ORDERED: CENTRAL TPN FORMULA 1 BAG IV SCH (20:00)
--- NOTE | 2020-04-19 20:34 | NUR ---
PULMONARY/CCM DATE: 04/19/2020 SUBJECTIVE: vasopressin 0.02/ LR at 150/hr ivf no BM in 2 days per patient. not eating much however REVIEW OF SYSTEMS: no rash, no icterus. PHYSICAL EXAMINATION: VITAL SIGNS: Vital signs noted and reviewed per the chart record. GENERAL: no acute distress, calm HEENT: Normocephalic and atraumatic. NECK: Supple. Throat midline. LUNGS: Bilateral air entry, clear CARDIOVASCULAR: S1 and S2. No murmurs, rubs, or gallops. ABDOMEN: Soft , post surgical. not grossly tender EXTREMITIES: No clubbing, no cyanosis, no edema. INTEGUMENT: No rash or purpura. LABORATORY DATA: k 4.5, cr 0.73. wbc 11, hct 27, plt 173 IMPRESSION AND PLAN: 1. 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 --rapidly recurring 2. ischemic leg due to kinked artery repair and endovascular tumor, s/p repair & endarterectomy 3. Acute kidney failure, obstructive s/p surgery, ATN likely. risk still 4. Pandemic status with coronavirus-19, patient result: negative 6. Hyponatremia. resolved 8. Hypertension. 9. post operative respiratory insufficiency, extubated 10. anemia, multifactorial. 11. post operative fluid overload mild Continue supportive care HD line remove PRN. Continue left IJ in place. diet encourage supportive care, antiemetics prn Follow UOP, follow [place] output. Supportive care mobilize, PT follow up pathology--- pending for possible sarcoma f/u NJ output, replace as needed repeat CXR intermittently, follow fluid status Pressors wean off if feasible empiric abx for possible sepsis, follow cultures Thank you very much, Dr. Hernan Ordaz and Dr Atkins. Please call for any questions.
[2020-04-19] MEDS: HYDROCODONE/APAP 10MG-325MG TAB PO PRN (23:20)
[2020-04-20] VITALS (75 sets, daily range): BP systolic 84–125; BP diastolic 61–88
--- NOTE | 2020-04-20 03:05 | Progress Note ---
DATE: 04/19/2020 SUBJECTIVE: The patient is doing fine, presently in the intensive care unit. He has been able to tolerate some liquids. I spoke with nursing staff and advised me about patient condition, presently on vasopressin. The patient has been on TPN and has a good urine output approximately 40 mL/h. Does have a lot of clear drainage from NJ. OBJECTIVE: GENERAL: Alert, oriented to person, time, and place. VITAL SIGNS: Blood pressure has been hypotensive 81/63, respirations 16, pulse 75, temperature 98.3. HEENT: Head is normocephalic and atraumatic. NECK: Supple. LUNGS: Clear anteriorly. HEART: Regular rate and rhythm. ABDOMEN: Soft, nontender. EXTREMITIES: No edema. SKIN: Intact. NEUROLOGIC: Nonfocal. Demonstrates little weakness involving the left lower extremity. Unable to lift the left lower leg against gravity. LABORATORY DATA: Hemoglobin 7.9, white blood. cell count 11.22, platelet count 173,000. Chem profile reveals sodium 138, potassium 4.5, chloride 111, CO2 19, BUN 56 and creatinine 0.73. ASSESSMENT AND PLAN: Continue present care as advised. List of medications noted. Re-evaluation noted as far as Cardiology evaluation. Neurology following the patient as well. MD ALPHONSE Sommers/GLENN /[id number] MTDD
[2020-04-20] MEDS: MEROPENEM 500MG/ NS 50ML 50 ML IV SCH ×4 (04:10→21:00)
[2020-04-20 04:50] LABS: EOSINOPHILS # (AUTO) 0.1 (0.0-0.4); HEMATOCRIT 27.7 % (38.2-49.6); LYMPHOCYTES # (AUTO) 0.6 (1.0-3.2); MEAN CORPUSCULAR HEMOGLOBIN 27.8 pg (28-32); MEAN CORPUSCULAR HGB CONC 28.9 g/dL (31-35); MEAN CORPUSCULAR VOLUME 96.2 fL (81-99); MONOCYTES # (AUTO) 0.8 (0.2-0.8); NEUTROPHILS # (AUTO) 12.6 (2.1-6.9); PLATELET COUNT 155 x10e3/uL (140-360); RED BLOOD COUNT 2.88 x10e6/uL (4.3-5.7); RED CELL DISTRIBUTION WIDTH 20.3 % (11.7-14.4)
[2020-04-20 05:12] LABS: ALANINE AMINOTRANSFERASE 16 IU/L (0-55); ALBUMIN 1.2 g/dL (3.5-5.0); ALBUMIN/GLOBULIN RATIO 0.4 (0.8-2.0); ALKALINE PHOSPHATASE 212 IU/L (40-150); ANION GAP 10.6 mmol/L (8-16); BLOOD UREA NITROGEN 59 mg/dL (7-26); BUN/CREATININE RATIO 74 (6-25); CARBON DIOXIDE 20 mmol/L (22-29); CHLORIDE 112 mmol/L (98-107); EST GLOMERULAR FILTRATION RATE > 60 ML/MIN (60-); GLUCOSE 160 mg/dL (74-118); POTASSIUM 4.6 mmol/L (3.5-5.1); SODIUM 138 mmol/L (136-145)
[2020-04-20 05:14] LABS: CALCIUM 6.9 mg/dL (8.4-10.2)
[2020-04-20] MEDS: HYDROCODONE/APAP 10MG-325MG TAB PO PRN ×4 (05:30→21:30)
[2020-04-20] MEDS: SODIUM CHLORIDE 0.9% 1000ML 1,000 ML IV SCH ×3 (06:00→15:58)
--- NOTE | 2020-04-20 07:05 | NUR ---
stable still hypptensive 97.9 87/68 80 patient arousable, but lethargic calm, eomi perrl face symmetric rrr cta- mild crackles abd soft but tender strength bue 4+/5 strength in rle 3/5 lle 3/ 5 with foot drop. no ataxia in arms a/p patient critically ill and hypotensive at this time, manamgennt of underlying cancer and hemodynamic instability as per ICU and primary team lower extremity weakness, lumbar plexopathy from local metastatic spread vs lumbar stenosis which i feel is less likely. outpt EMG pt ot gait therapy L spine MRi to eval structural area in lumbar canal is reasurring exam and clinical hx suggest plexopathy, continue lyrica nad emg as outpt and plan for pt. afo for foot drop
[2020-04-20] MEDS: VANCOMYCIN HCL 1.5 GM in SODIUM CHLORIDE 0.9% 250ML 300 ML IV SCH (08:48)
--- NOTE | 2020-04-20 09:35 | Diagnostic Imaging Report ---
EXAM: CHEST SINGLE (PORTABLE) DATE: 04/20/2020 5:46 AM INDICATION: CHF COMPARISON: 04/19/2020 FINDINGS: Right IJ non-tunneled dialysis catheter and left IJ central venous catheter identified in stable position. The trachea is midline. Lung volumes remain low. There are stable appearing trace to small sized bilateral pleural effusions present. There are grossly stable appearing perihilar and bibasilar opacities. There is no evidence for new large focal consolidation or pneumothorax. The cardiomediastinal silhouette is stable in appearance. No acute osseous abnormalities identified. IMPRESSION: No significant interval change from 04/19/2020. Stable perihilar/bilateral lower lung zone opacities and small effusions which can be seen in the setting of edema. Signed by: Dr. Anthony Titus MD on 04/20/2020 9:32 AM
--- NOTE | 2020-04-20 11:06 | Progress Note ---
DATE: 04/20/2020 Cardiology Progress Note SUBJECTIVE: Somnolent. No complaints. OBJECTIVE: VITAL SIGNS: Temperature 97.8, heart rate 76, blood pressure 97/69, respiratory rate 11, O2 saturation 99% on nasal cannula. GENERAL: In no acute distress. Chronically ill-appearing. NECK: JVD distended. CHEST: Decreased breath sounds in bilateral bases. CARDIOVASCULAR: Regular rate and rhythm. Normal S1, S2. ABDOMEN: Soft. Bowel sounds positive. EXTREMITIES: 2+ edema. Warm distal extremities. CARDIOVASCULAR MEDICATIONS: Reviewed. Vancomycin and meropenem, vasopressin 0.02, furosemide 80 mg and 40 mg given x1 dose for the last several days, Lovenox 40 mg subcu daily. STUDIES: Reviewed. Potassium 4.6, creatinine 0.8, hemoglobin 8, white blood cells 14, platelets 155. INR 1.4. ASSESSMENT AND PLAN: 1. A 64-year-old man with sepsis, acute kidney injury, septic shock mixed with hypovolemic shock related to high output [place] drain. 2. Anemia. 3. Sarcoma. 4. Peripheral arterial disease. 5. Extravascular edema on exam. RECOMMEND: 1. Continue to wean pressors for MAPs 65 to 75. 2. Diuretics as needed. 3. Continue medical management for PAD. Prognosis remains guarded. Yuri Carlson MD AFV/MODL /[id number]
[2020-04-20 11:26] LABS: BAND NEUTROPHILS % (MANUAL) 9 %; HYPOCHROMASIA SLIGHT; LYMPHOCYTES % (MANUAL) 6 % (19-48); MONOCYTES % (MANUAL) 1 % (3.4-9.0); NEUTROPHILS % (MANUAL) 84 % (40-74); POLYCHROMASIA FEW
[2020-04-20 11:27] LABS: ANISOCYTOSIS MODERATE; OVALOCYTES FEW; PLATELET ESTIMATE ADEQUATE; PLATELET MORPHOLOGY COMMENT NORMAL; RBC MORPHOLOGY COMMENT ABNORMAL
--- NOTE | 2020-04-20 11:57 | Progress Note ---
DATE: SUBJECTIVE: Mr. Barone remains weak. The family at the bedside. He is still having some abdominal pain and discomfort. OBJECTIVE: GENERAL: He is currently alert, oriented. VITAL SIGNS: Stable. Afebrile. HEENT: He is not icteric. NECK: Supple. CHEST: Clear bilateral. HEART: S1 and S2. ABDOMEN: Soft, distended. EXTREMITIES: +2 edema bilateral. The wound appeared good to drain coming from the abdomen, has very little amount of fluid in it. ASSESSMENT: Sepsis, getting better. Ileus improving, intraabdominal malignancy, acute on chronic kidney disease. Cultures are negative so far. White count is 14.14, which is slightly higher than yesterday. Sodium 138, potassium 4.6, creatinine 0.8, and liver enzyme within normal limit. We will discontinue vancomycin, currently on meropenem. Clinically, slowly getting better on TPN now. Prognosis remains guarded. The patient is DNR. Continue supportive care. Recheck CBC. We will follow. MD CADEN Mcpherson/MODL /[id number]
[2020-04-20] MEDS ORDERED: MAGNESIUM HYDROXIDE 30 ML UDC PO PRN (13:30)
[2020-04-20] MEDS ORDERED: FUROSEMIDE INJ 10 MG/ML 4 ML VIAL IV SCH (15:00)
[2020-04-20] MEDS ORDERED: ALBUMIN 25% 12.5GM 0.25 GM/ML BTL IV SCH (15:00)
[2020-04-20] MEDS: ALBUMIN 25% 25GM 100ML 100 ML IV SCH ×2 (15:42→20:26)
--- NOTE | 2020-04-20 15:44 | NUR ---
PULMONARY/CCM DATE: 04/20/2020 SUBJECTIVE: vasopressin 0.02/ tpn at 85/hr eating little prater + Nj with outputs d.w daughter at bedside REVIEW OF SYSTEMS: no rash, no icterus. PHYSICAL EXAMINATION: VITAL SIGNS: Vital signs noted and reviewed per the chart record. GENERAL: no acute distress, calm HEENT: Normocephalic and atraumatic. NECK: Supple. Throat midline. LUNGS: Bilateral air entry, clear CARDIOVASCULAR: S1 and S2. No murmurs, rubs, or gallops. ABDOMEN: Soft , post surgical. not grossly tender EXTREMITIES: No clubbing, no cyanosis, no edema. INTEGUMENT: No rash or purpura. LABORATORY DATA: k 4.6, cr .8. 14 wbc, hct 27, plt 155 IMPRESSION AND PLAN: 1. 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 --rapidly recurring 2. ischemic leg due to kinked artery repair and endovascular tumor, s/p repair & endarterectomy 3. Acute kidney failure, obstructive s/p surgery, ATN likely. risk still 4. Pandemic status with coronavirus-19, patient result: negative 6. Hyponatremia. resolved 8. Hypertension. 9. post operative respiratory insufficiency, extubated 10. anemia, multifactorial. 11. post operative fluid overload mild Continue supportive care HD line remove PRN. Continue left IJ in place. diet encourage. Also on TPN supportive care, antiemetics prn Follow UOP, follow [place] output. Supportive care mobilize, PT follow up pathology--- pending for possible sarcoma f/u [place] output, replace as needed repeat CXR intermittently, follow fluid status Pressors wean off if feasible empiric abx for possible sepsis, follow cultures Thank you very much, Dr. Hernan Ordaz and Dr Atkins. Please call for any questions.
[2020-04-20] MEDS: ENOXAPARIN SOD INJ 40 MG/0.4 ML SYR SC SCH (16:14)
[2020-04-20] MEDS: FUROSEMIDE INJ 10 MG/ML 4 ML VIAL IV SCH (16:14)
--- NOTE | 2020-04-20 19:30 | NUR ---
Received patient stable, no complaints raised, on blood pressure support, vasopressin
--- NOTE | 2020-04-20 19:51 | Progress Note ---
DATE: 04/20/2020 SUBJECTIVE: The patient is feeling better. The patient is tolerating TPN well, all lipids. The patient has not had chest pain. He is in no respiratory distress at this time. OBJECTIVE: GENERAL: The patient is alert, oriented to person, time, and place. VITAL SIGNS: Blood pressure 101/59, respirations 19, pulse 79. HEENT: Head is normocephalic and atraumatic. NECK: Supple. No JVD. LUNGS: Clear to auscultation. HEART: Regular rate and rhythm. ABDOMEN: Soft, nontender. EXTREMITIES: No edema. NEUROLOGIC: The patient does have a coherent speech. Weakness on the left lower extremity. Unable to nonfocal. Demonstrates little weakness involving the left lower extremity. Unable to raise against gravity. LABORATORY DATA: Noted. Hemoglobin 8.0, white blood cell count 14.14, platelet count 155,000. Chem profile reveal sodium 138, potassium 4.6, chloride 112, CO2 of 20, BUN 59, creatinine 0.8, calcium of 6.9. ASSESSMENT: Retroperitoneal mass suggestive of sarcoma. List of medications noted. Continue present care. MD ALPHONSE Sommers/GLENN /[id number]
[2020-04-20] MEDS: CENTRAL TPN FORMULA 1 BAG IV SCH (20:00)
--- NOTE | 2020-04-20 23:26 | Progress Note ---
DATE: 04/20/2020 Renal Progress Note SUBJECTIVE: The patient is doing relatively okay, with no issues. PHYSICAL EXAMINATION: VITAL SIGNS: He is afebrile. Pulse is 86, respiratory rate is 19, blood pressure 114/73, pulse ox 100% on 2 L nasal cannula. GENERAL: Not in acute distress. Alert and oriented x3. Cooperative on examination. PULMONARY: Clear to auscultation bilaterally. No wheezing, no rales, no rhonchi, no crackles appreciated. CARDIOVASCULAR: Positive S1 and S2. No murmurs, rubs, or gallops appreciated. ABDOMEN: Soft, nondistended, and nontender to palpation. Bowel sounds present. MUSCULOSKELETAL: Strength is 5/5 throughout. No evidence of any muscle deficits on examination. No weakness appreciated. NEUROLOGIC: Cranial nerve II through XII grossly intact. No evidence of any neurological deficits on exam. SKIN: Intact. Warm to touch. Good cap refill. PSYCHIATRIC: Normal affect and mood. EXTREMITIES: No edema. Good range of motion throughout. LABORATORY DATA: Show white count was 14, hemoglobin was 8, hematocrit is 27, and platelets of 155. Chemistry reviewed, sodium 138, potassium 4.6, chloride 112, bicarb 20, anion gap of 10, BUN 59, creatinine 0.8, glucose 160. Corrected calcium was 8.8, albumin was 1.2, alkaline phosphatase was 212. MICROBIOLOGY: All cultures were negative. Pathology still pending. IMPRESSION: 1. Acute kidney injury-resolved. 2. Anion gap metabolic acidosis, resolved. 3. Moderate protein-calorie malnutrition. 4. Underlying malignancy, still pending pathology. 5. Pulmonary edema. 6. Sepsis with underlying hypotension-improving. 7. Metabolic acidosis. 8. Leukocytosis-improved. PLAN: At this time, continue with IV TPN. Electrolytes were stable. He still has significant amount of edema. We will go ahead and put him on albumin 25 g IV q.6 hours x8 doses with Lasix 40 mg IV q.6 hours x8 doses to remove fluid. Get a.m. labs. Monitor closely. MD MICHELLE Fierro/MODL /[id number]
[2020-04-21] VITALS (44 sets, daily range): BP systolic 84–119; BP diastolic 6–86
[2020-04-21] MEDS: FUROSEMIDE INJ 10 MG/ML 4 ML VIAL IV SCH ×5 (00:23→23:33)
[2020-04-21] MEDS: MEROPENEM 500MG/ NS 50ML 50 ML IV SCH ×4 (04:00→21:30)
[2020-04-21] MEDS: ALBUMIN 25% 25GM 100ML 100 ML IV SCH ×4 (04:00→21:00)
--- NOTE | 2020-04-21 04:00 | NUR ---
Vasopressin stopped, on close blood pressure monitoring
--- NOTE | 2020-04-21 04:00 | NUR ---
PULMONARY/CCM DATE: 04/21/2020 SUBJECTIVE: vasopressin 0.02/ tpn at 55/hr eating little no BM reported REVIEW OF SYSTEMS: no rash, no icterus. PHYSICAL EXAMINATION: VITAL SIGNS: Vital signs noted and reviewed per the chart record. GENERAL: no acute distress, calm HEENT: Normocephalic and atraumatic. NECK: Supple. Throat midline. LUNGS: Bilateral air entry, clear CARDIOVASCULAR: S1 and S2. No murmurs, rubs, or gallops. ABDOMEN: Soft , post surgical. not grossly tender EXTREMITIES: No clubbing, no cyanosis, 2-3+ edema. INTEGUMENT: No rash or purpura. LABORATORY DATA: pending / no new updates for now IMPRESSION AND PLAN: 1. 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 --rapidly recurring 2. ischemic leg due to kinked artery repair and endovascular tumor, s/p repair & endarterectomy 3. Acute kidney failure, obstructive s/p surgery, ATN likely. risk still 4. Pandemic status with coronavirus-19, patient result: negative 6. Hyponatremia. resolved 8. Hypertension. 9. post operative respiratory insufficiency, extubated 10. anemia, multifactorial. 11. post operative fluid overload mild Continue supportive care HD line remove PRN. Continue left IJ in place. diet encourage. Also on TPN Diuretics, albumin intermittent for edema supportive care, antiemetics prn Follow UOP, follow [place] output. Supportive care mobilize, PT follow up pathology--- pending for possible sarcoma repeat CXR intermittently, follow fluid status Pressors wean off if feasible empiric abx for possible sepsis, follow cultures Thank you very much, Dr. Hernan Ordaz and Dr Atkins. Please call for any questions.
[2020-04-21 05:08] LABS: BASOPHILS # (AUTO) 0.1 (0.0-0.1); EOSINOPHILS # (AUTO) 0.1 (0.0-0.4); HEMOGLOBIN 8.6 g/dL (14.0-18.0); LYMPHOCYTES # (AUTO) 0.5 (1.0-3.2); MEAN CORPUSCULAR HEMOGLOBIN 27.6 pg (28-32); MEAN CORPUSCULAR HGB CONC 27.7 g/dL (31-35); MEAN CORPUSCULAR VOLUME 99.4 fL (81-99); MONOCYTES # (AUTO) 0.7 (0.2-0.8); NEUTROPHILS # (AUTO) 12.9 (2.1-6.9); PLATELET COUNT 136 x10e3/uL (140-360); RED BLOOD COUNT 3.12 x10e6/uL (4.3-5.7); RED CELL DISTRIBUTION WIDTH 19.9 % (11.7-14.4)
[2020-04-21 05:33] LABS: ALANINE AMINOTRANSFERASE 13 IU/L (0-55); ALBUMIN 1.9 g/dL (3.5-5.0); ALBUMIN/GLOBULIN RATIO 0.7 (0.8-2.0); ALKALINE PHOSPHATASE 180 IU/L (40-150); BLOOD UREA NITROGEN 64 mg/dL (7-26); BUN/CREATININE RATIO 83 (6-25); CALCIUM 7.2 mg/dL (8.4-10.2); CARBON DIOXIDE 19 mmol/L (22-29); CHLORIDE 113 mmol/L (98-107); CREATININE, SERUM 0.77 mg/dL (0.72-1.25); EST GLOMERULAR FILTRATION RATE > 60 ML/MIN (60-); GLUCOSE 115 mg/dL (74-118); SODIUM 140 mmol/L (136-145)
--- NOTE | 2020-04-21 07:15 | NUR ---
Handed over patient stable, blood pressure stable off vasopressin.
[2020-04-21] MEDS: SODIUM CHLORIDE 0.9% 1000ML 1,000 ML IV SCH (07:44)
[2020-04-21] MEDS: HYDROCODONE/APAP 10MG-325MG TAB PO PRN (07:44)
[2020-04-21] MEDS ORDERED: MIDODRINE 2.5 MG TAB PO SCH (10:00)
--- NOTE | 2020-04-21 10:43 | Progress Note ---
DATE: 04/21/2020 Cardiology Progress Note SUBJECTIVE: Denies any chest pain or shortness of breath. Feels better today. OBJECTIVE: VITAL SIGNS: Temperature 98.3, heart rate 96, blood pressure 92/69 on vasopressin 0.01, respiratory rate 15, O2 saturation 100%, BMI 31.3. GENERAL: No acute distress. Alert. NECK: No JVD. CHEST: Decreased breath sounds. CARDIOVASCULAR: Regular rate and rhythm. Normal S1, S2. ABDOMEN: Soft. EXTREMITIES: 1+ edema to both lower extremities. CARDIOVASCULAR MEDICATIONS: Reviewed. Status post 80 mg of furosemide, Lovenox 40 mg subcu daily. STUDIES: Reviewed. Creatinine 0.7, hemoglobin 8.6 platelets 136, white blood cells 14.3. ASSESSMENT AND PLAN: 1. A 64-year-old man with high output [place] drain, volume depletion and severe sepsis with septic shock, on vasopressin and status post Levophed. 2. Peripheral arterial disease. 3. Anemia. 4. Sarcoma. 5. Frailty and deconditioning. 6. Recommend to continue DVT prophylaxis and volume optimization. 7. Gradual weaning of vasopressors to maintain a MAP of 65-75. Overall remains with guarded prognosis. Monitor H and H. Yuri Carlson MD AFAiden/MODL /[id number]
--- NOTE | 2020-04-21 11:18 | Progress Note ---
DATE: SUBJECTIVE: The patient was seen and examined. Today, the patient appeared stable. No new issues noted. OBJECTIVE: VITAL SIGNS: Afebrile. Stable. GENERAL: No acute distress. Alert, oriented x3. LUNGS: Clear to auscultation bilaterally. CARDIOVASCULAR: Positive S1, S2. No murmur or rub. ABDOMEN: Soft, nondistended. Tender to palpation. MUSCULOSKELETAL: Normal inspection. DETAIL SUPERVISOR: Grossly intact. SKIN: Intact. PSYCH: Normal affect and mood. EXTREMITIES: No edema. LABORATORY DATA: Reviewed. Hemoglobin 8.6, white blood cells 14.36, platelet 136. ASSESSMENT AND PLAN: The patient with a history of multiple medical conditions, include sarcoma status post resection with regrowth and resected sarcoma with kidney involvement. The patient is not a candidate for any aggressive surgical resection, not a candidate for any aggressive palliative chemo and radiation, considering palliative care options. Waiting for final pathology report to make final discussion with the family. At this point, we will continue supportive care including pain medication, nutrition support. Monitor the patient very closely. MD KRISTOFER Aly/GLENN /[id number]
[2020-04-21] MEDS: MIDODRINE HCL 5 MG TABLET PO SCH ×2 (11:22→17:38)
[2020-04-21 11:27] LABS: BAND NEUTROPHILS % (MANUAL) 5 %; EOSINOPHILS % (MANUAL) 2 % (0-7); LYMPHOCYTES % (MANUAL) 4 % (19-48); MONOCYTES % (MANUAL) 2 % (3.4-9.0); MYELOCYTES % (MANUAL) 2 % (0-0); NEUTROPHILS % (MANUAL) 85 % (40-74)
[2020-04-21 11:29] LABS: ANISOCYTOSIS SLIGHT; PLATELET ESTIMATE SLIGHTLY DECREASED; PLATELET MORPHOLOGY COMMENT NORMAL; POLYCHROMASIA FEW
[2020-04-21 11:30] LABS: RBC MORPHOLOGY COMMENT NORMAL
--- NOTE | 2020-04-21 11:33 | NUR ---
stable still hypptensive 98.3 96 92/69 patient arousable, but lethargic calm, eomi perrl face symmetric rrr cta- mild crackles abd soft but tender strength bue 4+/5 strength in rle 3/5 lle 3/ 5 with foot drop. no ataxia in arms a/p patient critically ill and hypotensive at this time, manamgennt of underlying cancer and hemodynamic instability as per ICU and primary team he is stable neurologically lower extremity weakness, lumbar plexopathy from local metastatic spread vs lumbar stenosis which i feel is less likely. possibly a component of critical illnes neuropathy as well outpt EMG pt ot gait therapy L spine MRi to eval structural area in lumbar canal is reasurring exam and clinical hx suggest plexopathy, continue lyrica nad emg as outpt and plan for pt. afo for foot drop
--- NOTE | 2020-04-21 11:54 | NUR ---
progress note [id number]
--- NOTE | 2020-04-21 13:08 | NUR ---
Nutrition Intervention Note RD Recommendation(s) for Physician: -TPN rec's: Standard TPN (30%Dextrose/500mL, 10%AA/500mL) with Lipids 25 g/day at 75 ml/hr, Na Acetate 60 mEq/L, K Acetate 10 mEq/L, KPhos 12 mmol/L, Mg Sulfate 10 mEq/L, trace, MVI. Continue additives per MD order of thiamine, folic acid, and famotidine. (to provide 1528 kcal, 90 gm protein, 270 gm dextrose) -Please check Mg and Phos daily with BMP, replace low lytes as needed -Additional IVF/fluid management per MD -Advancement of diet per MD, as feasible advance diet to goal of GI Soft -Recommend Ensure Clear TID while on Clear Liquid diet The patient meets criteria for MODERATE protein-calorie malnutrition. Plan of Care: RD following, monitoring for tolerance and adequacy. TPN, diet, and ONS rec's. Nutrition reason for involvement: Follow up RD Assessment 04/21: Follow up. Pt discussed during MDR, TPN resumed yesterday and pt continues with high output from NJ drain. Pt continues on CL diet, tolerating per RN. TPN rec's provided. Chart reviewed. Will continue to monitor. 04/16: Follow up. Pt discussed during am MDR, per RN 700 ml output total in 24 hrs from NJ drain. Pt resting at time of visit, did not disturb. Per Rn pt tolerating diet, noted 50% intake since diet advanced. Pt transferred to ICU this afternoon 2/2 low BP. Chart reviewed. Will continue to monitor. 04/14: Follow up. Pt discussed during am MDR. TPN discontinued 04/12 and continues on CLD, diet advanced to Regular for dinner- tolerance pending. Pt reports tolerating CLD, family at bedside report fair to good intake. Pt receptive to supplement- RD to order Ensure Compact TID. Pt with no questions or concerns at time of visit. Will continue to monitor. 04/11: Follow up. Pt remains on Standard TPN @ 80 mL/hr with 25 gm lipids 3x/week which meets pts estimated kcal and protein needs. Pt reports that he is tolerating clear liquids. It is recorded that pt consumed 50% of liquid meal trays today and 50-100% yesterday. Will continue to monitor. 04/08: Follow up. Per MD note, pts acute kidney failure has resolved. Pts NG tube was removed yesterday and was started on a clear liquid diet. Pt is also receiving TPN @ 80 mL/hr. Pt stated he is tolerating liquids, but mainly has been drinking water. Pt did not consume his liquid meal tray of breakfast or lunch per documentation. No N/V reported. 04/06: Follow up. Pt s/p retroperitoneal tumor resection with repair of L iliac artery and repair of L kidney on 04/03. Pt remains NPO x day 3 post operatively. NGT to LIWS, very little output. Pt sleeping at time of visit, did not awake to greeting. Chart reviewed, plan for HD catheter placement per MD notes. Pt eating 25-75% of meals 3 days ago, tolerating well. TPN and diet rec's provided pending plan of care. Will continue to monitor. 04/01: 64 YOM admitted for abdominal pain and hyperkalemia, seen today per MST screen. Pt reports progressive wt loss over the past 3 months of 16#, noted significant change of 9% loss in 3 months. 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 Pt denies any supplements at home. Pt reports tolerating diet today, receptive to supplement- RD to order Nepro BID for adequacy per current lab trend. Pt denies any N/V/C/D currently. Pt with no questions or concerns at time of visit. Chart reviewed. Will continue to monitor. Principal Problems/Diagnoses: abd pain, hyperkalemia PMH: HTN, TURP, retroperitoneal mass GI: last BM 04/17 NJ drain output 2270 ml 04/20 Skin: abdominal incision Labs: 04/17: Na 140, K 5, Cl 114, CO2 19, BUN 64, Cr 0.77, Gluc 115, Ca 7.2 04/16: Na 135, K 4.2, BUN 66, Cr 1.53, Gluc 79, Ca 6.9 04/14: Na 137, K 4.4, BUN 44, Cr 0.81, Gluc 68, POC 75-108, Mg 1.8 04/11: Na 138, K 4.6, BUN 32, Cr 0.65, Ca 8.2, Glu 83 04/08: Na 144, K 3.9, Cr 0.65, BUN 2, Ca 7.8, Glu 101 04/06: Na 142, K 3.9, Cl 108, CO2 27, BUN 36, Cr 0.99, Gluc 116, iCa 1; 04/04: Mg 2.3 04/01: Na 131, K 4.9, BUN 66, Cr 1.46, Gluc 116, Phos 4.5, Mg 2.9 Meds: IV albumin, milk of magnesia, zofran, lasix, norco, abx I/O: 3511/3550 Ht: 67 in Wt: 200 lb (04/21)-edema 195.56 (04/16) 196.56 lbs (04/07) 164.06 lb (04/01) Suspect possible weight error BMI: 30.8 kg/m2 IBW: 135 lb Malnutrition Evaluation (04/16/20) The patient meets criteria for MODERATE protein-calorie malnutrition. Energy intake: moderate <75% of estimated energy requirements for 1 month Weight loss: severe >7.5% in 3 months (Acute) Fat loss: none, chest well developed Muscle loss: none, shoulder round Supporting Evidence: Fluid accumulation: none Functional Status: not assessed Nutrition Prescription (Diet Order):Clear Liquids Estimated Nutritional Needs: 8189-3801 calories/day (18-22 kcal/kg CBW) Weight used: 164 lbs 74-112 g protein/day (1-1.5 g pro/kg CBW) Weight used: 164 lbs Diet Adequacy: meeting kcal and protein needs Diet Tolerance: tolerating PO- CLD, tolerting TPN Diet Education Needs Assessment: Diet education not indicated at this time. Nutrition Care Level: High- TPN Nutrition Diagnosis: Inadequate energy and protein intake related to current medical conditions as evidenced by progressive, significant wt loss of 9% and not meeting needs. Goal: Patient will meet 75-100% of estimated needs by follow up Progress: progressing Interventions: -TPN-composition, rate, route, Commercial beverage, fluid/fiber-modified diet, recommend modifications Monitoring/Evaluation: -Total energy intake, Total protein intake, parenteral nutrition, Liquid supplement, modified diet, Weight change Signed: Rama Briceno RD, LD, [facility]
[2020-04-21] MEDS ORDERED: SODIUM CHLORIDE 0.9% 250ML 250 ML ONE (16:05)
[2020-04-21] MEDS: ENOXAPARIN SOD INJ 40 MG/0.4 ML SYR SC SCH (17:46)
[2020-04-21] MEDS: NYSTATIN 15 GM POWDER UD BTL TOP SCH (18:23)
--- NOTE | 2020-04-21 18:46 | Progress Note ---
DATE: SUBJECTIVE: Mr. Barone remains in intensive care unit, weak, has some abdominal discomfort. REVIEW OF SYSTEMS: Otherwise, he is not eating well. PHYSICAL EXAMINATION: GENERAL: He is currently alert, oriented, does not seem to be in acute distress. VITAL SIGNS: Stable, afebrile. Heart rate 101, respirations 14. HEENT: He is not icteric. NECK: Supple. CHEST: Few crackles bilateral. COR: S1 and S2. No S3, S4 or murmurs. ABDOMEN: Soft, distended. Wound looks really good. EXTREMITIES: No edema. SKIN: No rash. IMPRESSION: Remains very ill, on TPN. Retroperitoneal mass suggestive of sarcoma, ischemic leg, atherosclerotic disease, acute kidney injury, obstructive, status post surgery, status post sepsis, status post respiratory failure, extubated. Continue supportive care. The patient is DNR. He remains extremely ill. We will consider the patient for hospice. We will follow. MD CADEN Mcpherson/GLENN /[id number]
--- NOTE | 2020-04-21 19:30 | NUR ---
RECEIVED PATIENT CALM, NO COMPLAINTS RAISED
[2020-04-21] MEDS: CENTRAL TPN FORMULA 1 BAG IV SCH (20:30)
--- NOTE | 2020-04-21 23:22 | Progress Note ---
DATE: 04/21/2020 Nephrology Progress Note SUBJECTIVE: The patient still has quite a bit a NJ drainage today. His blood pressure is still on the soft end, but his map is greater than 65 mmHg. No overnight events. PHYSICAL EXAMINATION: VITAL SIGNS: Temperature is 98, pulse 74, respiratory rate is 22, blood pressure is 114/74, and pulse ox 95% on 2 L nasal cannula. GENERAL: Not in acute distress. Alert and oriented x3. He is cooperative on examination. HEENT: Head; normocephalic, atraumatic. Eyes; pupils are equal, round, and reactive to light bilaterally. Extraocular movements intact bilaterally. Throat; no evidence of erythema or exudates in the posterior pharynx. Has poor dentition. NECK: Supple. Good range of motion. PULMONARY: Clear to auscultation bilaterally. No wheezing, no rales, no rhonchi, no crackles appreciated. CARDIOVASCULAR: Positive S1 and S2. No murmurs, rubs, or gallops appreciated. ABDOMEN: Soft, nondistended, and nontender to palpation. Bowel sounds present. MUSCULOSKELETAL: Strength is 5/5 throughout. No evidence of any muscle deficits on examination. No weakness appreciated. NEUROLOGIC: Cranial nerve II through XII grossly intact. No evidence of any neurological deficits on exam. SKIN: Intact. Warm to touch. Good cap refill. PSYCHIATRIC: Normal affect and mood. EXTREMITIES: No edema. Good range of motion throughout. LABORATORY DATA: Show white count is 14, hemoglobin 8.6, hematocrit is 31, platelets of 136. Chemistry; sodium 140, potassium 5, chloride 113, anion gap of 13, bicarb is 19, BUN 64, creatinine is 0.77, glucose is 115. His calcium is 7.2. IMAGING: None. IMPRESSION: 1. Acute kidney injury-resolved. 2. Anion gap metabolic acidosis. 3. Moderate protein-calorie malnutrition. 4. Underlying malignancy with metastatic disease. 5. Pulmonary edema. 6. Sepsis with underlying hypotension-improving. 7. Metabolic acidosis. 8. Leukocytosis. PLAN: At this time, from a renal standpoint, we will continue with IV TPN for nutrition. BUN is elevated from the TPN. Continue with albumin and Lasix for volume removal due to his underlying edema. It seems like his overall prognosis is significantly poor. Get a.m. labs. MD MICHELLE Fierro/GLENN /[id number]
[2020-04-22] VITALS (21 sets, daily range): BP systolic 81–134; BP diastolic 54–83
--- NOTE | 2020-04-22 02:23 | Progress Note ---
DATE: 04/21/2020 SUBJECTIVE: The patient is feeling better. He denies abdominal pain at this time. No chest pain or shortness of breath. No fever, no chills. OBJECTIVE: GENERAL: The patient is alert, oriented to person, time, and place. The patient in no distress. VITAL SIGNS: Blood pressure: systolic between 114 and 84, diastolic around 70, respirations 16, pulse 75. O2 saturation 100% on 2 L of nasal cannula. Temperature 98.0. HEENT: Head is atraumatic. NECK: Supple. No JVD. LUNGS: Clear to auscultation. HEART: Regular rate and rhythm. No murmurs or gallops. ABDOMEN: Soft, nontender. EXTREMITIES: Edematous, 2+ edema. NEUROLOGIC: LABORATORY DATA: Hemoglobin 8.6, white blood cell count 14.36, platelet count 136,000. Chem profile reveal sodium 140, potassium 5.0, chloride 113, CO2 19, BUN 64, creatinine 0.77, calcium level 7.2, alkaline phosphatase 180, AST 15, ALT 13. ASSESSMENT: 1. Retroperitoneal mass suggestive of sarcoma 2. Status post laparotomy and resection of retroperitoneal tumor with repair of iliac artery, repair of left kidney. 3. Ischemic leg due to retroperitoneal tumor, status post repair/endarterectomy. 4. Acute kidney failure, status post obstructive uropathy and the patient did have acute tubular necrosis. 5. Hypertension. 6. Status post respiratory failure. 7. Anemia. 8. History urinary tract infection. 9. History of sepsis. 10. Hypoglycemia. 11. Anorexia. 12. Protein-calorie malnutrition. 13. Postoperative fluid overload. PLAN OF CARE: Continue supportive care. The patient is being followed by multiple specialists. ID is following the patient. The patient is status post sepsis. The patient is DNR. Hospice will continue. The patient on TPN. BUN is elevated. Continue albumin and Lasix. MD ALPHONSE Sommers/GLENN /[id number]
[2020-04-22] MEDS: MEROPENEM 500MG/ NS 50ML 50 ML IV SCH ×4 (04:00→20:26)
[2020-04-22] MEDS: ALBUMIN 25% 25GM 100ML 100 ML IV SCH ×2 (04:00→08:26)
--- NOTE | 2020-04-22 05:00 | NUR ---
Patient given a full bed bath, dirty linens changed
[2020-04-22 05:52] LABS: EOSINOPHILS # (AUTO) 0.1 (0.0-0.4); HEMATOCRIT 27.2 % (38.2-49.6); HEMOGLOBIN 8.1 g/dL (14.0-18.0); LYMPHOCYTES # (AUTO) 0.6 (1.0-3.2); MEAN CORPUSCULAR HEMOGLOBIN 28.6 pg (28-32); MEAN CORPUSCULAR HGB CONC 29.8 g/dL (31-35); MEAN CORPUSCULAR VOLUME 96.1 fL (81-99); NEUTROPHILS # (AUTO) 13.5 (2.1-6.9); PLATELET COUNT 117 x10e3/uL (140-360); RED BLOOD COUNT 2.83 x10e6/uL (4.3-5.7); RED CELL DISTRIBUTION WIDTH 19.6 % (11.7-14.4)
[2020-04-22] MEDS: FUROSEMIDE INJ 10 MG/ML 4 ML VIAL IV SCH ×2 (06:00→10:15)
[2020-04-22 06:31] LABS: ALANINE AMINOTRANSFERASE 7 IU/L (0-55); ALBUMIN 2.7 g/dL (3.5-5.0); ALBUMIN/GLOBULIN RATIO 1.5 (0.8-2.0); ALKALINE PHOSPHATASE 127 IU/L (40-150); ANION GAP 13.1 mmol/L (8-16); BLOOD UREA NITROGEN 72 mg/dL (7-26); BUN/CREATININE RATIO 97 (6-25); CALCIUM 7.3 mg/dL (8.4-10.2); CARBON DIOXIDE 19 mmol/L (22-29); CHLORIDE 114 mmol/L (98-107); CREATININE, SERUM 0.74 mg/dL (0.72-1.25); EST GLOMERULAR FILTRATION RATE > 60 ML/MIN (60-); GLUCOSE 115 mg/dL (74-118); POTASSIUM 5.1 mmol/L (3.5-5.1); SODIUM 141 mmol/L (136-145)
--- NOTE | 2020-04-22 06:33 | NUR ---
stable still hypptensive 98.3 75 105/72 patient arousable, but lethargic calm, eomi perrl face symmetric rrr cta- mild crackles abd soft but tender strength bue 4+/5 strength in rle 3/5 lle 3/ 5 with foot drop. no ataxia in arms a/p patient critically ill and hypotensive at this time, manamgennt of underlying cancer and hemodynamic instability as per ICU and primary team he is stable neurologically lower extremity weakness, lumbar plexopathy from local metastatic spread vs lumbar stenosis which i feel is less likely. possibly a component of critical illnes neuropathy as well outpt EMG pt ot gait therapy L spine MRi to eval structural area in lumbar canal is reasurring exam and clinical hx suggest plexopathy, continue lyrica nad emg as outpt and plan for pt.
--- NOTE | 2020-04-22 06:57 | Diagnostic Imaging Report ---
EXAMINATION: CHEST SINGLE (PORTABLE) COMPARISON: Chest x-ray 04/20/2020 INDICATION: CHF ^chf ^[id number] ^[id number] DISCUSSION: Frontal view of the chest obtained at 0617 hours. HEART AND MEDIASTINUM: The heart is normal in size. The aorta is tortuous LINES: Right IJ catheter terminates in the SVC. Left IJ catheter terminates in the SVC. LUNGS/PLEURA: Low lung volumes. Bilateral pleural effusions and posterior airspace opacities. No pneumothorax. BONES AND SOFT TISSUES: Mild degenerative changes of the spine. The soft tissues are normal. IMPRESSION: Bilateral pleural effusions and posterior space opacities suggestive of atelectasis. Small foci of pneumonia cannot be excluded. Signed by: Dr. Victorino Love MD on 04/22/2020 6:54 AM
[2020-04-22] MEDS: MIDODRINE HCL 5 MG TABLET PO SCH ×3 (08:25→15:25)
[2020-04-22] MEDS: NYSTATIN 15 GM POWDER UD BTL TOP SCH ×2 (08:26→17:12)
--- NOTE | 2020-04-22 10:03 | Progress Note ---
DATE: SUBJECTIVE: The patient is seen and examined today, although the condition is same. Hemoglobin is staying the 8 range. Platelet count trending downward. Kidney functions are normal. Total protein and albumin are still low. OBJECTIVE: GENERAL: Alert, awake and communicative. HEENT: Normocephalic, atraumatic. Sclerae pal. Conjunctivae clear. NECK: Supple. CHEST: Clear to auscultation. HEART: Regular rate and rhythm. ABDOMEN: Soft, mildly tender. EXTREMITIES: 2+ edema. PARTS DEPARTMENT MANAGER: Intact. SKIN: Intact. PSYCH: Mood is stable. LABS AND IMAGING: Reviewed. ASSESSMENT AND PLAN: The patient with a history of multiple medical condition currently following for possible sarcoma, waiting for final pathology report. The patient does have resection with regrowth of mass and he has other mass. Not surgical candidate for re-resection. Difficult candidate to start any palliative radiation and chemo. Likely palliative option and hospice option. Waiting for final pathology report to discuss with family. Family is partially informed about the patient's condition and they understand the plan of care. Continue remaining care. We will follow the patient closely. MD KRISTOFER Aly/GLENN /[id number]
[2020-04-22] MEDS: HYDROCODONE/APAP 10MG-325MG TAB PO PRN (10:15)
[2020-04-22 10:24] LABS: PLATELET ESTIMATE SLIGHTLY DECREASED; PLATELET MORPHOLOGY COMMENT NORMAL; RBC MORPHOLOGY COMMENT NORMAL
[2020-04-22 10:26] LABS: ANISOCYTOSIS SLIGHT; HYPOCHROMASIA SLIGHT
--- NOTE | 2020-04-22 11:36 | NUR ---
PULMONARY/CCM DATE: 04/22/2020 SUBJECTIVE: vasopressin off since yesterday AM tpn at 85/hr NJ output ~50/hr today AM eating little +BM reported REVIEW OF SYSTEMS: no rash, no icterus. PHYSICAL EXAMINATION: VITAL SIGNS: Vital signs noted and reviewed per the chart record. GENERAL: no acute distress, calm HEENT: Normocephalic and atraumatic. NECK: Supple. Throat midline. LUNGS: Bilateral air entry, clear CARDIOVASCULAR: S1 and S2. No murmurs, rubs, or gallops. ABDOMEN: Soft , post surgical. not grossly tender EXTREMITIES: No clubbing, no cyanosis, 2-3+ edema. INTEGUMENT: No rash or purpura. LABORATORY DATA: k 5.1, co2 19, bun 72, cr 0.74. 15 wbc, hct 27, plt 117 IMPRESSION AND PLAN: 1. 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 --rapidly recurring 2. ischemic leg due to kinked artery repair and endovascular tumor, s/p repair & endarterectomy 3. Acute kidney failure, obstructive s/p surgery, ATN likely. risk still 4. Pandemic status with coronavirus-19, patient result: negative 5. Hyponatremia. resolved 6. Hypertension. 7. post operative respiratory insufficiency, extubated 8. anemia, multifactorial. 9. post operative fluid overload Continue supportive care HD line remove PRN. Continue left IJ in place. diet encourage. Also on TPN. modify TPN for hyperkalemia trend Diuretics, albumin intermittent for edema supportive care, antiemetics prn Follow UOP, follow NJ output. Replete intravascular volume as needed. Supportive care mobilize, PT follow up pathology--- pending for possible sarcoma repeat CXR intermittently, follow fluid status empiric abx for possible sepsis family to consider hospice. Thank you very much, Dr. Hernan Ordaz and Dr Atkins. Please call for any questions.
--- NOTE | 2020-04-22 12:36 | NUR ---
CALLED AND SPOKE WITH DAUGHTER ROS KIM [phone], GAVE HER CHOICES FOR HOSPICE, SHE GAVE VERBAL FOR CHOICE WILL CONTACT REP AND [facility].
--- NOTE | 2020-04-22 12:59 | Progress Note ---
DATE: SUBJECTIVE: Mr. Barone is weak. He has no specific complaint. He has still abdominal pain. He wants to be with comfort care. Discussed with the patient. Discussed with surgery. PHYSICAL EXAMINATION: GENERAL: He is currently alert and oriented. VITAL SIGNS: Stable. Afebrile. HEENT: He is not icteric. NECK: Supple. CHEST: Clear. COR: S1 and S2. ABDOMEN: Soft. EXTREMITIES: No edema. SKIN: No rash. LABORATORY DATA: Reviewed. All cultures are negative. His white count is 15.27, hemoglobin 8.1. His sodium 141. IMPRESSION: From Infectious Disease point of view, the patient is stable. He could have peritonitis, but has resolved. He does have underlying history of tumor, which is largely getting worse. The patient is not a candidate for chemo. He wished to go with hospice care which I agree. Discussed with the medical team. From Infectious Disease point of view, the patient recommended hospice evaluation. Discontinue TPN. Discontinue antibiotic. Transfer to the floor. MD CADEN Mcpherson/GLENN /[id number]
--- NOTE | 2020-04-22 13:12 | NUR ---
TRADITIONS NOT IN NETWORK WITH [facility], [employer] IS, DAUGHTER OK WITH REP CALLING HER.
--- NOTE | 2020-04-22 13:31 | Progress Note ---
DATE: 04/22/2020 Nephrology Progress Note SUBJECTIVE: The patient is at baseline very ill. He has agreed to hospice services according to palliative care. PHYSICAL EXAMINATION: VITAL SIGNS: Temperature is 97.9, pulse 75, respiratory rate is 20, blood pressure is 134/60, and pulse ox 97% on room air. GENERAL: Not in acute distress. Alert and oriented x3. Cooperative on examination. HEENT: Head; normocephalic, atraumatic. Eyes; pupils are equal, round, and reactive to light bilaterally. PULMONARY: Clear to auscultation bilaterally. No wheezing, no rales, no rhonchi, no crackles appreciated. CARDIOVASCULAR: Positive S1 and S2. No murmurs, rubs, or gallops appreciated. ABDOMEN: Soft, nondistended, and nontender to palpation. Bowel sounds present. MUSCULOSKELETAL: The patient is very weak on examination. NEUROLOGIC: Alert and oriented x3. SKIN: Intact. Warm to touch. Good cap refill. EXTREMITIES: He still has 2+ pedal edema in bilateral lower extremities. LABORATORY DATA: Show white count 15.2, hemoglobin 9.1, hematocrit is 27, and platelets of 117. Chemistry; sodium 141, potassium 5.1, chloride 114, bicarb 19, anion gap of 13, BUN is 17, creatinine is 0.74, glucose is 115, and calcium is 7.3. MICROBIOLOGY: None. IMAGING STUDIES: Chest x-ray this morning shows bilateral pleural effusion and posterior space opacity, suggestive of atelectasis. Small . IMPRESSION: 1. Acute kidney injury-resolved. 2. Moderate protein-calorie malnutrition. 3. 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 4. Pulmonary edema. 5. Sepsis with underlying hypotension-resolved. 6. Metabolic acidosis. 7. Leukocytosis. PLAN: At this time, continue with IV TPN for nutrition. Continue with albumin and Lasix. The patient seems to have agreed to hospice services. We will continue to follow. MD MICHELLE Fierro/MODL /[id number]
--- NOTE | 2020-04-22 15:45 | NUR ---
SPOKE WITH [employer], FAMILY IS MEETING WITH HOSPICE AT 9 AM TOMORROW MORNING, THEY HAVE SUBMITTED FOR INSURANCE AND WILL LET ME KNOW WHEN APPROVED TO RETURN HOME ON HOSPICE.
[2020-04-22] MEDS: ENOXAPARIN SOD INJ 40 MG/0.4 ML SYR SC SCH (17:12)
--- NOTE | 2020-04-22 18:40 | Progress Note ---
DATE: 04/22/2020 Cardiology Progress Note SUBJECTIVE: No complaints today. The patient's family decided to go for hospice care. OBJECTIVE: VITAL SIGNS: Temperature 98.1, heart rate 71, blood pressure 92/67, respiratory rate 18, and O2 saturation 100%. GENERAL: Chronically ill-appearing. NECK: JVD present. CHEST: Decreased breath sounds. CARDIOVASCULAR: Regular rate and rhythm. Normal S1 and S2. ABDOMEN: Soft. Bowel sounds positive. Drain in place. EXTREMITIES: With 2+ edema. CARDIOVASCULAR MEDICATIONS: Reviewed. Midodrine 10 mg t.i.d., off pressors vasopressin and Levophed, and Lovenox 40 mg subcutaneous daily. STUDIES: Reviewed. Potassium 5.1, bicarbonate 19, creatinine 0.7, and glucose 115. White blood cells 15.2, hemoglobin 8, and platelets 117. ASSESSMENT AND PLAN: A 64-year-old man with sarcoma, peripheral vascular disease, anemia, and metabolic acidosis. RECOMMEND: Change in goals of care towards palliative/hospice approach will be available as needed. Please call with any questions. MD OrdazV/NICKL /[id number]
[2020-04-22] MEDS: CENTRAL TPN FORMULA 1 BAG IV SCH (20:26)
[2020-04-23] VITALS (7 sets, daily range): BP systolic 92–121; BP diastolic 59–98
--- NOTE | 2020-04-23 | NUR ---
Patient c/o pain given pain pill as ordered by MD. Patient has midline dressing dry and intact. Sutures to left groin open to air. Intact and well approximated. NJ drain with yellow secretion large amt. +3edema lower extremities.
--- NOTE | 2020-04-23 02:56 | Progress Note ---
04/22/2020 SUBJECTIVE: Mr. Barone is a 64-male patient evaluated in the ICU. The patient is doing fine, has been feeling comfortable and family asked to see the hospice. The patient had no complaints at the time of my visit. No chest pain. No shortness of breath. Some abdominal distention. No nausea or vomiting. OBJECTIVE: GENERAL: The patient has been alert, oriented to person. The patient in no distress. VITAL SIGNS: Blood pressure 130/83, respiratory rate: 32, pulse 80, temp 98.1. O2 sat: 100%. HEENT: Head is normocephalic, atraumatic. NECK: Supple. No JVD. LUNGS: Clear to auscultation. HEART: Regular rate and rhythm. ABDOMEN: Soft, nontender. EXTREMITIES: No edema. NEURO: Alert and oriented x3, weakness on the left leg. LABORATORY DATA: 04/22/2020 WBC: 15.27 10*3/uL RBC: 2.83 10*3/uL Hemoglobin: 8.1 g/dL Hematocrit: 27.2 % MCV: 96.1 fL MCH: 28.6 pg MCHC: 29.8 g/dL RDW: 19.6 Platelet count: 117 10*3/uL Absolute neutrophils: 13.5 10*3/uL Absolute lymphocytes: 0.6 10*3/uL Absolute monocytes: 1.0 10*3/uL Absolute eosinophils: 0.0 10*3/uL Basophils#auto: 0.12 10*3/uL Platelet estimate: Slightly decreased Platelet morphology comment: Normal Hypochromasia: Slight Anisocytosis: Slight RBC morphology comment: Normal Sodium: 141 mmol/L Potassium 5.1 mmol/L Chloride: 114 mmol/L Enzymatic CO: 19 mmol/L Anion gap: 13.1 Blood urea nitrogen: 72 mg/dL Creatinine: 0.74 mg/dL Estimated GFR: >60 BUN/creatinine ratio: 97 Glucose: 115 mg/dL Calcium: 7.3 mg/dL Magnesium: 2.6 Total bilirubin: 0.6 AST: 16 ALT: 7 Alkaline phosphatase: 127 Total protein: 4.5 Albumin: 2.7 Globulin: 1.8 Albumin/globulin ratio: 1.5 Chest x-ray on 04/22/2020 Bilateral pleural effusions and posterior space opacities suggestive of atelectasis. Small foci of pneumonia cannot be excluded. ASSESSMENT: 1. Retroperitoneal mass suggestive of sarcoma. 2. Status post laparotomy and resection of retroperitoneal tumor with repair of left iliac artery, repair of left kidney. 3. Suspecting plexopathy 4. Sepsis 5. Hypotension episode-resolved 6. Ischemic leg due to retroperitoneal tumor status post repair/endarterectomy. 7. Acute kidney failure, status post obstructive uropathy and did have acute tubular necrosis and has resolved. 8. Hypertension. 9. Status post postoperative respiratory insufficiency. 10. Anemia, multifactorial. 11. Urinary tract infection. 12. Hypoglycemia. 13. History of anorexia. 14. Protein calorie malnutrition, severe. 04/16/2020 Supportive care IV fluids Continue IV antibiotics Antiemetics PRN Fall precaution Blood pressure control closely 04/17/2020 The patient was bolused for hypotension episode. We recommend to continue current management. The patient has been transferred to ICU for hypotension. 04/19/2020 1. Continue supportive care. 2. Continue antibiotics. 3. Continue IV fluids as advised. 4. ID is following the patient. 5. Possible intra-abdominal process. As far as malignancy is concerned the patient is being followed by Hematology/Oncology, awaiting pathology report. 04/20/2020 Continue present care as advised. List of medications noted. Re-evaluation noted as far as Cardiology evaluation. Neurology following the patient as well. 04/21/2020 Continue supportive care. The patient is being followed by multiple specialists. ID is following the patient. The patient is status post sepsis. The patient is DNR. Hospice will continue. The patient on TPN. BUN is elevated. Continue albumin and Lasix. 04/22/2020 Continue present care as advised. The patient reports generalized weakness. Unfortunately, the patient is not a candidate for chemotherapy and will continue hospice care. Considering to transfer thr patient to floor. Follow NJ output closely as advised per Dr. Gloria. Plan of care: Supportive care Nutritional support TPN IV antibiotics-Meropenem Antiemetics PRN Fall precaution PT/OT Blood pressure control closely Cardiology following Critical care following Nephrology follow-up Pending Pathology report. Plan has been discussed with nursing staff and patient. MD ALPHONSE Sommers/GLENN /[id number] MALLIKA
[2020-04-23] MEDS: MEROPENEM 500MG/ NS 50ML 50 ML IV SCH ×4 (04:00→20:53)
--- NOTE | 2020-04-23 04:43 | NUR ---
Received patient to the floor via stretcher. Patient in bed with no noted distress or discomfort. Addendum: 04/23/20 at 0448 by Chasidy Laughlin RN Patient received from ICU at 2115pm 04-22-20
--- NOTE | 2020-04-23 05:04 | NUR ---
Patient have periods of confusion where he wants to get out off bed and pulling clothes off. Orientated patient.
--- NOTE | 2020-04-23 07:00 | NUR ---
RECEIVED PATIENT RESTING IN BED NO S/S OF DISTRESS. BED LOW, WHEELS LOCKED, SIDE RAILS X2. CALL LIGHT IN REACH WILL CONTINUE TO MONITOR PATIENT.
[2020-04-23] MEDS: NYSTATIN 15 GM POWDER UD BTL TOP SCH ×2 (08:58→16:08)
[2020-04-23] MEDS: MIDODRINE HCL 5 MG TABLET PO SCH ×3 (08:58→17:27)
[2020-04-23] MEDS ORDERED: SODIUM CHLORIDE 0.9% 250ML 250 ML ONE (09:20)
--- NOTE | 2020-04-23 10:08 | Progress Note ---
DATE: SUBJECTIVE: The patient is seen and evaluated. Available labs and notes reviewed. Discussed with the nurse. Discussed with Case Management. Discussed with Dr. Sanders. REVIEW OF SYSTEMS: The patient is comfortable in bed. States that he is flatulent and has bowel movement, pain seems to be controlled, poor appetite. No nausea or vomiting. No fever or chills. OBJECTIVE: GENERAL: Comfortable in bed, seems to be alert and oriented, no acute distress. CV: S1 and S2. CHEST: Equal expansion. Clear to auscultation. No acute distress. ABDOMEN: Distended. [place] in place. No acute finding. NJ noted with light yellow serous fluid drainage. Abdomen is distended with some discomfort and not tender. HEENT: Moist. No pallor. No JVD. Extremities: With 2+ edema of lower extremities. MEDICATIONS: Medication list reviewed from Infectious Disease point of view. Patient is on meropenem. LABORATORY STUDIES: White count of 15.27. No new labs from today with a hemoglobin 8.1, platelet 117. Sodium 141, potassium 5.1, creatinine 0.74. MICROBIOLOGY: No new microbiology available. Urine culture from 04/21/2020 was negative so far. Blood culture 04/16/2020 is negative. RADIOLOGY STUDIES: Chest x-ray from 04/22/2020 showed bilateral pleural effusion, posterior space opacity suggestive of atelectasis, small foci of pneumonia cannot be excluded. PATHOLOGY: No new pathology available. ASSESSMENT AND PLAN: 1. A 64-year-old gentleman with sarcoma. The patient is status post retroperitoneal tumor and left iliac artery repair with stent placement and excision of huge left retroperitoneal tumor with concerns of peritonitis. The patient is currently on meropenem, peritonitis resolved, surgical abdominal wound. 2. Leukocytosis. 3. Pulmonary edema. 4. Pulmonary opacity. The patient on TPN. Family is meeting with hospice today and the plan is to go home with hospice. Discussed with Dr. Sanders in details. Please refer to chart for more information. Dictated by Dickson Ontiveros PA-C (Al) Marielle Sanders MD /MODL /[id number]
--- NOTE | 2020-04-23 10:23 | Progress Note ---
DATE: SUBJECTIVE: The patient is seen and examined today. The patient has no complaint. The patient decided to go for the hospice care. PHYSICAL EXAMINATION: GENERAL: Alert, awake, communicative. HEENT: Normocephalic, atraumatic. Sclerae pale, conjunctiva clear. NECK: Supple. CHEST: Decreased breath sounds on the bases. ABDOMEN: Soft, but tender. EXTREMITIES: No edema. LABS AND IMAGING: Reviewed. ASSESSMENT AND PLAN: The patient with history of sarcoma, peripheral vascular disease, anemia, acute kidney injury, resolved. The patient condition was progressively worsening. The patient is not a good candidate for any aggressive management. The patient and family decided to go to the hospice care. At this point, I will sign off from this case. The patient will be followed with the hospice care. I can be reconsulted if needed. MD KRISTOFER Aly/GLENN /[id number]
--- NOTE | 2020-04-23 12:15 | NUR ---
RECEIVED CONSENT FROM PATIENTS DAUGHTER [employer] [employer] FOR THORACENTESIS.
--- NOTE | 2020-04-23 12:43 | Diagnostic Imaging Report ---
EXAM: US CHEST (INCL MEDIASTINUM) DATE: 04/23/2020 11:51 AM INDICATION: Pleural effusion COMPARISON: Chest radiograph from 05/19/2020 FINDINGS: Limited sonographic evaluation was obtained a posterior chest wall bilaterally. There are small bilateral pleural effusions present. IMPRESSION: Small bilateral pleural effusions. Signed by: Dr. Anthony Titus MD on 04/23/2020 12:40 PM
--- NOTE | 2020-04-23 12:50 | NUR ---
PULMONARY/CCM DATE: 04/23/2020 SUBJECTIVE: As of now the patient has not consented for hospice, he says. he is more dyspneic today BP low normal, limiting diuretics eating little REVIEW OF SYSTEMS: no rash, no icterus. PHYSICAL EXAMINATION: VITAL SIGNS: Vital signs noted and reviewed per the chart record. GENERAL: no acute distress, calm HEENT: Normocephalic and atraumatic. NECK: Supple. Throat midline. LUNGS: Bilateral air entry, clear CARDIOVASCULAR: S1 and S2. No murmurs, rubs, or gallops. ABDOMEN: Soft , post surgical. not grossly tender EXTREMITIES: No clubbing, no cyanosis, 1-2+ edema. INTEGUMENT: No rash or purpura. LABORATORY DATA: k 5.1, bun 72, cr .74. wbc 15, hct 27, plt 117 IMPRESSION AND PLAN: 1. 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 --rapidly recurring 2. ischemic leg due to kinked artery repair and endovascular tumor, s/p repair & endarterectomy 3. Acute kidney failure, obstructive s/p surgery, ATN likely. risk still 4. Pandemic status with coronavirus-19, patient result: negative 5. Hyponatremia. resolved 6. Hypertension. 7. post operative respiratory insufficiency, extubated 8. anemia, multifactorial. 9. post operative fluid overload Continue supportive care HD line remove PRN. Continue left IJ in place. diet encourage. Also on TPN Diuretics as BP allows supportive care, antiemetics prn Follow UOP, follow NJ output. Replete intravascular volume as needed. Supportive care mobilize, PT follow up pathology--- pending for possible sarcoma repeat CXR intermittently, follow fluid status empiric abx for possible sepsis family and patient to consider hospice. Check chest US and thoracentesis likely due to dyspnea Thank you very much, Dr. Hernan Ordaz and Dr Atkins. Please call for any questions.
--- NOTE | 2020-04-23 15:33 | NUR ---
500 cc drained from left thoracentesis.
--- NOTE | 2020-04-23 15:47 | Diagnostic Imaging Report ---
Ultrasound guided thoracentesis History: Left pleural effusion Technique: Written informed consent was obtained after discussing risks, benefits, and alternatives of the procedure with the patient. Patient was brought to the ultrasound suite and placed on the table in upright position. Pre-procedural ultrasound demonstrates a left pleural effusion. Suitable percutaneous access site was chosen in the posterior left chest. Overlying skin was prepared and draped in the usual sterile fashion. Planned needle tract was anesthetized with dilute Lidocaine for local anesthesia. Using sonographic guidance, an 5 [place] Yueh needle was advanced into the left pleural effusion. 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 Needle was removed, and catheter was advanced. Subsequently, 500 cc of clear yellow fluid was evacuated. Catheter was removed. Hemostasis achieved at puncture site by direct compression. The patient tolerated the procedure well. There were no complications. Post procedure chest radiograph was ordered. Impression: Technically successful sonographic guided left thoracentesis with evacuation of 500 cc of serous fluid. Signed by: Dr. Anthony Titus MD on 04/23/2020 3:43 PM
--- NOTE | 2020-04-23 15:57 | Diagnostic Imaging Report ---
EXAM: CHEST SINGLE (PORTABLE) DATE: 04/23/2020 3:30 PM INDICATION: Status post left thoracentesis COMPARISON: 04/22/2020 FINDINGS: There is been near complete resolution of left-sided pleural fluid with improved aeration of the left lung base. There is no evidence for pneumothorax status post thoracentesis. Stable small right pleural effusion and right basilar opacities again identified suggestive of atelectasis. There is no evidence for new large focal consolidation. Right IJ nontunneled dialysis catheter and left IJ nontunneled central venous identified in stable position. The cardiac mediastinal silhouette is stable in appearance. No acute osseous abnormalities identified. IMPRESSION: No evidence for pneumothorax status post left thoracentesis. Signed by: Dr. Anthony Titus MD on 04/23/2020 3:54 PM
--- NOTE | 2020-04-23 16:06 | NUR ---
SPOKE WITH HOSPICE COMPANY INSURANCE WANTS A PEER TO PEER, GAVE DR PHONE NUMBER AND NOTIFIED MD OF THE WANT FOR PEER TO PEER.
[2020-04-23] MEDS: CENTRAL TPN FORMULA 1 BAG IV SCH (20:55)
[2020-04-23] MEDS: HYDROCODONE/APAP 10MG-325MG TAB PO PRN (21:39)
[2020-04-24 00:52] VITALS: BP 92/68
[2020-04-24] MEDS: MEROPENEM 500MG/ NS 50ML 50 ML IV SCH ×2 (03:00→09:00)
[2020-04-24 04:51] VITALS: BP 90/25
[2020-04-24 06:01] LABS: INR 1.06; PROTHROMBIN TIME 14.5 seconds (11.9-14.5)
[2020-04-24 06:03] LABS: PARTIAL THROMBOPLASTIN TIME 44.8 seconds (23.8-35.5)
[2020-04-24 06:09] LABS: ALANINE AMINOTRANSFERASE 8 IU/L (0-55); ALBUMIN 1.7 g/dL (3.5-5.0); ALBUMIN/GLOBULIN RATIO 0.7 (0.8-2.0); ALKALINE PHOSPHATASE 162 IU/L (40-150); ANION GAP 13.5 mmol/L (8-16); BLOOD UREA NITROGEN 101 mg/dL (7-26); BUN/CREATININE RATIO 113 (6-25); CARBON DIOXIDE 20 mmol/L (22-29); CHLORIDE 111 mmol/L (98-107); CREATININE, SERUM 0.89 mg/dL (0.72-1.25); EST GLOMERULAR FILTRATION RATE > 60 ML/MIN (60-); GLUCOSE 106 mg/dL (74-118); LACTATE DEHYDROGENASE 262 IU/L (125-220); POTASSIUM 5.5 mmol/L (3.5-5.1); SODIUM 139 mmol/L (136-145)
--- NOTE | 2020-04-24 06:48 | NUR ---
PATIENT IS RESTING COMFORTABLY IN THE BED. BED IS IN LOWEST POSITION AND CALL BAGLEY IS WITHIN REACH
[2020-04-24 08:03] VITALS: BP 95/75
--- NOTE | 2020-04-24 08:05 | NUR ---
stable still hypptensive 97.5 98/68 97 patient arousable, but lethargic calm, eomi perrl face symmetric rrr cta- mild crackles abd soft but tender strength bue 4+/5 strength in rle 3/5 lle 3/ 5 with foot drop. no ataxia in arms a/p patient critically ill and hypotensive at this time, manamgennt of underlying cancer and hemodynamic instability as per ICU and primary team he is stable neurologically lower extremity weakness, lumbar plexopathy from local metastatic spread vs lumbar stenosis which i feel is less likely. possibly a component of critical illnes neuropathy as well aptient likely going to hospice care will monitor as needed
--- NOTE | 2020-04-24 08:45 | NUR ---
SPOKE WITH [facility], MADE AWARE OF LABS, ORDERS NOTED
[2020-04-24] MEDS ORDERED: NYSTATIN 15 GM POWDER UD BTL TOP SCH (09:00)
[2020-04-24] MEDS: MIDODRINE HCL 5 MG TABLET PO SCH ×2 (09:00→13:00)
[2020-04-24] MEDS ORDERED: DEXTROSE 50% SYRINGE 50 ML IV ONE (09:50)
[2020-04-24] MEDS ORDERED: INSULIN REGULAR, HUMAN 100 UNIT/1 ML 3ML VIAL SQ ONE (09:50)
--- NOTE | 2020-04-24 10:04 | Progress Note ---
DATE: SUBJECTIVE: The patient is seen and evaluated. Available labs and notes reviewed. Family is in the room. No obvious acute finding. REVIEW OF SYSTEMS: States that he is comfortable. No new complaints. No nausea, vomiting, fever, chills, chest pain, shortness of breath. The patient has a poor appetite and pain seems to be controlled at this point. PHYSICAL EXAMINATION: VITAL SIGNS: Temperature is 97.5, pulse 64, respiration 16, blood pressure 95/75. Temperature reviewed, remains afebrile. GENERAL: Alert and oriented, in no acute distress. Comfortable in bed. CV: S1-S2. CHEST: Equal expansion. Decreased breath sounds. No acute distress. ABDOMEN: Soft. Wound on local care, remains with NJ drain with clear yellow serous fluid. HEENT: Moist. No pallor. No JVD. EXTREMITIES: Weak. MEDICATIONS: As far as Infectious Disease point of view, the patient is on meropenem. LABORATORY STUDIES: White count of 15.27 from 04/22/2020. No new CBC available. Sodium 139, potassium 5.5, creatinine 0.89, although BMP is from today. Toxicology; No new report. Serology; no new report. MICROBIOLOGY: Urine culture on 04/21/2020, negative 48 hours. Blood culture on 04/16/2020, negative. RADIOLOGY STUDIES: The patient is status post ultrasound-guided thoracentesis 500 mL of clear yellow fluid. Chest x-ray also from yesterday showed no evidence for pneumothorax status post left thoracentesis. ASSESSMENT AND PLAN: 1. A 64-year-old gentleman with sarcoma, status post excision of a huge left retroperitoneal tumor. 2. Status post repair of left iliac artery with stent placement. 3. Peritonitis resolved. 4. Leukocytosis. 5. Pleural effusion status post thoracentesis. 6. Pulmonary edema. 7. Pulmonary opacity. 8. Poor appetite. 9. Debility. 10. Apparently hospice evaluation was not done yesterday. It is scheduled for today. The patient remains on meropenem. Clinically, no acute distress, remains afebrile. Electrolyte abnormalities per other. Continue to monitor the patient. Clinically, follow up with the labs. Please refer to chart for more information. Discussed with Dr. Sanders in details. Dictated by Dickson Ontiveros PA-C (Al) MD LEONIDES Mcpherson/GLENN /[id number]
[2020-04-24] MEDS: HYDROCODONE/APAP 10MG-325MG TAB PO PRN (10:10)
--- NOTE | 2020-04-24 10:11 | NUR ---
CALLED [facility] AND GOT DOCTORS CHRISTIANO AND NAOMI TOWNSEND FROM [facility] ON PHONE TOGETHER AND THEY ABOUT DIAGNOSIS AND DR NAOMI TOWNSEND STATES HOSPICE IS APPROVED AND WILL PUT IN COMPUTER. SHOULD BE ABLE TO GET DISCHARGED TODAY!
[2020-04-24 10:27] VITALS: BP 100/67
--- NOTE | 2020-04-24 11:23 | NUR ---
PULMONARY/CCM DATE: 04/24/2020 SUBJECTIVE: ate small amounts tpn 75/hr prater in place agreed for hospice thoracentesis 500 cc out REVIEW OF SYSTEMS: no rash, no icterus. PHYSICAL EXAMINATION: VITAL SIGNS: Vital signs noted and reviewed per the chart record. GENERAL: no acute distress, calm HEENT: Normocephalic and atraumatic. NECK: Supple. Throat midline. LUNGS: Bilateral air entry, clear CARDIOVASCULAR: S1 and S2. No murmurs, rubs, or gallops. ABDOMEN: Soft , post surgical. not grossly tender EXTREMITIES: No clubbing, no cyanosis, 1-2+ edema. INTEGUMENT: No rash or purpura. LABORATORY DATA: k 5.5. cr 0.89, wbc 15. plt 117 IMPRESSION AND PLAN: 1. 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 --rapidly recurring 2. ischemic leg due to kinked artery repair and endovascular tumor, s/p repair & endarterectomy 3. Acute kidney failure, obstructive s/p surgery, ATN likely. risk still 4. Pandemic status with coronavirus-19, patient result: negative 5. Hyponatremia. resolved 6. Hypertension. 7. post operative respiratory insufficiency, extubated 8. anemia, multifactorial. 9. post operative fluid overload Continue supportive care diet encourage. On TPN Diuretics as BP allows supportive care, antiemetics prn Follow UOP, follow [place] output. Replete intravascular volume as needed. Supportive care mobilize, PT follow up pathology--- pending for possible sarcoma repeat CXR intermittently, follow fluid status empiric abx for possible sepsis family and patient agreed to hospice. Arrangements under way. Too ill Thank you very much, Dr. Hernan Ordaz and Dr Atkins. Please call for any questions.
[2020-04-24 11:35] VITALS: BP 81/64
[2020-04-24] MEDS ORDERED: SOD POLYSTYRENE SULFONATE SUSP 15 GM/60 ML BTL PO ONE (12:00)
--- NOTE | 2020-04-24 12:02 | NUR ---
NO BRONCHOSCOPY DONE, CANCEL LAST NOTE
--- NOTE | 2020-04-24 12:02 | NUR ---
Bronchoscopy [id number] dictated
--- NOTE | 2020-04-24 12:32 | NUR ---
SPOKE WITH HOSPICE, THEY GOT APPROVAL, THEY ARE GOING TO DELIVER THE EQUIPMENT TO [address] [place] [address], [id number], I CALLED AND VERIFIED WITH DAUGHTER LOCATION PT IS GOING TO. SHE STATES SHE GETS OFF WORK AT 3PM AND COME MOTORBOAT MECHANIC INBOARD/OUTBOARD HER MOTHER THEN AND HER BROTHER IS AT HOME TO RECEIVE THE EQUIPMENT. WILL SET UP TRANSPORT WHEN GET CONFIRMATION OF DELIVERY OF EQUIPMENT. HOPING IT SHOULD BE BEFORE 330, AND RELAYED ALL INFORMATION WITH DAUGHTER FOREST
--- NOTE | 2020-04-24 13:00 | NUR ---
MD LIU INTO SEE PT, DISCUSSED POC
--- NOTE | 2020-04-24 14:02 | NUR ---
TELEPHONED MD ALVARADO FOR CLARIFICATION OF ORDERS, AWAITING CALL BACK
[2020-04-24 15:00] VITALS: BP 101/59
--- NOTE | 2020-04-24 16:15 | NUR ---
JOSE REMOVED PER ORDER
--- NOTE | 2020-04-24 16:30 | NUR ---
PER MD ORDER, PT RIGHT TRIALYSIS AND LEFT IJ REMOVED BY HOUSE, PRESSURE HELD, NO ACTIVE BLEEDING NOTED, PT TOLERATED WELL, EMS HERE TO TRANSFER PT TO HOME WITH HOSPICE, FAMILY AT SIDE, NO CHANGE IN CONDITION
--- NOTE | 2020-04-24 23:06 | Progress Note ---
DATE: 04/24/2020 Nephrology Progress Note SUBJECTIVE: The patient was in the process of being transferred to a hospice service. The patient has been doing extremely dismal. He continued to decompensate. His blood pressures are beginning to become very low. PHYSICAL EXAMINATION: VITAL SIGNS: Temperature is 97.5, pulse 84, respiratory rate 16, blood pressure was 81/64, and pulse ox was 100% on 2 L nasal cannula. GENERAL: He is very lethargic. On examination, very weak. PULMONARY: Clear to auscultation bilaterally. No wheezing, no rales, no rhonchi, no crackles appreciated. CARDIOVASCULAR: Positive S1 and S2. No murmurs, rubs, or gallops appreciated. ABDOMEN: Soft, nondistended, and nontender to palpation. Bowel sounds present. MUSCULOSKELETAL: Unable to assess. NEUROLOGIC: Unable to assess. EXTREMITIES: Significant edema. LABORATORY DATA: Show white count 15.2, hemoglobin 8.1, hematocrit is 27, and platelets of 117. Chemistry; sodium 139, potassium 5.5, chloride 111, bicarb 20, anion gap of 13, BUN is 101, creatinine is 0.89, calcium is 7, and magnesium 2.6. MICROBIOLOGY: All cultures are negative. 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 IMPRESSION: 1. Acute kidney injury-resolved. 2. Moderate protein-calorie malnutrition. 3. Liposarcoma, very poor prognosis. 4. Sepsis with underlying hypotension. 5. Hyperkalemia. PLAN: The patient is being transferred and discharged to hospice services. The patient has a very poor prognosis. MD MICHELLE Fierro/MODL /[id number]
--- NOTE | 2020-04-27 11:49 | Progress Note ---
DATE: 04/23/2020 Nephrology Progress Note SUBJECTIVE: The patient was seen approximately this afternoon around 1:15 in the afternoon. The patient looks very sick and ill. He says he has agreed to hospice services. From a renal standpoint, we will continue for TPN until he is finally accepted. PHYSICAL EXAMINATION: VITAL SIGNS: Temperature is 97.5, pulse is 67, respiratory rate is 18, blood pressure 94/64, pulse ox 97% on 2 L nasal cannula. GENERAL: He is alert, but very lethargic. CARDIOVASCULAR: Positive S1 and S2. No murmurs, rubs, or gallops appreciated. ABDOMEN: Soft, nondistended, and nontender to palpation. Bowel sounds present. PULMONARY: Clear to auscultation. Bilateral wheezing, rales, or rhonchi. MUSCULOSKELETAL: Unable to assess. He is very weak and lethargic. SKIN: Intact warm to touch. Good cap refill. PSYCHIATRIC: Normal affect and mood. EXTREMITIES: No edema. Good range of motion throughout. LABORATORY DATA: Labs show white count 15.2, hemoglobin 8.1, hematocrit 27, and platelets of 117. Chemistries reviewed, stable. IMPRESSION: 1. Acute kidney injury-resolved. 2. Moderate protein calorie nutrition. 3. Underlying malignancy with metastatic disease with liposarcoma. 4. Pulmonary edema, status post thoracentesis. 5. Sepsis with underlying hypotension. 6. Metabolic acidosis. 7. Leukocytosis. PLAN: At this time from a renal standpoint, continue with IV TPN. It seems that the patient has agreed to hospice services. We will continue to follow closely. MD MICHELLE Fierro/NICKL /[id number]
== END 2020-04-24 16:00 | disposition hospice, home (50) | DRG 853 ==
LOC: ER 17:11 → ERHOLD 20:02 → MED/SURG3 04-01 00:05 → ICU 04-03 16:41 → MED/SURG 04-06 20:26 → ICU 04-16 14:04 → MED/SURG 04-22 22:14
PROVIDERS: ADMIT Internal Medicine; ATTEND Internal Medicine
PROC: 0W9B3ZZ Drainage of Left Pleural Cavity, Percutaneous Approach (ICD-10-PCS; 2020-04-02)
PROC: 0T768ZZ Dilation of Right Ureter, Via Natural or Artificial Opening Endoscopic (ICD-10-PCS; 2020-04-03)
PROC: 04QF0ZZ Repair Left Internal Iliac Artery, Open Approach (ICD-10-PCS; 2020-04-03)
PROC: 0WBH0ZZ Excision of Retroperitoneum, Open Approach (ICD-10-PCS; 2020-04-03)
PROC: BT141ZZ Fluoroscopy of Kidneys, Ureters and Bladder using Low Osmolar Contrast (ICD-10-PCS; 2020-04-03)
PROC: 30233N1 Transfusion of Nonautologous Red Blood Cells into Peripheral Vein, Percutaneous Approach (ICD-10-PCS; 2020-04-03)
PROC: 30233N1 Transfusion of Nonautologous Red Blood Cells into Peripheral Vein, Percutaneous Approach (ICD-10-PCS; 2020-04-03)
PROC: 0TQ Urinary System, Repair (ICD-10-PCS; principal; 2020-04-03 12:43)
PROC: 0T778DZ Dilation of Left Ureter with Intraluminal Device, Via Natural or Artificial Opening Endoscopic (ICD-10-PCS; 2020-04-03 12:43)
PROC: 04QF0ZZ Repair Left Internal Iliac Artery, Open Approach (ICD-10-PCS; 2020-04-04)
PROC: 04CL3ZZ Extirpation of Matter from Left Femoral Artery, Percutaneous Approach (ICD-10-PCS; 2020-04-04)
PROC: 04CF3ZZ Extirpation of Matter from Left Internal Iliac Artery, Percutaneous Approach (ICD-10-PCS; 2020-04-04)
PROC: 04B Lower Arteries, Excision (ICD-10-PCS; 2020-04-04)
PROC: 02HV33Z Insertion of Infusion Device into Superior Vena Cava, Percutaneous Approach (ICD-10-PCS; 2020-04-04)
DX: A41.9 Sepsis, unspecified organism (principal); N17.0 Acute kidney failure with tubular necrosis; K65.9 Peritonitis, unspecified; E43 Unspecified severe protein-calorie malnutrition; J95.821 Acute postprocedural respiratory failure; E44.1 Mild protein-calorie malnutrition; C48.0 Malignant neoplasm of retroperitoneum; N17.9 Acute kidney failure, unspecified; D68.9 Coagulation defect, unspecified; N39.0 Urinary tract infection, site not specified; E87.2 Acidosis; E83.51 Hypocalcemia; Z66 Do not resuscitate; N40.0 Benign prostatic hyperplasia without lower urinary tract symptoms; D64.9 Anemia, unspecified; I12.9 Hypertensive chronic kidney disease with stage 1 through stage 4 chronic kidney disease, or unspecified chronic kidney disease; N18.9 Chronic kidney disease, unspecified; E87.5 Hyperkalemia; I73.9 Peripheral vascular disease, unspecified; E16.2 Hypoglycemia, unspecified; R06.89 Other abnormalities of breathing; R06.03 Acute respiratory distress; Z68.30 Body mass index [BMI] 30.0-30.9, adult; N13.5 Crossing vessel and stricture of ureter without hydronephrosis
CPT/HCPCS: 32555; 36415; 36556; 36600; 70450; 71045; 72148; 74018; 74177; 74420; 74470; 76604; 76770; 76937; 80048; 80053; 80202; 81001; 81015; 82044; 82436; 82550; 82553; 82565; 82570; 82575; 82607; 82728; 82805; 82948; 83540; 83605; 83615; 83690; 83735; 83874; 84100; 84132; 84145; 84156; 84300; 84466; 84484; 84550; 85007; 85014; 85018; 85025; 85027; 85610; 85651; 85730; 86850; 86900; 86920; 87040; 87086; 87635; 88304; 88305; 88307; 88309; 88331; 88342; 93005; 93925; 93926; 93970; 93971; 94002; 96360; 96361; 96367; 96372; 96376; 97139; 99251; 99284; C1758; C2617; J0610; J1100; J1644; J1650; J1817; J1940; J2001; J2185; J2250; J2270; J2405; J2543; J2720; J3010; J3370; J7030; J7040; J7042; J7050; J7070; J7121; J7799; P9016; P9045; P9047; Q9967